=== PATIENT | female | born 1950 | race Caucasian/White ===

== ENCOUNTER 2023-12-17 02:00 | Emergency (ER) | payer MEDICARE, BC, SELFPAY ==
--- OUTSIDE RECORDS SUMMARY | 2023-12-17 02:04 | XMS_ITS | Clinical Summary ---
Author Organization [place] Address [address] [facility] [place] [address] Care Team Providers Care Boot And Saddle Repair Person Name Role Phone Josie Lainez Primary Care Provider Melissa Romero PA-C Unavailable [phone] John Doshi DPM Unavailable Allergies Active Allergy Reactions Criticality Noted Date Comments Dust Mites 06/24/2022 Medications buPROPion (WELLBUTRIN XL) 300 MG 24 hr tablet Take 1 tablet by mouth daily 2 Active clopidogrel (PLAVIX) 75 MG tablet Take 1 tablet by mouth daily 2 Active hydroxyurea (HYDREA) 500 MG capsule Take 500 mg by mouth four times a week Tuesday, , Tuesday and Tuesday 3 Active sertraline (ZOLOFT) 100 MG tablet Take 2 tablets by mouth daily 2 Active simvastatin (ZOCOR) 20 MG tablet Take 20 mg by mouth At Bedtime 2 Active zolpidem (AMBIEN) 5 MG tablet Take 5 mg by mouth nightly as needed for sleep 2 Active fexofenadine (SAMANTHA) 180 MG tablet Take 180 mg by mouth daily Active acetaminophen (TYLENOL) 500 MG tablet Take 500-1,000 mg by mouth every 6 hours as needed for mild pain Active hydroxyurea (HYDREA) 500 MG capsule Take 1,000 mg by mouth three times a week Tuesday, Tuesday and Tuesday Active gabapentin (NEURONTIN) 300 MG capsule Take by mouth 3 times daily Take 2 capsules (600mg) in the morning, 2 capsules (600mg) in the afternoon, and take 3 capsules (900mg) at night. Active lisinopril-hydr ochlorothiazide (ZESTORETIC) 10-12.5 MG tablet Take 1 tablet by mouth daily Active Active Problems Problem Noted Date Diagnosed Date AV heart block 07/31/2022 Lumbar radiculopathy 07/30/2022 Fusion of spine, site unspecified 07/22/2022 Encounters Date Type Department Care Team Description 11/11/2023 MyC Medical Advice [facility] [address] [place] [address] May from Last 3 Months Social History Tobacco Use Types Packs/Day Years Used Date Smoking Tobacco: Never Smokeless Tobacco: Never Tobacco Cessation:Counseling Given: Not Answered Alcohol Use Standard Drinks/Week Comments Yes 0 (1 standard drink = 0.6 oz pur e alcohol) rarely PHQ-2 Answer Date Recorded PHQ-2 Score 0 11/09/2022 Adolescent Education Answer Date Record ed Getting School Help Needed Not on file 11/09 Comments No Sex and Gender Information Value Date Recorded Sex Assigned at Not on file Legal Sex Female 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 Gender Identity Not on file Sexual Orientation Not on file Last Filed Vital Signs Vital Sign Reading Time Taken Comments Blood Pressure 132/70 08/04/2023 10:38 AM CDT Pulse 67 11/09/2022 9:55 AM CDT Temperature 36.8 ??C (98.3 ??F) 08/03/2022 4:00 AM CD T Respiratory Rate 18 08/03/2022 4:00 AM CDT Oxygen Saturation 97% 11/09/2022 9:55 AM CDT Inhaled Oxygen Concentration - - Weight 80.7 kg (178 lb) 08/04/2023 10:38 AM CDT Height 175.3 cm (5' 9) 08/04/2023 10:38 AM CDT Body Mass Index 26.29 08/04/2023 10:38 AM CDT Plan of Treatment Upcoming Encounters Date Type Department Care Team (Late st Contact Info) Description 02/14/2024 1:00 PM TOOL AND MACHINE MAINTAINER Ancillary Procedure M [facility] [address] [place] [phone] Zak Samson MD [address] [place] [place] [id number] 02/14/2024 2:00 PM TOOL AND MACHINE MAINTAINER Office Visit M [facility] [place] [address] [place] [phone] Melissa Romero PA-C [address] [place] [address] Health Maintenance Due Date Last Done Comments ADVANCE CARE PLANNING 1950 ANNUAL REVIEW OF HM ORDERS [address] CT COLONOGRAPHY 1950 FLEX SIG 1950 sDNA (Cologuard) 1950 COLONOSCOPY 1960 HEPATITIS C SCREENING 1968 RSV VACCINE (1 - Risk 60-74 years 1-dose series) 2010 FALL RISK ASSESSMENT 05/08/2015 LIPID 11/08/2015 11/07/2010 COVID-19 Vaccine (3 - Pfizer risk series) 06/16/2020 05/19/2020, 04/28/2020 MEDICARE ANNUAL WELLNESS VISIT 11/10/2022 11/10/2021, 10/07/2020, 09/05/2019, Additional history exists PHQ-2 (once per calendar year) 2023 11/09/2022 BMP 08/04/2023 08/03/2022, 07/15, 08/01/2022, Additional history exists COLORECTAL CANCER SCREENING 09/21/2023 FIT 09/21/2023 09/20/2022 INFLUENZA VACCINE (#1) 2023 , 11/17/2022, 11/16/2021, Additional history exists MAMMO SCREENING 11/30/2024 11/30/2022, 11/14, 11/25/2021, Additional history exists GLUCOSE 08/03/2025 08/03/2022, 07/15, 08/02/2022, Additional history exists DTAP/TDAP/TD IMMUNIZATION (3 - Td or Tdap) 11/11/2031 11/10/2021, 10/12/2011, 11/26/2003, Additional history exists DEXA 09/11/2034 09/12/2019 Pneumococcal Vaccine: 65+ Years Completed 01/26/2017, 01/20/2016 ZOSTER IMMUNIZATION Completed 09/18/2021, 05/02/2021, 04/25/2014 HPV IMMUNIZATION Aged Out No longer e ligible based on patient's age to complete this topic MENINGITIS IMMUNIZATION Aged Out No l onger eligible based on patient's age to complete this topic RSV MONOCLONAL ANTIBODY Aged Out No l onger eligible based on patient's age to complete this topic Medical Devices Implanted Type Area Cable Testers Helper Device Identifier Shelf Expiration Date Model / Serial / Lot Imp Lead Pacing Bipolar Capsurefix Novus 52cm 5076-52 - [id number] Implanted:Qt y: 1 on 08/02/2022 at [facility] [employer]s [employer] 05/12/2024 5076-52 / [id number] / [id number] Imp Lead Pacing Bipolar Capsurefix Novus 45cm 5076-45 - [id number] Implanted:Qt y: 1 on 08/02/2022 at [facility] [employer] 05/17/2024 5076-45 / [id number] / [id number] Medtronic I* 5076 Capsurefix Novus Mri Surescan [id number] Implanted: (Quantity not on file) Leads [employer] 5076 CAPSUREFIX NOVUS MRI SURESCAN / [id number] / Kane Spinal Pathloc-L Curve [id number] 0181-06287 - [id number] Implanted:Qt y: 1 on 07/22/2022 by Yudelka Girard MD at [facility] Metallic Hardware/An chor Spine Lumbar [employer] SP[employer] 01/05/2027 [id number] / / [id number] Screw Bone Pathloc-L Closed 2 Thrd 038c80n4.5mm 4939-7748 - [id number] Implanted:Qt y: 1 on 07/22/2022 by Yudelka Girard MD at [facility] Metallic Hardware/An chor Spine Lumbar [employer]GIS SPINE 01/29/20252-6550S / / [id number] Screw Bone Pathloc-L Closed 2 Thrd 408h20h0.5mm 1322-1342 - [id number] Implanted:Qt y: 3 on 07/22/2022 by Yudelka Girard MD at [facility] Metallic Hardware/An chor Spine Lumbar [employer] SPINE 09/26/2023 2712-6550S / / [id number] Screw Bn 50mm 7.5mm St Cls 2 Thrd 127mm Ns Pathloc-L Spne Lf - [id number] Implanted:Qt y: 2 on 07/22/2022 by Yudelka Girard MD at [facility] Metallic Hardware/An chor Spine Lumbar AEGIS SPINE 10/01/2026 2712-7550S / / [id number] Screw Set Spne Star Opn Lnk Pathloc-L Strl Lf - [id number] Implanted:Qt y: 8 on 07/22/2022 by Yudelka Girard MD at [facility] Metallic Hardware/An chor Spine Lumbar AEGIS SPINE [id number] 12/03/2026 1308-0000S / / [id number] Kane Spinal Pathloc-L Curve [id number] 2526-90262 - [id number] Implanted:Qt y: 1 on 07/22/2022 by Yudelka Girard MD at [facility] Metallic Hardware/An chor Spine Lumbar [employer]GIS SPINE 01/05/2027 2526-49760V / / [id number] Pacemaker Point Clear Mri Xt Dr - [id number] Implanted:Qt y: 1 on 08/02/2022 at [facility] Pacemaker [employer] 12/29/2023 W1DR01 / [id number] / [id number] Medtronic I* W1dr01 Smita Xt Dr Mri [id number] Implanted: (Quantity not on file) Pacemaker [employer] W1DR01 [place] URE XT DR MRI / [id number] / 10cc Mcmillan-Tcp Sponge 25 Mm X 100 Mm Implanted:Qt y: 1 on 07/22/2022 by Yudelka Girard MD at [facility] Spine Lumbar 02/13/2027 AMWS-TCP-10 / [id number] / [id number] 10 Cc Mcmillan-Tcp Sponge 25 Mm X 100 Mm Implanted:Qt y: 1 on 07/22/2022 by Yudelka Girard MD at [facility] Spine Lumbar 02/13/2027 AMWS-TCP-10 / [id number] / [id number] 10cc Mcmillan-Tcp Sponge 25 Mm X 100 Mm Implanted:Qt y: 1 on 07/22/2022 by Yudelka Girard MD at [facility] Spine Lumbar 02/13/2027 AMWS-TCP-10 / [id number] / [id number] Mis Screw 127 Mm 7.5 Implanted:Qt y: 2 on 07/22/2022 by Yudelka Girard MD at [facility] Spine Lumbar [id number] 06/09/2025 2712-7545S / / [id number] Ollif Cage 30 X 9.5 X 10 Implanted:Qt y: 1 on 07/22/2022 by Yudelka Girard MD at [facility] Spine Lumbar AMENDIA 99650 / / [id number] Ollif Cage 33 X 9.5 X 11 Implanted:Qt y: 1 on 07/22/2022 by Yudelka Girard MD at [facility] Spine Lumbar AMENDIA 74121 / / [id number] Ollif Cage 30 X 9.5 X 14 Implanted:Qt y: 1 on 07/22/2022 by Yudelka Girard MD at [facility] Spine Lumbar AMENDIA 07091 / / [id number] Procedures Procedure Name Priority Date/Time Associated Diagnosis Comments BASIC METABOLIC PANEL Routine 08/03/2022 5:47 AM CDT LIPID PROFILE Routine 11/07/2010 7:35 AM CDT from Last 3 Months or Most Recently Relevant to Health Maintenance Results * (ABNORMAL) Basic metabolic panel (08/03/2022 5:47 AM CDT) Sodium 133(L) 136 - 145 mmol/L 08/03/2022 6:38 AM CDT LABORATORY Potassium 4.3 3.4 - 5.3 mmol/L 08/03/2022 6:38 AM CDT LABORATORY Chloride 98 98 - 107 mmol/L 08/03/2022 6:38 AM CDT LABORATORY Carbon Dioxide (CO2) 24 22 - 29 mmol/L 08/03/2022 6:38 AM CDT LABORATORY Anion Gap 11 7 - 15 mmol/L 08/03/2022 6:38 AM CDT LABORATORY Urea Nitrogen 15.8 8.0 - 23.0 mg/dL 08/03/2022 6:38 AM CDT LABORATORY Creatinine 0.75 0.51 - 0.95 mg/dL 08/03/2022 6:38 AM CDT LABORATORY Calcium 9.2 8.8 - 10.2 mg/dL 08/03/2022 6:38 AM CDT LABORATORY Glucose 114(H) 70 - 99 mg/dL 08/03/2022 6:38 AM CDT LABORATORY GFR Estimate 84 >60 mL/min/1.7 3m2 08/03/2022 6:38 AM CDT LABORATORY Comment:eGFR calculated us2020 CKD-EPI equation. Blood STRUCTURE OF RIGHT HAND / Unknown Venipuncture / Unknown 08/03/2022 5:47 AM CDT 08/03/2022 6:10 AM CDT us Andrade Silveira MD LAB - BLOOD ORDERABLES Fi nal Result LABORATORY [facility] [address] floor, [address] [place] [address], [place] [phone] * Lipid Profile (11/07/2010 7:35 AM CDT) Cholesterol 168 0 - 200 mg/dL [facility] Comment: LDL Cholesterol is the primary guide to therapy. The NCEP recommends further evaluation of: patients with cholesterol greater than 200 mg/dL if additional risk factors are present, cholesterol greater than 240 mg/dL, triglycerides greater than 150 mg/dL, or HDL less than 40 mg/dL. Triglycerides 76 0 - 150 mg/dL [facility] HDL Cholesterol 54 50 - 110 mg/dL [facility] LDL Cholesterol Calculated 99 0 - 129 mg/dL [facility] Comment: LDL Cholesterol is the primary guide to therapy: LDL-cholesterol goal in high risk patients is <100 mg/dL and in very high risk patients is <70 mg/dL. VLDL-Cholesterol 15 0 - 30 mg/dL [facility] Cholesterol/HDL Ratio 3.1 0.0 - 5.0 [facility] 11/07/2010 7:35 AM CDT 11/07/2010 7:43 AM CDT Danya Orellana MD LAB - BLOOD ORDERABLES Final R esult [facility] [address] [place], [place] [address] [phone] from Last 3 Months or Most Recently Relevant to Health Maintenance Insurance [facility] [employer] BLUE MEDICARE MEDICARE BS [employer] MEDICARE Advance Directives For more information, please contact: [phone] * Full Code (Latest Code Status on File) Date Activated Date Inactivated Comments 07/31/2022 3:57 PM 08/03/2022 6:06 PM All basic an d advanced life-sustaining interventions are performed as appropriate Question Answer Comments Code status determined by: Discussion with patie nt/ legal decision maker * Full Code Date Activated Date Inactivated Comments 07/30/2022 5:13 AM 07/31/2022 2:29 PM All basic an d advanced life-sustaining interventions are performed as appropriate Question Answer Comments Code status determined by: Discussion with patie nt/ legal decision maker * Full Code Date Activated Date Inactivated Comments 07/22/2022 10:53 AM 07/23/2022 5:39 PM All basic and advanced life-sustaining interventions are performed as appropriate Question Answer Comments Code status determined by: Discussion with patie nt/ legal decision maker Care Teams Boot And Saddle Repair Person Relationship Specialty Start Date End Date Josie Lainez [address] [facility] [place] [address] PCP - General Internal Medicine 06/30/22 Melissa Romero PA-C [address] [place] [address] Assigned Heart and Vascular Provider 11/20/22 John Doshi DPM [address] [facility] [address] [place] [address] Assigned Surgical Provider 08/07/23
--- OUTSIDE RECORDS SUMMARY | 2023-12-17 02:04 | XMS_ITS | Encounter Summary ---
Author Organization [employer] Address [address] [place] [address] Care Team Providers Care Documentation Spec Name Role Phone Josie Lainez MD Primary Care Provider [phone] Encounter Details Date Type Department Care Team (Latest Contact Info) Description 12/05/2023 Orders Only [facility] DEPARTMENT Provider, [place] [address] Social History Tobacco Use Types Packs/Day Years Used Date Smoking Tobacco: Never Smokeless Tobacco: Never Comments:None Alcohol Use Standard Drinks/Week Comments Not Currently 0 (1 standard drink = 0.6 oz pur e alcohol) Occasional [facility] Utilities Answer Date Recorded In the past 12 months has e [employer] mobile, gas, oil, or water [employer] threatened to shut off services in your home? No 12/05/2023 Humiliation, Afraid, Rape, and Kick questionnair e Answer Date Recorded Within the last year, have y ou been afraid of your partner or ex-partner? No 12/05/2023 Within the last year, have y ou been humiliated or emotionally abused in other ways by your partner or ex-partner? No Within the last year, have y ou been kicked, hit, slapped, or otherwise physically hurt by your partner or ex-partner? No 12/05/2023 Within the last year, have y ou been raped or forced to have any kind of sexual activity by your partner or ex-partner? No 12/05/2023 AUDIT-C Answer Date Recorded Q1: How often do you have a drink containing alc ohol? Monthly or less 12/12/2019 Q2: How many drinks containi ng alcohol do you have on a typical day when you are drinking? 1 or 2 12/12/2019 Frequency of Binge Drinking Not on file 11/15 PHQ-2 Answer Date Recorded PHQ-2 Score 0 11/16/2023 Hunger Vital Sign Answer Date Recorded Within the past 12 months, y ou worried that your food would run out before you got the money to buy more. Never true 12/05/19 24 Within the past 12 months, t he food you bought just didn't last and you didn't have money to get more. Never true 12/05/2023 PRAPARE - Transportation Answer Date Re corded In the past 12 months, has l ack of transportation kept you from medical appointments or from getting medications? No 11/15 In the past 12 months, has l ack of transportation kept you from meetings, work, or from getting things needed for daily living? No 12/05/2023 Housing Stability Vital Sign Answer Marcin e Recorded In the last 12 months, was t here a time when you were not able to pay the mortgage or rent on time? No 12/05/2023 In the past 12 months, how m any times have you moved where you were living? 0 12/05/2023 At any time in the past 12 m [facility], were you homeless or living in a senior care (including now)? No 12/05/2023 Sex and Gender Information Value Date Recorded Sex Assigned at Not on file Gender Identity Not on file Sexual Orientation Not on file documented as of this encounter Plan of Treatment Upcoming Encounters Date Type Department Care Team (Late st Contact Info) Description 12/21/2023 12:45 PM TISSUE REWINDER Appointment [facility] [address] [place] [address] Lena Puente 12/28/2023 10:00 AM TISSUE REWINDER Appointment [facility] [address] [place] [address] 01/19/2024 11:30 AM TISSUE REWINDER Appointment [facility] [address] [place] [address] Yanelis Welch MD [address] [facility] [address] [place] [address] documented as of this encounter Goals Goal Patient Goal Type Associated Problems Recent Progress Patient-Stated? Author Right Knee Replacement Care Plan ET PROE RIGHT KNEE No John Escalante GENERAL OUTCOMES KNEE REPLACEMENT - RIGHT Care Plan ET PROE GENERAL OUTCOMES KNEE REPLACEMENT - RIGHT No John Escalante documented as of this encounter Procedures Procedure Name Priority Date/Time Associated Diagnosis Comments EKG 12/05/2023 documented in this encounter Results * EKG (12/05/2023) Interface Provider MD SAMUEL documented in this encounter Visit Diagnoses Not on filedocumented in this encounter Additional Health Concerns Active Problems Noted Date Diagnosed Date ET PROE SHELL PROBLEM TEMPLATE 08/05/2023 ET PROE RIGHT KNEE 08/05/2023 ET PROE GENERAL OUTCOMES KNEE REPLACEMENT - RIGH T 08/05/2023 documented as of this encounter Care Teams Documentation Spec Relationship Specialty [place] [address] [facility] [place] [address] PCP - General 05/16/10 documented as of this encounter
--- OUTSIDE RECORDS SUMMARY | 2023-12-17 02:04 | XMS_ITS | Encounter Summary ---
Author Organization [employer] Address [address], [place] [address] Care Team Providers Care Balance Engineer Name Role Phone Josie Lainez MD Primary Care Provider [phone] Reason for Visit * Reason Comments Post-Op Follow Up Call Encounter Details Date Type Department Care Team (Late st Contact Info) Description 12/12/2023 Telephone Orthopedics at [facility] Orthopedics at [place] [address] [place] [id number] Yanelis Welch MD [address] [place] [address] [address] [place], [place] [address] Post-Op Follow Up Call Social History Tobacco Use Types Packs/Day Years Used Date Smoking Tobacco: Never Smokeless Tobacco: Never Comments:None Alcohol Use Standard Drinks/Week Comments Not Currently 0 (1 standard drink = 0.6 oz pur e alcohol) Occasional C Utilities Answer Date Recorded In the past 12 months has [employer] electric, gas, oil, or water company threatened to shut off services in your [...] any time in the past 12 m [facility], were you homeless or living in a halfway (including now)? No 12/05/2023 Sex and Gender Information Value Date Recorded Sex Assigned at Not on file Gender Identity Not on file Sexual Orientation Not on file documented as of this encounter Nursing Notes * Taryn Winter RN - 12/12/2023 9:00 AM CDT Post-operative follow up call placed to patient at home. Date of surgery: 12/05/2023 R TKA Date of discharge: 12/08/2023 -Pain: Pt states she is doing well. She has had family stay the last couple nights but last night stayed alone but did very well. Taking her pain medication as needed. -Bowels: She states she has not had a BM since before surgery. She states she is taking the Senna and Glycolax as directed. Encouraged her to increase fluids and fiber (fruits, vegetables, prune juice, etc). If no results, she could try a glycerin suppository and/or Fleets Enema, which are both over the counter. She verbalized understanding. -Incision: Mepilex intact. No new drainage, no redness. Encouraged to call with any questions or concerns before or after next appointment. Post hospitalization discharge follow up call completed. See doc flowsheet: SURGDC for details documented in this encounter Plan of Treatment Upcoming Encounters Date Type Department Care Team (Late st Contact Info) Description 12/21/2023 12:45 PM CAGE FIGHTER Appointment [facility] [place] [address] [place] [address] Lena Puente 12/28/2023 10:00 AM CAGE FIGHTER Appoint[address] [facility] [address] [place] [address] 01/19/2024 11:30 AM CAGE FIGHTER Appointment [facility] [address] [place] [address] Yanelis Welch MD [address] [facility] [address] [place] [address] documented as of this encounter Goals Goal Patient Goal Type Associated Problems Recent Progress Patient-Stated? Author Right Knee Replacement Care Plan ET PROE RIGHT KNEE No John Escalante GENERAL OUTCOMES KNEE REPLACEMENT - RIGHT Care Plan ET PROE GENERAL OUTCOMES KNEE REPLACEMENT - RIGHT No John Escalante documented as of this encounter Visit Diagnoses Not on filedocumented in this encounter Additional Health Concerns Active Problems Noted Date Diagnosed Date ET PROE SHELL PROBLEM TEMPLATE 08/05/2023 ET PROE RIGHT KNEE 08/05/2023 ET PROE GENERAL OUTCOMES KNEE REPLACEMENT - RIGH T 08/05/2023 documented as of this encounter Care Teams Balance Engineer Relationship Specialty [place] [address] [facility] [place] [address] PCP - General 05/16/10 documented as of this encounter
--- OUTSIDE RECORDS SUMMARY | 2023-12-17 02:04 | XMS_ITS | Encounter Summary ---
Author Organization [employer] Address [address] [address] Care Team Providers Care Coconut Candy Maker Name Role Phone Josie Lainez MD Primary Care Provider [phone] Reason for Visit * Reason Comments Refill dilaudid Encounter Details Date Type Department Care Team (Late st Contact Info) Description 12/16/2023 Refill [facility] [address] [place] [address] Yanelis Welch MD [address] [facility] [address] [place], [place] [address] Refill (dilaudid) Social History Tobacco Use Types Packs/Day Years Used Date Smoking Tobacco: Never Smokeless Tobacco: Never Comments:None Alcohol Use Standard Drinks/Week Comments Not Currently 0 (1 standard drink = 0.6 oz pur e alcohol) Occasional [facility] Utilities Answer Date Recorded In the past 12 months has [employer], gas, oil, or water [employer] threatened to shut off services in your [...] any time in the past 12 [facility], were you homeless or living in a retirement (including now)? No 12/05/2023 Sex and Gender Information Value Date Recorded Sex Assigned at Not on file Gender Identity Not on file Sexual Orientation Not on file documented as of this encounter Nursing Notes * Sol Appiah RN - 12/16/2023 1:55 PM CDT Patient notified that the patient medication was sent to the pharmacy. * Shannan Bryant RN - 12/16/2023 11:49 AM CDT Action: Refill Request for Dilaudid. Please review/sign if appropriate. Pt states that she thinks everything is going well. PT is going well. Doesn't sleep well, but that isn't new. Incision looks good. Denies constipation. Pt has no questions at this time. Triage to call back if there is an update before 1700. DOS: 12/05/23 Rt TKA Last filled: 12/08/23 #30 tabs Pharmacy preference verified, medication pended. Requested Prescriptions Pending Prescriptions Disp Refills HYDROmorphone (DILAUDID) 2 MG tablet 30 Tablet 0 Sig: Take 0.5-1 Tablets (1-2 mg) by mouth every 4 hours as needed for Pain. Take half tablet for pain rated at 4-7. Take 1 tablet for pain rated 8-10. Indications: Moderate to Moderately Severe pain Future Appointments Date Time Provider Department Center 12/21/2023 12:45 PM Lena Puente PN [facility] 12/28/2023 10:00 AM LAB, [facility] 01/19/2024 11:30 AM Yanelis Welch MD [facility] * Erna Aguiar - 12/16/2023 11:05 AM CDT Pt. called back to speak with care team. Please call to advise. * Alison Ying RN - 12/16/2023 10:03 AM CDT 12/05/23 Rt TKA Pui LVM for patient to CB to discuss refill. Main [facility] line provided. * Alejandro Rolon - 12/16/2023 9:53 AM CDT MEDICATION QUESTIONS / REFILL REQUESTS Are you calling about medication questions or a refill request? Refill Request REFILL REQUEST What medication are you asking to refill (name or type -- ask patient to provide proper spelling from prescription container): HYDROmorphone (DILAUDID) Dose: 2 MG tablet Date last filled: 12/08/2023 Patient states currently takin tabs Twice a day (BID) Pharmacy (if applicable): [facility] [id number] [place] [address] [address] How many doses do you have left: 5 tabs left Comments: N/A Is another medication refill needed: No If we are unable to reach you can we leave a detailed message on your voicemail? Yes If we are unable to reach you can we send you a message in Are You a Human? Yes [Dial Polisher/Firm Administrator: Relay to patient; We make every effort to get to you same day,however it may take 1-2 business days depending on the nature of the communication] GENERAL QUESTIONS How may we help you today? Pt would like a callback. Describe your symptoms/concerns: Pt would like to discuss getting an injection in her non surgical knee. When did the issue start: N/A Have you been seen for this recently?: No If we are unable to reach you can we leave a detailed message on your voicemail? Yes If we are unable to reach you can we send you a message in Are You a Human? Yes [Dial Polisher/Firm Administrator: Relay to patient; We make every effort to get back to you sameday, however it may take 1-2 business days depending on the nature of the communication.] documented in this encounter Plan of Treatment Upcoming Encounters Date Type Department Care Team (Late st Contact Info) Description 12/21/2023 12:45 PM HOT HEADER OPERATOR Appointment [facility] [address] [place] [address] Lena Puente 12/28/2023 10:00 AM HOT HEADER OPERATOR Appointment [facility] [address] [place] [address] 01/19/2024 11:30 AM HOT HEADER OPERATOR Appointment [facility] [address] [place] [address] Yanelis Welch MD [address] [facility] [address] [place] [address] documented as of this encounter Goals Goal Patient Goal Type Associated Problems Recent Progress Patient-Stated? Author Right Knee Replacement Care Plan ET PROE RIGHT KNEE No John Escalante GENERAL OUTCOMES KNEE REPLACEMENT - RIGHT Care Plan ET PROE GENERAL OUTCOMES KNEE REPLACEMENT - RIGHT No John Escalante documented as of this encounter Visit Diagnoses Diagnosis Status post total right knee replacement- Primary documented in this encounter Additional Health Concerns Active Problems Noted Date Diagnosed Date ET PROE SHELL PROBLEM TEMPLATE 08/05/2023 ET PROE RIGHT KNEE 08/05/2023 ET PROE GENERAL OUTCOMES KNEE REPLACEMENT - RIGH T 08/05/2023 documented as of this encounter Care Teams Coconut Candy Maker Relationship Specialty [place] [address] [facility] [place] [address] PCP - General 05/16/10 documented as of this encounter
--- OUTSIDE RECORDS SUMMARY | 2023-12-17 02:04 | XMS_ITS | Encounter Summary ---
Author Organization [employer] Address [address] [facility] [place] [address] Care Team Providers Care Quality Assurance Associate Name Role Phone Josie Lainez Primary Care Provider [phone] Melissa Romero PA-C Unavailable [phone] John Doshi DPM Unavailable [phone] Encounter Details Date Type Department Care Team (Late st Contact Info) Description 11/11/2023 MyC Medical Advice [facility] Outing [address] [facility] [address] [place] [address] May Social History Tobacco Use Types Packs/Day Years Used Date Smoking Tobacco: Never Smokeless Tobacco: Never Alcohol Use Standard Drinks/Week Comments Yes 0 (1 standard drink = 0.6 oz pur e alcohol) rarely PHQ-2 Answer Date Recorded PHQ-2 Score 0 11/09/2022 Adolescent Education Answer Date Record ed Getting School Help Needed Not on file 11/09 Comments No Sex and Gender Information Value Date Recorded Sex Assigned at Not on file Legal Sex Female 3:21 AM CINDER WORKER Gender Identity Not on file Sexual Orientation Not on file documented as of this encounter Plan of Treatment Upcoming Encounters Date Type Department Care Team (Late st Contact Info) Description 02/14/2024 1:00 PM CINDER WORKER Ancillary Procedure [facility] [address] [facility] [address] [place] [phone] Zak Samson MD [address] [facility] [place] [address] 02/14/2024 2:00 PM CINDER WORKER Office Visit [facility] Delmy [address] [facility] [address] [place] [phone] Melissa Romero PA-C [address] [facility] [address] [place] [address] documented as of this encounter Visit Diagnoses Not on filedocumented in this encounter Care Teams Quality Assurance Associate Relationship Specialty Start Date End Date Migel Mariella [address] [facility] [place] [address] PCP - General Internal Medicine 06/30/22 Melissa Romero PA-C [address], [facility] [address] [place] [address] Assigned Heart and Vascular Provider 11/20/22 John Doshi DPM [address] [facility] [address] [place] [address] Assigned Surgical Provider 08/07/23 documented as of this encounter
--- OUTSIDE RECORDS SUMMARY | 2023-12-17 02:04 | XMS_ITS | Referral Summary ---
Author Organization [employer] Address [address] [facility] [place] [address] Care Team Providers Care Linux Architect Name Role Phone Josie Lainez Primary Care Provider Melissa Romero PA-C Unavailable [phone] John Doshi DPM Unavailable Encounters Date Type Department Care Team Description 11/11/2023 [facility] Medical Advice [facility] [address] [place] [address] May from Last 3 Months Allergies Active Allergy Reactions Criticality Noted Date [...] 07/30/2022 Fusion of spine, site unspecified 07/22/2022 Social History Tobacco Use Types Packs/Day Years [...] on file Legal Sex Female 3:21 AM SUPERVISOR JOINERS Gender Identity Not on file Sexual Orientation [...] st Contact Info) Description 02/14/2024 1:00 PM SUPERVISOR JOINERS Ancillary Procedure [facility] [address] [facility] [address] [place] [phone] Zak Samson MD [address] [place] [place] [address] 02/14/2024 2:00 PM SUPERVISOR JOINERS Office Visit [facility] [place] [address] [facility] [address] [place] [phone] Melissa Romero PA-C [address] [place] [address] Medical Devices Implanted Type Area Learning And Development Director Device Identifier Shelf Expiration Date Model / Serial / Lot Imp Lead Pacing Bipolar Capsurefix Novus 52cm 5076-52 - [id number] Implanted:Qt y: 1 on 08/02/[address] [facility] [employer]s [employer] 05/12/2024 5076-52 / [id number] / [id number] Imp Lead Pacing Bipolar Capsurefix Novus 45cm 5076-45 - [id number] Implanted:Qt y: 1 on 08/02/[address] [facility] [employer] 05/17/2024 5076-45 / [id number] / [id number] Medtronic I* 5076 Capsurefix Novus Mri Surescan [id number] Implanted: (Quantity not on file) Leads [employer] 5076 CAPSUREFIX NOVUS MRI SURESCAN / [id number] / Kane Spinal Pathloc-L Curve 607e7sl [id number] - [id number] Implanted:Qt y: 1 on 07/22/2022 by Yudelka Girard MD at [facility] Metallic Hardware/An chor Spine Lumbar [employer] 01/05/2027 [id number] / / [id number] Screw Bone Pathloc-L Closed 2 Thrd 045k59c3.5mm 8132-4047 - [id number] Implanted:Qt y: 1 on 07/22/2022 by Yudelka Girard MD at [facility] Metallic Hardware/An chor Spine Lumbar [employer] SP[employer] 01/29/20252-6550S / / [id number] Screw Bone Pathloc-L Closed 2 Thrd 942s98x1.5mm 5403-4739 - [id number] Implanted:Qt y: 3 on 07/22/2022 by Yudelka Girard MD at [facility] Metallic Hardware/An chor Spine Lumbar [employer] SP[employer] 09/26/20232-6550S / / [id number] Screw Bn 50mm 7.5mm St Cls 2 Thrd 127mm Ns Pathloc-L Spne Lf - [id number] Implanted:Qt y: 2 on 07/22/2022 by Yudelka Girard MD at [facility] Metallic Hardware/An chor Spine Lumbar [employer] SP[employer] 10/01/2026 [id number] / / [id number] Screw Set Spne Star Opn Lnk Pathloc-L Strl Lf - [id number] Implanted:Qt y: 8 on 07/22/2022 by Yudelka Girard MD at [facility] Metallic Hardware/An chor Spine Lumbar [employer] SPINE [id number] 12/03/2026 1308-0000S / / [id number] Kane Spinal Pathloc-L Curve 471u6vg 2526-54436 - [id number] Implanted:Qt y: 1 on 07/22/2022 by Yudelka Girard MD at [facility] Metallic Hardware/An chor Spine Lumbar [employer] SPINE 01/05/2027 [id number] / / [id number] Pacemaker Smita Mri Xt - [id number] Implanted:Qt y: 1 on 08/02/[address] [facility] Pacemaker [employer] 12/29/2023 W1DR01 / [id number] / [id number] Medtronic I* [id number] Smita Xt Dr Mri [id number] Implanted: (Quantity not on file) Pacemaker [employer] W1DR01 [place] URE XT DR MRI / [id number] / 10cc Mcmillan-Tcp Sponge 25 Mm X 100 Mm Implanted:Qt y: 1 on 07/22/2022 by Yudelka Girard MD at [facility] Spine Lumbar 02/13/2027 AMWS-TCP-10 / [id number] / [id number] 10 Cc Mcmillan-Tcp Sponge 25 Mm X 100 Mm Implanted:Qt y: 1 on 07/22/2022 by Yudelka Girard MD at [facility] Spine Lumbar 02/13/2027 AMWS-TCP-10 / [id number] / [id number] 10cc Mcmillan-Tcp Sponge 25 Mm X 100 Mm Implanted:Qt y: 1 on 07/22/2022 by Yudelka Girard MD at [facility] Spine Lumbar 02/13/2027 AMWS-TCP-10 / [id number] / [id number] Mis Screw 127 Mm 7.5 Implanted:Qt y: 2 on 07/22/2022 by Yudelka Girard MD at [facility] Spine Lumbar [id number] 06/09/2025 2712-7545S / / [id number] Ollif Cage 30 X 9.5 X 10 Implanted:Qt y: 1 on 07/22/2022 by Yudelka Girard MD at [facility] Spine Lumbar AMENDIA [id number] / / [id number] Ollif Cage 33 X 9.5 X 11 Implanted:Qt y: 1 on 07/22/2022 by Yudelka Girard MD at [facility] Spine Lumbar AMENDIA [id number] / / [id number] Ollif Cage 30 X 9.5 X 14 Implanted:Qt y: 1 on 07/22/2022 by Yudelka Girard MD at [facility] Spine Lumbar AMENDIA [id number] / / [id number] Procedures Procedure Name Priority Date/Time Associated Diagnosis [...] 5:47 AM CDT 08/03/2022 6:10 AM CDT Andrade Silveira MD LAB - BLOOD ORDERABLES Fi nal Result LABORATORY [facility] [address] floor, [address] [place] [address], [place] [phone] * Lipid Profile (11/07/2010 7:35 AM CDT) Cholesterol 168 0 - 200 mg/dL [facility] Comment: LDL Cholesterol is the primary guide to therapy. The NCEP recommends further evaluation of: patients with cholesterol greater than 200 mg/dL if additional risk factors are present, cholesterol greater than 240 mg/dL, triglycerides greater than 150 mg/dL, or HDL less than 40 mg/dL. Triglycerides 76 0 - 150 mg/dL [facility] HDL Cholesterol 54 50 - 110 mg/dL [facility] LDL Cholesterol Calculated 99 0 - 129 mg/dL [facility] Comment: LDL Cholesterol is the primary guide to therapy: LDL-cholesterol goal in high risk patients is <100 mg/dL and in very high risk patients is <70 mg/dL. VLDL-Cholesterol 15 0 - 30 mg/dL [facility] Cholesterol/HDL Ratio 3.1 0.0 - 5.0 [facility] 11/07/2010 7:35 AM CDT 11/07/2010 7:43 AM CDT Danya Orellana MD LAB - BLOOD ORDERABLES Final R esult [facility] [address] [facility] [place], [place] [address] [phone] from Last 3 Months or Most Recently Relevant to Health Maintenance Insurance [facility] MEDICARE [facility] [place] MEDIC[place] Advance Directives For more information, please contact: [phone] * Full Code (Latest Code Status on [...] patie nt/ legal decision maker Care Teams Linux Architect Relationship Specialty Start Date End Date Josie Lainez [address] [facility] [place] [address] PCP - General Internal Medicine 06/30/22 Melissa Romero PA-C [address] [place] [address] Assigned Heart and Vascular Provider 11/20/22 John Doshi DPM [address] [facility] [address] [place] [address] Assigned Surgical Provider 08/07/23
--- OUTSIDE RECORDS SUMMARY | 2023-12-17 02:04 | XMS_ITS | Encounter Summary ---
Author Organization [employer] Address [address] [address] Care Team Providers Care Grade And Center Marker Name Role Phone Josie Lainez MD Primary Care Provider [phone] Reason for Visit * Auth/Cert (Routine) Specialty Diagnoses / Procedures Referred By Contac t Referred To Contact Diagnoses Primary osteoarthritis of right knee Procedures TOTAL KNEE JOINT REPLACEMENT Referral ID Status Reason Start Date Expiration Date Visits Re quested Visits Authorized [id number] 1 1 Encounter Details Date Type Department Care Team (Late st Contact Info) Description 12/05/2023 7:27 AM CDT Anesthesia Event [facility] [address] [facility]. [place], [place] [address] Haris Fonseca MD [address] [place], [place] [address] Anesthesia Record Procedure Summary Procedure Name Responsible Anesthesiologist Anesthesia Start Time Anesthesia Stop Time TOTAL KNEE JOINT REPLACEMENT (Right: Knee) Haris Fonseca MD 12/05/23 0727 12/05/23 0917 Events Date Time Event Comment 12/05/2023 0702 0727 An Start 0731 An Start Data 0745 Face Tent 0745 MD/DO Present 0746 Quick Note Disregard value s for all non-general cases; ETCO2 may be used for respiratory wave form monitoring 0833 MD/DO Present 0837 Quick Note cementing 0911 an stop data 0917 Care Handoff Note I discusse d with the receiving nurse and we: 1) Identified the patient, mondragon family member(s) or patient surrogate 2) Identified the responsible practitioner 3) Reviewed the pertinent medical history 4) Discussed the surgical/procedure course 5) Reviewed intra-op anesthesia management and issues during anesthesia 6) Set expectations for the post-procedure period 7) Allowed opportunity for questions and acknowledgement of understanding of report Electronically signed by Suzette Finney APRN, [facility] CENTRE MANAGER 0917 An [facility] transferre d. Meds Name Total midazolam injection 2 mg/2 mL (VERSED) 1 .5 mg fentaNYL injection (SUBLIMAZE) 50 mcg propofol 10 mg/mL for procedural sedatio n (aka diPRIvan) 266.91 mg ceFAZolin (ANCEF) 2 g in dextrose 100 mL premade IVPB 2 g dexAMETHasone (DECADRON) injection 8 mg 8 mg tranexamic acid (CYKLOKAPRON ) 1000 mg in sodium chloride 0.7% (10 mg/mL) 100 mL IVPB premix 2,000 mg BUPivacaine-dextrose 0.75-8.25% intrathe nicole injection 1.4 mL lidocaine PF 1 % injection 1 mL lactated ringers infusion 800 mL * Agents Name 02 Delivery Device O2 N2O Air Nitrous Oxide () * Blood No blood administrations on file. Lines, Drains, and Airways Type Details Placement Removal Incision/Surgical Site 12/05/23; 08; # 1; No; Knee; Anterior, Right 12/05/23800 by Leyda Lombardo, RN Peripheral IV Placement Date: 12/05/23; Placement Time: 629; Size (Gauge): 20 G; Orientation: Left; Removal Date: 12/07/23; Removal Time: 1750; Removal Reason: Drainage; Catheter Tip: Intact 12/05/23 06 by Keturah Grace RN 12/07/231750 by Cynthia Thompson, ALEISHA documented in this encounter Social History Tobacco Use Types Packs/Day Years Used Date Smoking Tobacco: Never Smokeless Tobacco: Never Comments:None Alcohol Use Standard Drinks/Week Comments Not Currently 0 (1 standard drink = 0.6 oz pur e alcohol) Occasional [facility] Utilities Answer Date Recorded In the past 12 months has [employer], gas, oil, or water [employer] threatened to shut off services in your [...] any time in the past 12 m [facility], were you homeless or living in a long term (including now)? No 12/05/2023 Sex and Gender Information Value Date Recorded Sex Assigned at Not on file Gender Identity Not on file Sexual Orientation Not on file documented as of this encounter Miscellaneous Notes * Anesthesia Postprocedure Evaluation - Haris Fonseca MD - 12/05/2023 11:22 AM CDT [facility] Anesthesia Post-op Note Patient: Isamar Rich Post-Op Diagnosis: Pre-Op Diagnosis Codes: * Primary osteoarthritis of right knee [M17.11] Procedures performed: TOTAL KNEE JOINT REPLACEMENT (Right: Knee) Anesthesia Type: Spinal Post-op vital signs: Vitals Value Taken Time BP 118/62 12/05/23 1115 Temp 36.1 ??C (97 ??F) 12/05/23 0915 Pulse 60 12/05/23 1121 Resp 18 12/05/23 1121 SpO2 91 % 12/05/23 1121 Vitals shown include unfiled device data. Pain Assessment Preferred Pain Scale: number (Numeric Rating Pain Scale) Last recorded pain score: 0 Post-op assessment: Patient location: PACU Airway Status: Patent Cardiovascular function: Satisfactory Hydration status: Satisfactory PONV: None Level of Consciousness: Awake Fully Participates Postop Assessment: Patient tolerated procedure well. Electronically signed by: Haris Fonseca MD 12/05/2023 11:22 AM * Anesthesia Procedure Notes - Haris Fonseca MD - 12/05/2023 7:45 AM CDT Associated Order(s): Spinal Block Spinal Anesthetic Performed by: Haris Fonseca MD Authorizing/Supervising provider: Haris Fonseca MD Block end: 12/05/2023 7:45 AM Performed by: Anesthesiologist Patient Location OR Checklist: risks and benefits discussed, IV checked, anesthesia consent, monitors and equipment checked, patient identified and pre-op evaluation Correct patient: yes Correct procedure: yes Correct position: yes Correct site: yes Patient Position: sitting Sterile prep: Betadine, Patient draped, Hat, Mask and Sterile gloves Insertion site: L3-4 Approach: right paramedian Needle type: Maikol Needle gauge: 25 G Needle length: 3.5 in Introducer needle used Attempts: 1 Redirects: 3 (touched to bone and redirected) Monitoring: continuous pulse ox and resistance welder CSF: adequate CSF flow from spinal needle and CSF clear Paresthesias: No and resolved (not true paresthesia, but more localized to right) Events: None Complications: none Pt tolerated procedure well Notes: 1 mL 1% Lidocaine used for skin local prior to SAB Performed and signed by Haris Fonseca MD Medications from procedure kit: lidocaine PF 1 % injection - Subcutaneous 1 mL - 12/05/2023 7:46:00 AM BUPivacaine-dextrose 0.75-8.25% intrathecal injection - Intrathecal 1.4 mL - 12/05/2023 7:46:00 AM Medications used that are not from kit? No * Anesthesia Preprocedure Evaluation - Haris Fonseca MD - 12/05/2023 6:54 AM CDT [facility] Anesthesia Pre-op Evaluation Procedure: TOTAL KNEE JOINT REPLACEMENT, Right HPI: 73 y.o. old female. Pre-Op Diagnosis Codes: * Primary osteoarthritis of right knee [M17.11] Last Fluid Intake Time: 2300 Last Fluid Intake Date: 12/04/23 Last Food Intake Date: 12/04/23 Last Food Intake Time: 1800 No Known Allergies Past Medical History: Diagnosis Date Acute deep vein thrombosis (DVT) of lower extremity (HRC) 11/17/2023 Small clot in her leg after surgery Coagulation defect (HRC) 1982 Primary thrombocytosis Floaters 2010 Hyperlipidemia 07/21/2002 Hypertension 11/26/2003 Major depressive disorder, recurrent episode, in full remission (HRC) 10/13/2010 Migraine Common 06/26/2008 Pulmonary Nodule 06/26/2008 Rhinitis Allergic NOS 07/21/2002 Right arm numbness 09/01/2020 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 Thrombocythemia 11/13/2010 TIA (transient ischemic attack), dysarthria, ataxia, hosp [facility], 10/2511/06/2010 Patient Active Problem List Diagnosis Hyperlipidemia (HRC) Allergic rhinitis Essential hypertension (HRC) Psoriasis Migraine without aura Disease of lung Major depressive disorder, recurrent episode, in full remission (HRC) Thrombocythemia TIA (transient ischemic attack) Small bowel obstruction (HRC) Insomnia High frequency hearing loss LBBB (left bundle branch block) Status cardiac pacemaker Lumbar radiculopathy Sciatic leg pain (HRC) Primary osteoarthritis of right knee Acute deep vein thrombosis (DVT) of lower extremity (HRC) Past Surgical History: Procedure Laterality Date CORNEAL SURGERY Bilateral late 90's Lasik/ABW HX APPENDECTOMY LW Problem: Appendectomy S/p LASIK 02/15/1996 ABW LUMBAR FUSION 07/2022 L3-S1 SPINE SURGERY 07/22/22 L3 or L4 to S1 fusion TONSILLECTOMY LW Problem: Tonsillectomy S/p Outpatient Medications as of 12/05/2023 Medication Sig acetaminophen (TYLENOL) 500 MG tablet Take by mouth every 6 hours as needed. fexofenadine (SAMANTHA) 180 MG tablet Take 1 tablet by mouth daily (every 24 hours). LW Addl Instr:Indicated for: Allergies hydroxyurea (HYDREA) 500 MG capsule Take 10 tablets a week MAGNESIUM-ZINC OR Take 1 Tablet by mouth daily. Facility-Administered Medications as of 12/05/2023 Medication Dose Route Frequency [COMPLETED] acetaminophen (TYLENOL) tablet 1,000 mg 1,000 mg Oral Once ceFAZolin (ANCEF) 2 g in dextrose 100 mL premade IVPB 2 g Intravenous Once [COMPLETED] celecoxib (CeleBREX) capsule 200 mg 200 mg Oral Once dexAMETHasone (DECADRON) injection 8 mg 8 mg Intravenous Once fentaNYL (SUBLIMAZE) injection 25 mcg 25 mcg Intravenous Q5MIN PRN HYDROmorphone (DILAUDID) injection 0.2 mg 0.2 mg Intravenous Q10MIN PRN lactated ringers infusion 25 mL/hr Intravenous Continuous lidocaine PF (XYLOCAINE) 1 % injection 0.1-0.3 mL 0.1-0.3 mL Intradermal Once And lidocaine PF (XYLOCAINE) 1 % injection 0.1-0.3 mL 0.1-0.3 mL Intradermal PRN meperidine (DEMEROL) injection 12.5 mg 12.5 mg Intravenous Q5MIN PRN naloxone (NARCAN) injection 0.4 mg 0.4 mg Intravenous Q2MIN PRN Or naloxone (NARCAN) injection 0.04 mg 0.04 mg Intravenous Q2MIN PRN [COMPLETED] ondansetron (ZOFRAN) injection 4 mg 4 mg Intravenous Once ondansetron (ZOFRAN) injection 4 mg 4 mg Intravenous Q4H PRN sodium chloride 0.9% 0.9 % injection - ADS Override Pull tranexamic acid (CYKLOKAPRON) 1000 mg in sodium chloride 0.7% (10 mg/mL) 100 mL IVPB premix 1,000 mg Intravenous Once Labs: Lab Results Component Value Date/Time SODIUM 139 09/06/2023 01:56 PM K 4.0 09/06/2023 01:56 PM CHLORIDE 103 09/06/2023 01:56 PM BUN 15 09/06/2023 01:56 PM CREATININE 0.86 09/06/2023 01:56 PM GLUCOSE 108 (H) 09/06/2023 01:56 PM Lab Results Component Value Date/Time WBC 6.6 11/16/2023 01:50 PM HGB 11.3 (L) 12/05/2023 06:38 AM HCT 35.7 11/16/2023 01:50 PM PLTS 272 11/16/2023 01:50 PM INR (no units) Date Value 09/23/2022 1.0 06/16/2012 0.9 Blood Bank: No results found for: ABO, ABSCR EKG: No results found for this or any previous visit. Physical Exam: BP 134/68 Pulse 60 Temp 36.6 ??C (97.9 ??F) (Temporal Artery) Resp 15 Wt 83 kg (183 lb) SpO2 96% BMI 27.42 kg/m?? Assessment/Plan: Review of Systems Patient does not have GERD. Patient is not a current smoker. The patient denies alcohol use. Patient denies any recent URI. History of PONV: No. History of motion sickness: No. Patient denies any personal or family history of anesthesia complications. NPO Status: Acceptable. Exam Mental Status: Alert and oriented. Mallampati score: II (Two). Mouth opening: Normal Thyromental Distance: > 3 finger breadths and Normal Neck Extension: Full Neck Circumference > 40 cm?: No Current airway assessment:Normal Cardiac Exam: Regular rate and rhythm. Respiratory Exam: Breath sounds clear to auscultation Assessment ASA Status: 2 . Plan Anesthesia type: Spinal Induction: Maintenance: PONV Risk Score Adult: 2 PONV Prophylaxis (planned): Ondansetron and Decadron Anesthetic plan, risks, benefits and alternatives discussed with the patient who agrees to the anesthesia treatment plan. Foot drop on right since lumbar surgery H&P Reviewed and Patient examined, no change observed IV access Antibiotics per surgery Electronically signed by: Haris Fonseca MD 12/05/2023 6:54 AM documented in this encounter Plan of Treatment Upcoming Encounters Date Type Department Care Team (Late st Contact Info) Description 12/21/2023 12:45 PM [facility] Appointment [facility] [address] [place] [address] Lena Puente 12/28/2023 10:00 AM [facility] Appointment [facility] [address] [place] [address] 01/19/2024 11:30 AM [facility] Appointment [facility] [address] [place] [address] Yanelis Welch MD [address] [place] [place] [address] [place] [address] documented as of this encounter Goals Goal Patient Goal Type Associated Problems Recent Progress Patient-Stated? Author Right Knee Replacement Care Plan ET PROE RIGHT KNEE No John Escalante GENERAL OUTCOMES KNEE REPLACEMENT - RIGHT Care Plan ET PROE GENERAL OUTCOMES KNEE REPLACEMENT - RIGHT No John Escalante documented as of this encounter Procedures Procedure Name Priority Date/Time Associated Diagnosis Comments SPINAL BLOCK Routine 12/05/2023 7:45 AM CDT documented in this encounter Results * SPINAL BLOCK (12/05/2023 7:45 AM CDT) Narrative EXTERNAL RESULTS - 12/05/2023 7:45 AM CDT Haris Fonseca MD ? 12/05/2023 ??9:03 AM Spinal Anesthetic Performed by: Haris Fonseca MD Authorizing/Supervising provider: ??Haris Fonseca MD Block end: 12/05/2023 7:45 AM Performed by: Anesthesiologist Patient Location OR Checklist: risks and benefits discussed, IV checked, anesthesia consent, monitors and equipment checked, patient identified and pre-op evaluation Correct patient: yes Correct procedure: yes Correct position: yes Correct site: yes Patient Position: sitting Sterile prep: Betadine, Patient draped, Hat, Mask and Sterile gloves Insertion site: L3-4 Approach: right paramedian Needle type: Maikol Needle gauge: 25 G Needle length: 3.5 in Introducer needle used Attempts: 1 Redirects: 3 (touched to bone and redirected) Monitoring: continuous pulse ox and resistance welder CSF: ??adequate CSF flow from spinal needle and CSF clear Paresthesias: ??No and resolved (not true paresthesia, but more localized to right) Events: None Complications: none Pt tolerated procedure well Notes: 1 mL 1% Lidocaine used for skin local prior to SAB Performed and signed by Haris Fonseca MD Medications from procedure kit: lidocaine PF 1 % injection - Subcutaneous 1 mL - 12/05/2023 7:46:00 AM BUPivacaine-dextrose 0.75-8.25% intrathecal injection - Intrathecal 1.4 mL - 12/05/2023 7:46:00 AM Medications used that are not from kit? ??No Haris Fonseca MD ANESTHESIA/AR EXTERNAL RESULTS documented in this encounter Visit Diagnoses Not on filedocumented in this encounter Administered Medications Inactive Administered Medications - up to 3 most recent administrations Medication Order MAR Action Action Date Dose Rate Site BUPivacaine in dextrose 0.75-8.25 % injection Intrathecal, Starting on Tue12/05/23 at 0746 Given 12/05/2023 7:46 AM CDT 1.4 mL ceFAZolin (ANCEF) 2 g in dextrose 100 mL premade IVPB 2 g, Intravenous, Administer over 30 Minutes, ONCE, On Tue12/05/23 at 0645, For 1 dose, Infuse within 60 minutes prior to incision; Re-dose 1 gram IV every 4 hours after initial dose until incision closed., Pre-op Given 12/05/2023 7:35 AM CDT 2 g dexAMETHasone (DECADRON) injection 8 mg 8 mg, Intravenous, ONCE, On Tue12/05/23 at 0645, For 1 dose, To be given by AQUATIC CENTRE MANAGER in OR prior to induction. DO NOT give if patient is diabetic., Pre-op Given 12/05/2023 7:46 AM CDT 8 mg fentaNYL (SUBLIMAZE) injection Intravenous, Starting on Tue12/05/23 at 0733, Until Tue12/05/23 at 0917 Given 12/05/2023 7:38 AM CDT 25 mcg Given 12/05/2023 7:33 AM CDT 25 mcg lactated ringers infusion 25 mL/hr, Intravenous, CONTINUOUS, Starting on Tue12/05/23 at 0600, Administer on all preop surgery patients, ages 12 and older, unless specified differently in the Protocol for Preop Initiation of IV fluids Order Set., Pre-op Started 12/05/2023 7:25 AM CDT lactated ringers infusion Starting on Tue12/05/23 at 0719, For 1 dose, Keturah Grace: cabinet override Override pull for Anesthesia 12/05/2023 7:35 AM CDT lidocaine PF (XYLOCAINE) 1 % injection Subcutaneous, Starting on Tue12/05/23 at 0746 Given 12/05/2023 7:46 AM CDT 1 mL midazolam (VERSED) injection Intravenous, Starting on Tue12/05/23 at 0731, Until Tue12/05/23 at 0917 Given 12/05/2023 7:38 AM CDT 0.5 mg Given 12/05/2023 7:31 AM CDT 1 mg propofol (DIPRIVAN) 10 mg/mL injection Intravenous, Starting on Tue12/05/23 at 0746, Until Tue12/05/23 at 0917 Started 12/05/2023 7:46 AM CDT 50 mcg/kg/min 19.53 mL/hr tranexamic acid (CYKLOKAPRON) 1000 mg in sodium chloride 0.7% (10 mg/mL) 100 mL IVPB premix 1,000 mg, Intravenous, ONCE, On Tue12/05/23 at 0645, For 1 dose, Maximum administration rate is 100 mg/minute. To be given in OR by AQUATIC CENTRE MANAGER prior to incision. Re-dose 1000 mg IV during wound closure., Pre-op Given 12/05/2023 8:53 AM CDT 1,000 mg Given 12/05/2023 7:46 AM CDT 1,000 mg documented in this encounter Additional Health Concerns Active Problems Noted Date Diagnosed Date ET PROE SHELL PROBLEM TEMPLATE 08/05/2023 ET PROE RIGHT KNEE 08/05/2023 ET PROE GENERAL OUTCOMES KNEE REPLACEMENT - RIGH T 08/05/2023 documented as of this encounter Care Teams Grade And Center Marker Relationship Specialty [place] [address] [place] [address] PCP - General 05/16/10 documented as of this encounter
--- OUTSIDE RECORDS SUMMARY | 2023-12-17 02:04 | XMS_ITS | Clinical Summary ---
Author Organization [facility] Address [address], [place] [address] Care Team Providers Care Chief Transfer And Pumphouse Operator Name Role Phone Josie Lainez MD Primary Care Provider [phone] Source Comments You are receiving this document as you are listed as the primary care provider,follow-up provider, or the patient has been referred to you for consultation.This is in compliance with the Medicare and[facility] EHR Incentive Program,which states Providers who transition their patient to another setting of careor provider of care or refers their patient to another provider of care shouldprovide summary care record for each transition of care or referral. [employer] Allergies No known active allergies Medications Medication Sig Dispensed Refills Start Date End Date Status fexofenadine (SAMANTHA) 180 MG tablet Take 1 tablet by mouth daily (every 24 hours). LW Addl Instr:Indicated for: Allergies 90 3 07/26/19 10 Active MAGNESIUM-ZINC OR Take 1 Tablet by mouth daily. Active hydroxyurea (HYDREA) 500 MG capsule Take 10 tablets a week 120 Capsule 3 04/14/19 24 Active buPROPion (WELLBUTRIN XL) 300 MG 24 hour release tabletIndications: Major depressive disorder, recurrent episode, in full remission (HRC) Take 1 Tablet (300 mg) by mouth daily. 90 Tablet 3 09/07/19 24 Active lisinopril-hydroch lorothiazide (PRINZIDE) 10-12.5 MG tabletIndications: Essential hypertension (HRC) Take 1 Tablet by mouth daily. 90 Tablet 3 09/07/19 24 Active sertraline (ZOLOFT) 100 MG tabletIndications: Major depressive disorder, recurrent episode, in full remission (HRC) Take 2 Tablets (200 mg) by mouth daily. 180 Tablet 3 09/07/19 Active traZODone (DESYREL) 50 MG tabletIndications: Insomnia, unspecified type Take 1 Tablet (50 mg) by mouth at bedtime as needed for Sleep. 90 Tablet 3 09/07/19 24 Active Additional Information Patient taking differently: 25 mgOralHS, Reported on 12/05/2023 rosuvastatin (CRESTOR) 10 MG tabletIndications: Hyperlipidemia, unspecified hyperlipidemia type (HRC) Take 1 Tablet (10 mg) by mouth daily. 90 Tablet 3 09/07/19 24 Active gabapentin (NEURONTIN) 600 MG tabletIndications: Lumbar radiculopathy Take 1 Tablet (600 mg) by mouth two times a day. 60 Tablet 11/16/19 24 Active acetaminophen (TYLENOL) 500 MG tablet Take 2 Tablets (1,000 mg) by mouth three times a day. 12/05/19 Active senna (SENOKOT) 8.6 MG tabletIndications: Constipation Take 2 Tablets by mouth daily at bedtime. Take while on narcotics. Hold for loose stools. Indications: Constipation 60 Tablet 12/05/19 Active polyethylene glycol 3350 (GLYCOLAX) 17 GM/SCOOP powderIndications: Constipation Take 17 g by mouth daily as needed (constipation). Fill to indicated line in cap (17 g). Mix in 4-8 ounces of a beverage and drink once daily as needed for constipation. Indications: Constipation 238 g 12/05/19 Active ondansetron (ZOFRAN-ODT) 4 MG disintegrating tablet Take 1 Tablet (4 mg) by mouth every 6 hours as needed for Nausea. 15 Tablet 12/06/19 Active clopidogrel (PLAVIX) 75 MG tabletIndications: Hx of transient ischemic attack (TIA) Do not take while on 42 days of Enoxaparin. Resume Plavix 12 hours after last dose of Enoxaparin. Do not start before January 19, 2024. 01/19/20 Active enoxaparin (LOVENOX) 40 MG/0.4ML prefilled syringe Inject 0.4 mL (40 mg) subcutaneously every 24 hours for 42 doses. Do not take Plavix while on Enoxaparin. Resume Plavix 12 hours after last dose of Enoxaparin. 42 Each 12/06/19 24 Active HYDROmorphone (DILAUDID) 2 MG tabletIndications: Moderate to Moderately Severe pain Take 0.5-1 Tablets (1-2 mg) by mouth every 4 hours as needed for Pain. Take half tablet for pain rated at 4-7. Take 1 tablet for pain rated 8-10. Indications: Moderate to Moderately Severe pain 30 Tablet 12/16/19 Active acetaminophen (TYLENOL) 500 MG tablet Take by mouth every 6 hours as needed. Discontinued clopidogrel (PLAVIX) 75 MG tabletIndications: Hx of transient ischemic attack (TIA) Take 1 Tablet (75 mg) by mouth daily. 90 Tablet 3 11/16/19 Discontinued HYDROmorphone (DILAUDID) 2 MG tabletIndications: Moderate to Moderately Severe pain Take 1-2 Tablets (2-4 mg) by mouth every 4 hours as needed for Pain. Take 1 tablet for pain rated at 4-7. Take 2 tablet for pain rated 8-10. Indications: Moderate to Moderately Severe pain 30 Tablet 12/05/19 24 Discontinued HYDROmorphone (DILAUDID) 2 MG tabletIndications: Moderate to Moderately Severe pain Take 0.5-1 Tablets (1-2 mg) by mouth every 4 hours as needed for Pain. Take half tablet for pain rated at 4-7. Take 1 tablet for pain rated 8-10. Indications: Moderate to Moderately Severe pain 30 Tablet 12/08/19 Discontinued(*M ed change OR same med OR reorder, new dose/directions ) Active Problems Problem Noted Date Diagnosed Date Postoperative anemia due to acute blood loss Status post total right knee replacement Overview (12/05/2023): By Dr. Welch at [facility]. S/P total knee arthroplasty, right 12/05/2023 Overview (12/05/2023): Dr. Welch 12/05/23 Acute deep vein thrombosis (DVT) of lower extrem ity 11/17/2023 Overview (11/17/2023): Small clot in her leg after surgery Status cardiac pacemaker 08/06/2022 Overview (08/06/2022): AV block, 08/02/22, [facility] Lumbar radiculopathy 07/30/2022 LBBB (left bundle branch block) 11/24/2020 Sciatic leg pain 11/15/2019 High frequency hearing loss 07/14/2016 Insomnia 10/03/2013 Overview (10/06/2016): Insomnia, unspecified Small bowel obstruction 03/10/2012 Thrombocythemia 11/13/2010 TIA (transient ischemic attack) 11/06/2010 Overview (10/06/2016): work up negative, switched from aspirin to plavix. ; TIA (transient ischemic attack), dysarthria, ataxia, hosp at [place], 10/25 Major depressive disorder, r ecurrent episode, in full remission 10/13/2010 Overview (09/17/2015): Psychiatry to Primary Care Hand-off Psychiatrist: Stephanie Bazan MD PCP: Josie Lainez MD Last Visit with Psychiatry: 07/15/2015 Current Medication/s and dose/s: Zoloft 200 mg daily, Wellbutrin XL 300 mg every AM, Ambien 2.5-5 mg at bedtime prn Medications tried and failed/Reason(s) for discontinuation: The patient started on an antidepressant probably in the . Initially she was on Paxil, which was over sedating.?? She then was on Prozac, which made her feel somewhat jittery and she has been on Zoloft since 1996. Recommendations/Plan of care: Patient doing very well on current combination of antidepressants at current doses. Recommend continuing Zoloft and Wellbutrin XL at current doses to prevent recurrence of depression. Patient takes Ambien prn for management of insomnia. She uses lowest effective dose of the medications and at times has been able to get by without using it at all. Insomnia symptoms have been recurrent at times so she finds it helpful to have the Ambien available. Migraine without aura 06/26/2008 Overview (10/06/2016): no current sx ; Migraine Common Disease of lung 06/26/2008 Overview (10/06/2016): followed x 2 years, benign ; Pulmonary Nodule Psoriasis 03/06/2004 Overview (09/17/2015): LW Modifier: scalp Essential hypertension 11/26/2003 Overview (10/06/2016): Hypertension Hyperlipidemia 07/21/2002 Allergic rhinitis 07/21/2002 Overview (10/06/2016): dust mites ; Rhinitis Allergic NOS Resolved Problems Problem Noted Date Diagnosed Date Resolved Date Right arm numbness 09/01/2020 Abdominal pain 03/10/2012 12/31/2014 Pulmonary nodule 04/07/2011 04/13/2011 Disease of blood and blood forming organ 03/06/2004 06/26/2008 Overview (10/06/2016): LW Modifier: dx 1982 ; Thrombocytosis Depressive disorder 03/06/2004 07/21/19 06 Overview (10/06/2016): Depression NOS Encounters Date Type Department Care Team Description 12/16/2023 Refill [facility] [address] [place] [address] Yanelis Welch MD Refill (dilaudid) 12/12/2023 Telephone Orthopedics at [facility] Orthopedics at [place] [address] [place] [address] [place] [address] Yanelis Welch MD Post-Op Follow Up Call 12/05/2023 7:27 AM CDT Anesthesia Event [facility] [address] [facility] [address] Haris Fonseca MD 12/05/2023 7:00 AM CDT - 12/05/2023 9:25 AM CDT Surgery [facility] [address] [place] [address] Yanelis Welch MD TOTAL KNEE JOINT REPLACEMENT 12/05/2023 5:08 AM CDT - 12/09/2023 2:08 PM CDT Hospital Encounter [facility] [address] [place] [address] Yanelis Welch MD Status post total right knee replacement (Primary Dx); Hx of transient ischemic attack (TIA) Discharge Disposition: Home 12/05/2023 Orders Only [facility] DEPARTMENT Provider, MD Gisell 11/24/2023 4:40 PM CDT Lab Visit [facility] [address] [place] [id number] Screen for colon cancer 11/18/2023 [facility] [address] [place] [address] Mychart, Generic Provider 11/17/2023 2:45 PM CDT Therapy [facility], Physical Therapy [address] [place] [address] Shannan Locke PT Right knee pain, unspecified chronicity (Primary Dx) 11/17/2023 10:00 AM CDT Phone Visit Orthopedics at [facility] Orth[facility] at [place] [address] [place] [id number] Nurse, [id number] Ortho Encounter for education (Primary Dx) 11/16/2023 1:50 PM CDT Lab Visit [facility] [address] [place] [address] Hyperlipidemia, unspecified hyperlipidemia type (HRC); Essential hypertension (HRC) 11/16/2023 1:00 PM CDT Pre-Op Visit [facility] [address] [place] [address] Josie Lainez MD Preop examination (Primary Dx); Chronic low back pain with left-sided sciatica, unspecified back pain laterality (HRC); Essential hypertension (HRC); LBBB (left bundle branch block); Thrombocythemia; Major depressive disorder, recurrent episode, in full remission (HRC); Screening examination for infectious disease; Hx of transient ischemic attack (TIA); Lumbar radiculopathy 10/26/2023 Telephone [facility] [address] [place] [address] Lucia Casey MD Appt. Needed 09/17/2023 Telephone [facility] [address] [place] [address] Josie Lainez MD Medication Questions 09/16/2023 Telephone [facility] [address] [place] [address] Josie Lainez MD COVID from Last 3 Months Immunizations Name Administration Dates Next Due Flu Vac Preserv Free (3+yrs) 11/19/2011, 11/27/2009,01/03/2006,2004 H1n1 Miv Sanofi 3+ Yr (Injected) 01/22/2009 Influenza IIV3 (Trivalent) F luzone Highdose, 65+ Yrs (89347) 01/01/2020,12/11/2017,01/26/2017 Influenza IIV4 (Quadrivalent ) 0.5mL (57754) 12/31/2014,12/18/2013 Influenza IIV4 (Quadrivalent ) Fluad, 65+ Yrs 11/22/2022,11/24/2020 Influenza IIV4 (Quadrivalent ) Fluzone, 65+ Yrs 11/16/2021 Influenza aIIV3 65+ Years (Fluad) 11/16/2023 Influenza, Unspecified Formulation 12/13,11/21/2015,12/05/2012,2002 PCV13 (Prevnar) 01/20/2016 PPSV23 (Pneumovax) 01/26/2017 Pfizer Monovalent 12+ Purple Top 05/19/2020,04/14 TDAP (BOOSTRIX) 10/12/2011 Td 11/26/2003,06/22/1993 Tdap 11/10/2021 Zoster (Zostavax) 04/25/2014 Zoster RZV (Shingrix) 09/18/2021,05/02/2021 Family History Medical History Relation Name Comments Ataxia Father Viktor Cataract Father Viktor High Cholesterol Father Viktor None Hypertension Father Viktor Psoriasis Father Viktor Thyroid Disorder Father Viktor Cataract Mother High Blood Pressure Mother Hyperlipidemia Mother Macular Degeneration Mother wet, dr zoe and a macular hole Hyperlipidemia Brother melisa Hypertension Brother melisa Stroke Maternal Grandfather Emmanuel Heart Disease Maternal Grandmother Maya Vyas N one Myocardial Infarction Maternal Grandmother Maya An dersen Cancer, Breast Paternal Aunt Stroke Paternal Grandfather Sudeep Heart Disease Paternal Grandmother Naina Shin None Psoriasis Sister maya Thyroid Disorder Sister maya Amblyopia/Strabismus Negative Family History Cancer Negative Family History Cancer, Colon Negative Family History Cancer, Endometrial Negative Family History Glaucoma Negative Family History Retinal Detachment Negative Family History Relation Name Status Comments Father Viktor Alive Mother Alive Brother melisa Alive Maternal Grandfather Emmanuel Maternal Grandmother Maya Vyas Paternal Aunt Paternal Grandfather Sudeep Paternal Grandmother Naina Shin Sister maya Alive Social History Tobacco Use Types Packs/Day Years Used Date Smoking Tobacco: Never Smokeless Tobacco: Never Tobacco Cessation:Counseling Given: Not Answered Comments:None Alcohol Use Standard Drinks/Week Comments Not Currently 0 (1 standard drink = 0.6 oz pur e alcohol) Occasional [employer] Answer Date Recorded In the past 12 months has e [employer], gas, oil, or water [employer] threatened to shut off services in your [...] any time in the past 12 m [facility], were you homeless or living in a usp (including now)? No 12/05/2023 Sex and Gender Information Value Date Recorded Sex Assigned at Not on file Gender Identity Not on file Sexual Orientation Not on file Last Filed Vital Signs Vital Sign Reading Time Taken Comments Blood Pressure 147/65 12/09/2023 5:47 AM CDT Pulse 87 12/09/2023 5:47 AM CDT Temperature 37.4 ??C (99.3 ??F) 12/09/2023 5:47 AM CD T Respiratory Rate 16 12/09/2023 5:47 AM CDT Oxygen Saturation 93% 12/09/2023 5:47 AM CDT Inhaled Oxygen Concentration - - Weight 83 kg (183 lb) 12/05/2023 6:12 AM CDT Height 174 cm (5' 8.5) 11/16/2023 12:56 PM CDT Body Mass Index 27.42 11/16/2023 12:56 PM CDT Plan of Treatment Upcoming Encounters Date Type Department Care Team (Late st Contact Info) Description 12/21/2023 12:45 PM TWISTING PRESS OPERATOR Appointment [facility] [address] [place] [address] Lena Puente 12/28/2023 10:00 AM TWISTING PRESS OPERATOR Appointment [facility] [address] [place] [address] 01/19/2024 11:30 AM TWISTING PRESS OPERATOR Appointment [facility] [address] [place], [place] [address] Yanelis Welch MD [address] [facility] [address] [place] [address] Health Maintenance Due Date Last Done Comments RSV (1 - Risk 60-74 years 1-dose series) 2010 COVID-19 Vaccine ( season) 2023 05/19/2020, 04/28/2020 Mammogram 12/01/2023 11/30/2022, 11/14, 09/04/2020, Additional history exists Prediabetes: HGBA1C 09/05/2024 09/06/2023, 07/13/2022, 08/23/2019, Additional history exists Medicare Annual Wellness Visit 09/06/2024 09/07/2023, 11/10/2021, 10/07/2020, Additional history exists Dexa 09/11/2024 09/12/2019, 09/12/2019 FIT Colon Cancer Screening 11/23/202411/23, 09/20/2022, 09/06/2021, Additional history exists Cholesterol 09/05/2028 09/06/2023, 10/16, 10/07/2020, Additional history exists DTaP/Tdap/Td (3 - Tdap) 11/11/2031 11/11/19 22, 10/12/2011, 11/26/2003, Additional history exists Hep C Screening (Preventive Services) Completed 11/18/2000 Pneumococcal 65+ Yrs Completed 01/26/2017, 01/20/20 16 Zoster/Shingles Completed 09/18/2021, 04/14, 04/25/2014 Influenza Completed 11/16/2023, 10/2022, 11/16/2021, Additional history exists HepA Aged Out No longer eligi ble based on patient's age to complete this topic HepB Aged Out No longer eligi ble based on patient's age to complete this topic Hib Aged Out No longer eligi ble based on patient's age to complete this topic IPV (Polio) Aged Out No longer eligi ble based on patient's age to complete this topic Infant RSV Aged Out No longer eligi ble based on patient's age to complete this topic MCV4 Aged Out No longer eligi ble based on patient's age to complete this topic Goals Goal Patient Goal Type Associated Problems Recent Progress Patient-Stated? Author Right Knee Replacement Care Plan ET PROE RIGHT KNEE No [employer] KNEE REPLACEMENT - RIGHT Care Plan ET [employer] GENERAL [employer] KNEE REPLACEMENT - RIGHT No [employer] Implanted Type Area Front Desk Monitor Device Identifier Shelf Expiration Date Model / Serial / Lot Perry Bone Biomet R 1x40 - [id number] Implanted:Qty: 2 on 12/05/2023 by Yanelis Welch MD at [facility] DEVICE Right: KNEE [employer] 01/13/2026 [id number] / / [id number] Comp Fem Ps Ccr Ps Allan Sz10 Rt - [id number] Implanted:Qty: 1 on 12/05/2023 by Yanelis Welch MD at [facility] DEVICE Right: KNEE [employer] 06/26/2033 [id number] / / [id number] Patella All Poly Ply 32mm - [id number] Implanted:Qty: 1 on 12/05/2023 by Yanelis Welch MD at [facility] DEVICE Right: KNEE [employer] 08/09/2028 [id number] / / [id number] Asf Ps Poly 10mm Rt 10 - [id number] Implanted:Qty: 1 on 12/05/2023 by Yanelis Welch MD at [facility] DEVICE Right: KNEE [employer] 12/24/2027 [id number] / / [id number] Stem Tib 5deg Tamia Rt - [id number] Implanted:Qty: 1 on 12/05/2023 by Yanelis Welch MD at [facility] DEVICE Right: KNEE [employer] 10/03/2033 [id number] / / [id number] Procedures Procedure Name Priority Date/Time Associated Diagnosis Comments HEMOGLOBIN, BLOOD Routine 12/08/2023 10: 05 AM CDT XR KNEE RT 2 VIEWS STAT 12/07/2023 3: 41 AM CDT COMPLETE BLOOD COUNT-W/DIFF Routine 12/06/2023 5:43 AM CDT CBC AND DIFFERENTIAL PANEL Add-On 12/06/2023 5:43 AM CDT HEMOGLOBIN, BLOOD Routine 12/06/2023 5:4 3 AM CDT XR KNEE RT 2 VIEWS Routine 12/05/2023 1: 55 PM CDT AST Routine 12/05/2023 12:38 PM CDT ALBUMIN Routine 12/05/2023 12:38 PM CDT INR/PROTIME Routine 12/05/2023 12:38 PM CDT SPINAL BLOCK Routine 12/05/2023 7:45 AM CDT TOTAL KNEE JOINT REPLACEMENT 12/05/2023 7:00 AM CDT Primary osteoarthritis of right knee BASIC METABOLIC PANEL STAT 12/05/2023 6:38 AM CDT HEMOGLOBIN, BLOOD STAT 12/05/2023 6:3 8 AM CDT EKG 12/05/2023 FIT,OCCULT BLOOD, STOOL Routine 11/24/2023 8:00 AM CDT Screen for colon cancer COMPLETE BLOOD COUNT-NO DIFF Routine 11/16/2023 1:50 PM CDT Essential hypertension (HRC) ALT (SGPT) Routine 11/16/2023 1:50 PM CDT Hyperlipidemia, unspecified hyperlipidemia type (HRC) ECG 12 LEAD OUTPATIENT Routine 11/16/2023 1:46 PM CDT Essential hypertension (HRC) MRSA/MSSA PRE-OP CULTURE Routine 11/16/2023 1:05 PM CDT Screening examination for infectious disease HGB A1C Routine 09/06/2023 1:56 PM CDT Encounter for screening for diabetes mellitus LIPID PANEL & DIRECT LDL (IF NEEDED) Routine 09/06/2023 1:56 PM CDT Mixed hyperlipidemia (HRC) MM MAMMOGRAM SCREENING BILAT W CAD Routine 11/30/2022 9:29 AM CDT DXA BONE DENSITY SPINE/HIP INC VERT FX ASSESS Routine 09/12/2019 8:15 AM CDT Postmenopausal HEPATITIS C ANTIBODY, WITH REFLEX Routine 11/18/2000 8:48 AM CDT from Last 3 Months or Most Recently Relevant to Health Maintenance Results * (ABNORMAL) Hemoglobin (12/08/2023 10:05 AM CDT) Only the most recent of3 resultswithin the time period is included. Hemoglobin 9.1(L) 12.0 - 15.5 g/dL 12/08/2023 10:44 AM CDT [facility] Blood Venipuncture / Unknown 12/08/2023 10:05 AM CDT 12/08/2023 10:35 AM CDT Sonny Mckinley PA-C LAB_1 [facility] [address] [place] [address], [facility] * XR Knee Rt 2 Views (12/07/2023 3:41 AM CDT) Only the most recent of2 resultswithin the time period is included. Anatomical Region Laterality Modality Lower Extremity, Knee Digital Ra diography 12/07/2023 3:41 AM CDT Narrative 12/07/2023 3:52 AM CDT EXAM: XR KNEE RT 2 VIEWS LOCATION: [facility] DATE: 12/07/2023 INDICATION: Fall, pain increased COMPARISON: 12/05/2023 IMPRESSION: Right total knee arthroplasty. No evidence for acute periprosthetic fracture. Patellar resurfacing. Large right knee effusion, markedly increased since prior. Soft tissue swelling anterior aspect right knee with locules of air in the soft tissues likely relating to recent surgery. Procedure Note Rafat Gray MD - 12/07/2023 EXAM: XR KNEE RT 2 VIEWS LOCATION: [facility] DATE: 12/07/2023 INDICATION: Fall, pain increased COMPARISON: 12/05/2023 IMPRESSION: Right total knee arthroplasty. No evidence for acuteperiprosthetic fracture. Patellar resurfacing. Large right knee effusion,markedly increased since prior. Soft tissue swelling anterior aspect rightknee with locules of air in the soft tissues likely relating to recentsurgery. Yanelis Welch MD RAD GD * (ABNORMAL) Complete Blood Count-W/Diff (12/06/2023 5:43 AM CDT) WBC 7.9 3.5 - 10.5 x10(9)/L 12/06/2023 11:05 AM CDT [facility] RBC 2.90(L) 3.90 - 5.03 x10(12)/L 12/06/2023 11:05 AM CDT [facility] Hemoglobin 10.3(L) 12.0 - 15.5 g/dL 12/06/2023 11:05 AM CDT [facility] HCT 30.1(L) 34.9 - 44.5 % 12/06/2023 11:05 AM CDT [facility] MCV 103.8(H) 80.0 - 100.0 fL 12/06/2023 11:05 AM CDT [facility] MCH 35.5(H) 27.6 - 33.3 pg 12/06/2023 11:05 AM CDT [facility] MCHC 34.2 31.5 - 35.2 g/dL 12/06/2023 11:05 AM CDT [facility] RDW 12.9 11.9 - 15.5 % 12/06/2023 11:05 AM CDT [facility] Platelets 273 150 - 450 x10(9)/L 12/06/2023 11:05 AM CDT [facility] Automated NRBC 0 <=0 /100 WBC 12/06/2023 11:05 AM CDT [facility] Neutrophil Absolute 5.8 1.7 - 7.0 10(9)/L 12/06/2023 11:05 AM CDT [facility] Lymphocyte Absolute 1.2 1.0 - 4.8 10(9)/L 12/06/2023 11:05 AM CDT [facility] Monocyte Absolute 0.8 0.2 - 0.9 10(9)/L 12/06/2023 11:05 AM CDT [facility] Eosinophil Absolute 0.1 0.0 - 0.5 10(9)/L 12/06/2023 11:05 AM CDT [facility] Basophil Absolute 0.0 0.0 - 0.3 10(9)/L 12/06/2023 11:05 AM CDT [facility] Immature Granulocyte % 0.3 0.0 - 0.5 % 12/06/2023 11:05 AM CDT [facility] Blood Venipuncture / Unknown 12/06/2023 5:43 AM CDT 12/06/2023 8:55 AM CDT Brody Maki MD LAB_1 [facility] [address] [place], [place] [address] * AST (12/05/2023 12:38 PM CDT) AST (SGOT) 20 10 - 40 U/L 12/05/2023 1:14 PM CDT [facility] Blood Venipuncture / Unknown 12/05/2023 12:38 PM CDT 12/05/2023 12:41 PM CDT Austin Arizmendi PA-C LAB_1 Performing Organization Address [facility] de Phone Number [facility] [address] * Albumin (12/05/2023 12:38 PM CDT) Albumin 3.8 3.5 - 5.0 g/dL 12/05/2023 1:14 PM CDT [facility] Blood Venipuncture / Unknown 12/05/2023 12:38 PM CDT 12/05/2023 12:41 PM CDT Austin Arizmendi PA-C LAB_1 Performing Organization Address [facility] Phone Number [facility] [address] * INR/Protime (12/05/2023 12:38 PM CDT) Protime 14.1 11.8 - 14.6 Seconds 12/05/2023 12:57 PM CDT [facility] INR 1.1 0.9 - 1.1 12/05/2023 12:57 PM CDT [facility] Blood Venipuncture / Unknown 12/05/2023 12:38 PM CDT 12/05/2023 12:41 PM CDT Narrative [facility] - 12/05/2023 12:57 PM CDT If you take an anticoagulant medicine called warfarin, your doctor or clinician may establish a normal range for you that is different from the baseline range shown. Austin Arizmendi PA-C LAB_1 Performing Organization Address [facility] Phone Number [facility] [address] * SPINAL BLOCK (12/05/2023 7:45 AM CDT) [...] and redirected) Monitoring: continuous pulse ox and front desk monitor CSF: ??adequate CSF flow from spinal needle [...] ??No Haris Fonseca MD ANESTHESIA/AR EXTERNAL RESULTS * (ABNORMAL) Basic Metabolic Panel (12/05/2023 6:38 AM CDT) Sodium 135(L) 136 - 145 mmol/L 12/05/2023 7:13 AM CDT [facility] Potassium 3.4(L) 3.5 - 5.1 mmol/L 12/05/2023 7:13 AM CDT [facility] Chloride 104 98 - 109 mmol/L 12/05/2023 7:13 AM CDT [facility] CO2 22 20 - 29 mmol/L 12/05/2023 7:13 AM CDT [facility] Anion Gap 9 6 - 16 mmol/L 12/05/2023 7:13 AM CDT [facility] Calcium 9.4 8.4 - 10.4 mg/dL 12/05/2023 7:13 AM CDT [facility] BUN 18 7 - 26 mg/dL 12/05/2023 7:13 AM CDT [facility] Creatinine 0.82 0.55 - 1.02 mg/dL 12/05/2023 7:13 AM CDT [facility] Glucose 99 70 - 100 mg/dL 12/05/2023 7:13 AM CDT [facility] Comment:The given reference range is for the fasting state. Non-fasting reference range for glucose is 70 - 180 mg/dL. GFR, Estimated >60 >60 mL/min/1.7 3m2 12/05/2023 7:13 AM CDT [facility] Blood Venipuncture / Unknown 12/05/2023 6:38 AM CDT 12/05/2023 6:41 AM CDT Yanelis Welch MD LAB_1 Performing Organization Address City/[facility]/ZIP Co de Phone Number [facility] [address] * EKG (12/05/2023) Interface Provider EKG * FIT Colon Rectal Cancer Screening (11/24/2023 8:00 AM CDT) FIT Specimen 1 Negative Negative 11/25/2023 2:16 [address] [facility] Stool Non-blood Collection / Unknown 11/24/2023 8:00 AM CDT 11/24/2023 3:46 PM CDT Jsoie Lainez MD LAB_1 [facility] [address] * (ABNORMAL) Complete Blood Count-No Diff (11/16/2023 1:50 PM CDT) WBC 6.6 3.5 - 10.5 x10(9)/L 11/16/2023 1:53 PM CDT [facility] RBC 3.44(L) 3.90 - 5.03 x10(12)/L 11/16/2023 1:53 PM CDT [facility] Hemoglobin 11.8(L) 12.0 - 15.5 g/dL 11/16/2023 1:53 PM CDT [facility] HCT 35.7 34.9 - 44.5 % 11/16/2023 1:53 PM CDT [facility] MCV 103.8(H) 80.0 - 100.0 fL 11/16/2023 1:53 PM CDT [facility] MCH 34.3(H) 27.6 - 33.3 pg 11/16/2023 1:53 PM CDT [facility] MCHC 33.1 31.5 - 35.2 g/dL 11/16/2023 1:53 PM CDT [facility] RDW 13.2 11.9 - 15.5 % 11/16/2023 1:53 PM CDT [facility] Platelets 272 150 - 450 x10(9)/L 11/16/2023 1:53 PM CDT [facility] Automated NRBC 0 <=0 /100 WBC 11/16/2023 1:53 PM CDT [facility] Blood Venipuncture / Unknown 11/16/2023 1:50 PM CDT 11/16/2023 1:50 PM CDT Josie Lainez MD LAB_1 [facility] [address] [place] [address] * ALT (SGPT) (11/16/2023 1:50 PM CDT) ALT (SGPT) 12 <=55 U/L 11/16/2023 8:00 PM CDT [facility] Blood Venipuncture / Unknown 11/16/2023 1:50 PM CDT 11/16/2023 1:50 PM CDT Josie Lainez MD LAB_1 Performing Organization Address [facility] Co de Phone Number [facility] [address] [place] [address], [facility] * ECG 12 Lead Outpatient (11/16/2023 1:46 PM CDT) Ventricular Rate 66 BPM [facility] Atrial Rate 66 BPM [facility] P-R Interval 184 ms [facility] QRS Duration 204 ms [facility] QT 518 ms [facility] QTc 543 ms [facility] P Emmett -4 degrees [facility] R Emmett -78 degrees [facility] T Emmett 79 degrees [facility] 11/16/2023 1:46 PM CDT Narrative [facility] - 11/16/2023 2:06 PM CDT Atrial-sensed ventricular-paced rhythm Abnormal ECG When compared with ECG of 11-AUG-2022 13:09, Vent. rate has increased BY ?? 3 BPM Confirmed by Nilay Eng ([id number]) on 11/16/2023 2:06:09 PM Procedure Note Nilay Eng MD - 11/16/2023 Atrial-sensed ventricular-paced rhythm Abnormal ECG When compared with ECG of 11-AUG-2022 13:09, Vent. rate has increased BY 3 BPM Confirmed by Nilay Eng ([id number]) on 11/16/2023 2:06:09 PM Josie Lainez MD PN ECG ORDERABLES Performing Organization Address City/[facility]/ZIP Co de Phone Number [facility] [address] [place] [address] * MRSA/MSSA Pre-Op Culture (11/16/2023 1:05 PM CDT) Staph aureus Culture (SACUL) No Staphylococcus aureus Isolated 11/18/2023 11:48 AM CDT [facility] Swab (Source Required) ENTIRE [employer]TER[employer] [facility]ARIS / Unknown Non-blood Collection / Unknown 11/16/2023 1:05 PM CDT 11/16/2023 1:06 PM CDT Yanelis Welch MD LAB_[address] [address], [facility] * (ABNORMAL) Lipid Panel and Direct LDL(If Needed) (09/06/2023 1:56 PM CDT) Cholesterol 215(H) 0 - 199 mg/dL 09/06/2023 3:23 PM CDT [facility] Triglyceride 67 <=149 mg/dL 09/06/2023 3:23 PM [facility] HDL Cholesterol 57 >=40 mg/dL 3:23 PM [facility] LDL, Calculated 145(H) <130 mg/dL 3:23 PM [facility] Non HDL Chol, Calculated 158 <=159 mg/dL 09/06/2023 3:23 PM [facility] Cholesterol/HDL Ratio 3.8 <=5.0 09/06/2023 3:23 PM [facility] Hours Fasting 12.0 8 - 12 Hours 09/06/2023 3:23 PM [facility] Blood Venipuncture / Unknown 09/06/2023 1:56 PM CDT 09/06/2023 1:56 PM CDT Josie Lainez MD LAB_1 Performing Organization Address City/[facility]/ZIP Co de Phone Number [facility] [address] [place] [address] * Hgb A1C (09/06/2023 1:56 PM CDT) Hemoglobin A1C (Rapid) 5.2 <=5.6 % 09/06/2023 3:23 PM T [facility] Estimated Average Glucose (Calc) 103 < 117 mg/dL 09/06/2023 3:23 PM [facility] Comment:Estimated average gl ucose (eAG) converts A1c into glucose units (mg/dL) and estimates average glucose over the past approximately 3 months. The eAG reference interval (<117 mg/dL) corresponds to an A1c of <5.7%. Blood Venipuncture / Unknown 09/06/2023 1:56 PM CDT 09/06/2023 1:56 PM CDT Narrative [facility] - 09/06/2023 3:23 PM CDT The test method used for this Hemoglobin A1c result can experience interference from elevated hemoglobin and other hemoglobin variants. In patients with results that do not correlate clinically, contact the lab for further direction. Josie Lainez MD LAB_1 [facility] [address] [place] [address] * MM Mammogram Screening Bilat W CAD (11/30/2022 9:29 AM CDT) Anatomical Region Laterality Modality Breast Bilateral Mammography Impressions 11/30/2022 10:29 AM CDT : ACR BI-RADS Category 1: Negative RECOMMENDATION: Follow Up Imaging in 12 months - Bilateral The results and recommendations of this examination will be communicated to the patient. Narrative 11/30/2022 10:29 AM CDT MM MAMMOGRAM SCREENING BILAT W CAD performed on 11/30/22 Compared to: 11/25/2021 MM Mammogram Screening Bilat W CAD, 09/04/2020 MM Mammogram Screening Bilat W CAD, and 03/29/2019 MM Mammogram Screening Bilat W CAD ?? FINDINGS: Bilateral screening mammogram was performed with the assistance of Computer-Aided Detection . The breasts have scattered areas of fibroglandular density. There is no radiographic evidence of malignancy. ?? Josie Lainez MD [facility] * DEXA Bone Density Spine/Hip Including Vertebral Fracture Assessment (09/12/2019 8:15 AM CDT) Anatomical Region Laterality Modality Spine, Hip Radiographic Luly ging Narrative 09/16/2019 6:29 PM CDT CLINIC DXA REPORT Patient Name: ??Isamar Britt Rich Lyerly: ??James Perez MD Densitometer: ??Hologic Netccm W (S/N [id number]) SOMMER BONE OSTEOPOROSIS RISK FACTORS FROM PATIENT QUESTIONNAIRE: ?? The patient is a 69 y.o.female: Calcium intake is probably adequate. There is no self-reported personal history of osteoporotic fracture. There is a family history in a first degree relative of spine fracture. Zero or one self-reported falls over the past 12 months. BONE MINERAL DENSITY: Lumbar Spine Vertebrae Included: L1;L3;L2;L4 Bone Mineral Density (gm/cm2): 0.888 T-Score: -1.4 Z-Score: 0.6 Total Hip Bone Mineral Density (gm/cm2): 0.777 T-Score: -1.4 Z-Score: 0.1 Femoral Neck Bone Mineral Density (gm/cm2): 0.641 T-Score: -1.9 Z-Score: -0.1 FRAX 10 year probability major osteoporotic fracture: 11.5% 10 year probability hip fracture: 2% COMPARISON TO PRIOR STUDY: Date of prior study: 02/11/2014 Lumbar spine change: no significant change outside of densitometer precision error Total hip change: -5.9% VERTEBRAL FRACTURE ASSESSMENT: No vertebral fractures from T5 through L4 ASSESSMENT: 1. Mild low bone mass, based on T-score(s) at all axial skeletal sites 2. Patient is at mildly increased risk of fracture, based on age, fracture history, bone mineral density at all skeletal sites, and presence or absence of other risk factors. RECOMMENDATIONS: ?? 1. Maintain appropriate calcium and vitamin D intake 2. Repeat DXA in 5 years FRAX Explanation: The 10 year risks of hip and major osteoporotic fractures (clinical spine, forearm, hip or shoulder fracture) are calculated by the FRAX algorithm based on femoral neck bone density, age, gender, race/ethnicity, weight, height, previous fracture, parental hip fracture, smoking status, glucocorticoid intake, history of RA, secondary osteoporosis, and high alcohol consumption. FRAX Fracture Risk Categories in terms of major osteoporotic fractures: < 10% = low fracture risk ? 10% and <15% = mildly increased fracture risk ? 15% and <20% = moderately increased fracture risk ? 20% and <30% = high fracture risk ? 30% = very high fracture risk FRAX fracture risk estimates are adjusted for Trabecular Bone Score (TBS) Trabecular Bone Score (TBS) is a measure of the microarchitectural integrity of trabecular bone, and is derived from the [id number] changes of bone density embedded in the AP spine BMD image. TBS is only modestly correlated with BMD, and is modestly associated with incident major osteoporotic and hip fractures independent of BMD and other risk factors. TBS values of >1.350 indicate intact trabecular microarchitecture TBS values of 1.200 to 1.350 indicate partially degraded trabecular microarchitecture TBS values of <1.200 indicate degraded trabecular microarchitecture TBS for this patient is 1.259 (TBS Z-score -0.3). National Osteoporosis Foundation Treatment Guideline A clinician may consider FDA-approved medical therapies in postmenopausal women and men aged 50 years and older, if one or more of the following is present (clinical correlation required and therapy may not always be indicated): 1. The patient has a hip or vertebral fracture. 2. T-score ? -2.5 at the femoral neck, hip, or spine after appropriate evaluation to exclude secondary causes. 3. Low bone mass (T-score between -1.0 and -2.5 at the femoral neck, hip or spine) and a 10-year probability of a hip fracture ? 3% or a 10-year probability of a major osteoporosis-related fracture ? 20% based on the FRAX scores. Josie Lainez MD RAD DEXA * Hepatitis C Antibody, with Reflex (11/18/2000 8:48 AM CDT) Hepatitis C Antibody Non Reac Non Reac HP CONVERSION 11/18/2000 8:48 AM CDT Kavita Hinojosa MD LAB_1 HP CONVERSION from Last 3 Months or Most Recently Relevant to Health Maintenance Additional Health Concerns Active Problems Noted Date Diagnosed Date ET PROE SHELL PROBLEM TEMPLATE 08/05/2023 ET PROE RIGHT KNEE 08/05/2023 ET PROE GENERAL OUTCOMES KNEE REPLACEMENT - RIGH T 08/05/2023 Advance Directives * Full Code (Latest Code Status on File) Date Activated Date Inactivated Comments 12/05/2023 11:52 AM 12/09/2023 4:14 PM * Full Code Date Activated Date Inactivated Comments 03/10/2012 3:50 PM 03/13/2012 8:48 PM Care Teams 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
--- OUTSIDE RECORDS SUMMARY | 2023-12-17 02:04 | XMS_ITS | Encounter Summary ---
Author Organization [employer] Address [address], [place] [address] Care Team Providers Care Evening Anchor Name Role Phone Josie Lainez MD Primary Care Provider Reason for Referral * Procedure/Equipment (Routine) - Incomplete Specialty Diagnoses / Procedures Referred By Contac t Referred To Contact Procedures XR Knee Rt 2 Views Yanelis Welch MD [address] [facility] [address] [place] [address] Referral ID Status Reason Start Date Expiration Date V isits Requested Visits Authorized [id number] Incomplete 12/07/2023 03/07/2025 1 1 * Therapies (Routine) - New Request Specialty Diagnoses / Procedures Referred By Contac t Referred To Contact Diagnoses Status post total right knee replacement Sonny Mckinley, PAWandaC [address] [place] [address] Referral ID Status Reason Start Date Expiration Date V isits Requested Visits Authorized [id number] New Request 12/05/2023 12/04/2024 1 1 Scheduling Instructions Your clinician has recommended an appointment with Physical Therapy and Rehabilitation Services. You can quickly schedule your appointment by signing in to your online account at [email or web address] or through the text message you may have received. You can also make an appointment by calling [phone]. We suggest you call your health insurance company about your coverage and benefits for this appointment. Question Answer Appointment Urgency? Non-Urgent Requested Services Evaluate and treat May use saline for irrigation or cleansing No Reason for Visit Post Op dexamethasone use Yes May check glucose per protocol (see policy link below) or if patient has symptoms? Yes * Procedure/Equipment (Routine) - Incomplete Specialty Diagnoses / Procedures Referred By Contac t Referred To Contact Procedures XR Knee Rt 2 Views Austin Arizmendi PA-C [address] [facility] [address] [place] [id number] Referral ID Status Reason Start Date Expiration Date V isits Requested Visits Authorized [id number] Incomplete 12/05/2023 03/05/2025 1 1 * (Routine) - New Request Specialty Diagnoses / Procedures Referred By Contac t Referred To Contact Procedures Issue Appropriate Assistive Device as Needed on Discharge Austin Arizmendi PA-C [address] [address] Referral ID Status Reason Start Date Expiration Date V isits Requested Visits Authorized [id number] New Request 12/05/2023 03/05/2025 1 1 * (Routine) - New Request Specialty Diagnoses / Procedures Referred By Contac t Referred To Contact Procedures Physical Therapy Eval and Treat twice a day beginning Today Austin Arizmendi PA-C [address] [address] Referral ID Status Reason Start Date Expiration Date V isits Requested Visits Authorized [id number] New Request 12/05/2023 03/05/2025 1 1 Reason for Visit * Auth/Cert (Routine) Specialty Diagnoses / Procedures Referred By Dominique t Referred To Contact Diagnoses Primary osteoarthritis of right knee Procedures TOTAL KNEE JOINT REPLACEMENT Referral ID Status Reason Start Date Expiration Date Visits Re quested Visits Authorized [id number] 1 1 Encounter Details Date Type Department Care Team (Late st Contact Info) Description 12/05/2023 5:08 AM CDT - 12/09/2023 2:08 PM CDT Hospital Encounter [facility] [address] [place] [address] [place], [place] [address] Yanelis Welch MD [address] [facility] [address] [place], [place] [id number] Status post total right knee replacement (Primary Dx); Hx of transient ischemic attack (TIA) Discharge Disposition: Home Social History Tobacco Use Types Packs/Day Years Used Date Smoking Tobacco: Never Smokeless Tobacco: Never Comments:None Alcohol Use Standard Drinks/Week Comments Not Currently 0 (1 standard drink = 0.6 oz pur e alcohol) Occasional [facility] Utilities Answer Date Recorded In the past 12 months has e [employer], gas, oil, or water [employer] threatened to shut off services in your [...] any time in the past 12 m [facility], were you homeless or living in a chcf (including now)? No 12/05/2023 Sex and Gender Information Value Date Recorded Sex Assigned at Not on file Gender Identity Not on file Sexual Orientation Not on file documented as of this encounter Last Filed Vital Signs Vital Sign Reading Time Taken Comments Blood Pressure 147/65 12/09/2023 5:47 AM CDT Pulse 87 12/09/2023 5:47 AM CDT Temperature 37.4 ??C (99.3 ??F) 12/09/2023 5:47 AM CD T Respiratory Rate 16 12/09/2023 5:47 AM CDT Oxygen Saturation 93% 12/09/2023 5:47 AM CDT Inhaled Oxygen Concentration - - Weight 83 kg (183 lb) 12/05/2023 6:12 AM CDT Height - - Body Mass Index 27.42 11/16/2023 12:56 PM CDT documented in this encounter Discharge Summaries * Sonny Mckinley PA-C - 12/09/2023 11:33 AM CDT Ortho Discharge Summary Admission Date: 12/05/2023 Discharge Date: 12/08 Admitting Diagnosis: Primary osteoarthritis of right knee [M17.11] Discharge diagnosis: Same now s/p R TKA Procedure: Procedure(s) (LRB): TOTAL KNEE JOINT REPLACEMENT (Right) Date of Procedure: 12/05/2023 Surgeon: Dr. Welch Disposition: home Code Status: Full Discharge condition: stable HPI: Patient is a 73 y.o., she who presents with right knee pain secondary to osteoarthritis for scheduled total knee arthroplasty. For full details please refer to Dr. Welch's notes. Surgical management was recommended and patient underwent Procedure(s) (LRB): TOTAL KNEE JOINT REPLACEMENT (Right). Patient today doing well. Pain is mild and controlled. Patient denies abdominal pain, issues voiding, calf pain or numbness/tingling. Improved nausea and dizziness at dc. Hospital Course: Patient was admitted following the above noted procedure. Procedure was without complication. For full details please refer to operative note. Patient received routine jadyn-operative antibiotic and DVT prophylaxis. she was evaluated by physical therapy and will discharge to home in stable condition. Consults: Patient was followed as an inpatient by a medical consultation. Significant Studies: Lab Results Component Value Date Hemoglobin 9.1 (L) 12/08/2023 Hemoglobin 9.6 (L) 12/06/2023 Hemoglobin 10.3 (L) 12/06/2023 Lab Results Component Value Date Creatinine 0.82 12/05/2023 BUN 18 12/05/2023 Sodium 135 (L) 12/05/2023 Potassium 3.4 (L) 12/05/2023 Chloride 104 12/05/2023 CO2 22 12/05/2023 No results for input(s): WBC, RBC, HCT, PLTS, HGB in the last 24 hours. No results for input(s): INR, PTT in the last 24 hours. Invalid input(s): PT I/O last 3 completed shifts: In: 630 [Oral:630] Out: - Active Problems: Principal Problem: Status post total right knee replacement Active Problems: Hyperlipidemia (HRC) Essential hypertension (HRC) Major depressive disorder, recurrent episode, in full remission (HRC) Thrombocythemia TIA (transient ischemic attack) Acute deep vein thrombosis (DVT) of lower extremity (HRC) S/P total knee arthroplasty, right Postoperative anemia due to acute blood loss Past Medical Diagnoses: Patient Active Problem List Diagnosis Hyperlipidemia (HRC) Allergic rhinitis Essential hypertension (HRC) Psoriasis Migraine without aura Disease of lung Major depressive disorder, recurrent episode, in full remission (HRC) Thrombocythemia TIA (transient ischemic attack) Small bowel obstruction (HRC) Insomnia High frequency hearing loss LBBB (left bundle branch block) Status cardiac pacemaker Lumbar radiculopathy Sciatic leg pain (HRC) Acute deep vein thrombosis (DVT) of lower extremity (HRC) Status post total right knee replacement S/P total knee arthroplasty, right Postoperative anemia due to acute blood loss Medications: Medication List START taking these medications enoxaparin 40 MG/0.4ML prefilled syringe Commonly known as: LOVENOX Inject 0.4 mL (40 mg) subcutaneously every 24 hours for 42 doses. Do not take Plavix while on Enoxaparin. Resume Plavix 12 hours after last dose of Enoxaparin. HYDROmorphone 2 MG tablet Commonly known as: DILAUDID Take 0.5-1 Tablets (1-2 mg) by mouth every 4 hours as needed for Pain. Take half tablet for pain rated at 4-7. Take 1 tablet for pain rated 8-10. Indications: Moderate to Moderately Severe pain ondansetron 4 MG disintegrating tablet Commonly known as: ZOFRAN-ODT Take 1 Tablet (4 mg) by mouth every 6 hours as needed for Nausea. polyethylene glycol 3350 17 GM/SCOOP powder Commonly known as: GLYCOLAX Take 17 g by mouth daily as needed (constipation). Fill to indicated line in cap (17 g). Mix in 4-8ounces of a beverage and drink once daily as needed for constipation. Indications: Constipation senna 8.6 MG tablet Commonly known as: SENOKOT Take 2 Tablets by mouth daily at bedtime. Take while on narcotics. Hold for loose stools. Indications: Constipation CHANGE how you take these medications acetaminophen 500 MG tablet Commonly known as: TYLENOL Take 2 Tablets (1,000 mg) by mouth three times a day. What changed: how much to take when to take this reasons to take this clopidogrel 75 MG tablet Commonly known as: PLAVIX Do not take while on 42 days of Enoxaparin. Resume Plavix 12 hours after last dose of Enoxaparin. Do not start before January 19, 2024. Start taking on: January 19, 2024 What changed: how much to take how to take this when to take this additional instructions These instructions start on January 19, 2024. If you are unsure what to do until then, ask your doctor or other care provider. traZODone 50 MG tablet Commonly known as: DESYREL Take 1 Tablet (50 mg) by mouth at bedtime as needed for Sleep. What changed: how much to take when to take this CONTINUE taking these medications buPROPion 300 MG 24 hour release tablet Commonly known as: WELLBUTRIN XL Take 1 Tablet (300 mg) by mouth daily. fexofenadine 180 MG tablet Commonly known as: SAMANTHA Take 1 tablet by mouth daily (every 24 hours). LW Addl Instr:Indicated for: Allergies gabapentin 600 MG tablet Commonly known as: NEURONTIN Take 1 Tablet (600 mg) by mouth two times a day. hydroxyurea 500 MG capsule Commonly known as: HYDREA Take 10 tablets a week lisinopril-hydrochlorothiazide 10-12.5 MG tablet Commonly known as: PRINZIDE Take 1 Tablet by mouth daily. MAGNESIUM-ZINC OR rosuvastatin 10 MG tablet Commonly known as: CRESTOR Take 1 Tablet (10 mg) by mouth daily. sertraline 100 MG tablet Commonly known as: ZOLOFT Take 2 Tablets (200 mg) by mouth daily. Where to Get Your Medications These medications were sent to [facility] [address] [place], [place] [id number] Hours: Open 24x7 enoxaparin 40 MG/0.4ML prefilled syringe HYDROmorphone 2 MG tablet ondansetron 4 MG disintegrating tablet polyethylene glycol 3350 17 GM/SCOOP powder senna 8.6 MG tablet Discharge Exam: BP (!) 147/65 (BP Cuff Size: Regular) Pulse 87 Temp 37.4 ??C (99.3 ??F) (Oral) Resp 16 Wt 83 kg (183 lb) SpO2 93% BMI 27.42 kg/m?? Normal exam - Patient is in no acute distress. Patient alert and oriented x 3, has normal respiratory effort, Distal CMS is intact. Calf is soft and non- tender. 2+ DP pulses. Abnormal exam - Dressing is c/d/I mepilex with BENJI. Assessment and Plan: Status post Procedure(s) (LRB): TOTAL KNEE JOINT REPLACEMENT (Right) PLEASE REFER TO HOSPITALIST NOTES FOR DIAGNOSIS SPECIFICS Osteoarthritis/DJD, right knee - sp Procedure(s) (LRB): TOTAL KNEE JOINT REPLACEMENT (Right) . Discussed normal recovery expectations the first 48 hours after surgery. Pain controlled. Wound care - mepilex. ICS discussed and reinforced. Calf discomfort - no further discomfort since POD # 1. Ortho static Hypotension - resolved today. Did well with therapies. Resume BP meds at home pending no further dizziness or hypotension w/ home BP monitoring. Nausea - controlled prior to dc. Ondansetron. Acute blood loss anemia- 11.3 to 9.1 with 100 EBL,as expected, improvement at dc, no acute s/s of bleeding. Bowel Management - narcotic induced, senna and MOM. Physical deconditioning - PT/OT while inpatient, continue WBAT to Right lower extremity. VTE prophylaxis/Anticoagulation - Hx TIA on chronic Plavix. Also hx post op DVT after recent spine surgery. Reviewed those notes and at the time team did monitoring and no anticoagulation. Discussed w/ Dr. Welch, hospitalist, and pharmacy. See note by Dr. Maki. He spoke with neurology & heme/onc. [place] to be safe holding Plavix whileon ortho DVT/PE prophylaxis. Enoxaparin 40 mg subq q24h x 42 days. Resume Plavix 12 hours after last dose of Enoxaparin. Code Status - Full Medicine to complete med rec prior to discharge Follow up: Discharge Procedure Orders Physical Therapy Referral Priority: Routine Referral Type: Therapies Number of Visits Requested: 1 Expiration Date: 12/04/24 Activity as Tolerated Order Comments: Getting your knee STRAIGHT the first 4 weeks after surgery is very important. Work on extension exercises several times per day. The goal of your knee bending is 90 degrees by 2 weeks and 120 degrees by 6 weeks after surgery. You may want to consider taking pain medications 30-45 minutes prior to going to therapies. Weight bearing as tolerated Do the exercises instructed by your Physical Therapist Order Comments: at least twice daily Elevate leg Order Comments: Elevate your surgical leg above the level of your heart as much as possible to decrease swelling. No pillows under your operative knee Apply Ice Order Comments: Apply ice (but not directly to your skin) as needed to ease discomfort and reduce swelling No soaking to surgical site Order Comments: Do not soak in bathtub, hot tub or pool until your incision is completely healed May shower Incision care Order Comments: Do NOT apply creams, lotions, powder or hydrogen peroxide to the incision Dressing care Order Comments: Let the water run over your dressing. Leave the dressing on until your first orthopedic follow up appointment. If you have trouble with your dressings, please call your surgeon Edema Control Garment Order Comments: Wear the edema control garment (i.e. Tubigrip, GALLITO stocking or BENJI wrap) only on the surgical leg during the day, may take off at night and to shower. Remove the cast padding material under your edema control garment the day after surgery (if it was not done at the hospital) and reapply the edema control garment. NOTE: If you have any of the following symptoms, remove and notify your surgeon immediately: *Pain when applying or wearing Tubigrip *Numbness or tingling of toes or foot *Increased swelling of toes, foot or leg *Injury to foot or toes *Noticeable change in temperature of toes or foot *Change in color of toes *Change in wound drainage or appearance *Inability to ambulate or stand within a 24-hour period Cold Compression Device - Game Ready Order Comments: Continue using cold compression device (Game Ready) after discharge with the setting of program 2 (on 30 minutes, off 30 minutes). You are responsible for returning the device, including the case, instruction book, hoses with plug, and inner wrap, to [facility] according to the rental agreement. Eat fiber and drink fluids Order Comments: Eat fiber (whole grains, fruits and vegetables) and drink plenty of fluids to prevent constipation. Pain medication can cause constipation. Call if you experience any of the following Order Comments: [1] Fever of 101 degrees Fahrenheit or 38 degrees Celsius or higher and /or chills. [2] Severe pain not relieved with pain medication. [3] Bleeding from the incision that does not stop. [4] Signs of a surgical infection: increased or foul-smelling drainage and/or extreme redness, warmth, tenderness or swelling around the incision and/ or separation of the skin closures. Call for any surgical and wound concerns Order Comments: Call [phone] (orthopedic triage nurse line) 8:00 AM to 5:00 PM Tuesday-Tuesday. Call [phone] (Orthopedic office) evening hours, weekend and holidays. Not all post-operative infections can be prevented, but early detection and proper treatment can prevent major catastrophes. Do not start antibiotics for incision infections without contacting the orthopedic surgeon first. IF in doubt, call the orthopedic surgeon. For non-urgent orthopedic questions Order Comments: Call [facility] Orthopedic Nurse Triage at [phone] Tuesday-Tuesday 8:00 AM to 5:00 PM. Pain Medication Refills Order Comments: Contact your pharmacy or surgeon's office. Please allow at least 2 business days for these requests to be addressed. Pain medications will NOT be refilled on weekends, holidays, or after 4:30 PM on . Please be aware that some insurance companies have specific regulations on coverage of pain medication; please ensure you are familiar with your insurance prescription coverage. Contact your Primary Care Provider for medical issues Do not drive Order Comments: Until you have been seen for your follow-up appointment and are OK'd for driving. Do not drink alcohol or make any major decisions, such as signing important papers or managing legal issues, while taking prescription pain medication. Prevent pneumonia after surgery Order Comments: *Use your incentive spirometer 10 times an hour while you are awake and continue this for 2 weeks after your surgery. *Practice coughing after each set of incentive spirometer use *Practice good oral care. [place] your teeth and use mouthwash twice daily. Dental appointments after surgery Order Comments: Please wait until you are 6 months out from surgery before any routine, non-urgent,dental appointments. If you have an emergent dental need prior to 6 months please call your orthopedic surgeon's office to discuss taking antibiotics prior to this emergent dental appointment. After 6 months you may need to take antibiotics prior to dental appointments. If you are unsure andthis has not been discussed at one of your post-op appointments please contact your surgeon's office to discuss further. Regular Diet Order Comments: Anticoagulation ordered elsewhere Order Comments: . No follow-up provider specified. Total time spent on discharge on day of discharge 30 minutes. For full discharge orders and instructions, please see the after visit summary for this hospitalization. Sonny Mckinley PA-C 11:33 AM 12/09/2023 documented in this encounter Discharge Instructions * Discharge Instr - Anticoagulation* Chasity Monge PharmD - 12/05/2023 2:33 PM CDT ANTICOAGULATION DISCHARGE SUMMARY NOTE AND TRANSFER ORDERS Anticoagulation indication: deep vein thrombosis prophylaxis Length of Therapy: 42 days Stop taking clopidogrel (Plavix) . Clopidogrel (Plavix) is ON HOLD. It is important that you do not take any clopidogrel (Plavix) whenyou get home. Ensure your pills are put away. Your medical team will tell you if and when it will be safe to resume taking clopidogrel (Plavix) In the meantime: You are prescribed enoxaparin (LOVENOX) injection 40 mg subcutaneously every 24 hours. Your prescription is written for prefilled syringes containing 40 mg. There is no measuring necessary. Inject the full contents of the syringe. Your next dose is due to be injected at 8 PM. Then inject at 8 pm daily. You may adjust the time of your injection by up to 2 hours before or 2 hours after the time your next dose is due to make your administration schedule more convenient for you. For example: If your next scheduled injection is due at 8 pm, you can inject the medicine as early as 6 pm or as late as 10pm. You are recovering from surgery. Watch your surgical incision for signs and symptoms of bleeding. If you have bleeding at your surgical site, go to the emergency department right away. Avoid taking non-steroidal anti-inflammatory drugs, such as aspirin, ibuprofen (Advil; Motrin), or naproxen (Naprosyn; Aleve) while taking these injections as this may increase your risk of bleeding.Acetaminophen (Tylenol) may be used as an alternative if needed. Monitor yourself for any signs or symptoms of bleeding. If you are bleeding go to the emergency department right away. Refer to the Injectable Anticoagulants guide to learn when you should seek immediate medical attention in the emergency department. Chasity Monge PharmD, BCPS 12/09/2023 1:03 PM documented in this encounter Medications at Time of Discharge Medication Sig Dispensed Refills Start Date End Date acetaminophen (TYLENOL) 500 MG tablet Take 2 Tablets (1,000 mg) by mouth three times a day. 12/05/2023 buPROPion (WELLBUTRIN XL) 300 MG 24 hour release tabletIndications:Sigifredo or depressive disorder, recurrent episode, in full remission (HRC) Take 1 Tablet (300 mg) by mouth daily. 90 Tablet 3 09/07/2023 clopidogrel (PLAVIX) 75 MG tabletIndications:Hx of transient ischemic attack (TIA) Do not take while on 42 days of Enoxaparin. Resume Plavix 12 hours after last dose of Enoxaparin. Do not start before January 19, 2024. 01/19/2024 enoxaparin (LOVENOX) 40 MG/0.4ML prefilled syringe Inject 0.4 mL (40 mg) subcutaneously every 24 hours for 42 doses. Do not take Plavix while on Enoxaparin. Resume Plavix 12 hours after last dose of Enoxaparin. 42 Each 12/06/2023 01/20/2024 fexofenadine (SAMANTHA) 180 MG tablet Take 1 tablet by mouth daily (every 24 hours). LW Addl Instr:Indicated for: Allergies 90 3 07/25/2009 gabapentin (NEURONTIN) 600 MG tabletIndications:Lum bar radiculopathy Take 1 Tablet (600 mg) by mouth two times a day. 60 Tablet 11/16/2023 11/15/2024 hydroxyurea (HYDREA) 500 MG capsule Take 10 tablets a week 120 Capsule 3 04/14/2023 lisinopril-hydrochlor othiazide (PRINZIDE) 10-12.5 MG tabletIndications:Ess ential hypertension (HRC) Take 1 Tablet by mouth daily. 90 Tablet 3 09/07/2023 MAGNESIUM-ZINC OR Take 1 Tablet by mouth daily. ondansetron (ZOFRAN-ODT) 4 MG disintegrating tablet Take 1 Tablet (4 mg) by mouth every 6 hours as needed for Nausea. 15 Tablet 12/06/2023 polyethylene glycol 3350 (GLYCOLAX) 17 GM/SCOOP powderIndications:Con stipation Take 17 g by mouth daily as needed (constipation). Fill to indicated line in cap (17 g). Mix in 4-8 ounces of a beverage and drink once daily as needed for constipation. Indications: Constipation 238 g 12/05/2023 rosuvastatin (CRESTOR) 10 MG tabletIndications:Hyp erlipidemia, unspecified hyperlipidemia type (HRC) Take 1 Tablet (10 mg) by mouth daily. 90 Tablet 3 09/07/2023 09/06/2024 senna (SENOKOT) 8.6 MG tabletIndications:Con stipation Take 2 Tablets by mouth daily at bedtime. Take while on narcotics. Hold for loose stools. Indications: Constipation 60 Tablet 12/05/2023 sertraline (ZOLOFT) 100 MG tabletIndications:Sigifredo or depressive disorder, recurrent episode, in full remission (HRC) Take 2 Tablets (200 mg) by mouth daily. 180 Tablet 3 09/07/2023 traZODone (DESYREL) 50 MG tabletIndications:Ins omnia, unspecified type Take 1 Tablet (50 mg) by mouth at bedtime as needed for Sleep. 90 Tablet 3 09/07/2023 09/06/2024 HYDROmorphone (DILAUDID) 2 MG tabletIndications:Mod erate to Moderately Severe pain Take 0.5-1 Tablets (1-2 mg) by mouth every 4 hours as needed for Pain. Take half tablet for pain rated at 4-7. Take 1 tablet for pain rated 8-10. Indications: Moderate to Moderately Severe pain 30 Tablet 12/08/2023 12/16/2023 documented as of this encounter Progress Notes * Phoebe Hart RN - 12/09/2023 2:08 PM CDT DISCHARGE O: Patient safely discharged to home. D: Patient is alert and oriented x 4. Pt up independently with assistive device . Discharge criteria met. Vaccines addressed prior to discharge. A: Discharge instructions and medications reviewed and given to patient. Written medication education material provided on enoxaparin, HYDROmorphone, ondansetron, polyethylene glycol 3350, sennaincluding possible side effects. Prescriptions filled by [facility] pharmacy. Belongings checklist reviewed with patient and belongings sent. Equipment sent: none . Supplies sent none. Care plan issues addressedand education record updated. R: Patient verbalizes understanding and teaches back discharge instructions. Patient discharged by:wheelchair with volunteer. * Brody Maki MD - 12/09/2023 1:19 PM CDT DAILY PROGRESS NOTE Subjective: Feeling much better this morning. Much better after fluids yesterday, no longer light-headed. Objective: Vitals: BP (!) 147/65 (BP Cuff Size: Regular) Pulse 87 Temp 37.4 ??C (99.3 ??F) (Oral) Resp 16 Wt 83 kg (183 lb) SpO2 93% BMI 27.42 kg/m?? I/O last 3 completed shifts: In: 630 [Oral:630] Out: - General: patient is alert and in no acute distress HEENT: conjunctiva clear, MMM Lungs: clear to auscultation bilaterally, no wheezes or crackles Heart: RRR Abdomen: soft, non-tender, bowel sounds present Extremities: no edema, leg wrapped Skin: no gross lesions or rashes Neuro: grossly intact Meds: reviewed in chart LABS: reviewed, see Epic Assessment/Plan Isamar Rich is a 73 y.o. female with Essential Thrombocythemia, provoked DVT after surgery last year no longer on anticoagulation, TIA, HTN, HLD and MDD who presented for elective knee replacement.I am following for medical co-management. S/p right TKA Post op cares per orthopedic team Essential Thrombocythemia H/o TIA H/o provoked DVT The patient is at a high risk of recurrent DVT following yesterday's surgery and needs anticoagulation. On plavix for stroke prevention with prior TIA and ET however combination of anticoagulation and plavix is higher risk of bleeding. I have been in communication with ortho, hematology and neurology today and consensus recommendation is to treat for DVT prophylaxis per routine and hold plavix during this period, resume when anticoagulation is stopped. - lovenox per ortho routine, no preference between lovenox and DOACs from medical perspective so iflovenox is cheaper for patient this is fine - hold plavix, resume day after stopping anticoagulation Orthostasis Acute blood loss anemia Due to fluid shifts from surgery, pain meds, and may clear anesthesia meds slowly. Much improved with fluids yesterday. - resume BP meds 1-2 days - ok to dc from medicine perspective. HTN/HLD/MDD - continue NOC ENGINEER meds unchanged Social Determinants of Health adding to complexity of care: None Consults/Care Discussions: Clinicians: orthopedic surgery Notes Reviewed: 7 Labs and tests reviewed: 0 Drug therapy requiring intensive monitoring for toxicity: none Brody Maki MD [phone] Billing based on: Complexity Complexity: MDM Level: Moderate * Vonda Vasquez, PT - 12/09/2023 10:43 AM CDT Physical Therapy Daily Progress Note Reason for Admit/Therapy Consult: s/p TOTAL KNEE JOINT REPLACEMENT (Right: Knee) on 12/05/23 SUBJECTIVE Mood: pleasant and alert Patient Report: Agreeable to PT. Has a walker for home. Son will be with her at home and her cousin Pain: R knee OBJECTIVE Treatment Location: PT Department Special Equipment: None Precautions: Falls risk and weight bearing as tolerated right lower extremity Orientation: Not formally assessed, no apparent cognitive deficits noted Cooperation: Full -- Range of Motion: - Right knee ROM limited by pain/stiffness. R knee flexion 60 degrees and lacking 3 degrees of extension -- Strength: Uninvolved lower extremities within normal limits -- Endurance: adequate for household mobility and inadequate for community mobility -- Balance: -- good with bilateral UE support on walker -- no LOB noted during session -- Vitals after activity: 135/55 Treatment: Gait: Equipment: front wheeled walker Assistance: SBA Distance: 125 ft , 25 ft Gait Pattern: step through to start then reciprocal with cues, slow speed, and antalgic right lowerextremity Transfers: Sit to Supine: independent Supine to sit: independent Sit to/from Stand: close SBA, cues for technique TKA exercises: Supine quad sets, hamstring sets, heel slides, straight leg raise, short arc quad, ankle pumps, seated knee flexion x 10 each Supine knee ext stretch x 1 minute Education/Handouts: PT POC Use of ice Handout for HEP and total joint info OP PT Shared vitals Multidisciplinary Communication: occupational therapist Timed codes: Therapeutic exercise x 27 minutes Total timed minutes: 27 minutes Total treatment time: 27 minutes See below for patient's current functional ability compared to reported ability prior to admission. Prior Level of Function Details: Enjoys walking and swimming for exercise. AM-PAC Mobility AM-PAC Functional Task Assist Needed Prior to Admission Assist Needed Current Turning in bed 4-->None (independent) 4-->None (independent) Lying to Sitting at edge of bed 4-->None (independent) 4-->None (independent) Bed to chair transfer 4-->None (independent) 3-->A little (sup/min A) Standing up from chair 4-->None (independent) 3-->A little (sup/min A) Walk in hospital room 4-->None (independent) 3-->A little (sup/min A) Distance walked (ft) Community ambulator (>1200 ft) 5 feet Climbing 3-5 stair with railing 1-->Total (total or can't do) (None at home) 1-->Total (totalor can't do) Assistive Device used Walker, 2 wheeled gait belt, walker, 2 wheeled Raw Score (6-24, higher is more independent) 21 18 Percent Impaired 29.52% impaired 40.47% impaired ASSESSMENT Patient with improved gait tolerance- increased gait distance. Sit to stand remains a bit difficult. Will have assist at home. Barriers to Learning and Goal Achievement: None apparent Discharge Recommendations: (PT) Discharge Recommendations: Anticipate patient will be safe to return to their prior living situation within the anticipated length of stay (however not currently appropriate for DC due to limited mobility because of soft BPs) (PT) Discharge Readiness: (ready for home with assist from family and OP PT) (PT) Rehab Potential: Good potential, to return to prior level of function with mobility (PT) Post-Acute Care Therapy Recommendations: Recommend outpatient therapy (PT) Anticipated Equipment Needs at Discharge: Has own equipment (PT) Discharge Recommendations Discussion: Discussed with, patient, patient agrees with recommendations Updated progress toward goals set on 12/05/23: Patient will perform supine to/from sit transfer with independent in 3 days. -- GOAL MET Patient will perform sit to/from stand transfer with modified independent in 3 days. -- in progress Patient will ambulate 200 feet with modified independent using front wheeled walker in 3 days. -- in progress Patient will be independent with HEP in 3 days. -- MET PLAN - DC PT * Vonda Reid, OTR/L - 12/09/2023 8:23 AM CDT Occupational Therapy ADL Progress Note Age: 73 y.o. 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 Welch at [facility]. 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 Education Level: Patient Self Report: Pt reporting wanting to get up and moving Pain: With activity 05/24 Tolerance/Cooperation: good Objective Location of treatment: OT department Right Lower Extremity (Weight-bearing Status): weight-bearing as tolerated (WBAT) Special Equipment: None Communication: verbal Orientation: Oriented x 3 AM-PAC Activities of Daily Living (ADLs) AM-PAC Functional Task Assist Needed Prior to Admission Assist Needed Current Putting on and taking off regular lower body clothing 4-->None (independent) 4-->None (independent) Bathing (including washing, rinsing, drying) 4-->None (independent) 4-->None (independent) Toileting, which includes using toilet, bedpan or urinal 4-->None (independent) 4-->None (independent) Putting on and taking off regular upper body clothing 4-->None (independent) 4-->None (independent) Taking care of personal grooming such as brushing teeth 4-->None (independent) 4-->None (independent) Eating meals 4-->None (independent) 4-->None (independent) Raw Score (6-24, higher is more independent) 24 24 Percent Impaired 0.00% impaired 0.00% impaired Instrumental Activities of Daily Living (IADLs) Functional Task Assist Needed Prior to Admission Assist Needed Current Meal Preparation None (independent) A little (sup/min A) Household Management/Laundry None (independent) A little (sup/min A) Medication Management None (independent) None (independent) Money Management None (independent) None (independent) Driving Drives Independently No concerns noted, defer to practitioner for approval Working Retired Treatment Today/Patient Education Gait/Mobility/AE: SBA with FWW ADL's/IADL's: Recliner transfer: independently Bed mobility: independently Toileting/Toilet transfers: independently Homemaking/Home Management: with standby assistance/supervision BP reading 121/55 UE Function: not addressed this session Cognition: Pt able to comprehend and follow directions/education independent. Vision: not addressed this session Timed Code Treatment Minutes: 20 Total Treatment Minutes: 20 Interdisciplinary Communication: PT Status of functional goals: Patient will demonstrate toileting/toilet transfer (with adaptive equipment as needed) with standbyassist in 3 days. GOAL MET Patient will demonstrate walk-in/tub shower transfers (with adaptive equipment as needed) with standby assist in 3 days. GOAL MET Patient will demonstrate kitchen mobility/household mobility with standby assist in 3 days. GOAL MET nursing home goal: Patient will maximize independence and safety with ADL/IADLs Assessment and Plan Assessment: Pt progressing with ADLS and functional mobility for safe DC home Discharge Recommendations: (OT) Discharge Recommendations: Anticipate patient will be safe to return to their prior living situation within the anticipated length of stay (OT) Discharge Readiness: No need to wait for therapy if medically ready for discharge (OT) Rehab Potential: Good potential, to return to independence with self cares (OT) Post-Acute Care Therapy Recommendations: No anticipated therapy needed after discharge (OT) Anticipated Equipment Needs at Discharge: Sock aide (OT) Discharge Recommendations Discussion: patient agrees with recommendations IP Frequency: DC OT Therapist signature: MIRTA Perry/Namrata 11:06 AM 12/09/2023 * Bessie Zaragoza, RN - 12/08/2023 10:29 PM CDT Patient A&O,VSS. BP improved. Pain mini and tolerable. Denies acute distress. CMS intact, SBA to toilet, voiding. * Shyann Gillette PT - 12/08/2023 4:26 PM CDT PM Physical Therapy Treatment session: Subjective: Agreeable to PT. Sat in chair for lunch. Thinks she will be ready to go home tomorrow. Pain: tolerable amounts in R knee -- ROM: R active knee extension: lacking 4 degrees from normal, R active knee flexion: 65 degrees without overpressure -- Vitals: BP at rest: 118/56 Treatment: Transfers: Supine to Sit: supervision Sit to Supine: contact guard assist Sit to/from Stand: standby assist Gait: Equipment: front wheeled walker Assistance: contact guard assist Distance: 45 feet x 2 Gait Pattern: step-to right lower extremity, antalgic right lower extremity, decreased heel strike on right lower extremity, and decreased weight shift onto right lower extremity Instruction provided: weight bearing as tolerated, offload surgical lower extremity with upper extremities on assistive device as needed, and pacing to increase ambulation distance Stairs: Not tested - pt has none to climb Exercises: Performed the following exercises x 10 reps to right lower extremity in supine: - heel slides - SAQ - quad sets - hamstring sets - ankle pumps - SLR - Performed seated knee flexion to tolerance - Supine knee extension stretch on bolster x 2 minutes Assessment: No lightheadedness throughout session. Able to ambulate 45 feet but antalgic pattern. Rknee flexion is limited and impairs ability to efficiently perform sit to/from stand transfers. Will need assist of 1 at DC. Timed codes: Therapeutic exercise x 23 minutes Total timed minutes: 23 minutes Total treatment time: 20 (AM) + 23 (PM) = 43 minutes Therapist: Shyann Gillette, PT 4:30 PM 12/08/2023 * Herminia Chow RN - 12/08/2023 12:36 PM CDT [facility] Care Management Inpatient Note Plan: Expected Discharge Date: 12/08/2023 Anticipated Discharge Plan: home with out patient therapy Transportation: Confirmed pt will arrange Barriers to Discharge: medical stability Prior Living Situation: Alone, Condo (Patient states her son can help her at home.) Advanced Directive on File: No Additional Comments: chart reviewed. Received notification from [facility] that pt is open to the idea ofTCU or home care. Met with pt at bedside; introduced self and explained role. Pt is alert and conversant. Pt lives alone in a condo with elevators. We discussed TCU; provider reports pt is stable jensen/c today vs tomorrow. Pt was changed from extended recovery to in patient yesterday; provider doesnot anticipate pt would stay long enough to have a 3 night qualifying in patient hospitalization. Pt would not wish to privately pay for TCU. Discussed home care, including Medicare coverage, homebound requirement, estimated frequency of visits, etc. Pt is familiar with skilled home care as she had it in the past following a back surgery. Pt has out patient therapy scheduled near her home in [place], and she prefers to keep this plan. Discussed that some people initially do home care and then transition to out patient therapy; pt continues to politely decline home care. Since it is really only intermittent brief visits for therapyshe prefers to keep her original plan for out patient therapy. Pt confirms she will have transportation to appointments. Pt will plan to return home at d/c; plans to have her son stay for a night and then she can receivesome help from friends, but she does not anticipate having them stay over night. Pt will update terri; this com writer obtained permission from pt to speak to him if he has additional questions/concerns. Patient/Spokesperson Updated: Yes; Who? patient Herminia Pradip Leslie Kramer RN 12:37 PM 12/08/2023 ADDENDUM: Stopped back into pt's room to inquire if she spoke with her son and/or if there any additional questions or concerns. Pt's sister is now present. Pt has not yet called her son, but with her sister'sencouragement, she will do so now. Pt and/or sister will notify this com writer if there are any concerns and/or a change in the d/c plan. Sounds like they will try to figure out a plan for family to provide more supervision/assistance at home. Herminia Kramer RN 12/08/2023, 1:13 PM * Sonny Mckinley PA-C - 12/08/2023 11:41 AM CDT ORTHO PROGRESS NOTE 12/08/2023 Admission Date: 12/05/2023 Procedure: Procedure(s) (LRB): TOTAL KNEE JOINT REPLACEMENT (Right) Date of Procedure: 12/04 Surgeon: Dr. Welch POD#: 3 Assessment and Plan: Status post Procedure(s) (LRB): TOTAL KNEE JOINT REPLACEMENT (Right). PLEASE REFER TO HOSPITALIST NOTES FOR DIAGNOSIS SPECIFICS Osteoarthritis/DJD, right knee - sp Procedure(s) (LRB): TOTAL KNEE JOINT REPLACEMENT (Right) . Re discussed normal recovery expectations after surgery. Pain controlled. Wound care - mepilex. ICS discussed and reinforced. Orthostasis - noted. Discussed w/ Dr. Maki. Appreciate co-management. Holding BP meds. Had 250 NS bolus yesterday but ongoing orthostatic hypotension today w/ therapies. Support 1L bolus today. Patient taking moderate oral liquids too. Will lower opioid dosage as well. Nausea - controlled. Zofran. Calf discomfort - none noted today. Monitoring. Acute blood loss anemia- 11.3 to 9.1 with 100 EBL,as expected, symptomatic w/ ongoing orthostatic hypotension, no acute s/s of bleeding. Bowel Management - narcotic induced, senna and MOM. Physical deconditioning - PT/OT while inpatient, continue WBAT to Right lower extremity. VTE prophylaxis/Anticoagulation - Hx TIA on chronic Plavix. Also hx post op DVT after recent spine surgery. Reviewed those notes and at the time team did monitoring and no anticoagulation. Discussed w/ Dr. Welch and pharmacy. Discussed with Dr. Maki. See note by Dr. Maki. He spoke with neurology & heme/onc. [place] to be safe holding Plavix whileon ortho DVT/PE prophylaxis. Enoxaparin 40 mg subq q24h x 42 days. Resume Plavix 12 hours after last dose of Enoxaparin. Code Status - Full Disposition Plan: Cleared per ortho today vs tomorrow pending improvement in orthostatic hypotension, clearing therapies and medically cleared. Home anticipated. Subjective: Isamar Rich is a 73 y.o. female status post Procedure(s) (LRB): TOTAL KNEE JOINT REPLACEMENT (Right). Chart reviewed. Discussed w/ nursing and Dr. Maki. Ongoing orthostatic hypotension. Nausea controlled. Patient denies abdominal pain, issues voiding, calf pain or numbness/tingling. Lives alone. Unsure how much help her son could provide upon dc. Open to TCU if needed. Discharge Preference: TBD pending progress with therapies. The following were reviewed in EPIC - active problem list, medication list, allergies, family history, social history, medical and surgical history. The preop note from Dr. Lainez was also reviewed. Objective: BP 131/59 (BP Cuff Size: Regular) Pulse 89 Temp 37 ??C (98.6 ??F) (Oral) Resp 16 Wt 83 kg (183 lb) SpO2 95% BMI 27.42 kg/m?? Normal exam - Patient is in no acute distress. Patient alert and oriented x 3, has normal respiratory effort, Distal CMS is intact. Calf is soft. 2+ DP pulses. Abnormal exam - Dressing not visualized today. PT/OT - following, not cleared yet. Labs/Significant Studies- Lab Results Component Value Date Hemoglobin 9.1 (L) 12/08/2023 Hemoglobin 9.6 (L) 12/06/2023 Hemoglobin 10.3 (L) 12/06/2023 BUN Date Value Ref Range Status 12/05/2023 18 7 - 26 mg/dL Final Sodium Date Value Ref Range Status 12/05/2023 135 (L) 136 - 145 mmol/L Final Potassium Date Value Ref Range Status 12/05/2023 3.4 (L) 3.5 - 5.1 mmol/L Final Chloride Date Value Ref Range Status 12/05/2023 104 98 - 109 mmol/L Final Glucose Date Value Ref Range Status 12/05/2023 99 70 - 100 mg/dL Final Comment: The given reference range is for the fasting state. Non-fasting reference range for glucose is 70 -180 mg/dL. Creatinine Date Value Ref Range Status 12/05/2023 0.82 0.55 - 1.02 mg/dL Final GFR, Estimated Date Value Ref Range Status 12/05/2023 >60 >60 mL/min/1.73m2 Final Calcium Date Value Ref Range Status 12/05/2023 9.4 8.4 - 10.4 mg/dL Final Anion Gap Date Value Ref Range Status 12/05/2023 9 6 - 16 mmol/L Final Hemoglobin Date Value Ref Range Status 12/08/2023 9.1 (L) 12.0 - 15.5 g/dL Final 12/06/2023 9.6 (L) 12.0 - 15.5 g/dL Final 12/06/2023 10.3 (L) 12.0 - 15.5 g/dL Final WBC Date Value Ref Range Status 12/06/2023 7.9 3.5 - 10.5 x10(9)/L Final 11/16/2023 6.6 3.5 - 10.5 x10(9)/L Final 06/16/2023 4.8 3.5 - 10.5 x10(9)/L Final INR Date Value Ref Range Status 12/05/2023 1.1 0.9 - 1.1 Final I/O last 3 completed shifts: In: 420 [Oral:420] Out: - Sonny Mckinley PA-C 11:42 AM 12/08/2023 * Brody Maki MD - 12/08/2023 11:04 AM CDT DAILY PROGRESS NOTE Subjective: Isamar continues to have issues with orthostasis. BP dropped in PT from 97/52 to 84/46 and she was feeling light-headed. BP meds have been held since Tuesday. SBP usually 120s in clinic. Objective: Vitals: BP 131/59 (BP Cuff Size: Regular) Pulse 89 Temp 37 ??C (98.6 ??F) (Oral) Resp 16 Wt 83 kg (183 lb) SpO2 95% BMI 27.42 kg/m?? I/O last 3 completed shifts: In: 420 [Oral:420] Out: - General: patient is alert and in no acute distress HEENT: conjunctiva clear, MMM Lungs: clear to auscultation bilaterally, no wheezes or crackles Heart: RRR Abdomen: soft, non-tender, bowel sounds present Extremities: no edema, leg wrapped Skin: no gross lesions or rashes Neuro: grossly intact Meds: reviewed in chart LABS: reviewed, see Epic Assessment/Plan Isamar Rich is a 73 y.o. female with Essential Thrombocythemia, provoked DVT after surgery last year no longer on anticoagulation, TIA, HTN, HLD and MDD who presented for elective knee replacement.I am following for medical co-management. S/p right TKA Post op cares per orthopedic team Essential Thrombocythemia H/o TIA H/o provoked DVT The patient is at a high risk of recurrent DVT following yesterday's surgery and needs anticoagulation. On plavix for stroke prevention with prior TIA and ET however combination of anticoagulation and plavix is higher risk of bleeding. I have been in communication with ortho, hematology and neurology today and consensus recommendation is to treat for DVT prophylaxis per routine and hold plavix during this period, resume when anticoagulation is stopped. - lovenox per ortho routine, no preference between lovenox and DOACs from medical perspective so iflovenox is cheaper for patient this is fine - hold plavix, resume day after stopping anticoagulation Orthostasis Acute blood loss anemia Due to fluid shifts from surgery, pain meds, and may clear anesthesia meds slowly. Working on pushing fluids but not making progress. Got a 250 cc bolus yesterday with minimal success. Hgb falling only to extent expected from surgery and bolus yesterday and knee looks good without sign of bleeding,don't think she's bleeding anymore. - continue to hold lisinopril, hctz - continue to push fluids - 1 L bolus (we are preserving IV fluids so the people that need it can get it - she needs it) - decrease dilaudid to 1 mg prn HTN/HLD/MDD - continue NOC ENGINEER meds unchanged Social Determinants of Health adding to complexity of care: None Consults/Care Discussions: Clinicians: orthopedic surgery Notes Reviewed: 7 Labs and tests reviewed: 1 Drug therapy requiring intensive monitoring for toxicity: none Brody Maki MD [phone] Billing based on: Complexity Complexity: MDM Level: High * Shyann Gillette, PT - 12/08/2023 10:34 AM CDT Physical Therapy Daily Progress Note Reason for Admit/Therapy Consult: s/p TOTAL KNEE JOINT REPLACEMENT (Right: Knee) on 12/05/23 SUBJECTIVE Mood: pleasant and alert Patient Report: Agreeable to PT. Feeling better and initially declines lightheadedness. Reports lightheadedness in standing. Pain: 6/10 in R knee OBJECTIVE Treatment Location: PT Department Special Equipment: None Precautions: Falls risk and weight bearing as tolerated right lower extremity Orientation: Not formally assessed, no apparent cognitive deficits noted Cooperation: Full -- Range of Motion: - Right knee ROM limited by pain/stiffness. Not formally measured -- Strength: Uninvolved lower extremities within normal limits -- Endurance: inadequate for household mobility and inadequate for community mobility -- Balance: -- good with bilateral UE support on walker -- no LOB noted during session -- Vitals at rest in sitting: BP 97/52 -- Vitals in sitting after exercises: BP 92/47 -- Vitals after standing: BP 84/46 -- Vitals in supine at end of session: BP 121/57 Treatment: Gait: Equipment: front wheeled walker Assistance: contact guard assist Distance: 5 feet (distance limited due to lightheadedness and soft BP) Gait Pattern: reciprocal, slow speed, and antalgic right lower extremity Transfers: Sit to Supine: independent Sit to/from Stand: contact guard assist considering soft BPs Seated exercises performed x 10 reps with each lower extremity: - Marching - LAQ - Heel/toe raises Education/Handouts: PT POC Call for assistance to prevent falls in the hospital - do not get up and ambulate without assistance due to medical status and lines/drains Shared vitals Sit up in recliner for at least 1+ hour during lunch for positional adjustment Multidisciplinary Communication: occupational therapist and nurse Timed codes: Therapeutic exercise x 5 minutes and Therapeutic activities x 15 minutes Total timed minutes: 20 minutes Total treatment time: 28 minutes See below for patient's current functional ability compared to reported ability prior to admission. Prior Level of Function Details: Enjoys walking and swimming for exercise. AM-PAC Mobility AM-PAC Functional Task Assist Needed Prior to Admission Assist Needed Current Turning in bed 4-->None (independent) 4-->None (independent) Lying to Sitting at edge of bed 4-->None (independent) 4-->None (independent) Bed to chair transfer 4-->None (independent) 3-->A little (sup/min A) Standing up from chair 4-->None (independent) 3-->A little (sup/min A) Walk in hospital room 4-->None (independent) 3-->A little (sup/min A) Distance walked (ft) Community ambulator (>1200 ft) 5 feet Climbing 3-5 stair with railing 1-->Total (total or can't do) (None at home) 1-->Total (totalor can't do) Assistive Device used Walker, 2 wheeled gait belt, walker, 2 wheeled Raw Score (6-24, higher is more independent) 21 18 Percent Impaired 29.52% impaired 40.47% impaired ASSESSMENT Activity tolerance continues to be limited by lightheadedness and soft BPs. Patient diaphoretic andpallor in standing therefore terminated remainder of session. Not at a safe household mobility level due to medical complications. Barriers to Learning and Goal Achievement: None apparent Discharge Recommendations: (PT) Discharge Recommendations: Anticipate patient will be safe to return to their prior living situation within the anticipated length of stay (however not currently appropriate for DC due to limited mobility because of soft BPs) (PT) Discharge Readiness: Patient needs to remain hospitalized for therapy follow-up (PT) Rehab Potential: Good potential, to return to prior level of function with mobility (PT) Post-Acute Care Therapy Recommendations: Recommend outpatient therapy (PT) Anticipated Equipment Needs at Discharge: Has own equipment (PT) Discharge Recommendations Discussion: Discussed with, patient, patient agrees with recommendations Updated progress toward goals set on 12/05/23: Patient will perform supine to/from sit transfer with independent in 3 days. -- GOAL MET Patient will perform sit to/from stand transfer with modified independent in 3 days. -- in progress Patient will ambulate 200 feet with modified independent using front wheeled walker in 3 days. -- in progress Patient will be independent with HEP in 3 days. -- NT PLAN - PT Gym: see again this PM monitor vitals (BP), sit to/from stand, and ambulate with front wheeled walker, TKA HEP, knee ROM measurements Shyann Gillette, PT 10:39 AM 12/08/2023 * Matheus Cardenas, OTR/L - 12/08/2023 8:08 AM CDT Occupational Therapy ADL Progress Note Age: 73 y.o. 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 Welch at [facility]. 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 Education Level: Patient Self Report: Agreeable to OT Pain: At rest 07/24 Location: R knee Tolerance/Cooperation: good Objective Location of treatment: bedside, room 2W34 Right Lower Extremity (Weight-bearing Status): weight-bearing as tolerated (WBAT) Special Equipment: None Communication: verbal, appropriate Orientation: Oriented x 3 AM-PAC Activities of Daily Living (ADLs) AM-PAC Functional Task Assist Needed Prior to Admission Assist Needed Current Putting on and taking off regular lower body clothing 4-->None (independent) 3-->A little (sup/min A) Bathing (including washing, rinsing, drying) 4-->None (independent) 3-->A little (sup/min A) Toileting, which includes using toilet, bedpan or urinal 4-->None (independent) 3-->A little (sup/min A) Putting on and taking off regular upper body clothing 4-->None (independent) 4-->None (independent) Taking care of personal grooming such as brushing teeth 4-->None (independent) 4-->None (independent) Eating meals 4-->None (independent) 4-->None (independent) Raw Score (6-24, higher is more independent) 24 21 Percent Impaired 0.00% impaired 32.79% impaired Instrumental Activities of Daily Living (IADLs) Functional Task Assist Needed Prior to Admission Assist Needed Current Meal Preparation None (independent) A little (sup/min A) Household Management/Laundry None (independent) A little (sup/min A) Medication Management None (independent) None (independent) Money Management None (independent) None (independent) Driving Drives Independently No concerns noted, defer to practitioner for approval Working Retired Treatment Today/Patient Education Gait/Mobility/AE: SBA for sit <> stand using FWW and cues for hand placement ADL's/IADL's: To further assess pt's safety and independence with all ADLs/IADLs for a safe return home pt participated in the following: BP: 121/57 taken in supine (by PT in the previous session) BP: 109/56 taken while seated on the LUE BP: 94/65 while standing taken on the LUE Bed mobility: with standby assistance/supervision UE Function: Patient participated in therapeutic exercise during session. Patient completed 7 theraband exercises x 10 reps each using BUE while seated. Patient completed the following motions: Chestpulls, shoulder flexion, shoulder extension, elbow flexion, elbow extension, external rotation, andpunch forward with good form. Issued HEP for UE and theraband Cognition: Oriented as above, follows commands appropriately. Vision: WFL Timed Code Treatment Minutes: 25 Total Treatment Minutes: 25 Interdisciplinary Communication: PT Status of functional goals: Patient will demonstrate toileting/toilet transfer (with adaptive equipment as needed) with standbyassist in 3 days. Patient will demonstrate walk-in/tub shower transfers (with adaptive equipment as needed) with standby assist in 3 days. Patient will demonstrate kitchen mobility/household mobility with standby assist in 3 days. 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 Continue with plan of care Discharge Recommendations: (OT) Discharge Recommendations: Anticipate patient will be safe to return to their prior living situation within the anticipated length of stay (OT) Discharge Readiness: Patient needs to remain hospitalized for therapy follow-up (Limited mobility in this session due to low BP and lightheadedness) (OT) Rehab Potential: Good potential, to return to independence with self cares (OT) Post-Acute Care Therapy Recommendations: No anticipated therapy needed after discharge (OT) Anticipated Equipment Needs at Discharge: Sock aide (OT) Discharge Recommendations Discussion: Discussed with, patient IP Frequency: daily Plan for next session: OT department. See next 12/08 shower, toilet, kitchen mobility, AE needs, monitor BP Therapist signature: MIRTA Royal/L 2:44 PM 12/08/2023 * Bessie Zaragoza RN - 12/08/2023 3:06 AM CDT Patient finished IVF bolus. Vitals improved. BP 127/ 57, 133/52, HR 80, R 16, 02 > 95% on RA. Patient A&O, SBA of 1, Waked halls few times. Denies dizziness or lightheadedness. 2 mg Dilaudid x1 for pain. Pt voiding. Sleeping well this night. Will cont to monitor. * Cecy Martinez RN - 12/07/2023 5:20 PM CDT Pt has complained of dizziness and headaches on/off throughout the shift. She appeared lethargic/drowsy this morning. Her bp is soft during the shift, and the BP medication was held this morning. Shewas unable to participate in therapy this morning due to a feeling of dizziness and a headache, SBP<80. Orthostatic BP didn't changed significantly. Paged NORI who gave a bolus. Pain is well controlled with the current regimen. The surgical incision is intact. Pt feels a little better this afternoon. Pt's son called and states that pt lives alone, he doesn't feel comfortable discharging pt today. He was afraid that she would fall again in the middle of the night as she woke up to use the bathroom due to dizziness. He would like the doctor to address dizziness and low blood pressure before discharging home. Pt also required the MD to explain the Xray's result after the fall. We will continue to monitor for any changes. Vitals: 12/07/230 BP: 119/56 Pulse: 76 Resp: 15 Temp: 36.6 ??C (97.8 ??F) * Princess Márquez, PT - 12/07/2023 2:49 PM CDT Physical Therapy Daily Progress Note Reason for Admit/Therapy Consult: s/p TOTAL KNEE JOINT REPLACEMENT (Right: Knee) on 12/05/23 SUBJECTIVE Mood: alert Patient Report: Agreeable to PT, denies lightheadedness. She states she has not been out of bed since AM PT session Pain: R knee 5/10 with activity OBJECTIVE Treatment Location: Bedside, / Special Equipment: None Precautions: Falls risk and weight bearing as tolerated right lower extremity Orientation: Not formally assessed, no apparent cognitive deficits noted Cooperation: Full -- Range of Motion: - Right knee ROM limited by pain/stiffness. Not formally measured -- Strength: Uninvolved lower extremities within normal limits -- Endurance: inadequate for household mobility and inadequate for community mobility -- Balance: -- good with bilateral UE support on walker -- no LOB noted during session -- Vitals at rest: SpO2 93% and BP 95/40 -- Vitals with activity: SpO2 96% and BP 97/57 Treatment: Gait: Equipment: front wheeled walker Assistance: contact guard assist Distance: ~30 feet x 3 Gait Pattern: reciprocal, slow speed, and antalgic right lower extremity Transfers: Supine to Sit: modified independent Sit to Supine: modified independent Sit to/from Stand: supervision Performed the following exercises x 10 reps to right lower extremity in supine: - quad sets - hamstring sets - ankle pumps - SLR Education/Handouts: PT POC Call for assistance to prevent falls in the hospital - do not get up and ambulate without assistance due to medical status and lines/drains Shared vitals Ambulate with ALEISHA esposito Multidisciplinary Communication: nurse Timed codes: Therapeutic exercise x 24 minutes Total timed minutes: 24 Total treatment time: 24 See below for patient's current functional ability compared to reported ability prior to admission. Prior Level of Function Details: Enjoys walking and swimming for exercise. AM-PAC Mobility AM-PAC Functional Task Assist Needed Prior to Admission Assist Needed Current Turning in bed 4-->None (independent) 4-->None (independent) Lying to Sitting at edge of bed 4-->None (independent) 4-->None (independent) Bed to chair transfer 4-->None (independent) 3-->A little (sup/min A) Standing up from chair 4-->None (independent) 3-->A little (sup/min A) Walk in hospital room 4-->None (independent) 3-->A little (sup/min A) Distance walked (ft) Community ambulator (>1200 ft) WC to bed Climbing 3-5 stair with railing 1-->Total (total or can't do) (None at home) 1-->Total (totalor can't do) Assistive Device used Walker, 2 wheeled gait belt, walker, 2 wheeled Raw Score (6-24, higher is more independent) 21 18 Percent Impaired 29.52% impaired 40.47% impaired ASSESSMENT Patient seen bedside due to lightheadedness during AM session. BP soft (SBP is < 100) but denieslightheadedness this afternoon. Moves well but limitation is her recent lightheadedness and event last night that required her to lower herself to the floor. Barriers to Learning and Goal Achievement: None apparent Discharge Recommendations: (PT) Discharge Recommendations: (anticipate she will be able to DC home once lightheadedness resolves) (PT) Discharge Readiness: Patient needs to remain hospitalized for therapy follow-up (PT) Rehab Potential: Good potential, to return to prior level of function with mobility (PT) Post-Acute Care Therapy Recommendations: Recommend outpatient therapy (PT) Anticipated Equipment Needs at Discharge: Has own equipment (PT) Discharge Recommendations Discussion: Discussed with, patient Updated progress toward goals set on 12/05/23: Patient will perform supine to/from sit transfer with independent in 3 days.goal met Patient will perform sit to/from stand transfer with modified independent in 3 days. Gaol not met Patient will ambulate 200 feet with modified independent using front wheeled walker in 3 days. Goalnot met Patient will be independent with HEP in 3 days. PLAN - PT Gym: 12/08/23 monitor vitals (BP), supine to/from sit, sit to/from stand, and ambulate with front wheeled walker Princess Márquez, PT 2:59 PM 12/07/2023 * Sonny Mckinley, PAGrace - 12/07/2023 9:37 AM CDT ORTHO PROGRESS NOTE 12/07/2023 Admission Date: 12/05/2023 Procedure: Procedure(s) (LRB): TOTAL KNEE JOINT REPLACEMENT (Right) Date of Procedure: 12/04 Surgeon: Dr. Welch POD#: 2 Assessment and Plan: Status post Procedure(s) (LRB): TOTAL KNEE JOINT REPLACEMENT (Right). PLEASE REFER TO HOSPITALIST NOTES FOR DIAGNOSIS SPECIFICS Osteoarthritis/DJD, right knee - sp Procedure(s) (LRB): TOTAL KNEE JOINT REPLACEMENT (Right) . Discussed normal recovery expectations the first 48 hours after surgery. Pain controlled. Wound care - mepilex. ICS discussed and reinforced. Nausea - controlled. Zofran. Calf discomfort - mild calf discomfort periodically. Does not persist constantly. Monitor. No significant swelling. Could consider US if pain persisting. Anemia/Hgb Monitoring - 11.3 to 9.6 with 100 EBL,as expected, asymptomatic, no acute s/s of bleeding. No further monitoring indicated unless symptomatic. Bowel Management - narcotic induced, senna and MOM. Physical deconditioning - PT/OT while inpatient, continue WBAT to Right lower extremity. VTE prophylaxis/Anticoagulation - Hx TIA on chronic Plavix. Also hx post op DVT after recent spine surgery. Reviewed those notes and at the time team did monitoring and no anticoagulation. Discussed w/ Dr. Welch and pharmacy. Discussed with Dr. Maki. See note by Dr. Maki. He spoke with neurology & heme/onc. Conway to be safe holding Plavix whileon ortho DVT/PE prophylaxis. Enoxaparin 40 mg subq q24h x 42 days. Resume Plavix 12 hours after last dose of Enoxaparin. Code Status - Full Disposition Plan: Cleared per ortho today pending clearing therapies and medically cleared. Home anticipated today. Subjective: Isamar Rich is a 73 y.o. female status post Procedure(s) (LRB): TOTAL KNEE JOINT REPLACEMENT (Right). Chart reviewed. Noted she slid off toilet seat overnight. Pain to knee is stable and denies other sites of pain. Patient denies abdominal pain, issues voiding, calf pain or numbness/tingling. Plan is home with son and friends to support her. Son can stay at her house upon dc. Discharge Preference: home The following were reviewed in EPIC - active problem list, medication list, allergies, family history, social history, medical and surgical history. The preop note from Dr. Lainez was also reviewed. Objective: BP 102/40 Pulse 76 Temp 36.7 ??C (98.1 ??F) (Oral) Resp 17 Wt 83 kg (183 lb) SpO2 93% BMI 27.42 kg/m?? Normal exam - Patient is in no acute distress. Patient alert and oriented x 3, has normal respiratory effort, Distal CMS is intact. Calf is soft. 2+ DP pulses. Abnormal exam - Dressing is c/d/I mepilex and BENJI wrap. Mild calf discomfort witl palpation but no significant swelling. PT/OT - following, not cleared yet. Labs/Significant Studies- Lab Results Component Value Date Hemoglobin 9.6 (L) 12/06/2023 Hemoglobin 10.3 (L) 12/06/2023 Hemoglobin 11.3 (L) 12/05/2023 BUN Date Value Ref Range Status 12/05/2023 18 7 - 26 mg/dL Final Sodium Date Value Ref Range Status 12/05/2023 135 (L) 136 - 145 mmol/L Final Potassium Date Value Ref Range Status 12/05/2023 3.4 (L) 3.5 - 5.1 mmol/L Final Chloride Date Value Ref Range Status 12/05/2023 104 98 - 109 mmol/L Final Glucose Date Value Ref Range Status 12/05/2023 99 70 - 100 mg/dL Final Comment: The given reference range is for the fasting state. Non-fasting reference range for glucose is 70 -180 mg/dL. Creatinine Date Value Ref Range Status 12/05/2023 0.82 0.55 - 1.02 mg/dL Final GFR, Estimated Date Value Ref Range Status 12/05/2023 >60 >60 mL/min/1.73m2 Final Calcium Date Value Ref Range Status 12/05/2023 9.4 8.4 - 10.4 mg/dL Final Anion Gap Date Value Ref Range Status 12/05/2023 9 6 - 16 mmol/L Final Hemoglobin Date Value Ref Range Status 12/06/2023 9.6 (L) 12.0 - 15.5 g/dL Final 12/06/2023 10.3 (L) 12.0 - 15.5 g/dL Final 12/05/2023 11.3 (L) 12.0 - 15.5 g/dL Final WBC Date Value Ref Range Status 12/06/2023 7.9 3.5 - 10.5 x10(9)/L Final 11/16/2023 6.6 3.5 - 10.5 x10(9)/L Final 06/16/2023 4.8 3.5 - 10.5 x10(9)/L Final INR Date Value Ref Range Status 12/05/2023 1.1 0.9 - 1.1 Final I/O last 3 completed shifts: In: 260 [Oral:260] Out: - Sonny Mckinley PA-C 9:37 AM 12/07/2023 * Princess Márquez, PT - 12/07/2023 7:49 AM CDT Physical Therapy Daily Progress Note Patient arrived in PT with complaints of headache but she was not sure if she felt lightheaded. BP taken L UE: 72/46. Patient wheeled back to room reclined/legs elevated in wheelchair. As PT was wheeling patient back to room, she reports that maybe is feeling dizzy. BP taken by RN in room while sitting in WC: 86/46. RN and PT assist patient back to bed with a pivot transfer. RN present in room with patient when PT left. Princess Márquez, PT 9:57 AM 12/07/2023 * Rachel Servin OTR/L - 12/07/2023 7:33 AM CDT Occupational Therapy Attempted to see patient bedside this AM for OT session. Patient supine in bed upon entry, advises she continues to be a slightly lightheaded at rest. BP taken while supine on RUE 108/53. Will hold OT session and check back with patient for occupational therapy as schedule allows and as appropriate. Rachel Servin, OTR/L 10:15 AM 12/07/2023 * Donna Grijalva, RN - 12/06/2023 10:34 PM CDT 12/05 0600- 2330 Clinical Goals and Progression: Pt's pain/nausea will be managed effectively. Pt will increase mobility. Drinking electrolytes will be encouraged. Summary of Events: A&Ox4. VSS. SBA w/ walker. Pain controlled w/ socorro meds & PRN PO dilaudidx2. Nausea intermittent throughout day, PRN zofran x1 & PRN compazine given x1. Unable to complete PT d/t nausea. Neuros intact. Dressing CDI. Neuropathy baseline. Tolerating diet. Electrolytes encouraged. Hgb 10.3. Tubigrips applied. Pt reported feeling like she's about to have diarrhea; had 1 loose BM, reports feeling better afterwards. Son called, updates given. Response: Resting in bed. Call light within reach. * Brody Maki MD - 12/06/2023 1:43 PM CDT DAILY PROGRESS NOTE Subjective: Patient admitted yesterday for elective knee replacement. I have been asked by Dr Welch to assist in medical co-management. Surgery went well without complications. She was light-headed, dizzy and nauseous this morning at therapy so session was cut short. She is feeling better but still cold, all wrapped up in blankets when I see her. Pain well controlled. Objective: Vitals: BP 136/77 (BP Cuff Size: Regular) Pulse 62 Temp 36.5 ??C (97.7 ??F) (Oral) Resp 16 Wt 83 kg(183 lb) SpO2 96% BMI 27.42 kg/m?? I/O last 3 completed shifts: In: 800 [IV:800] Out: 500 [Urine:400] General: patient is alert and in no acute distress HEENT: conjunctiva clear, MMM Lungs: clear to auscultation bilaterally, no wheezes or crackles Heart: RRR Abdomen: soft, non-tender, bowel sounds present Extremities: no edema, leg wrapped Skin: no gross lesions or rashes Neuro: grossly intact Meds: reviewed in chart LABS: reviewed, see Epic Assessment/Plan Isamar Rich is a 73 y.o. female with Essential Thrombocythemia, provoked DVT after surgery last year no longer on anticoagulation, TIA, HTN, HLD and MDD who presented for elective knee replacement.I am following for medical co-management. S/p right TKA Post op cares per orthopedic team Essential Thrombocytopenia H/o TIA H/o provoked DVT The patient is at a high risk of recurrent DVT following yesterday's surgery and needs anticoagulation. On plavix for stroke prevention with prior TIA and ET however combination of anticoagulation and plavix is higher risk of bleeding. I have been in communication with ortho, hematology and neurology today and consensus recommendation is to treat for DVT prophylaxis per routine and hold plavix during this period, resume when anticoagulation is stopped. - lovenox per ortho routine, no preference between lovenox and DOACs from medical perspective so iflovenox is cheaper for patient this is fine - hold plavix, resume day after stopping anticoagulation Orthostasis Due to fluid shifts from surgery. IV fluids are in severe nationwide shortage. Encouraged patient to drink electrolyte containing fluids. HTN/HLD/MDD - continue NOC ENGINEER meds unchanged Social Determinants of Health adding to complexity of care: None Consults/Care Discussions: Clinicians: hematology/oncology, neurology, and orthopedic surgery Notes Reviewed: 5 Labs and tests reviewed: 2 Drug therapy requiring intensive monitoring for toxicity: none Patient is medically cleared from my perspective to discharge whenever pain is controlled and tolerating therapy. I won't plan on seeing her if still here tomorrow unless paged. Brody Maki MD [phone] Billing based on: Complexity Complexity: MDM Level: High * Shyann Gillette, PT - 12/06/2023 1:32 PM CDT Physical Therapy - PM Session Received notice from RN that patient is still not feeling well but okay to try bedside PT. Attempted BS PT, but patient states she would prefer to hold therapy for the remainder of the day. Does not feel up to even doing bed exercises. She is feeling nauseous, very tired and like she might have diarrhea. Encouraged patient to get up to ambulate to the bathroom when necessary. Will attempt therapies in the dept tomorrow. Will continue plan of care as previously established on next date as available and appropriate. Shyann Gillette, PT 1:33 PM 12/06/2023 * Sonny Mckinley PA-C - 12/06/2023 9:42 AM CDT ORTHO PROGRESS NOTE 12/06/2023 Admission Date: 12/05/2023 Procedure: Procedure(s) (LRB): TOTAL KNEE JOINT REPLACEMENT (Right) Date of Procedure: 12/04 Surgeon: Dr. Welch POD#: 1 Assessment and Plan: Status post Procedure(s) (LRB): TOTAL KNEE JOINT REPLACEMENT (Right). PLEASE REFER TO HOSPITALIST NOTES FOR DIAGNOSIS SPECIFICS Osteoarthritis/DJD, right knee - sp Procedure(s) (LRB): TOTAL KNEE JOINT REPLACEMENT (Right) . Discussed normal recovery expectations the first 48 hours after surgery. Pain controlled. Wound care - mepilex. ICS discussed and reinforced. Nausea - noted this morning at end of therapies. No emesis. No ongoing nausea, just this episode. Ondansetron. Will consider scopolamine patch if not controlled. Does not feel it's from the opioids so will continue dilaudid for moderate/severe pain for now. Anemia/Hgb Monitoring - 11.3 to 9.6 with 100 EBL,as expected, asymptomatic, no acute s/s of bleeding. No further monitoring indicated unless symptomatic. Bowel Management - narcotic induced, senna and MOM. Physical deconditioning - PT/OT while inpatient, continue WBAT to Right lower extremity. VTE prophylaxis/Anticoagulation - Hx TIA on chronic Plavix. Also hx post op DVT after recent spine surgery. Reviewed those notes and at the time team did monitoring and no anticoagulation. Discussed w/ Dr. Welch and pharmacy. Discussing with Dr. Maki. Surgeon would prefer to hold Plavix, if safe, while on DVT/PE prohylaxis. Tentative plan would be for enoxaparin with plavix, unless able to safely hold plavix. Code Status - Full Disposition Plan: Cleared per ortho today vs tomorrow pending pain controlled, improvement in nausea, clearing therapies and medically cleared. Home anticipated today vs tomorrow. Subjective: Isamar Rich is a 73 y.o. female status post Procedure(s) (LRB): TOTAL KNEE JOINT REPLACEMENT (Right). Chart reviewed. Discussed w/ nursing. Unfortunately had nausea and dizziness at end of therapies and was unable to clear her morning therapies. No emesis. Patient denies abdominal pain, issues voiding, calf pain or numbness/tingling. Plan is home with son and friends to support her. Son can stay at her house upon dc. Discharge Preference: home The following were reviewed in EPIC - active problem list, medication list, allergies, family history, social history, medical and surgical history. The preop note from Dr. Lainez was also reviewed. Objective: BP 136/77 (BP Cuff Size: Regular) Pulse 62 Temp 36.5 ??C (97.7 ??F) (Oral) Resp 16 Wt 83 kg(183 lb) SpO2 96% BMI 27.42 kg/m?? Normal exam - Patient is in no acute distress. Patient alert and oriented x 3, has normal respiratory effort, Distal CMS is intact. Calf is soft and nontender 2+ DP pulses. Abnormal exam - Dressing is c/d/I mepilex and BENJI wrap PT/OT - following, not cleared yet. Needs pm session. Labs/Significant Studies- Lab Results Component Value Date Hemoglobin 9.6 (L) 12/06/2023 Hemoglobin 11.3 (L) 12/05/2023 Hemoglobin 11.8 (L) 11/16/2023 BUN Date Value Ref Range Status 12/05/2023 18 7 - 26 mg/dL Final Sodium Date Value Ref Range Status 12/05/2023 135 (L) 136 - 145 mmol/L Final Potassium Date Value Ref Range Status 12/05/2023 3.4 (L) 3.5 - 5.1 mmol/L Final Chloride Date Value Ref Range Status 12/05/2023 104 98 - 109 mmol/L Final Glucose Date Value Ref Range Status 12/05/2023 99 70 - 100 mg/dL Final Comment: The given reference range is for the fasting state. Non-fasting reference range for glucose is 70 -180 mg/dL. Creatinine Date Value Ref Range Status 12/05/2023 0.82 0.55 - 1.02 mg/dL Final GFR, Estimated Date Value Ref Range Status 12/05/2023 >60 >60 mL/min/1.73m2 Final Calcium Date Value Ref Range Status 12/05/2023 9.4 8.4 - 10.4 mg/dL Final Anion Gap Date Value Ref Range Status 12/05/2023 9 6 - 16 mmol/L Final Hemoglobin Date Value Ref Range Status 12/06/2023 9.6 (L) 12.0 - 15.5 g/dL Final 12/05/2023 11.3 (L) 12.0 - 15.5 g/dL Final 11/16/2023 11.8 (L) 12.0 - 15.5 g/dL Final WBC Date Value Ref Range Status 11/16/2023 6.6 3.5 - 10.5 x10(9)/L Final 06/16/2023 4.8 3.5 - 10.5 x10(9)/L Final 11/22/2022 6.4 3.5 - 10.5 x10(9)/L Final INR Date Value Ref Range Status 12/05/2023 1.1 0.9 - 1.1 Final I/O last 3 completed shifts: In: 800 [IV:800] Out: 500 [Urine:400] Sonny Mckinley PA-C 10:12 AM 12/06/2023 * DelmeretRachel Y, OTR/L - 12/06/2023 7:59 AM CDT Occupational Therapy Evaluation Date of admit: 12/05/2023 Reason for admit/therapy consult: s/p TOTAL KNEE JOINT REPLACEMENT (Right: Knee) on 12/05/23 Past medical history: Past Medical History: Diagnosis Date Acute deep vein thrombosis (DVT) of lower extremity ([facility]) 11/17/2023 Small clot in her leg after surgery Coagulation defect ([facility]) 1982 Primary thrombocytosis Floaters 2010 Hyperlipidemia 07/21/2002 Hypertension 11/26/2003 Major depressive disorder, recurrent episode, in full remission ([facility]) 10/13/2010 Migraine Common 06/26/2008 Pulmonary Nodule 06/26/2008 Rhinitis Allergic NOS 07/21/2002 Right arm numbness 09/01/2020 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 Welch at [facility]. 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 Right Lower Extremity (Weight-bearing Status): weight-bearing as tolerated (WBAT) Special Equipment: None Communication: Verbal/appropriate Location of treatment: OT department: Other services: Physical Therapy Objective information: Previous UE limitations: None Hand dominance: Right Current UE function: current ROM: WFL Prior Visual Functioning: Patient wears corrective lenses for: distance and reading. Current Visual Functioning: GLASSES: Yes: progressive lenses Prior Cognitive Functioning: Patient reports no deficits Current Cognitive Functioning: Orientation self, place, date, day AM-PAC Activities of Daily Living (ADLs) AM-PAC Functional Task Assist Needed Prior to Admission Assist Needed Current Putting on and taking off regular lower body clothing 4-->None (independent) 3-->A little (sup/min A) Bathing (including washing, rinsing, drying) 4-->None (independent) 3-->A little (sup/min A) Toileting, which includes using toilet, bedpan or urinal 4-->None (independent) 3-->A little (sup/min A) Putting on and taking off regular upper body clothing 4-->None (independent) 4-->None (independent) Taking care of personal grooming such as brushing teeth 4-->None (independent) 4-->None (independent) Eating meals 4-->None (independent) 4-->None (independent) Raw Score (6-24, higher is more independent) 24 21 Percent Impaired 0.00% impaired 32.79% impaired Instrumental Activities of Daily Living (IADLs) Functional Task Assist Needed Prior to Admission Assist Needed Current Meal Preparation None (independent) A little (sup/min A) Household Management/Laundry None (independent) A little (sup/min A) Medication Management None (independent) None (independent) Money Management None (independent) None (independent) Driving Drives Independently No concerns noted, defer to practitioner for approval Working Retired Current ADL performance/additional information: Lower Body Dressing: with standby assistance/supervision to doff sock on operated LE, with SBA to don using sock aide after instruction. With SBA to don shorts with instruction to insert operated LE first Recliner transfer: with standby assistance/supervision Bed mobility: with standby assistance/supervision Shower: Patient c/o feeling nauseous and lightheaded while in shower space in OT department. Patient transferred to wheelchair from shower chair with assist of PT and reclined. BP taken when reclinedin wheelchair 86/54 initially, then 90/57 and 95/55. Handoff to PT to transport patient back up to room Treatment/Education provided today: Instructed in role of OT and progression of care. Subjective: Endurance/activity tolerance: Patient lightheaded/dizzy near end of session. See vitals above Cooperation: good Pain scale 0 to 10 (low to high): With activity 6/10 Location: right knee Impairments: Patient's impairments are: Decreased endurance/activity tolerance Functional Limitations/Rehab Diagnosis: Above listed impairments limit patient's performance completing ADLs/IADLs safely and independently. Occupational Therapy Interventions: Patient's Occupational Therapy interventions are: Functional mobility AE recommendations Strengthening Transfers Endurance Plan/ Outcomes: The following goals have been established: Patient and family goals: Return home with support from son Functional outcome goals: Patient will demonstrate toileting/toilet transfer (with adaptive equipment as needed) with standbyassist in 3 days. Patient will demonstrate walk-in/tub shower transfers (with adaptive equipment as needed) with standby assist in 3 days. Patient will demonstrate kitchen mobility/household mobility with standby assist in 3 days. nursing home goal: Patient will maximize independence and safety with ADL/IADLs Treatment Frequency/Duration: daily 1-3 day(s) Treatment plan/goals reviewed with patient/family. Patient consents to treatment: Yes Potential Barriers to Goal Achievement/Learning: None apparent Evaluation Complexity Rating: Occupational profile and history: low complexity (brief review of medical and or therapy records related to presenting problem) Examination/Assessment: low: 1-3 performance deficits Please see function and assessment sections. Clinical decision making: low: limited treatment options, no co-morbidities, no modifications Overall complexity: low Timed Code Treatment Minutes: 21 Total Treatment Minutes: 21 - pt tolerance Plan for next session: OT department. See next 12/07/23 shower, toilet, kitchen mobility, provide resource hand out for sock aide and additional AE prn, monitor BP Assessment: Patient limited by low BP and dizziness near end of session, was SBA for LB dressing tasks with AE, for bed mobility and sit <> stands. Anticipate home with support from son when medically stable pending progress and tolerance for ADLs. Discharge Recommendations: (OT) Discharge Recommendations: Anticipate patient will be safe to return to their prior living situation within the anticipated length of stay (OT) Discharge Readiness: Patient needs to remain hospitalized for therapy follow-up (OT) Rehab Potential: Good potential, to return to independence with self cares (OT) Post-Acute Care Therapy Recommendations: No anticipated therapy needed after discharge (OT) Anticipated Equipment Needs at Discharge: Sock aide (OT) Discharge Recommendations Discussion: Discussed with, patient Signature: Rachel Servin OTR/[place] 11:00 AM 12/06/2023 NOTE: The clinician's signature certifies medical necessity for the treatment plan above. * Shyann Gillette, PT - 12/06/2023 7:57 AM CDT Physical Therapy Daily Progress Note Reason for Admit/Therapy Consult: s/p TOTAL KNEE JOINT REPLACEMENT (Right: Knee) on 12/05/23 SUBJECTIVE Mood: pleasant and alert Patient Report: Agreeable to PT, reports she feels lightheaded but better at end of session once back in bed. Pain: R knee pain not specifically rated OBJECTIVE Treatment Location: OT Department --> bought patient back to Room 2W-34 Special Equipment: none Precautions: Falls risk and weight bearing as tolerated right lower extremity Orientation: Oriented to person, others not formally assessed but no concerns Cooperation: Full patient felt lightheaded in OT session after practicing tub/shower transfer. PT assisted with transferring patient back to (did not bill for this). Vitals monitored as below: -- Vitals reclined in : BP 86/54, SpO2 94%, HR 60 -- Vitals taken again after 2 minutes recliner in WC: BP 90/57 -- BP supine in bed: 105/55 Treatment: Transfers: Sit to/from Stand: contact guard assist Stand/pivot: contact guard assist from WC to bed Sit to Supine: standby assist Education/Handouts: PT POC DC recommendations Call for assistance to prevent falls in the hospital - do not get up and ambulate without assistance due to medical status and lines/drains Shared vitals Multidisciplinary Communication: occupational therapist and nurse Timed codes: Therapeutic activities x 10 minutes Total timed minutes: 10 minutes Total treatment time: 10 minutes See below for patient's current functional ability compared to reported ability prior to admission. Prior Level of Function Details: Enjoys walking and swimming for exercise. AM-PAC Mobility AM-PAC Functional Task Assist Needed Prior to Admission Assist Needed Current Turning in bed 4-->None (independent) 4-->None (independent) Lying to Sitting at edge of bed 4-->None (independent) 4-->None (independent) Bed to chair transfer 4-->None (independent) 3-->A little (sup/min A) Standing up from chair 4-->None (independent) 3-->A little (sup/min A) Walk in hospital room 4-->None (independent) 3-->A little (sup/min A) Distance walked (ft) Community ambulator (>1200 ft) WC to bed Climbing 3-5 stair with railing 1-->Total (total or can't do) (None at home) 1-->Total (totalor can't do) Assistive Device used Walker, 2 wheeled gait belt, walker, 2 wheeled Raw Score (6-24, higher is more independent) 21 18 Percent Impaired 29.52% impaired 40.47% impaired ASSESSMENT Isamar is lightheaded after tub/shower transfer with OT. Assisted with monitoring vitals and bringingpatient safely back to bed. Symptoms decreased once in supine but BP is soft. Limited session and patient not at a safe independent level to DC home at this time. Barriers to Learning and Goal Achievement: None apparent Discharge Recommendations: (PT) Discharge Recommendations: Unable to make recommendations, recommendations to follow further assessment (session limited by lightheadedness and soft BP) (PT) Discharge Readiness: Patient needs to remain hospitalized for therapy follow-up (PT) Rehab Potential: Good potential, to return to prior level of function with mobility (PT) Post-Acute Care Therapy Recommendations: Recommend outpatient therapy (PT) Anticipated Equipment Needs at Discharge: Has own equipment, Walker, 2 wheeled, Cane, standard (PT) Discharge Recommendations Discussion: Discussed with, patient, patient agrees with recommendations Updated progress toward goals set on 12/05/23: Patient will perform supine to/from sit transfer with independent in 3 days. -- in progress Patient will perform sit to/from stand transfer with modified independent in 3 days. -- in progress Patient will ambulate 200 feet with modified independent using front wheeled walker in 3 days. -- in progress Patient will be independent with HEP in 3 days. -- NT PLAN - PT Gym: see this PM monitor vitals (BP), supine to/from sit, sit to/from stand, and ambulate with front wheeled walker,TKA HEP, knee ROM measurements * Melissa Blackwood, PT - 12/05/2023 12:27 PM CDT Physical Therapy Inpatient Initial Evaluation Date of Admit: 12/05/2023 Reason for Admit/Therapy Consult: s/p TOTAL KNEE JOINT REPLACEMENT (Right: Knee) on 12/05/23 Rehab Diagnosis: Pain, Decreased range of motion, Weakness, Deconditioning, Impaired mobility, Decreased balance, and Risk of falls Past Medical History: Past Medical History: Diagnosis Date Acute deep vein thrombosis (DVT) of lower extremity ([facility]) 11/17/2023 Small clot in her leg after surgery Coagulation defect ([facility]) 1982 Primary thrombocytosis Floaters 2010 Hyperlipidemia 07/21/2002 Hypertension 11/26/2003 Major depressive disorder, recurrent episode, in full remission ([facility]) 10/13/2010 Migraine Common 06/26/2008 Pulmonary Nodule 06/26/2008 Rhinitis Allergic NOS 07/21/2002 Right arm numbness 09/01/2020 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 Welch at [facility]. Thrombocythemia 11/13/2010 TIA (transient ischemic attack), dysarthria, ataxia, hosp at [place], 10/2511/06/2010 Order: Eval and Treat: Issue appropriate assistive device and Total joint protocol (Total Knee).Comments: Twice daily For Gait training: Straight Leg Raises, active abduction to operative leg. Isometric, AAROM, AROM to operative leg. Strengthening exercises to other extremities as needed. SUBJECTIVE Mood: pleasant and alert Patient reports: Agreeable to PT, reports feeling okay after surgery but does endorse increased pain in her R knee. Would like to get up and move. Patient's son at bedside throughout session. Pain: 8/10 in R knee at rest Patient PT Goals: to get back to normal mobility and be active Living Arrangements (select all that apply): Alone, Condo (Patient states her son can help her at home.) Prior Equipment (Mobility): None Home Accessibility: wheelchair accessible (Can use elevator.) History of Falls: None. Equipment patient owns: wheeled walker, SEC - Single End Cane, and hurrycane OBJECTIVE Treatment Location: Bedside, / Special Equipment: Continuous pulse oximetry, Continuous BP monitoring, GameReady on R LE (removed for mobility), SCDs on b/l feet (removed for mobility) Precautions: Falls risk and weight bearing as tolerated right lower extremity Orientation: Oriented to person, place, time, and situation Cooperation: Full -- Range of Motion: R knee/LE limited by post-operative pain and stiffness. L LE appears WNLs. -- Strength: Not formally tested but adequate functional strength and can perform SLR independently -- Sensation: intact to light touch bilateral lower extremities and patient denies numbness and tingling -- Endurance: inadequate for household mobility and inadequate for community mobility -- Balance: -- sitting balance: fair (+) at edge of bed with b/l UE support -- standing balance: Fair (-) upon initial stand. Lateral LOB to the R when transferring upper extremities to FWW, requires Min A from PT to correct. Progresses to fair dynamic balance with UE support on FWW. -- Vitals at rest: HR 62, SpO2 96% on room air, and BP 1477/0 Gait: Equipment: front wheeled walker Assistance: contact guard assist Distance: 45 feet x 2 (bed <> restroom) Gait Pattern: Step-to right lower extremity, progressing to reciprocal with further ambulation. Slow speed, antalgic right lower extremity, decreased step length with bilateral lower extremities, decreased knee flexion with right lower extremity, excessive use of assistive device, and increased trunk flexion. Instruction provided: stand taller, progress to step-through pattern, weight bearing as tolerated, offload surgical lower extremity with upper extremities on assistive device as needed, and pacing toincrease ambulation distance Transfers: Supine to Sit: standby assist with HOB slightly elevated Sit to Supine: supervision with HOB slightly elevated Sit to/from Stand: minimal assist Toilet transfer: minimal assist with UE support on grab bar Instruction provided: safe hand placement, turning all the way around with their back to the chair prior to initiating sitting, scooting to edge of the chair prior to standing up, and kicking R LE out when going to sit Treatment: Performed the following exercises x 5 reps to right lower extremity in supine: - heel slides - SAQ - quad sets - hamstring sets - ankle pumps - SLR - supine knee extension stretch Patient left in bed, call light, phone, and tray table within reach, advised to call RN to receive assistance with mobility or using the restroom, radiology in the room with patient upon PT exit, andwith bed alarm on. GameReady donned on R LE, SCDs donned on b/l feet. Education/Handouts: PT POC DC recommendations Call for assistance to prevent falls in the hospital - do not get up and ambulate without assistance due to medical status and lines/drains Shared vitals Ambulate 3-4 times per day with staff readiness officer Perform home exercise program 2 times per day Issued HEP handout Pain science education - pain does not mean something is wrong with your surgery, it is just yournerves signaling to your brain that something is different than before Ice frequently throughout the day for pain/swelling management Agreed to attempt therapy in the department tomorrow Educated on positioning for R knee/LE at rest, avoiding knee flexion for long periods of time. Multidisciplinary Communication: nurse and radiology Patient History: High Complexity: 3 or more personal factors and/or comorbidities that impact plan of care: HTN, hx of TIA, lives alone, pain Clinical Examination: Moderate Complexity: Addressed 3 elements from body structures and functions (see above), and/or functional limitations as noted below. PT Clinical Presentation: Low Complexity: Stable and Uncomplicated Clinical Decision Making: Low Complexity Eval Timed codes: Therapeutic exercise x 8 minutes Total timed minutes: 8 Total treatment time: 28 minutes (including time for patient using restroom) Prior Level of Function Details: Enjoys walking and swimming for exercise. AM-PAC Mobility AM-PAC Functional Task Assist Needed Prior to Admission Assist Needed Current Turning in bed 4-->None (independent) 4-->None (independent) Lying to Sitting at edge of bed 4-->None (independent) 3-->A little (sup/min A) Bed to chair transfer 4-->None (independent) 3-->A little (sup/min A) Standing up from chair 4-->None (independent) 3-->A little (sup/min A) Walk in hospital room 4-->None (independent) 3-->A little (sup/min A) Distance walked (ft) Community ambulator (>1200 ft) 45 x 2 Climbing 3-5 stair with railing 1-->Total (total or can't do) (None at home) 1-->Total (totalor can't do) (None at home) Assistive Device used None gait belt, walker, 2 wheeled Raw Score (6-24, higher is more independent) 21 17 Percent Impaired 29.52% impaired 43.83% impaired ASSESSMENT Patient with fair tolerance for functional mobility on POD #0. Ambulates short household distances with CGA and FWW, limited by pain when attempting longer distances. Patient with LOB when first standing and transferring upper extremities to FWW, requires Min A from PT to correct. Patient would continue to benefit from skilled PT services during her hospital stay to progress balance, strength, and activity tolerance post-operatively. Anticipate patient will progress towards safe discharge home,pending available assistance and improved tolerance for activity. PT will continue to update discharge recommendations as appropriate. Discharge Recommendations: (PT) Discharge Recommendations: Anticipate patient will be safe to return to their prior living situation within the anticipated length of stay (PT) Discharge Readiness: Patient needs to remain hospitalized for therapy follow-up (PT) Rehab Potential: Good potential, to return to prior level of function with mobility (PT) Post-Acute Care Therapy Recommendations: Recommend outpatient therapy (PT) Anticipated Equipment Needs at Discharge: Has own equipment, Walker, 2 wheeled, Cane, standard(Hurrycane) (PT) Discharge Recommendations Discussion: Discussed with, patient, family/ocular care technician, patient agrees with recommendations, family/ocular care technician agrees with recommendations Patient's impairments: Decreased balance Decreased strength in bilateral lower extremities Decreased ROM in right lower extremity Decreased activity tolerance Pain Functional limitations: Patient unable to perform bed mobility independently Patient unable to transfer independently Patient unable to ambulate independently Increased risk of falls Barriers to Learning and Goal Achievement: None apparent Goals/Functional Outcomes: Patient will perform supine to/from sit transfer with independent in 3 days. Patient will perform sit to/from stand transfer with modified independent in 3 days. Patient will ambulate 200 feet with modified independent using front wheeled walker in 3 days. Patient will be independent with HEP in 3 days. Rehab Potential: Good PLAN Planned intervention/education: Evaluation, Therapeutic Exercise, Therapeutic Activity, Gait Training, Neuromuscular re-education, Patient/family education, Self care/Home management training, Home exercise program instruction, and Monitored progressive exercise/timed ambulation Frequency: 1-2 times/day Duration: 3 days Goals and Plan of Care discussed with patient/family; patient consents to treatment: Yes Plan for Next Treatment: PT Gym: 12/06/23 BID supine to/from sit, sit to/from stand, ambulate with front wheeled walker, TKA HEP, and balance challenges NOTE: The clinician's signature certifies medical necessity for the treatment plan above. * Loc Cast RN - 12/05/2023 12:00 PM CDT POST-OP O: Patient will have a stable post-op period. D: Pt arrived to room 2W34/3R51-48, at 1200 Patient is alert and oriented x 4. Initial Vital Signs: Temp: 36.2 ??C (97.1 ??F) (12/05/23 1145) Pulse: 60 (12/05/23 1145) Resp: 20 (12/05/23 1145) BP: 118/62 (12/05/23 1115) SpO2: 94 % (12/05/23 1145) Pain rated at: 0. See Assessment and Doc Flowsheets for equipment and lines/drains. Dressing is clean, dry, intact. A: Monitor vital signs and assess patient per protocol. Patient oriented to bed controls and call lights. Discussed plan of care with patient and family. See Education Record. R: Patient settled to room. Will continue to monitor. documented in this encounter H&P Notes * Yanelis Welch MD - 12/05/2023 6:51 AM CDT Surgery Update for Preop History and Physical For 12/05/2023 scheduled procedure Update to H&P includes: Patient and/or family denies any health changes since the H&P This patient has been evaluated by me today and has been found to be a suitable candidate for surgery. 12/05/2023 Source Note - Josie Lainez MD - 11/16/2023 1:00 PM CDT Pre-Operative Assessment 11/16/2023 ET Amb PreOp Assessment Details Procedure right TKA Surgeon [facility] Procedure Date 12/05/2023 Marilee Penn is a 73 y.o. old female here for pre-operative evaluation for procedure noted above. Planning right total knee arthroplasty for osteoarthritis and knee pain. This limits her activity significantly. She can walk a mile on flat ground but has a lot of trouble with stairs. She has a history of chronic back pain status post back surgery and is on gabapentin currently taking 600 mg b.i.d.. History of thrombocythemia status post TIA on hydroxyurea and Plavix and has done well. For depression she is on Wellbutrin and sertraline. Recently started on rosuvastatin and is tolerating that due for follow-up lipids. On trazodone for insomnia. Recently saw the sleep psychologist and is planning a home sleep study. Patient Active Problem List Diagnosis Date Noted Primary osteoarthritis of right knee 08/04/2023 Status cardiac pacemaker 08/06/2022 Overview Note: AV block, 08/02/22, F[facility]SD Lumbar radiculopathy 07/30/2022 LBBB (left bundle branch block) 11/24/2020 Right arm numbness 09/01/2020 Sciatic leg pain (HRC) 11/15/2019 High frequency hearing loss 07/14/2016 Insomnia 10/03/2013 Overview Note: Insomnia, unspecified Small bowel obstruction (HRC) 03/10/2012 Thrombocythemia 11/13/2010 TIA (transient ischemic attack) 11/06/2010 Overview Note: work up negative, switched from aspirin to plavix. ; TIA (transient ischemic attack), dysarthria, ataxia, hosp at [place], 10/25 Major depressive disorder, recurrent episode, in full remission ([facility]) 10/13/2010 Overview Note: Psychiatry to Primary Care Hand-off Psychiatrist: Stephanie Bazan MD PCP: Josie Lainez MD Last Visit with Psychiatry: 07/15/2015 Current Medication/s and dose/s: Zoloft 200 mg daily, Wellbutrin XL 300 mg every AM, Ambien 2.5-5 mg at bedtime prn Medications tried and failed/Reason(s) for discontinuation: The patient started on an antidepressant probably in the . Initially she was on Paxil, which was over sedating. She then was on Prozac, which made [...] Ambien available. Migraine without aura 06/26/2008 Overview Note: no current sx ; Migraine Common Disease of lung 06/26/2008 Overview Note: followed x 2 years, benign ; Pulmonary Nodule Psoriasis 03/06/2004 Overview Note: LW Modifier: scalp Essential hypertension ([facility]) 11/26/2003 Overview Note: Hypertension Hyperlipidemia ([facility]) 07/21/2002 Allergic rhinitis 07/21/2002 Overview Note: dust mites ; Rhinitis Allergic NOS Past Medical History: Diagnosis Date Coagulation defect ([facility]) 1981 Primary thrombocytosis Floaters 2010 Hyperlipidemia 07/21/2002 Hypertension 11/26/2003 Major depressive disorder, recurrent episode, in full remission ([facility]) 10/13/2010 Migraine Common 06/26/2008 Pulmonary Nodule 06/26/2008 Rhinitis Allergic NOS 07/21/2002 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 Thrombocythemia 11/13/2010 TIA (transient ischemic attack), dysarthria, ataxia, hosp at [place], 10/2511/06/2010 Past Surgical History: Procedure Laterality Date CORNEAL SURGERY Bilateral late Lasik/ABW HX APPENDECTOMY LW Problem: Appendectomy S/p LASIK 02/15/1996 ABW LUMBAR FUSION 07/2022 L3-S1 SPINE SURGERY 07/22/22 L3 or L4 to S1 fusion TONSILLECTOMY LW Problem: Tonsillectomy S/p Current Outpatient Medications Medication Instructions acetaminophen (TYLENOL) 500 MG tablet Oral, Q6H PRN buPROPion (WELLBUTRIN XL) 300 mg, Oral, DAILY clopidogrel (PLAVIX) 75 mg, Oral, DAILY fexofenadine (SAMANTHA) 180 MG tablet 1 Tablet, Oral, DAILY (NS) gabapentin (NEURONTIN) 600 mg, Oral, BID hydroxyurea (HYDREA) 500 MG capsule Take 10 tablets a week lisinopril-hydrochlorothiazide (PRINZIDE) 10-12.5 MG tablet 1 Tablet, Oral, DAILY MAGNESIUM-ZINC OR 1 Tablet, Oral, DAILY rosuvastatin (CRESTOR) 10 mg, Oral, DAILY sertraline (ZOLOFT) 200 mg, Oral, DAILY traZODone (DESYREL) 50 mg, Oral, HS PRN No Known Allergies Social History Occupational History Occupation: retired Employer: [employer] 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 Patient is postmenopausal. Family History Problem Relation Name Age of Onset Cataract Mother Hyperlipidemia Mother Macular Degeneration Mother wet, dry and a macular hole High Blood Pressure Mother Psoriasis Father Viktor Hypertension Father Viktor Ataxia Father Viktor Thyroid Disorder Father Viktor Cataract Father Viktor High Cholesterol Father Viktor None Psoriasis Sister maya Thyroid Disorder Sister maya Hypertension Brother melisa Hyperlipidemia Brother melisa Cancer, Breast Paternal Aunt 80 Myocardial Infarction Maternal Grandmother Maya Vyas 50 Heart Disease Maternal Grandmother Maya Vyas None Stroke Maternal Grandfather Emmanuel Heart Disease Paternal Grandmother Naina Shin None Stroke Paternal Grandfather Sudeep Cancer Negative Family History Cancer, Colon Negative Family History Cancer, Endometrial Negative Family History Glaucoma Negative Family History Retinal Detachment Negative Family History Amblyopia/Strabismus Negative Family History Review of Systems: 11/16/2023 ET Amb PreOp Assessment Sx Have you had a heart attack in the last 30 days? No Have you experienced chest tightening or chest pressure with activity? No Do you wake at night with difficulty breathing? No Do you have swelling in your feet or ankles? Yes Do you get short of breath if lying flat at night? No Do you hear wheezing or whistling when you breathe? No Have you had a cough, runny nose, or cold symptoms in the last 2 weeks? No Have you tested positive for Covid in the last 6 months? Yes Do you have a long-standing cough? No Do you snore or are you sleepy during the day? Yes Do you have any symptoms due to a recent concussion? No Do you or close relatives have bleeding or clotting problems? Yes Have you taken Aspirin, Ibuprofen (Advil) or Naproxen (Aleve) in the last 7 days? No Do you or close relatives have a history of a severe or life-threatening reaction to anesthesia? No Explanation of positive responses: occasionally in feet and ankles/ Covid 09/2023/ sleepy and apnea/self- thrombocytosis Estimated Functional Capacity: Can you climb one flight of stairs, or walk up a gradual uphill without stopping? no, functional capacity is less than 4 METS Objective BP 138/71 (BP Location: Right Arm, BP Cuff Size: Large) Pulse 65 Ht 1.74 m (5' 8.5) Wt 83 kg(183 lb) BMI 27.42 kg/m?? Physical Exam: General Appearance: alert, well appearing, and in no apparent distress Eyes: lids normal, sclera clear, and conjunctiva normal Neck: no lymphadenopathy and no thyromegaly or nodules Heart: regular rate and rhythm and no murmurs, gallops or rubs Lungs: clear to auscultation and no wheezes, rales or rhonchi Abdomen: soft, nondistended, nontender, no palpable masses, and no organomegaly Extremities: no edema Skin: no rashes or worrisome lesions Neurologic: normal speech and no facial droop Data: Lab Results Component Value Date WBC 6.6 11/16/2023 RBC 3.44 (L) 11/16/2023 Hemoglobin 11.8 (L) 11/16/2023 HCT 35.7 11/16/2023 MCV 103.8 (H) 11/16/2023 RDW 13.2 11/16/2023 Platelets 272 11/16/2023 EKG Atrial-sensed ventricular-paced rhythm Abnormal ECG When compared with ECG of 11-AUG-2022 13:09, Vent. rate has increased BY 3 BPM Confirmed by Nilay Eng ([id number]) on 11/16/2023 2:06:09 PM Assessment/Plan Patient is medically optimized for planned procedure(s). ICD-10-CM 1. Preop examination Z01.818 2. Chronic low back pain with left-sided sciatica, unspecified back pain laterality (HRC) M54.42 G89.29 3. Essential hypertension (HRC) I10 Basic Metabolic Panel Complete Blood Count-No Diff ECG 12 Lead Outpatient 4. LBBB (left bundle branch block) I44.7 5. Thrombocythemia D75.839 6. Major depressive disorder, recurrent episode, in full remission (HRC) F33.42 7. Screening examination for infectious disease Z11.9 MRSA/MSSA Pre-Op Culture 8. Hx of transient ischemic attack (TIA) Z86.73 clopidogrel (PLAVIX) 75 MG tablet DISCONTINUED: clopidogrel (PLAVIX) 75 MG tablet 9. Lumbar radiculopathy M54.16 gabapentin (NEURONTIN) 600 MG tablet DISCONTINUED: gabapentin (NEURONTIN) 600 MG tablet DISCONTINUED: gabapentin (NEURONTIN) 600 MG tablet -I changed her gabapentin dose to 600 mg tablet for ease of convenience and will continue at b.i.d.dosing as she is doing. -refilled Plavix. -flu shot given Special risks: At risk for or history of sleep apnea. Recommend RT assessment. Medication recommendations: Patient Instructions Recommendations: Hold Plavix 7 days prior to procedure Hold aspirin and any medication containing ibuprofen, advil, aleve, or naprosyn, one week prior to surgery. Hold vitamins and supplements 1 week prior to surgery. Take your other medications as usual Electronically signed by: Ruddy Lainez MD 11/16/2023, 1:26 PM documented in this encounter Procedure Notes * Yanelis Welch MD - 12/05/2023 8:55 AM CDT OPERATIVE REPORT NAME: Isamar Rich : 1950 DATE OF OPERATION: 12/05/2023 SURGEON: Yanelis Welch MD PREOPERATIVE DIAGNOSIS: Right knee primary osteoarthritis POSTOPERATIVE DIAGNOSIS: Same PROCEDURE: Right total knee arthroplasty. ANESTHESIA: Spinal with local. METER TESTER: TERENCE Meyers. FINDINGS: Severe medial, lateral and patellofemoral compartment arthritis. IMPLANTS: Tomasa Persona femoral 10 PS component narrow, Persona tibial component E, Persona posterior stabilized articular insert 10 mm, Persona resurfacing patella 32 mm. SPECIMENS: None. TOURNIQUET TIME: NA CLINICAL INDICATIONS: This is a 73 y.o. femalewith a long history of right knee pain. Please see my clinic note for further details. she has had progressively severe knee pain. The pain is significantly affecting her ability to perform activities of daily living. she has treated this with ice, rest, anti-inflammatory medication, activity modification, heat, as well as prior injection therapy. Radiographs demonstrated severe degenerative arthritis. Based on these findings and her symptoms, surgery was recommended. The risks, benefits, and alternatives were discussed with the patient at length, including but not exclusive of: component malpositioning, component wear or loosening, need for revision, deep infection r equiring implant removal, antibiotic cement spacer, long-term IV antibiotics, staged revision surgery, incomplete resolution of pain, medical anesthetic complications, and DVT. she elected to proceedwith a total knee arthroplasty. A signed and witnessed consent was placed in the chart. PROCEDURE IN DETAIL: The patient was identified in the preop holding area. The operative extremity was clearly marked bythe attending surgeon. The patient was transferred to the operating room where spinal anesthesia was induced by the anesthesiologist. Intravenous antibiotics were administered 30 minutes prior to procedure start. Transexamic acid was also administered by anesthesia prior to procedure start. A nonsterile tourniquet was placed high on the thigh over padding. The leg was prepped and draped in the usual sterile fashion with Hibiclens, alcohol and DuraPrep. After the leg was prepped, a surgical pause was performed per institutional standards, confirming the patient, the side and the procedure. All were in agreement. An approximately 12 cm incision was made midline over the patella. This was taken down sharply to the level of the retinaculum and full-thickness medial and lateral flaps were raised. A new blade wasused to make a medial parapatellar incision. The knee was then extended and a medial release was performed with Bovie cautery. The fat pad was hypertrophic and removed using Bovie cautery. Care was taken to protect the patellar tendon. The synovium over the anterior femur was also removed using Bovie cautery. The femur was prepared first. A drill was used to find the femoral canal just anterior to the insertion of the PCL. A 5 degree valgus distal femoral cutting guide was placed over the intramedullary guide, this was pinned into place. An oscillating saw was used to cut the distal femur. The cutting guide was removed. The tibia was prepared next. The tibia was subluxed forward, removing the medial meniscus, lateral meniscus and the ACL and PCL. Once the tibia was properly exposed, an extramedullary tibial cutting guide was placed onto the tibia. The guide was pinned at 90 degrees to the tibial axis and appropriate posterior slope. The alignment was verified with an alignment martín. The oscillating saw was used to cut the proximal tibia and this was removed once the cut was made. A spacer block was used to check the extension gap. The medial and lateral sides were well balanced. We sized the femur. An appropriately sized cutting block was pinned in 3 degrees of external rotation to the posterior condylar axis. The rotation was checked with both Whitesides line, as well as epicondylar axis. This block was pinned into place and the oscillating saw was used to make the anterior, posterior and chamfer cuts. The block was then removed. An osteotome was used to remove all the bony pieces. The medial and lateral menisci were removed with Bovie cautery. The posterior osteophytes were removed with a curved osteotome. The posterior capsule was injected with local anesthetic solution. The anterior soft tissues were also infiltrated. A trial femur was placed onto the femur in proper medial lateral orientation. The box cut was made using a reciprocating saw. The cam trial was inserted after the bone was removed. A 9mm insert with a tibial trial was inserted and found the knee to come to full extension and 120 degrees of flexion without liftoff of the tibial tray. The knee was balanced to valgus and varus stress at 0, 30 and 90 degrees. The patella was everted and osteophytes were removed from the patella. The patella was measured using a caliper and 9mm were removed using an oscillating blade. The fixation holes were drilled. We placed a trial patellar onto the patella and ranged the knee and the patella was found to track midline with no lift off. All components were then removed. The tibia was exposed and pinned in proper external rotation. Thekeel was drilled and punched and then the trial was removed. The knee was irrigated the knee with a copious amount of sterile saline using pulsatile lavage. The tibia was exposed, all surfaces were dried, the implants were opened on the back table. Cement was mixed. Cementing commenced starting with tibia followed by the femur.The insert was then inserted, the knee was extended and compressed. The patella was then cemented and compressed. The cement was cured. All excess cement was removed. A dilute iodine wash was used to irrigate the wound and left to soak for 3 minutes. We then irrigated with 1 liter of normal saline using pulse lavage. All bleeders were cauterized. The knee was irrigated with pulsatile lavage. The arthrotomy was closed with #1 Vicryl sutures, the deep layers were closed with 0 Vicryl, the subcutaneous layers were closed with 2-0 Vicryl, and the skin was closed with 3-0 monocryl. The leg was dressed with sterile dressings per protocol. The patient was transferred to the postop holding area in stable condition. ESTIMATED BLOOD LOSS: 100 cc. COMPLICATIONS: No immediate. PLAN: The patient will be weightbearing as tolerated. For DVT prophylaxis, the patient will be placed on lovenox transitioned to Xarelto with sequential compression devices on the lower extremities. Yanelis Welch MD 8:55 AM 12/05/2023 documented in this encounter Consult Notes * Herminia Chow RN - 12/06/2023 11:08 AM CDTAssociated Order(s): CARE MANAGEMENT CONSULT - HOSPITAL [facility] Care Management Inpatient Note Plan: Expected Discharge Date: 12/07/2023 Anticipated Discharge Plan: home Transportation: Anticipate Patient will arrange Barriers to Discharge: medical stability Prior Living Situation: Alone, Condo (Patient states her son can help her at home.) Advanced Directive on File: No Additional Comments: Received Hospital Care Management consult for discharge planning. Reviewed chart including pre op phone visit note, therapy recommendations and attending provider???s progress note. Patient???s goal is to discharge home with assistance from son/friends and out patient therapy. H ospital Care Management will not assess/meet patient face to face because no discharge transition needs are required at this time. If further discharge needs arise, please place another Hospital CareManagement consult or reach out to the assigned Hospital Care Management treatment steam tunnel feeder to assess. Patient/Spokesperson Updated: No Herminia Kramer RN 11:08 AM 12/06/2023 documented in this encounter Plan of Treatment Upcoming Encounters Date Type Department Care Team (Late st Contact Info) Description 12/21/2023 12:45 PM CLINICAL DOCUMENTATION CONSULTANT Appointment [facility] [address] [place] [address] Lena Puente 12/28/2023 10:00 AM CLINICAL DOCUMENTATION CONSULTANT Appointment [facility] [address] [place] [address] 01/19/2024 11:30 AM CLINICAL DOCUMENTATION CONSULTANT Appointment [facility] [address] [place] [address] Yanelis Welch MD [address] [facility] [address] [place] [address] Scheduled Referrals Name Type Priority Associated Diagnoses Orde r Schedule Physical Therapy Referral Routine Status post total right knee replacement Ordered: 12/05/2023 documented as of this encounter Procedures Procedure Name Priority Date/Time Associated Diagnosis Comments HEMOGLOBIN, BLOOD Routine 12/08/2023 10: 05 AM CDT XR KNEE RT 2 VIEWS STAT 12/07/2023 3: 41 AM CDT CBC AND DIFFERENTIAL PANEL Add-On 12/06/2023 5:43 AM CDT COMPLETE BLOOD COUNT-W/DIFF Routine 12/06/2023 5:43 AM CDT HEMOGLOBIN, BLOOD Routine 12/06/2023 5:4 3 AM CDT XR KNEE RT 2 VIEWS Routine 12/05/2023 1: 55 PM CDT AST Routine 12/05/2023 12:38 PM CDT ALBUMIN Routine 12/05/2023 12:38 PM CDT INR/PROTIME Routine 12/05/2023 12:38 PM CDT TOTAL KNEE JOINT REPLACEMENT 12/05/2023 7:00 AM CDT Primary osteoarthritis of right knee BASIC METABOLIC PANEL STAT 12/05/2023 6:38 AM CDT HEMOGLOBIN, BLOOD STAT 12/05/2023 6:3 8 AM CDT documented in this encounter Results * (ABNORMAL) Hemoglobin (12/08/2023 10:05 AM CDT) [facility] Hemoglobin 9.1(L) 12.0 - 15.5 g/dL 12/08/2023 10:44 AM CDT [facility] Blood Venipuncture / Unknown 12/08/2023 10:05 AM CDT 12/08/2023 10:35 AM CDT Sonny Mckinley PA-C LAB_1 [facility] [address] [place], [place] [id number] [place] [address] * XR Knee Rt 2 Views (12/07/2023 3:41 AM CDT) Anatomical Region Laterality Modality Lower Extremity, Knee Digital Ra diography 12/07/2023 3:41 AM CDT Narrative 12/07/2023 3:52 AM CDT EXAM: XR KNEE RT 2 VIEWS LOCATION: [facility] DATE: 12/07/2023 INDICATION: Fall, pain [...] EXAM: XR KNEE RT 2 VIEWS LOCATION: [facility] DATE: 12/07/2023 INDICATION: Fall, pain [...] - 10.5 x10(9)/L 12/06/2023 11:05 AM CDT [facility] RBC 2.90(L) 3.90 - 5.03 x10(12)/L 12/06/2023 11:05 AM CDT [facility] Hemoglobin 10.3(L) 12.0 - 15.5 g/dL 12/06/2023 11:05 AM CDT [facility] HCT 30.1(L) 34.9 - 44.5 % 12/06/2023 11:05 AM CDT [facility] MCV 103.8(H) 80.0 - 100.0 fL 12/06/2023 11:05 AM CDT [facility] MCH 35.5(H) 27.6 - 33.3 pg 12/06/2023 11:05 AM CDT [facility] MCHC 34.2 31.5 - 35.2 g/dL 12/06/2023 11:05 AM CDT [facility] RDW 12.9 11.9 - 15.5 % 12/06/2023 11:05 AM CDT [facility] Platelets 273 150 - 450 x10(9)/L 12/06/2023 11:05 AM CDT [facility] Automated NRBC 0 <=0 /100 WBC 12/06/2023 11:05 AM CDT [facility] Neutrophil Absolute 5.8 1.7 - 7.0 10(9)/L 12/06/2023 11:05 AM CDT [facility] Lymphocyte Absolute 1.2 1.0 - 4.8 10(9)/L 12/06/2023 11:05 AM CDT [facility] Monocyte Absolute 0.8 0.2 - 0.9 10(9)/L 12/06/2023 11:05 AM CDT [facility] Eosinophil Absolute 0.1 0.0 - 0.5 10(9)/L 12/06/2023 11:05 AM CDT [facility] Basophil Absolute 0.0 0.0 - 0.3 10(9)/L 12/06/2023 11:05 AM CDT [facility] Immature Granulocyte % 0.3 0.0 - 0.5 % 12/06/2023 11:05 AM CDT [facility] Blood Venipuncture / Unknown 12/06/2023 5:43 AM CDT 12/06/2023 8:55 AM CDT Brody Maki MD LAB_1 Performing Organization Address City/State/[facility] Co de Phone Number [facility] [address] * (ABNORMAL) Hemoglobin in AM POD #1 (12/06/2023 5:43 AM CDT) Hemoglobin 9.6(L) 12.0 - 15.5 g/dL 12/06/2023 6:23 AM CDT [facility] Blood Venipuncture / Unknown 12/06/2023 5:43 AM CDT 12/06/2023 6:06 AM CDT Austin Arizmendi PA-C LAB_1 Performing Organization Address City/[facility] Co de Phone Number [facility] [address] * XR Knee Rt 2 Views (12/05/2023 1:55 PM CDT) Anatomical Region Laterality Modality Lower Extremity, Knee Radiograph ic Imaging 12/05/2023 1:31 PM CDT Narrative 12/05/2023 1:57 PM CDT COMPARISON: ??09/30/2022 FINDINGS: ??3 views obtained. Postsurgical changes of total knee arthroplasty; no evidence of immediate hardware complication. Procedure Note John Kaur MD - 12/05/2023 COMPARISON: 09/30/2022 FINDINGS: 3 views obtained. Postsurgical changes of total kneearthroplasty; no evidence of immediate hardware complication. Austin Arizmendi PA-C RAD GD * AST (12/05/2023 12:38 PM CDT) AST (SGOT) 20 10 - 40 U/L 12/05/2023 1:14 PM CDT [facility] Blood Venipuncture / Unknown 12/05/2023 12:38 PM CDT 12/05/2023 12:41 PM CDT Austin Arizmendi PA-C LAB_1 Performing Organization Address [facility] de Phone Number [facility] [address] * Albumin (12/05/2023 12:38 PM CDT) Albumin 3.8 3.5 - 5.0 g/dL 12/05/2023 1:14 PM CDT [facility] Blood Venipuncture / Unknown 12/05/2023 12:38 PM CDT 12/05/2023 12:41 PM CDT Austin Arizmendi PA-C LAB_1 Performing Organization Address [facility]/ZIP Co de Phone Number [facility] [address] * INR/Protime (12/05/2023 12:38 PM CDT) Protime 14.1 11.8 - 14.6 Seconds 12/05/2023 12:57 PM CDT [facility] INR 1.1 0.9 - 1.1 12/05/2023 12:57 PM CDT [facility] Blood Venipuncture / Unknown 12/05/2023 12:38 PM CDT 12/05/2023 12:41 PM CDT Narrative [facility] - 12/05/2023 12:57 PM CDT If you take an anticoagulant medicine called warfarin, your doctor or clinician may establish a normal range for you that is different from the baseline range shown. Austin Arizmendi PA-C LAB_1 Performing Organization Address City/State/[facility] Co de Phone Number [facility] [address] * (ABNORMAL) Basic Metabolic Panel (12/05/2023 6:38 AM CDT) Sodium 135(L) 136 - 145 mmol/L 12/05/2023 7:13 AM CDT [facility] Potassium 3.4(L) 3.5 - 5.1 mmol/L 12/05/2023 7:13 AM CDT [facility] Chloride 104 98 - 109 mmol/L 12/05/2023 7:13 AM CDT [facility] CO2 22 20 - 29 mmol/L 12/05/2023 7:13 AM CDT [facility] Anion Gap 9 6 - 16 mmol/L 12/05/2023 7:13 AM CDT [facility] Calcium 9.4 8.4 - 10.4 mg/dL 12/05/2023 7:13 AM CDT [facility] BUN 18 7 - 26 mg/dL 12/05/2023 7:13 AM CDT [facility] Creatinine 0.82 0.55 - 1.02 mg/dL 12/05/2023 7:13 AM CDT [facility] Glucose 99 70 - 100 mg/dL 12/05/2023 7:13 AM CDT [facility] Comment:The given reference range is for the fasting state. Non-fasting reference range for glucose is 70 - 180 mg/dL. GFR, Estimated >60 >60 mL/min/1.7 3m2 12/05/2023 7:13 AM CDT [facility] Blood Venipuncture / Unknown 12/05/2023 6:38 AM CDT 12/05/2023 6:41 AM CDT Yanelis Welch MD LAB_[email or web address] Performing Organization Address [facility] de Phone Number [facility] [address] * (ABNORMAL) Hemoglobin for all patients that have a Draw and Hold, Type and Screen, or Type and Cross ordered (12/05/2023 6:38 AM CDT) [facility] Hemoglobin 11.3(L) 12.0 - 15.5 g/dL 12/05/2023 6:45 AM CDT [facility] Blood Venipuncture / Unknown 12/05/2023 6:38 AM CDT 12/05/2023 6:41 AM CDT Yanelis Welch MD LAB_[email or web address] Performing Organization Address [facility] Co de Phone Number [facility] [address] documented in this encounter Visit Diagnoses Diagnosis Status post total right knee replacement- Primary Status post total right knee replacement Hx of transient ischemic attack (TIA) Transient ischemic attack (TIA), and cerebral infarction without residual deficits S/P total knee arthroplasty, right Hyperlipidemia (HRC) Other and unspecified hyperlipidemia Essential hypertension (HRC) Unspecified essential hypertension Major depressive disorder, recurrent episode, in full remission (HRC) Major depressive disorder, recurrent episode, in full remission Thrombocythemia Essential thrombocythemia TIA (transient ischemic attack) Unspecified transient cerebral ischemia Acute deep vein thrombosis (DVT) of lower extremity (HRC) Postoperative anemia due to acute blood loss Acute posthemorrhagic anemia * Plan of Care - Shannan Dudley RN - 12/07/2023 5:58 AM CDT Shift update: Patient continues to feel dizzy while resting in bed. Pain improved in surgical leg. Game ready on.Inquiring about x-ray results, informed patient they will be read this morning per on-call ortho instruction. Denies nausea. Vitals: 12/07/23 0534 BP: 115/46 Pulse: 76 Resp: 17 Temp: 36.7 ??C (98.1 ??F) Patient will continue to progress towards resolution of dizziness and improvement in pain. Questions encouraged and answered. Call light within reach. Will report off to oncoming RN and continue to monitor in the meantime. * Plan of Care - Shannan Dudley RN - 12/07/2023 2:32 AM CDT POST FALL O: Patient will remain safe after fall. D: NA comes to com writer, states patient is sitting on floor in bathroom. Group Home Manager to bathroom immediately. NA's already have patient standing in bathroom when com writer arrives. Patient states she got up from toilet by herself, was washing hands and felt dizzy so she lowered herself to the floor (unwitnessed), denies hitting head or falling stating she lowered herself. Patient unsure of how she bent herknee, however states bent in an angry way. Denies hitting head. Patient has increased pain in surgical knee at this time. A: Notified: practitioner via pager. RET required: no. Post fall interventions initiated: Educationprovided, Vitals stable, Falls wrist band placed, Bed alarm on, paged hospitalist/ortho team. R: Patient verbalized understanding of post fall interventions and falls prevention education. Willcontinue to monitor and await MD orders. Vitals: 12/07/23 0231 BP: 103/45 Pulse: 100 Resp: 19 Temp: 36.6 ??C (97.9 ??F) * Plan of Care - Cristian Heller RN - 12/06/2023 6:06 AM CDT D: Patient sleeping a few hours overnight. Up to BR with SBA/walker to urinate. Walked 400 feet in ku x1. Reports pain in R knee and requests medication. No nausea. Drinking water without difficulty. A: Monitored VS. Medicated with Dilaudid 2mg po and scheduled Toradol. Game Ready on when pt in bed. R: Patient had a stable night. N: Cristian Heller RN 6:08 AM 12/06/2023 * Plan of Care - Jayme Alatorre, [facility] - 12/05/2023 12:49 PM CDT [facility] Medication History Note 1. Source(s) of Medication Information: Patient, Eric/Dr. Steele 2. Pertinent Information: Recent prior to admission medication changes: Medications added: none Medications deleted: none Medications changed: updated directions on hydroxyurea and trazodone 3. Outpatient Medications Marked as Taking: Outpatient Medications Marked as Taking for the 12/05/23 encounter (Hospital Encounter) Medication Sig Note Last Dose acetaminophen (TYLENOL) 500 MG tablet Take 2 Tablets (1,000 mg) by mouth three times a day. buPROPion (WELLBUTRIN XL) 300 MG 24 hour release tablet Take 1 Tablet (300 mg) by mouth daily. 12/04/2023 at evening clopidogrel (PLAVIX) 75 MG tablet Take 1 Tablet (75 mg) by mouth daily. 11/26/2023 at evening fexofenadine (SAMANTHA) 180 MG tablet Take 1 tablet by mouth daily (every 24 hours). LW Addl Instr:Indicated for: Allergies 12/04/2023 at AM gabapentin (NEURONTIN) 600 MG tablet Take 1 Tablet (600 mg) by mouth two times a day. 12/04/2023 at7 PM HYDROmorphone (DILAUDID) 2 MG tablet Take 1-2 Tablets (2-4 mg) by mouth every 4 hours as needed forPain. Take 1 tablet for pain rated at 4-7. Take 2 tablet for pain rated 8-10. Indications: Moderateto Moderately Severe pain hydroxyurea (HYDREA) 500 MG capsule Take 10 tablets a week 12/05/2023: Tuesday, Tuesday, Tuesday takes 2 capsules, and Tuesday, Tuesday, , Tuesday takes 1 capsule. 12/04/2023 at evening lisinopril-hydrochlorothiazide (PRINZIDE) 10-12.5 MG tablet Take 1 Tablet by mouth daily. 12/04/2023 at AM MAGNESIUM-ZINC OR Take 1 Tablet by mouth daily. Past Month polyethylene glycol 3350 (GLYCOLAX) 17 GM/SCOOP powder Take 17 g by mouth daily as needed (constipation). Fill to indicated line in cap (17 g). Mix in 4-8 ounces of a beverage and drink once daily asneeded for constipation. Indications: Constipation rosuvastatin (CRESTOR) 10 MG tablet Take 1 Tablet (10 mg) by mouth daily. 12/04/2023 at evening senna (SENOKOT) 8.6 MG tablet Take 2 Tablets by mouth daily at bedtime. Take while on narcotics. Hold for loose stools. Indications: Constipation sertraline (ZOLOFT) 100 MG tablet Take 2 Tablets (200 mg) by mouth daily. 12/04/2023 traZODone (DESYREL) 50 MG tablet Take 1 Tablet (50 mg) by mouth at bedtime as needed for Sleep. (Patient taking differently: Take 0.5 Tablets (25 mg) by mouth daily at bedtime.) 12/03/2023 at Thank you. Jayme Alatorre, [facility] 12/05/2023 12:51 PM This list represents the best possible medication history available at the time of note completion and should be used as a guide in reconciling home medications for hospital use. ? documented in this encounter Admitting Diagnoses Diagnosis Primary osteoarthritis of right knee Primary localized osteoarthrosis, lower leg documented in this encounter Administered Medications Inactive Administered Medications - up to 3 most recent administrations Medication Order MAR Action Action Date Dose Rate Site acetaminophen (TYLENOL) tablet 1,000 mg 1,000 mg, Oral, ONCE, On 12/05/23 at 0645, For 1 dose, Give in Preop., Pre-op Given 12/05/2023 6:46 AM CDT 1,000 mg acetaminophen (TYLENOL) tablet 650 mg 650 mg, Oral, QID, First dose on Tue12/05/23 at 1200, Until Discontinued, Post-op Given 12/09/2023 9:04 AM CDT 650 mg Given 12/08/2023 8:31 PM CDT 650 mg Given 12/08/2023 3:24 PM CDT 650 mg buPROPion (WELLBUTRIN XL) XL 24 hour release tablet 300 mg 300 mg, Oral, DAILY, First dose on Tue12/05/23 at 1900, Until Discontinued, Tablet/Capsule should be swallowed whole., Post-op Given 12/08/2023 8:32 PM CDT 300 mg Given 12/07/2023 7:52 PM CDT 300 mg Given 12/06/2023 7:36 PM CDT 300 mg celecoxib (CeleBREX) capsule 200 mg 200 mg, Oral, ONCE, On Tue12/05/23 at 0645, For 1 dose, Give in Preop. DO NOT give if history of GI bleed; [place] or sulfa allergy., Pre-op Given 12/05/2023 6:47 AM CDT 200 mg cephalexin (KEFLEX) capsule 500 mg 500 mg, Oral, Q6H (NON-STND), First dose on Tue12/05/23 at 1530, For 24 hours, Indications: Surgical Prophylaxis, Post-op Given 12/06/2023 10:12 AM C DT 500 mg Given 12/06/2023 3:39 AM CDT 500 mg Given 12/05/2023 10:13 PM CDT 500 mg enoxaparin (LOVENOX) prefilled syringe 30 mg 30 mg, Subcutaneous, BID, First dose on Tue12/05/23 at 2000, Until Discontinued, For first dose: If patient is back from surgery before 1400, give first dose in the evening day of surgery. If patient is back from surgery after 1400 start first dose in the morning POD #1. Inject subcutaneously into abdominal tissue only. HIGH ALERT medication, Post-op Given 12/09/2023 9:05 AM CDT 30 mg Abdominal Tissue Given 12/08/2023 8:31 PM CDT 30 mg Ab dominal Tissue Given 12/08/2023 7:55 AM CDT 30 mg Ab dominal Tissue hydroCHLOROthiazide (ORETIC) tablet 12.5 mg 12.5 mg, Oral, DAILY, First dose on Tue12/06/23 at 0800, Until Discontinued, Hold if SBP <130, On hold since Tue12/08/2023 at 1055 until manually unheld Given 12/06/2023 7:39 AM CDT 12.5 mg HYDROmorphone (DILAUDID) injection 0.2 mg 0.2 mg, Intravenous, Q10MIN PRN, Pain, The immediate postop period when longer acting agent is desired., Starting on Tue12/05/23 at 0629, Until Tue12/05/23 at 1152, Maximum cumulative dose is 2 mg in PACU, call Anesthesiologist if additional or greater dosing is needed. For patients with a regional, spinal, or local anesthetic, may give for anticipated pain as the anesthetic wears off. , PACU/Recovery Given 12/05/2023 11:37 AM CDT 0.2 m g HYDROmorphone (DILAUDID) tablet 1 mg 1 mg, Oral, Q2H PRN, Other, Moderate Pain (pain score 5-7), Severe Pain (pain score 8-10), Starting on Tue12/08/23 at 1055, Until Tue12/09/23 at 1609, Do NOT administer at the same time as IV opioids. May administer 1 hour after IV opioid administration. HOLD if on CANNED FOOD RECONDITIONING INSPECTOR. Use of ORAL opioids is encouraged as patients anticipate discharge. (IV medications will be discontinued 48 hours post-op.) May give for anticipatory pain (ie prior to therapies, procedures) regardless of current pain score, Post-op Given 12/09/2023 9:22 AM CDT 1 mg Given 12/08/2023 11:59 PM CDT 1 mg HYDROmorphone (DILAUDID) tablet 2-4 mg 2-4 mg, Oral, Q2H PRN, Other, Moderate Pain (pain score 5-7), Severe Pain (pain score 8-10), Starting on Tue12/05/23 at 1152, Until Joy 12/08/23 at 1055, Do NOT administer at the same time as IV opioids. May administer 1 hour after IV opioid administration. HOLD if on CANNED FOOD RECONDITIONING INSPECTOR. Use of ORAL opioids is encouraged as patients anticipate discharge. (IV medications will be discontinued 48 hours post-op.) May give for anticipatory pain (ie prior to therapies, procedures) regardless of current pain score, Post-op Given 12/08/2023 7:55 AM CDT 2 mg Given 12/07/2023 7:57 PM CDT 2 mg Given 12/07/2023 4:56 PM CDT 2 mg ketorolac (TORADOL) injection 15 mg 15 mg, Intravenous, Q6H (NON-STND), First dose on Tue12/05/23 at 1400, Last dose on Tue12/07/23 at 0800, For 48 hours, Do not give if CrCl <60 or history of GI bleed. Start at least 6 hours after celecoxib (CELEBREX) if given., Post-op Given 12/07/2023 8:39 AM CDT 15 mg Given 12/07/2023 2:00 AM CDT 15 mg Given 12/06/2023 7:37 PM CDT 15 mg lisinopril (ZESTRIL) tablet 10 mg 10 mg, Oral, DAILY, First dose on Tue12/06/23 at 0800, Until Discontinued, Hold if SBP <130, On hold since Tue12/08/2023 at 1055 until manually unheld Given 12/06/2023 7:39 AM CDT 10 mg loperamide (IMODIUM) capsule 2 mg 2 mg, Oral, Q3H PRN, Diarrhea, Starting on Tue12/06/23 at 1312, Until Tue12/09/23 at 1609, Adult patient maximum daily dose: 16mg/day magnesium hydroxide (MILK OF MAGNESIA) suspension 30 mL 30 mL, Oral, DAILY, First dose on Tue12/06/23 at 0800, Until Discontinued, Hold for loose stools., Post-op Given 12/08/2023 11:59 AM CDT 30 mL Given 12/06/2023 7:38 AM CDT 30 mL naloxone (NARCAN) injection 0.04 mg 0.04 mg, Intravenous, Q2MIN PRN, Opioid Reversal, Non-Emergent Opioid Reversal (Respiratory Rate less than 8 breaths per minute or difficult to arouse), Starting on Tue12/05/23 at 1152, Until Tue12/09/23 at 1609, Dilution Instructions: Dilute 1 mL of 0.4 mg/mL naloxone vial into 9 mL of normal saline to make a final concentration of 0.04 mg/mL. Discard dose if not used within 1 hour. Use 1 mL of diluted 0.04 mg/mL strength slow IV push over 1 minute. Give first dose, notify practitioner, and continue to observe. Repeat for up to 5 doses per episode until patient is arousable and can take deep breaths. If no improvement in respiratory rate or remains difficult to arouse notify practitioner for additional orders. , Post-op naloxone (NARCAN) injection 0.4 mg 0.4 mg, Intravenous, Q2MIN PRN, Opioid Reversal, Emergent Opioid Reversal (Respiratory Rate less than 6 breaths per minute or unresponsive to physical stimulation), Starting on Tue12/05/23 at 1152, Until Tue12/09/23 at 1609, Give first dose, notify practitioner, and continue to observe. Repeat for up to 5 doses per episode until patient is responsive to physical stimulation and can take deep breaths. , Post-op ondansetron (ZOFRAN) injection 4 mg 4 mg, Intravenous, ONCE, On Tue12/05/23 at 0645, For 1 dose, Give in Preop., Pre-op Given 12/05/2023 6:47 AM CDT 4 mg ondansetron (ZOFRAN) injection 4 mg 4 mg, Intravenous, Q6H PRN, Nausea, Vomiting, Starting on Tue12/05/23 at 1152, Until Tue12/09/23 at 1609, Give IV if unable to take oral., Post-op ondansetron (ZOFRAN-ODT) disintegrating tablet 4 mg 4 mg, Oral, Q6H PRN, Nausea, Vomiting, Starting on Tue12/05/23 at 1152, Until Tue12/09/23 at 1609, Do not swallow tablet whole. Allow to dissolve on the tongue without chewing., Post-op Given 12/06/2023 9:08 AM CDT [address] (PROTONIX) tablet 40 mg 40 mg, Oral, DAILY AT 0600, First dose on Tue12/06/23 at 0600, Last dose on Tue12/07/23 at 0600, For 48 hours, Tablet should be swallowed whole. Best when taken before a meal, but may be taken with food., Post-op Given 12/07/2023 6:02 AM CDT 4 0 mg Given 12/06/2023 5:48 AM CDT 40 mg prochlorperazine (COMPAZINE) injection 10 mg 10 mg, Intravenous, Q6H PRN, Nausea, Vomiting, Starting on Tue12/06/23 at 1312, Until Tue12/09/23 at 1609, Oral preferred; may use IV if oral not tolerated. Administer antiemetics (when multiples are ordered) in this order: 1 - ondansetron/granisetron (ZOFRAN/KYTRIL) 2 - olanzapine (ZYPREXA) 3 - LORazepam (ATIVAN) 4 - prochlorperazine (COMPAZINE) 5 - promethazine (PHENERGAN) 6 - metoclopramide (REGLAN) 7- haloperidol (HALDOL) Given 12/06/2023 1:25 PM CDT 10 mg rosuvastatin (CRESTOR) tablet 10 mg 10 mg, Oral, DAILY, First dose on Tue12/05/23 at 1900, Until Discontinued, Post-op Given 12/08/2023 8:32 PM CDT 10 mg Given 12/07/2023 7:52 PM CDT 10 mg Given 12/06/2023 7:36 PM CDT 10 mg senna (SENOKOT) tablet 1 Tablet 1 Tablet, Oral, DAILY - 1999, First dose on Tue12/05/23 at 2000, Until Discontinued, Give every day while on opioids (stimulant) starting day of surgery. Hold for loose stools., Post-op Given 12/08/2023 8:32 PM CDT 1 Tablet Given 12/07/2023 7:49 PM CDT 1 Tablet Given 12/05/2023 7:02 PM CDT 1 Tablet sertraline (ZOLOFT) tablet 200 mg 200 mg, Oral, DAILY, First dose on Tue12/05/23 at 1900, Until Discontinued, Post-op Given 12/08/2023 8:3 1 PM CDT 200 mg Given 12/07/2023 7:49 PM CDT 200 mg Given 12/06/2023 7:34 PM CDT 200 mg sodium chloride 0.9% 0.9 % injection - ADS Override Pull Starting on Tue12/06/23 at 0212, Until Tue12/06/23 at 0216, For 1 dose, Heller, Christe: cabinet override Given 12/06/2023 2:16 AM CDT sodium chloride 0.9% bolus 1,000 mL 1,000 mL, Intravenous, Administer over 1 Hours, ONCE, On Tue12/08/23 at 1115, For 1 dose Started 12/08/2023 12:50 PM CDT 1,000 mL sodium chloride 0.9% bolus 250 mL 250 mL, Intravenous, Administer over 1 Hours, ONCE, On Tue12/07/23 at 1500, For 1 dose Started 12/07/2023 4:56 PM CDT 250 mL sodium chloride 0.9% injection 10-60 mL 10-60 mL, Intravenous, BID, First dose on Tue12/06/23 at 0800, Until Discontinued, For an INT flush, flush with at least 10 mL. For PICC (including Power Injectable PICC), flush with 10 mL. For Port-a-Cath, flush with a minimum of 10mL. For Duong, flush with a minimum of 10 mL. For jugular, subclavian, femoral central lines, flush with a minimum 10 mL. For additional information about flushing processes, reference the Vascular Access Device Users Guide. Given 12/09/2023 9:05 AM CDT 10 mL Given 12/08/2023 8:33 PM CDT 10 mL Given 12/08/2023 7:55 AM CDT 10 mL sodium chloride 0.9% injection 10-60 mL 10-60 mL, Intravenous, PRN, Line Patency, Line Care, Starting on Tue12/06/23 at 0712, Until Tue12/09/23 at 1609, For an INT flush, flush with at least 10 mL. For PICC (including Power Injectable PICC), flush with 10 mL. For Port-a-Cath, flush with a minimum of 10mL. For Duong, flush with a minimum of 10 mL. For jugular, subclavian, femoral central lines, flush with a minimum 10 mL. For additional information about flushing processes, reference the Vascular Access Device Users Guide. Given 12/06/2023 1:26 PM CDT 10 mL Given 12/06/2023 1:25 PM CDT 10 mL traZODone (DESYREL) tablet 25 mg 25 mg, Oral, HS, First dose on Tue12/05/23 at 2200, Until Discontinued Given 12/09/2023 12:01 AM CDT 25 mg Given 12/07/2023 10:14 PM CDT 25 mg Given 12/06/2023 10:43 PM CDT 25 mg documented in this encounter Active and Recently Administered Medications Times are shown in CDT. Scheduled Medication Order 12/07/2023 12/08/2023 12/09/2023 acetaminophen (TYLENOL) tablet 650 mg 650 mg, Oral, QID, First dose on Tue12/05/23 at 1200, Until Discontinued, Post-op 0839 (Given - Provider: Cecy Martinez RN)1222 (Given - Provider: Cecy Martinez RN)170 (Given - Provider: Cecy Martinez RN)1950 (Not Given - Provider: Bessie Zaragoza RN - Reason: Order parameters not met - Comment: given already) 0755 (Given - Provider: Dona Frisa RN)1158 (Given - Provider: Dona Frias RN)1524 (Given - Provider: Dona Frias RN)2030 (Given - Provider: Bessie Zaragoza RN) 0904 (Given - Provider: Phoebe Hart RN - Comment: pt in the bathroom)1256 (Not Given - Provider: Phoebe Hart RN - Reason: Patient/family refused) buPROPion (WELLBUTRIN XL) XL 24 hour release tablet 300 mg 300 mg, Oral, DAILY, First dose on Tue12/05/23 at 1900, Until Discontinued, Tablet/Capsule should be swallowed whole., Post-op 1951 (Given - Provider: Bessie Zaragoza RN) 2031 (Given - Provider: Bessie Zaragoza RN) enoxaparin (LOVENOX) prefilled syringe 30 mg 30 mg, Subcutaneous, BID, First dose on Tue12/05/23 at 2000, Until Discontinued, For first dose: If patient is back from surgery before 1400, give first dose in the evening day of surgery. If patient is back from surgery after 1400 start first dose in the morning POD #1. Inject subcutaneously into abdominal tissue only. HIGH ALERT medication, Post-op 0839 (Given - Provider: Cecy Martinez RN)1950 (Given - Provider: Bessie Zaragoza RN) 0755 (Given - Provider: Dona Frias, ALEISHA)203 (Given - Provider: Bessie Zaragoza RN) 0905 (Given - Provider: Phoebe Hart RN - Comment: pt in the bathroom) hydroCHLOROthiazide (ORETIC) tablet 12.5 mg(Linked Group 1) 12.5 mg, Oral, DAILY, First dose on Tue12/06/23 at 0800, Until Discontinued, Hold if SBP <130, On hold since Tue12/08/2023 at 1055 until manually unheld 0833 (Not Given - Provider: Cecy Martinez RN - Reason: Order parameters not met - Comment: BP: 102/40) 0717 (Not Given - Provider: Dona Frias RN - Reason: Other (Enter Reason in Comment Area) - Comment: low BP)1055 (Held by provider in Manage Orders - Provider: Brody Maki MD - Reason: Per Practitioner: Hypotension or Allow permissive hypertension in acute stroke ) 0800 (Automatically Held - Provider: Brody Maki MD)1609 (Unheld by provider in Manage Orders - Provider: Inpatient Template [facility]) ketorolac (TORADOL) injection 15 mg (COMPLETED) 15 mg, Intravenous, Q6H (NON-STND), First dose on Tue12/05/23 at 1400, Last dose on Tue12/07/23 at 0800, For 48 hours, Do not give if CrCl <60 or history of GI bleed. Start at least 6 hours after celecoxib (CELEBREX) if given., Post-op 0200 (Given - Provider: Shannan Dudley RN)0839 (Given - Provider: Cecy Martinez RN) lisinopril (ZESTRIL) tablet 10 mg(Linked Group 1) 10 mg, Oral, DAILY, First dose on Tue12/06/23 at 0800, Until Discontinued, Hold if SBP <130, On hold since Tue12/08/2023 at 1055 until manually unheld 0833 (Not Given - Provider: Cecy Martinez RN - Reason: Order parameters not met - Comment: BP: 102/40) 0716 (Not Given - Provider: Dona Frias RN - Reason: Other (Enter Reason in Comment Area) - Comment: low BP)1055 (Held by provider in Manage Orders - Provider: Brody Maki MD - Reason: Per Practitioner: Hypotension or Allow permissive hypertension in acute stroke ) 0800 (Automatically Held - Provider: Brody Maki MD)1609 (Unheld by provider in Manage Orders - Provider: Inpatient Template [facility]) magnesium hydroxide (MILK OF MAGNESIA) suspension 30 mL 30 mL, Oral, DAILY, First dose on Tue12/06/23 at 0800, Until Discontinued, Hold for loose stools., Post-op 0839 (Not Given - Provider: Cecy Martinez RN - Reason: Patient/family refused - Comment: Pt states she has been having loose stools.) 0755 (Not Given - Provider: Dona Frias RN - Reason: Patient/family refused)1159 (Given - Provider: Dona Frias, ALEISHA) 0905 (Not Given - Provider: Phoebe Hart RN - Reason: Patient/family refused) pantoprazole DR (PROTONIX) tablet 40 mg (COMPLETED) 40 mg, Oral, DAILY AT 0600, First dose on Tue12/06/23 at 0600, Last dose on Tue12/07/23 at 0600, For 48 hours, Tablet should be swallowed whole. Best when taken before a meal, but may be taken with food., Post-op 601 (Given - Provider: Shannan Dudley, ALEISHA) rosuvastatin (CRESTOR) tablet 10 mg 10 mg, Oral, DAILY, First dose on Tue12/05/23 at 1900, Until Discontinued, Post-op 1951 (Given - Provider: Bessie Zaragoza RN) 2031 (Given - Provider: Bessie Zaragoza, RN) senna (SENOKOT) tablet 1 Tablet 1 Tablet, Oral, DAILY - 1999, First dose on Tue12/05/23 at 2000, Until Discontinued, Give every day while on opioids (stimulant) starting day of surgery. Hold for loose stools., Post-op 1948 (Given - Provider: Bessie Zaragoza RN) 2031 (Given - Provider: Bessie Zaragoza, ALEISHA) sertraline (ZOLOFT) tablet 200 mg 200 mg, Oral, DAILY, First dose on Tue12/05/23 at 1900, Until Discontinued, Post-op 194 (Given - Provider: Bessie Zaragoza RN) 2030 (Given - Provider: Bessie Zaragoza RN) sodium chloride 0.9% bolus 1,000 mL (COMPLETED) 1,000 mL, Intravenous, Administer over 1 Hours, ONCE, On Joy 12/08/23 at 1115, For 1 dose 1250 (Started - Provider: Dona Frias RN)1416 (Infused - Provider: Dona Frias RN) sodium chloride 0.9% bolus 250 mL (COMPLETED) 250 mL, Intravenous, Administer over 1 Hours, ONCE, On 12/07/23 at 1500, For 1 dose 1656 (Started - Provider: Cecy Martinez RN)1758 (Infused - Provider: Cecy Martinez RN) sodium chloride 0.9% injection 10-60 mL 10-60 mL, Intravenous, BID, First dose on Tu12/06/23 at 0800, Until Discontinued, For an INT flush, flush with at least 10 mL. For PICC (including Power Injectable PICC), flush with 10 mL. For Port-a-Cath, flush with a minimum of 10mL. For Duong, flush with a minimum of 10 mL. For jugular, subclavian, femoral central lines, flush with a minimum 10 mL. For additional information about flushing processes, reference the Vascular Access Device Users Guide. 0840 (Given - Provider: Cecy Martinez RN)1950 (Given - Provider: Bessie Zaragoza RN) 0755 (Given - Provider: Dona Frias RN)2032 (Given - Provider: Bessie Zaragoza RN) 0905 (Given - Provider: Phoebe Hart RN) traZODone (DESYREL) tablet 25 mg 25 mg, Oral, HS, First dose on 12/05/23 at 2200, Until Discontinued 2213 (Given - Provider: Bessie Zaragoza RN) 0001 (Given - Provider: Sohan Morataya RN) PRN Medication Order 12/07/2023 12/08/2023 12/09/2023 bisacodyl (DULCOLAX) rectal suppository 10 mg 10 mg, Rectal, DAILY PRN, Other, Moderate Constipation, Starting on Tue12/05/23 at 1152, Until Tue12/09/23 at 1609, Post-op HYDROmorphone (DILAUDID) tablet 1 mg 1 mg, Oral, Q2H PRN, Other, Moderate Pain (pain score 5-7), Severe Pain (pain score 8-10), Starting on Joy 12/08/23 at 1055, Until Tue12/09/23 at 1609, Do NOT administer at the same time as IV opioids. May administer 1 hour after IV opioid administration. HOLD if on CANNED FOOD RECONDITIONING INSPECTOR. Use of ORAL opioids is encouraged as patients anticipate discharge. (IV medications will be discontinued 48 hours post-op.) May give for anticipatory pain (ie prior to therapies, procedures) regardless of current pain score, Post-op 2359 (Given - Provider: Sohan Morataya RN) 0922 (Given - Provider: Phoebe Hart RN) HYDROmorphone (DILAUDID) tablet 2-4 mg (CANCELED) 2-4 mg, Oral, Q2H PRN, Other, Moderate Pain (pain score 5-7), Severe Pain (pain score 8-10), Starting on Tue12/05/23 at 1152, Until Joy 12/08/23 at 1055, Do NOT administer at the same time as IV opioids. May administer 1 hour after IV opioid administration. HOLD if on CANNED FOOD RECONDITIONING INSPECTOR. Use of ORAL opioids is encouraged as patients anticipate discharge. (IV medications will be discontinued 48 hours post-op.) May give for anticipatory pain (ie prior to therapies, procedures) regardless of current pain score, Post-op 0256 (Given - Provider: Shannan Dudley RN)1656 (Given - Provider: Cecy Martinez RN)1957 (Given - Provider: Bessie Zaragoza RN) 0755 (Given - Provider: Dona Frias RN) loperamide (IMODIUM) capsule 2 mg 2 mg, Oral, Q3H PRN, Diarrhea, Starting on Tue12/06/23 at 1312, Until Tue12/09/23 at 1609, Adult patient maximum daily dose: 16mg/day melatonin tablet 3 mg 3 mg, Oral, HS PRN, Other, Mild insomnia, Starting on Tue12/05/23 at 1152, Until Tue12/09/23 at 1609, Post-op naloxone (NARCAN) injection 0.04 mg(Linked Group 2) 0.04 mg, Intravenous, Q2MIN PRN, Opioid Reversal, Non-Emergent Opioid Reversal (Respiratory Rate less than 8 breaths per minute or difficult to arouse), Starting on Tue12/05/23 at 1152, Until Tue12/09/23 at 1609, Dilution Instructions: Dilute 1 mL of 0.4 mg/mL naloxone vial into 9 mL of normal saline to make a final concentration of 0.04 mg/mL. Discard dose if not used within 1 hour. Use 1 mL of diluted 0.04 mg/mL strength slow IV push over 1 minute. Give first dose, notify practitioner, and continue to observe. Repeat for up to 5 doses per episode until patient is arousable and can take deep breaths. If no improvement in respiratory rate or remains difficult to arouse notify practitioner for additional orders. , Post-op naloxone (NARCAN) injection 0.4 mg(Linked Group 2) 0.4 mg, Intravenous, Q2MIN PRN, Opioid Reversal, Emergent Opioid Reversal (Respiratory Rate less than 6 breaths per minute or unresponsive to physical stimulation), Starting on Tue12/05/23 at 1152, Until Tue12/09/23 at 1609, Give first dose, notify practitioner, and continue to observe. Repeat for up to 5 doses per episode until patient is responsive to physical stimulation and can take deep breaths. , Post-op ondansetron (ZOFRAN) injection 4 mg(Linked Group 3) 4 mg, Intravenous, Q6H PRN, Nausea, Vomiting, Starting on Tue12/05/23 at 1152, Until Tue12/09/23 at 1609, Give IV if unable to take oral., Post-op ondansetron (ZOFRAN-ODT) disintegrating tablet 4 mg(Linked Group 3) 4 mg, Oral, Q6H PRN, Nausea, Vomiting, Starting on Tue12/05/23 at 1152, Until Tue12/09/23 at 1609, Do not swallow tablet whole. Allow to dissolve on the tongue without chewing., Post-op prochlorperazine (COMPAZINE) injection 10 mg 10 mg, Intravenous, Q6H PRN, Nausea, Vomiting, Starting on Tue12/06/23 at 1312, Until Tue12/09/23 at 1609, Oral preferred; may use IV if oral not tolerated. Administer antiemetics (when multiples are ordered) in this order: 1 - ondansetron/granisetron (ZOFRAN/KYTRIL) 2 - olanzapine (ZYPREXA) 3 - LORazepam (ATIVAN) 4 - prochlorperazine (COMPAZINE) 5 - promethazine (PHENERGAN) 6 - metoclopramide (REGLAN) 7- haloperidol (HALDOL) sodium chloride 0.9% injection 10-60 mL 10-60 mL, Intravenous, PRN, Line Patency, Line Care, Starting on Tue12/06/23 at 0712, Until Tue12/09/23 at 1609, For an INT flush, flush with at least 10 mL. For PICC (including Power Injectable PICC), flush with 10 mL. For Port-a-Cath, flush with a minimum of 10mL. For Duong, flush with a minimum of 10 mL. For jugular, subclavian, femoral central lines, flush with a minimum 10 mL. For additional information about flushing processes, reference the Vascular Access Device Users Guide. sodium phosphate (FLEET) enema 1 Enema 1 Enema, Rectal, PRN, Other, Severe Constipation, Starting on Tue12/05/23 at 1152, Until Tue12/09/23 at 1609, Post-op Linked Groups Order Group 1: lisinopril (ZESTRIL) tablet 10 mgJump to med 10 mg, Oral, DAILY, First dose on Tue12/06/23 at 0800, Until Discontinued, Hold if SBP <130, On hold since Tue12/08/2023 at 1055 until manually unheld And hydroCHLOROthiazide (ORETIC) tablet 12.5 mgJump to med 12.5 mg, Oral, DAILY, First dose on Tue12/06/23 at 0800, Until Discontinued, Hold if SBP <130, On hold since Tue12/08/2023 at 1055 until manually unheld Group 2: naloxone (NARCAN) injection 0.4 mgJump to med 0.4 mg, Intravenous, Q2MIN PRN, Opioid Reversal, Emergent Opioid Reversal (Respiratory Rate less than 6 breaths per minute or unresponsive to physical stimulation), Starting on Tue12/05/23 at 1152, Until Tue12/09/23 at 1609, Give first dose, notify practitioner, and continue to observe. Repeat for up to 5 doses per episode until patient is responsive to physical stimulation and can take deep breaths. , Post-op Or naloxone (NARCAN) injection 0.04 mgJump to med 0.04 mg, Intravenous, Q2MIN PRN, Opioid Reversal, Non-Emergent Opioid Reversal (Respiratory Rate less than 8 breaths per minute or difficult to arouse), Starting on Tue12/05/23 at 1152, Until Tue12/09/23 at 1609, Dilution Instructions: Dilute 1 mL of 0.4 mg/mL naloxone vial into 9 mL of normal saline to make a final concentration of 0.04 mg/mL. Discard dose if not used within 1 hour. Use 1 mL of diluted 0.04 mg/mL strength slow IV push over 1 minute. Give first dose, notify practitioner, and continue to observe. Repeat for up to 5 doses per episode until patient is arousable and can take deep breaths. If no improvement in respiratory rate or remains difficult to arouse notify practitioner for additional orders. , Post-op Group 3: ondansetron (ZOFRAN) injection 4 mgJump to med 4 mg, Intravenous, Q6H PRN, Nausea, Vomiting, Starting on Tue12/05/23 at 1152, Until Tue12/09/23 at 1609, Give IV if unable to take oral., Post-op Or ondansetron (ZOFRAN-ODT) disintegrating tablet 4 mgJump to med 4 mg, Oral, Q6H PRN, Nausea, Vomiting, Starting on Tue12/05/23 at 1152, Until Tue12/09/23 at 1609, Do not swallow tablet whole. Allow to dissolve on the tongue without chewing., Post-op documented in this encounter Care Teams Evening Anchor Relationship Specialty [place] [address] [facility] [place] [address] PCP - General 05/16/10 documented as of this encounter
--- OUTSIDE RECORDS SUMMARY | 2023-12-17 02:05 | XMS_ITS | Encounter Summary ---
Author Organization [facility] Address [address], [place] [address] Care Team Providers Care Mud Tank Operator Name Role Phone Josie Lainez MD Primary Care Provider [phone] Reason for Visit * Reason Comments COVID Encounter Details Date Type Department Care Team (Late st Contact Info) Description 09/16/2023 Telephone [facility] [address] [place], [place] [id number] [place] [address] [place] [address] COVID Social History Tobacco Use Types Packs/Day Years Used Date Smoking Tobacco: Never Smokeless Tobacco: Never Comments:None Alcohol Use Standard Drinks/Week Comments Yes 0 (1 standard drink = 0.6 oz pur e alcohol) Occasional AUDIT-C Answer Date Recorded Q1: How often do you have a drink containing alc ohol? Monthly or less 12/12/2019 Q2: How many drinks containi ng alcohol do you have on a typical day when you are drinking? 1 or 2 12/12/2019 Frequency of Binge Drinking Not on file 11/15 PHQ-2 Answer Date Recorded PHQ-2 Score 0 09/07/2023 Sex and Gender Information Value Date Recorded Sex Assigned at Not on file Gender Identity Not on file Sexual Orientation Not on file documented as of this encounter Nursing Notes * Melissa Hamilton - 09/16/2023 9:27 PM CDT Images from the original note were not included. Home/Clinic Test: Home: Patient called to report positive home COVID-19 test 09/16/23. Patient has symptoms. Date of onset of symptoms: 09/15/2023 Current symptoms consist of: Cough, Sore Throat, Chills, Muscle aches, Headache, Fatigue, congestion, and runny nose Progression of symptoms: worsened If patient has previously tested positive within the last 90 days and is experiencing new symptoms,clinical evaluation is recommended to determine reinfection. Patient was given and able to verbalize home isolation instructions for patients that have tested positive for COVID. Isolation Information: Remain home until you've not had a fever for 24 hours without fever reducing medicine AND all your symptoms have improved. Stay connected with your doctor via video visit or reschedule your in-person visit to a video visit(if applicable). You may return to clinic or outpatient procedure areas for routine care once 10 days have passed since symptom onset. Visit [facility] for our latest on masking. While ill, isolate yourself from others as much as possible by staying in a specific room away from people and pets in your home, use a separate bathroom if available, wear a mask if you need to be around others in your home. COVID-19 Tests can remain positive for several weeks after your initial test. If you develop new symptoms, please contact us to speak to a nurse or your clinician. Evaluation of Reinfection: N/A How to protect yourself and others: Wash your hands often, and frequently clean and disinfect surfaces. Cover all coughs and sneezes. Try to avoid touching your face. For the next 5 days,wear a mask any time you are around others, including in your home. Separate yourself from others in your home as much as possible by staying in a specific room or rooms, away from people and pets. You should not share dishes, drinking glasses, cups, eating utensils, towels, or bedding with otherpeople in your home. Clean all high touch surfaces in your home daily. It's important for you to watch for any worsening symptoms, especially if you are at a higher risk for getting very sick from COVID-19. Higher risk groups include people older than age 60 and people who have serious chronic medical conditions like heart disease, diabetes or lung disease. Pay attention to the speed of worsening symptoms. If your symptoms are gradually worsening and you're concerned, try a video visit or call your clinic. Normally symptoms worsen a bit before getting better. Seek care at an emergency room if these symptom suddenly or quickly worsen: Sudden worsening shortness of breath, sudden worsening wheezing, difficulty swallowing, slurred speech, facial numbness, new confusion or inability to arouse, persistent pain or pressure in the chest, leg swelling. Guidance for return to work: Before returning to work, you must contact your employer for return to work instructions. Guidance for return to sports for children: If your child had any of the following: a fever >4 days, was lethargic >7 days, had chills ormuscle aches/pains >7 days, OR hospitalized with COVID-19, an in- person visit is required. All other patients may be seen in person or via telemedicine. Patient Resources: Recommended Centers of Disease Control (CDC), [facility] ([facility]), and [facility] websites for further information on Coronavirus. Advised patient to review COVID-19 handout given to them at time of testing. COVID-19 Therapeutics: Risk Scores Covid Risk Score (Compiled) 6 Patient Age 4 BMI 0 Hypertension 1 0 Mood 1 Empty Metrics: Diabetes, CKD, Vascular, Asthma, Immune Comp, CLD, Disabilities, HIV, Immune Def, Wellness, Cancer, Blood Dis Current as of: 09/16/2023 9:42 AM 5 days from symptom onset = 09/19/2023 Is the patient established?Yes Is patient within 5 days of symptom onset? Yes: Has patient received any antivirals to treat COVID-19 within the past 90 days? No: Does patient have a CRS > 4? (Confirm eligibility requirements within standing order) Yes Is patient over the age of 12 years, > 40kg/88lb? Yes: GFR, Estimated (mL/min/1.73m2) Date Value 09/06/2023 >60 11/10/2021 >60 Est GFR Am (mL/min/1.73m2) Date Value 04/21/2018 >60 Est GFR Non-Afr Am (mL/min/1.73m2) Date Value 04/21/2018 >60 Is Paxlovid contraindicated? (Refer to Standing Order) No: Was pharmacy consulted about a precaution? No Was patient counseled of any medication adjustments per the standing order? Yes (Document clinical management instructions) Stop trazodone during treatment and resume 3 days after treatment ends. Stop atorvastatin and rosuvastatin during treatment. Restart rosuvastatin or atorvastatin 3 days after the last dose of Paxlovid. Proceed to prescribe. Inform patient they may have less effect from the bupropion while on PAXLOVIDtreatment. Verify whether patient has had stent placed in past. If patient has had a stent placed in the previous 6 months, DO NOT PRESCRIBE PAXLOVID. If no stent in the previous 6 months, ok to prescribe. Patient is eligible and agrees to treatment: Paxlovid prescribed per standing order, send to pharmacy and provide Paxlovid Patient Education: Coverage for Paxlovid prescriptions has changed for patients. The government no longer covers the cost and patients are charged for Paxlovid according to their pharmacy benefits. As Paxlovid is estimated to be nearly $1,400 for the five-day treatment course, please consider out of pocket cost for patients when prescribing Where/How to milk pickup driver medication prescription/Medication delivery How to take medication, importance of taking as prescribed and continue until finished If patient needs to begin taking any new prescribed or [id number] medications or herbal supplements while completing Paxlovid treatment, patient needs to consult with their clinician as Paxlovid has many drug interactions Rarely, symptoms can return within 2 weeks after Paxlovid treatment, and this phenomenon is described as COVID-19 rebound. If your symptoms resolve and quickly return, please call your clinic to discuss probable isolation instructions. If patient is using a combined hormonal contraceptive, advise patient to use an additional barrier method of contraception as Paxlovid may reduce the effectiveness of hormonal contraceptive Side effects may include loss in taste and/or smell, diarrhea, and muscle aches and pains When to contact your healthcare provider: If you have worsening symptoms of COVID-19, new symptoms such as increased blood pressure and/or difficulty completing treatment as prescribed Does patient have any questions? No Does patient need documentation as verification of their results? No The following advice may help if you have a fever, sore throat, cough, or sinus infection/pain. Please note that because COVID-19 is a viral infection, an antibiotic won???t soothe or treat the virus. Getting plenty of rest and drinking water to stay hydrated is mondragon to feeling better. 09/16/2023, 9:28 PM documented in this encounter Plan of Treatment Upcoming Encounters Date Type Department Care Team (Late st Contact Info) Description 12/21/2023 12:45 PM DENTAL ASSISTANT TEACHER Appointment [facility] [address] [place] [address] Lena Puente 12/28/2023 10:00 AM DENTAL ASSISTANT TEACHER Appointment [facility] [address] [place] [address] 01/19/2024 11:30 AM DENTAL ASSISTANT TEACHER Appointment [facility] [address] [place] [address] Yanelis Welch MD [address] [facility] [address] [place] [address] documented as of this encounter Goals Goal Patient Goal Type Associated Problems Recent Progress Patient-Stated? Author Right Knee Replacement Care Plan ET PROE RIGHT KNEE No John Escalante GENERAL OUTCOMES KNEE REPLACEMENT - RIGHT Care Plan ET PROE GENERAL OUTCOMES KNEE REPLACEMENT - RIGHT No John Escalante documented as of this encounter Visit Diagnoses Diagnosis COVID- Primary documented in this encounter Additional Health Concerns Active Problems Noted Date Diagnosed Date ET PROE SHELL PROBLEM TEMPLATE 08/05/2023 ET PROE RIGHT KNEE 08/05/2023 ET PROE GENERAL OUTCOMES KNEE REPLACEMENT - RIGH T 08/05/2023 documented as of this encounter Care Teams Mud Tank Operator Relationship Specialty [place] [address] [facility] [place] [address] PCP - General 05/16/10 documented as of this encounter
--- OUTSIDE RECORDS SUMMARY | 2023-12-17 02:05 | XMS_ITS | Encounter Summary ---
Author Organization [employer] Address [address], [place] [address] Care Team Providers Care Vehicle Operator Technician Name Role Phone Josie Lainez MD Primary Care Provider [phone] Reason for Visit * Auth/Cert (Routine) Specialty Diagnoses / Procedures Referred By Contac t Referred To Contact Diagnoses Primary osteoarthritis of right knee Procedures TOTAL KNEE JOINT REPLACEMENT Referral ID Status Reason Start Date Expiration Date Visits Re quested Visits Authorized [id number] 1 1 Encounter Details Date Type Department Care Team (Late st Contact Info) Description 12/05/2023 7:00 AM CDT - 12/05/2023 9:25 AM CDT Surgery Restoration Operating Room [address] [facility]. [place], [place] [id number] Yanelis Welch MD [address] [facility] [address] [place], [place] [address] TOTAL KNEE JOINT REPLACEMENT Social History Tobacco Use Types Packs/Day Years Used Date Smoking Tobacco: Never Smokeless Tobacco: Never Comments:None Alcohol Use Standard Drinks/Week Comments Not Currently 0 (1 standard drink = 0.6 oz pur e alcohol) Occasional C Utilities Answer Date Recorded In the past 12 months has th e electric, gas, oil, or water company threatened [...] any time in the past 12 m [facility], were you homeless or living in a senior care (including now)? No 12/05/2023 Sex and Gender Information Value Date Recorded Sex Assigned at Not on file Gender Identity Not on file Sexual Orientation Not on file documented as of this encounter Last Filed Vital Signs Vital Sign Reading Time Taken Comments Blood Pressure 98/62 12/05/2023 9:15 AM CDT Pulse 60 12/05/2023 9:15 AM CDT Temperature 36.1 ??C (97 ??F) 12/05/2023 9:15 AM CDT Respiratory Rate 12 12/05/2023 9:15 AM CDT Oxygen Saturation 97% 12/05/2023 9:15 AM CDT Inhaled Oxygen Concentration - - [...] or numbness/tingling. Improved nausea and dizziness at nm. Hospital Course: Patient was admitted following the [...] Your Medications These medications were sent to [facility] [address] [place] [id number] Hours: Open 24x7 enoxaparin 40 MG/0.4ML prefilled [...] Maki. He spoke with neurology & heme/onc. Proctor to be safe holding Plavix whileon ortho [...] hoses with plug, and inner wrap, to [facility] according to the rental agreement. Eat fiber [...] surgical and wound concerns Order Comments: Call [phone] (orthopedic triage nurse line) 8:00 AM to 5:00 PM Tuesday-Tuesday. Call [phone] (Orthopedic office) evening hours, weekend and holidays. Not all post-operative infections can be prevented, but early detection and proper treatment can prevent major catastrophes. Do not start antibiotics for incision infections without contacting the orthopedic surgeon first. IF in doubt, call the orthopedic surgeon. For non-urgent orthopedic questions Order Comments: Call [facility] Orthopedic Nurse Triage at [phone] Tuesday-Tuesday 8:00 AM to 5:00 PM. Pain [...] incentive spirometer use *Practice good oral care. [place] your teeth and use mouthwash twice daily. [...] Instructions * Discharge Instr - Anticoagulation* Chasity Monge, PharmD - 12/05/2023 2:33 PM CDT ANTICOAGULATION [...] sennaincluding possible side effects. Prescriptions filled by [facility] pharmacy. Belongings checklist reviewed with patient and [...] dc from medicine perspective. HTN/HLD/MDD - continue PATIENT OBSERVATION ASSISTANT meds unchanged Social Determinants of Health adding to complexity of care: None Consults/Care Discussions: Clinicians: orthopedic surgery Notes Reviewed: 7 Labs and tests reviewed: 0 Drug therapy requiring intensive monitoring for toxicity: none Brody Maki MD [phone] Billing based on: Complexity Complexity: MDM Level: [...] deep vein thrombosis (DVT) of lower extremity ([facility]) 11/17/2023 Small clot in her leg after surgery Coagulation defect ([facility]) 1982 Primary thrombocytosis Floaters 2010 Hyperlipidemia 07/21/2002 Hypertension 11/26/2003 Major depressive disorder, recurrent episode, in full remission ([facility]) 10/13/2010 Migraine Common 06/26/2008 Pulmonary Nodule 06/26/2008 Rhinitis Allergic NOS 07/21/2002 Right arm numbness 09/01/2020 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 Welch at [facility]. Thrombocythemia 11/13/2010 TIA (transient ischemic attack), dysarthria, ataxia, hosp at [place], 10/2511/06/2010 Subjective/General Information Reason for admit/therapy consult: s/p TOTAL KNEE JOINT REPLACEMENT (Right: Knee) on 12/05/23 Living Arrangements: Alone, Condo (Patient states her son can help her at home.) Home Accessibility: wheelchair accessible (Can use elevator.) Prior equipment mobility: Walker, 2 wheeled Prior equipment ADL: Shower chair, Tie Carrier Prior level of function details: Enjoys walking and swimming for exercise. Education Level: Patient Self Report: Pt reporting wanting to get up and moving Pain: With activity 10 Tolerance/Cooperation: good Objective Location of treatment: OT [...] standby assist in 3 days. GOAL MET compliance project manager goal: Patient will maximize independence and safety [...] MIRTA Perry/Namrata 11:06 AM 12/09/2023 * Bessie Zaragoza RN - 12/08/2023 10:29 PM CDT Patient [...] 23 (PM) = 43 minutes Therapist: Shyann Gillette PT 4:30 PM 12/08/2023 * Herminia Chow RN - 12/08/2023 12:36 PM CDT [facility] Care Management Inpatient Note Plan: [...] patient therapy scheduled near her home in [place], and she prefers to keep this plan. [...] over night. Pt will update terri; this web content writer obtained permission from pt to speak to him if he has additional questions/concerns. Patient/Spokesperson Updated: Yes; Who? patient Herminia Kramer RN 12:37 PM 12/08/2023 ADDENDUM: Stopped back into pt's room to inquire if she spoke with her son and/or if there any additional questions or concerns. Pt's sister is now present. Pt has not yet called her son, but with her sister'sencouragement, she will do so now. Pt and/or sister will notify this web content writer if there are any concerns and/or [...] Maki. He spoke with neurology & heme/onc. Proctor to be safe holding Plavix whileon ortho [...] to 1 mg prn HTN/HLD/MDD - continue PATIENT OBSERVATION ASSISTANT meds unchanged Social Determinants of Health adding to complexity of care: None Consults/Care Discussions: Clinicians: orthopedic surgery Notes Reviewed: 7 Labs and tests reviewed: 1 Drug therapy requiring intensive monitoring for toxicity: none Brody Maki MD [phone] Billing based on: Complexity Complexity: MDM Level: [...] Gillette, PT 10:39 AM 12/08/2023 * Matheus Cardenas Y, OTR/L - 12/08/2023 8:08 AM CDT Occupational Therapy ADL Progress Note Age: 73 y.o. 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 Welch at [facility]. Thrombocythemia 11/13/2010 TIA (transient ischemic attack), dysarthria, ataxia, hosp at [place], 10/2511/06/2010 Subjective/General Information Reason for admit/therapy consult: s/p TOTAL KNEE JOINT REPLACEMENT (Right: Knee) on 12/05/23 Living Arrangements: Alone, Condo (Patient states her son can help her at home.) Home Accessibility: wheelchair accessible (Can use elevator.) Prior equipment mobility: Walker, 2 wheeled Prior equipment ADL: Shower chair, Tie Carrier Prior level of function details: Enjoys walking [...] mobility with standby assist in 3 days. compliance project manager goal: Patient will maximize independence and safety [...] mobility, AE needs, monitor BP Therapist signature: Matheus Cardenas OTR/L 2:44 PM 12/08/2023 * Bessie Zaragoza RN [...] SBP<80. Orthostatic BP didn't changed significantly. Paged PA who gave a bolus. Pain is well [...] since AM PT session Pain: R knee 06/23 with activity OBJECTIVE Treatment Location: Bedside, / [...] PT 2:59 PM 12/07/2023 * Sonny Mckinley, PA-C - 12/07/2023 9:37 AM CDT ORTHO PROGRESS [...] Maki. He spoke with neurology & heme/onc. Proctor to be safe holding Plavix whileon ortho [...] Mckinley PA-C 9:37 AM 12/07/2023 * Princess Márquez PT - 12/07/2023 7:49 AM CDT Physical [...] room with patient when PT left. Princess Márquez PT 9:57 AM 12/07/2023 * Rachel Servin OTR/Namrata - 12/07/2023 7:33 AM CDT Occupational Therapy [...] Servin, OTR/L 10:15 AM 12/07/2023 * Donna Grijalva RN - 12/06/2023 10:34 PM CDT 12/05 07- 0 Clinical Goals and Progression: Pt's pain/nausea will [...] drink electrolyte containing fluids. HTN/HLD/MDD - continue PATIENT OBSERVATION ASSISTANT meds unchanged Social Determinants of Health adding [...] here tomorrow unless paged. Brody Maki MD [phone] Billing based on: Complexity Complexity: MDM Level: High * Shyann Gillette PT - 12/06/2023 1:32 PM CDT Physical [...] (97.7 ??F) (Oral) Resp 16 Wt 83 kg (183 lb) SpO2 96% BMI 27.42 kg/m?? Normal [...] Sonny Mckinley PA-C 10:12 AM 12/06/2023 * Delmeret, Rachel Y, OTR/L - 12/06/2023 7:59 AM CDT Occupational Therapy Evaluation Date of admit: 12/05/2023 Reason for admit/therapy consult: s/p TOTAL KNEE JOINT REPLACEMENT (Right: Knee) on 12/05/23 Past medical history: Past Medical History: Diagnosis Date Acute deep vein thrombosis (DVT) of lower extremity ([facility]) 11/17/2023 Small clot in her leg after surgery Coagulation defect ([facility]) 1982 Primary thrombocytosis Floaters 2010 Hyperlipidemia 07/21/2002 Hypertension 11/26/2003 Major depressive disorder, recurrent episode, in full remission ([facility]) 10/13/2010 Migraine Common 06/26/2008 Pulmonary Nodule 06/26/2008 Rhinitis Allergic NOS 07/21/2002 Right arm numbness 09/01/2020 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 Welch at [facility]. Thrombocythemia 11/13/2010 TIA (transient ischemic attack), dysarthria, ataxia, hosp at [place], 10/2511/06/2010 MD order: Eval and Treat: Total joint protocol General Information: Living Arrangements: Alone, Condo (Patient states her son can help her at home.) Home Accessibility: wheelchair accessible (Can use elevator.) Prior equipment mobility: Walker, 2 wheeled Prior equipment ADL: Shower chair, Tie Carrier Education Level: Prior level of function details: [...] mobility with standby assist in 3 days. long-term goal: Patient will maximize independence and safety [...] Distance walked (ft) Community ambulator (>1200 ft) to bed Climbing 3-5 stair with railing [...] deep vein thrombosis (DVT) of lower extremity ([facility]) 11/17/2023 Small clot in her leg after surgery Coagulation defect ([facility]) 1981 Primary thrombocytosis Floaters 2010 Hyperlipidemia 07/21/2002 Hypertension 11/26/2003 Major depressive disorder, recurrent episode, in full remission ([facility]) 10/13/2010 Migraine Common 06/26/2008 Pulmonary Nodule 06/26/2008 Rhinitis Allergic NOS 07/21/2002 Right arm numbness 09/01/2020 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 Welch at [facility]. Thrombocythemia 11/13/2010 TIA (transient ischemic attack), dysarthria, ataxia, hosp at [place], 10/2511/06/2010 MD Order: Eval and Treat: Issue appropriate assistive [...] Cane, and hurrycane OBJECTIVE Treatment Location: Bedside, 2W34/4F88-04 Special Equipment: Continuous pulse oximetry, Continuous BP [...] vitals Ambulate 3-4 times per day with aadc plans staff officer Perform home exercise program 2 times [...] (PT) Discharge Recommendations Discussion: Discussed with, patient, family/critical care specialist, patient agrees with recommendations, family/critical care specialist agrees with recommendations Patient's impairments: Decreased balance [...] post-op period. D: Pt arrived to room 2W34/8E06-72, at 1200 Patient is alert and oriented [...] PreOp Assessment Details Procedure right TKA Surgeon Location [facility] Procedure Date 12/05/2023 Marilee Penn is a [...] (transient ischemic attack), dysarthria, ataxia, hosp at [place], 10/25 Major depressive disorder, recurrent episode, in full remission ([facility]) 10/13/2010 Overview Note: Psychiatry to Primary Care [...] Overview Note: LW Modifier: scalp Essential hypertension ([facility]) 11/26/2003 Overview Note: Hypertension Hyperlipidemia ([facility]) 07/21/2002 Allergic rhinitis 07/21/2002 Overview Note: dust mites ; Rhinitis Allergic NOS Past Medical History: Diagnosis Date Coagulation defect ([facility]) 1982 Primary thrombocytosis Floaters 2010 Hyperlipidemia 07/21/2002 Hypertension 11/26/2003 Major depressive disorder, recurrent episode, in full remission ([facility]) 10/13/2010 Migraine Common 06/26/2008 Pulmonary Nodule 06/26/2008 Rhinitis Allergic NOS 07/21/2002 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 ANESTHESIA: Spinal with local. WAX BALL KNOCK OUT WORKER: TERENCE Meyers. FINDINGS: Severe medial, lateral and [...] CDTAssociated Order(s): CARE MANAGEMENT CONSULT - HOSPITAL [facility] Care Management Inpatient Note Plan: [...] to the assigned Hospital Care Management treatment production team manager to assess. Patient/Spokesperson Updated: Milady Kramer RN 11:08 AM 12/06/2023 documented in this encounter Plan of Treatment Upcoming Encounters Date Type Department Care Team (Late st Contact Info) Description 12/21/2023 12:45 PM INSPECTOR SOLDERING Appointment [facility] [address] [place] [address] Lena Puente 12/28/2023 10:00 AM INSPECTOR SOLDERING Appointment [facility] [address] [place] [address] 01/19/2024 11:30 AM INSPECTOR SOLDERING Appointment [facility] [address] [place] [address] Yanelis Welch MD [address] [facility] [address] [place] [address] Scheduled Referrals Name Type Priority Associated Diagnoses [...] * (ABNORMAL) Hemoglobin (12/08/2023 10:05 AM CDT) Hemoglobin 9.1(L) 12.0 - 15.5 g/dL 12/08/2023 10:44 AM CDT [facility] Blood Venipuncture / Unknown 12/08/2023 10:05 AM CDT 12/08/2023 10:35 AM CDT Sonny Mckinley PA-C LAB_1 [facility] [address] [place] [address], [facility] * XR Knee Rt 2 Views (12/07/2023 3:41 AM CDT) Anatomical Region Laterality Modality Lower Extremity, Knee Digital Ra diography 12/07/2023 3:41 AM CDT Narrative 12/07/2023 3:52 AM CDT EXAM: XR KNEE RT 2 VIEWS LOCATION: [facility] DATE: 12/07/2023 INDICATION: Fall, pain [...] EXAM: XR KNEE RT 2 VIEWS LOCATION: [facility] DATE: 12/07/2023 INDICATION: Fall, pain [...] - 10.5 x10(9)/L 12/06/2023 11:05 AM CDT [facility] RBC 2.90(L) 3.90 - 5.03 x10(12)/L 12/06/2023 11:05 AM CDT [facility] Hemoglobin 10.3(L) 12.0 - 15.5 g/dL 12/06/2023 11:05 AM CDT [facility] HCT 30.1(L) 34.9 - 44.5 % 12/06/2023 11:05 AM CDT [facility] MCV 103.8(H) 80.0 - 100.0 fL 12/06/2023 11:05 AM CDT [facility] MCH 35.5(H) 27.6 - 33.3 pg 12/06/2023 11:05 AM CDT [facility] MCHC 34.2 31.5 - 35.2 g/dL 12/06/2023 11:05 AM CDT [facility] RDW 12.9 11.9 - 15.5 % 12/06/2023 11:05 AM CDT [facility] Platelets 273 150 - 450 x10(9)/L 12/06/2023 11:05 AM T [facility] Automated NRBC 0 <=0 /100 WBC 12/06/2023 11:05 AM CDT [facility] Neutrophil Absolute 5.8 1.7 - 7.0 10(9)/L 12/06/2023 11:05 AM CDT [facility] Lymphocyte Absolute 1.2 1.0 - 4.8 10(9)/L 12/06/2023 11:05 AM CDT [facility] Monocyte Absolute 0.8 0.2 - 0.9 10(9)/L 12/06/2023 11:05 AM CDT [facility] Eosinophil Absolute 0.1 0.0 - 0.5 10(9)/L 12/06/2023 11:05 AM CDT [facility] Basophil Absolute 0.0 0.0 - 0.3 10(9)/L 12/06/2023 11:05 AM CDT [facility] Immature Granulocyte % 0.3 0.0 - 0.5 % 12/06/2023 11:05 AM CDT [facility] Blood Venipuncture / Unknown 12/06/2023 5:43 AM CDT 12/06/2023 8:55 AM CDT Brody Maki MD LAB_1 [facility] [address] * (ABNORMAL) Hemoglobin in AM POD #1 (12/06/2023 5:43 AM CDT) Hemoglobin 9.6(L) 12.0 - 15.5 g/dL 12/06/2023 6:23 AM CDT [facility] Blood Venipuncture / Unknown 12/06/2023 5:43 AM CDT 12/06/2023 6:06 AM CDT Austin Arizmendi PA-C LAB_1 Performing Organization Address [facility] Phone Number [facility] [address] * XR Knee Rt 2 Views [...] - 40 U/L 12/05/2023 1:14 PM CDT [facility] Blood Venipuncture / Unknown 12/05/2023 12:38 PM CDT 12/05/2023 12:41 PM CDT Austin Arizmendi PA-C LAB_1 Performing Organization Address [facility] Co de Phone Number [facility] [address] * Albumin (12/05/2023 12:38 PM CDT) [facility] Albumin 3.8 3.5 - 5.0 g/dL 12/05/2023 1:14 PM CDT [facility] Blood Venipuncture / Unknown 12/05/2023 12:38 PM CDT 12/05/2023 12:41 PM CDT Austin Arizmendi PA-C LAB_1 Performing Organization Address City/[facility] Co de Phone Number [facility] [address] * INR/Protime (12/05/2023 12:38 PM CDT) [facility] Protime 14.1 11.8 - 14.6 Seconds 12/05/2023 12:57 PM CDT [facility] INR 1.1 0.9 - 1.1 12/05/2023 12:57 PM CDT [facility] Blood Venipuncture / Unknown 12/05/2023 12:38 PM CDT 12/05/2023 12:41 PM CDT Narrative [facility] - 12/05/2023 12:57 PM CDT If you take an anticoagulant medicine called warfarin, your doctor or clinician may establish a normal range for you that is different from the baseline range shown. Austin Arizmendi PA-C LAB_1 Performing Organization Address City/[facility]/ZIP Co de Phone Number [facility] [address] [place] [address] * (ABNORMAL) Basic Metabolic Panel (12/05/2023 6:38 AM CDT) [facility] Sodium 135(L) 136 - 145 mmol/L 12/05/2023 7:13 AM CDT [facility] Potassium 3.4(L) 3.5 - 5.1 mmol/L 12/05/2023 7:13 AM CDT [facility] Chloride 104 98 - 109 mmol/L 12/05/2023 7:13 AM CDT [facility] CO2 22 20 - 29 mmol/L 12/05/2023 7:13 AM CDT [facility] Anion Gap 9 6 - 16 mmol/L 12/05/2023 7:13 AM CDT [facility] Calcium 9.4 8.4 - 10.4 mg/dL 12/05/2023 7:13 AM CDT [facility] BUN 18 7 - 26 mg/dL 12/05/2023 7:13 AM CDT [facility] Creatinine 0.82 0.55 - 1.02 mg/dL 12/05/2023 7:13 AM CDT [facility] Glucose 99 70 - 100 mg/dL 12/05/2023 7:13 AM CDT [facility] Comment:The given reference range is for the fasting state. Non-fasting reference range for glucose is 70 - 180 mg/dL. GFR, Estimated >60 >60 mL/min/1.7 3m2 12/05/2023 7:13 AM CDT [facility] Blood Venipuncture / Unknown 12/05/2023 6:38 AM CDT 12/05/2023 6:41 AM CDT Yanelis Welch MD LAB_1 Performing Organization Address City/[facility] Co de Phone Number [facility] [address] * (ABNORMAL) Hemoglobin for all patients that have a Draw and Hold, Type and Screen, or Type and Cross ordered (12/05/2023 6:38 AM CDT) Hemoglobin 11.3(L) 12.0 - 15.5 g/dL 12/05/2023 6:45 AM CDT [facility] Blood Venipuncture / Unknown 12/05/2023 6:38 AM CDT 12/05/2023 6:41 AM CDT Yanelis Welch MD LAB_1 Performing Organization Address City/[facility] Co de Phone Number [facility] [address] documented in this encounter Visit Diagnoses Diagnosis Status post total right knee replacement- Primary Hx of transient ischemic attack (TIA) Transient ischemic attack (TIA), and cerebral infarction without residual deficits Primary osteoarthritis of right knee Primary localized osteoarthrosis, lower leg Primary osteoarthritis of right knee Primary localized osteoarthrosis, lower leg * Plan of Care - Shannan Dudley [...] safe after fall. D: NA comes to web content writer, states patient is sitting on floor in bathroom. Operator And Truck Driver to bathroom immediately. NA's already have patient standing in bathroom when web content writer arrives. Patient states she got up [...] 12/06/2023 * Plan of Care - Jayme Alatorre [facility] - 12/05/2023 12:49 PM CDT [facility] Medication History Note 1. Source(s) of [...] bedtime.) 12/03/2023 at Thank you. Jayme Alatorre, PharmD 12/05/2023 12:51 PM This list represents the [...] Date Dose Rate Site acetaminophen (TYLENOL) tablet 650 mg 650 mg, Oral, QID, First dose on Tue12/05/23 at 1200, Until Discontinued, Post-op Given 12/09/2023 9:04 AM CDT 650 mg Given 12/08/2023 8:31 PM CDT 650 mg Given 12/08/2023 3:24 PM CDT 650 mg BUPivacaine-EPINEPHrine PF (SENSORCAINE) 0.25% -[id number] 39 mL, ketorolac (TORADOL) 15 mg 40 mL injection ONCE PRN, Starting on Tue12/05/23 at 0846, Intra-op Given 12/05/2023 8:46 AM CDT 40 mL Right Knee buPROPion (WELLBUTRIN XL) XL 24 hour release tablet 300 mg 300 mg, Oral, DAILY, First dose on Tue12/05/23 at 1900, Until Discontinued, Tablet/Capsule should be swallowed whole., Post-op Given 12/08/2023 8:32 PM CDT 300 mg Given 12/07/2023 7:52 PM CDT 300 mg Given 12/06/2023 7:36 PM CDT 300 mg enoxaparin (LOVENOX) prefilled syringe 30 mg [...] Hold if SBP <130, On hold since Joy 12/08/2023 at 1055 until manually unheld Given 12/06/2023 7:39 AM CDT 12.5 mg HYDROmorphone (DILAUDID) tablet 1 mg 1 mg, Oral, Q2H PRN, Other, Moderate Pain (pain score 5-7), Severe Pain (pain score 8-10), Starting on Joy 12/08/23 at 1055, Until Tue12/09/23 at 1609, Do NOT administer at the same time as IV opioids. May administer 1 hour after IV opioid administration. HOLD if on SALESPERSON PETS AND PET SUPPLIES. Use of ORAL opioids is encouraged as patients anticipate discharge. (IV medications will be discontinued 48 hours post-op.) May give for anticipatory pain (ie prior to therapies, procedures) regardless of current pain score, Post-op Given 12/09/2023 9:22 AM CDT 1 mg Given 12/08/2023 11:59 PM CDT 1 mg lisinopril (ZESTRIL) tablet 10 mg 10 mg, Oral, DAILY, First dose on Tue12/06/23 at 0800, Until Discontinued, Hold if SBP <130, On hold since Joy 12/08/2023 at 1055 until manually unheld Given 12/06/2023 [...] Given 12/06/2023 9:08 AM CDT 4 mg povidone-iodine 10% in sodium chloride 500 mL sterile irrigation (surgery only) ONCE PRN, Starting on Tue12/05/23 at 0842, Intra-op Given 12/05/2023 8:42 AM CDT 517 mL Right Knee prochlorperazine (COMPAZINE) injection 10 mg 10 mg, [...] PM CDT 200 mg sodium chloride 0.9% injection 10-60 mL 10-60 [...] Given 12/06/2023 1:25 PM CDT 10 mL sodium chloride for irrigation 0.9 % ONCE PRN, Starting on Tue12/05/23 at 0842, Intra-op Given 12/05/2023 8:42 AM CDT 2,000 mL Right Knee traZODone (DESYREL) tablet 25 mg 25 mg, Oral, HS, First dose on Tue12/05/23 at 2200, Until Discontinued Given 12/09/2023 12:01 AM CDT 25 mg Given 12/07/2023 10:14 PM CDT 25 mg Given 12/06/2023 10:43 PM CDT 25 mg vancomycin (VANCOCIN) powder for intra-op use ONCE PRN, Starting on Tue12/05/23 at 0842, Intra-op Given 12/05/2023 8:42 AM CDT 1,000 mg Right Knee documented in this encounter Active and Recently Administered Medications Times are shown in CDT. Scheduled Medication Order 12/07/2023 12/08/2023 12/09/2023 acetaminophen (TYLENOL) tablet 650 mg 650 mg, Oral, QID, First dose on Tue12/05/23 at 1200, Until Discontinued, Post-op 0839 (Given - Provider: Cecy Martinez RN)1222 (Given - Provider: Cecy Martinez RN)1702 (Given - Provider: Cecy Martinez RN)1951 (Not Given - Provider: Bessie Zaragoza RN - Reason: Order parameters not met - Comment: given already) 0755 (Given - Provider: Dona Frias RN)1158 (Given - Provider: Dona Frias RN)1524 [...] RN) 0755 (Given - Provider: Dona Frias RN)2030 (Given - Provider: Bessie Zaragoza RN) 0905 [...] in Manage Orders - Provider: Inpatient Template [facility]) ketorolac (TORADOL) injection 15 mg (COMPLETED) [...] in Manage Orders - Provider: Inpatient Template [facility]) magnesium hydroxide (MILK OF MAGNESIA) suspension [...] food., Post-op 601 (Given - Provider: Shannan Dudley RN) rosuvastatin (CRESTOR) tablet 10 mg 10 mg, Oral, DAILY, First dose on Tue12/05/23 at 1900, Until Discontinued, Post-op 1951 (Given - Provider: Bessie Zaragoza RN) 2031 (Given - Provider: Bessie Zaragoza RN) senna (SENOKOT) tablet 1 Tablet 1 Tablet, Oral, DAILY - 1999, First dose on Tue12/05/23 at 2000, Until Discontinued, Give every day while on opioids (stimulant) starting day of surgery. Hold for loose stools., Post-op 1948 (Given - Provider: Bessie Zaragoza RN) 2031 (Given - Provider: Bessie Zaragoza RN) sertraline (ZOLOFT) tablet 200 mg 200 mg, Oral, DAILY, First dose on Tue12/05/23 at 1900, Until Discontinued, Post-op 1948 (Given - Provider: Bessie Zaragoza RN) 2030 (Given - Provider: Bessie Zaragoza RN) sodium chloride 0.9% bolus 1,000 mL (COMPLETED) 1,000 mL, Intravenous, Administer over 1 Hours, ONCE, On Tue12/08/23 at 1115, For 1 dose 1250 (Started - Provider: Dona Frias RN)1416 (Infused - Provider: Dona Frias RN) sodium chloride 0.9% bolus 250 mL (COMPLETED) 250 mL, Intravenous, Administer over 1 Hours, ONCE, On Tue12/07/23 at 1500, For 1 dose 1656 (Started [...] dose on 12/05/23 at 2200, Until Discontinued 2214 (Given - Provider: Bessie Zaragoza RN) 0001 (Given - Provider: Sohan Morataya RN) PRN Medication Order 12/07/2023 12/08/2023 12/09/2023 bisacodyl (DULCOLAX) rectal suppository 10 mg 10 mg, Rectal, DAILY PRN, Other, Moderate Constipation, Starting on 12/05/23 at 1152, Until Tue12/09/23 at 1609, Post-op HYDROmorphone (DILAUDID) tablet 1 mg 1 mg, Oral, Q2H PRN, Other, Moderate Pain (pain score 5-7), Severe Pain (pain score 8-10), Starting on Joy 12/08/23 at 1055, Until Tue12/09/23 at 1609, Do NOT administer at the same time as IV opioids. May administer 1 hour after IV opioid administration. HOLD if on SALESPERSON PETS AND PET SUPPLIES. Use of ORAL opioids is encouraged as patients anticipate discharge. (IV medications will be discontinued 48 hours post-op.) May give for anticipatory pain (ie prior to therapies, procedures) regardless of current pain score, Post-op 0789 (Given - Provider: Sohan Morataya RN) 0922 [...] after IV opioid administration. HOLD if on SALESPERSON PETS AND PET SUPPLIES. Use of ORAL opioids is encouraged as patients anticipate discharge. (IV medications will be discontinued 48 hours post-op.) May give for anticipatory pain (ie prior to therapies, procedures) regardless of current pain score, Post-op 0256 (Given - Provider: Shannan Dudley, RN)1656 (Given - Provider: Cecy Martinez RN)195 (Given - Provider: Bessie Zaragoza RN) 0755 [...] Intravenous, Q6H PRN, Nausea, Vomiting, Starting on 12/05/23 at 1152, Until Tue12/09/23 at 1609, Give IV if unable to take oral., Post-op Or ondansetron (ZOFRAN-ODT) disintegrating tablet 4 mgJump to med 4 mg, Oral, Q6H PRN, Nausea, Vomiting, Starting on 12/05/23 at 1152, Until Tue12/09/23 at 1609, Do not swallow tablet whole. Allow to dissolve on the tongue without chewing., Post-op documented in this encounter Care Teams Vehicle Operator Technician Relationship Specialty [place] [address] [facility] [place] [address] PCP - General 05/16/10 documented as of this encounter
--- OUTSIDE RECORDS SUMMARY | 2023-12-17 02:05 | XMS_ITS | Encounter Summary ---
Author Organization [employer] Address [address], [place] [address] Care Team Providers Care Documentation Analyst Name Role Phone Josie Lainez MD Primary Care Provider Reason for Visit * Reason Comments EDUCATION, PATIENT, NOS Preoperative Tot al Knee Replacement Encounter Details Date Type Department Care Team (Late st Contact Info) Description 11/17/2023 10:00 AM CDT Phone Visit Orthopedics at [facility] Orthopedics at [address] [address] Nurse, [id number] Ortho Encounter for education (Primary Dx) Social History Tobacco Use Types Packs/Day Years [...] Answer Date Recorded PHQ-2 Score 0 11/16/2023 Sex and Gender Information Value Date Recorded Sex Assigned at Not on file Gender Identity Not on file Sexual Orientation Not on file documented as of this encounter Progress Notes * Denise Mclean RN - 11/17/2023 10:00 AM CDT Isamar Rich a 73 y.o. female was CALLED on 11/17/2023 for a nurse pre-surgery planning and joint replacement educational visit. The patient is scheduled for a right knee replacement with Dr. Welch on 12/05/2023. The patient was educated for an OVERNIGHT STAY SHE IS CURRENTLY SCHEDULED OUTPATIENT WITH EXTENDED OBSERVATION.. Specific Concerns: - It is documented that the patient has a left foot drop at baseline. She states that the foot dropis much better but she still have numbness in her LLE - The patients last A1C was 5.2 on 09/06/2023 - We discussed the use of the [employer] Icing System after surgery. The patient will use it duringhis hospital stay. They will be seen by the Dianna Randhawa, while in the hospital to discuss the option to rent it at discharge. The unit rental cost is $75/week which is an OOP expense. Patients typically use it for 2-3 weeks after surgery. The patient is responsible for returning it to [facility] when they are done using it. If the patient opts out of rental they are responsible for providing an icing system after discharge they need to provide their own ice. There is the Active Ice System available at the [facility]. The cost is $45. 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 She states that the [facility] is managing that. She willcall them to alert them that she is having surgery. Reassured her that there are quite a few patients that do have TKA that have pace makers and do fine post op. Preoperative History and Physical: Preoperative physical is completed 11/16/2023. Preoperative Physical Therapy Evaluation: Preoperative PT consultation is scheduled 11/17/2023. CPAP: Does patient have a diagnosis of JESSIE? No- sheis being tested for it Do they have CPAP? No Falls Risk? Yes- she has numbness in her LLE since back surgery 08/07/2023. She walks with walking sticks History of known antibodies in the blood? Yes/No: No If yes, encounter to be routed to surgeon. Venous Thromboembolism Risk Assessment Prior to Total Joint Answers below based on completion of venous thromboembolism prophylaxis risk assessment checklist completed by the patient. Date Completed: 11/17/2023 1. Current long-term anticoagulation other than Aspirin: Yes Medication: Plavix- The recommendation per her preop done 11/16/2023 is to stop Plavix 7 days preop.We did review this. 2. Hx of DVT or PE: Yes Location: Leg- below the knee, very small, after surgery 3. Family hx of DVT or PE: No Whom: Location: 4. Positive for any of the following -- Lupus Anticoagulant, Factor VII Excess, Anti-Cardiolipin Antibodies, Anti-Phospholipid Antibodies, Anti-Thrombin III Deficiency, Protein C Deficiency, Factor VLeiden, Prothrombin (Factor II) Mutation, Protein S Deficiency : No 5. Hemophilia: No 6. Treatment for cancer or myeloproliferative disorder within the last year: No MRSA MSSA Screening: Education was provided today regarding screening for MRSA and MSSA prior to surgery. If screening complete: Date Completed- 11/16/2023 Results- In process Dental Procedures: Recommended to complete any necessary dental care prior to surgery and to wait 6 months after jointreplacement surgery for any routine care. Also discussed if surgeon recommends, then patient may need to take antibiotics prior to dental appointments after total joint surgery. Latex, Anesthesia, Metals Allergies or Intolerances: The patient does not report an allergy to latex. The patient does not report an allergy to history of adverse reaction to anesthesia. The patient does not report an allergy to or history of adverse reaction to metals or jewelry. Insurance Sales Executive: Insurance Sales Executive Name: Vielka Briggs and 3 very good friends from [place] Relationship to the patient: Son and daughter in law The patient is aware that choosing a varsity baseball coach is very important. The varsity baseball coach needs to be available for pre and post op support/education, transportation, assisting the patient at home and being available to stay with the patient for the first few days after discharge, as needed. Hospital Discharge Planning: The patient was provided with discharge tools to assist in planning recovery following a 1 night hospital stay. Preferred location of discharge would be to Home with OP PT closer to home. She lives in a condo with no steps and an elevator She will have her son or her friends that will be able to stay with her for the first few days The patient understands that the insurance company should be contacted to verify coverage for any possible scenario that may occur upon discharge. Equipment the patient owns or has available to them after discharge- Walker (standard), Cane, Trekking poles, Stand up walker Social Screening Patient was instructed to reduce intake of tobacco, caffeine, and alcohol products prior to surgery. Orthodox or cultural practices hospital staff to be aware of: yes, I am a Rastafari. I am a believer. I will leave it at that [employer] Cloths and Skin Conditions: Instructions for use of [employer] Cloths reviewed with the patient. Also reviewed with the patient that the skin should remain free of any sores or rashes prior to surgery. Instructed to call if any changes in skin integrity prior to surgery. Pain Medication Review: What medication(s) is the patient currently taking for pain? Gabapentin, Tylenol (she is trying to stay away from it) What is the condition(s) that the medication is being taken for? Right knee pain The patient states that after her back surgery last year she developed extreme pain after she was discharged. She needed to be readmitted for pain control. She states she thinks that Dilaudid made her a bit more sleepy but she felt it worked better than Oxycodone Has the patient been seen at a pain clinic. No Should a Palliative Care Consult be considered upon admission: No Allergies or intolerances to specific pain medications: no Post-op Pain Medication Refills Reviewed with the patient to contact surgeon's office for medication refill requests and to plan ahead for weekends. Discussed discontinuing all supplements and fish oil at this time as well as discontinuing use of all NSAIDS seven days prior to surgery. Has the patient been diagnosed with an anxiety disorder? Yes If yes, triggers: She is on medication and feels it is well controlled Hospital Stay The patient was reminded that while in the hospital there will be several nurses in monitoring vital signs as they recover the first day. The patient was instructed to always use the call light when needing to get out of bed while in the hospital. Reasoning for these actions were provided and the patient verbalized understanding. Workability and Handicapped Parking: Patient instructed to send work or disability forms to surgeons at least 3-4 weeks prior to surgery. Disability parking permit form given to the patient: No- she already has an application. She will be taking the application to the DMV or AAA today If no patient has already received this form prior to appointment. All questions were answered today and the patient verbalized understanding. Instructed patient to review Hip and Knee Replacement Care Guide that was talked about today and materials given at the time of scheduling surgery. The patient was provided with the phone number to call back with any additional questions or concerns. Nurse visit completed by Denise Mclean RN documented in this encounter Plan of Treatment Upcoming Encounters Date Type Department Care Team (Late st Contact Info) Description 12/21/2023 12:45 PM MANIPULATIVE THERAPY SPECIALIST Appointment [facility] [address] [place] [address] Lena Puente 12/28/2023 10:00 AM MANIPULATIVE THERAPY SPECIALIST Appointment [facility] [address] [place] [address] 01/19/2024 11:30 AM MANIPULATIVE THERAPY SPECIALIST Appointment [facility] [address] [place] [address] Yanelis Welch MD [address] [facility] [address] [place] [address] documented as of this encounter Goals Goal Patient Goal Type Associated Problems Recent Progress Patient-Stated? Author Right Knee Replacement Care Plan ET PROE RIGHT KNEE No John Escalante GENERAL OUTCOMES KNEE REPLACEMENT - RIGHT Care Plan ET PROE GENERAL OUTCOMES KNEE REPLACEMENT - RIGHT No John Escalante documented as of this encounter Visit Diagnoses Diagnosis Encounter for education- Primary documented in this encounter Additional Health Concerns Active Problems Noted Date Diagnosed Date ET PROE SHELL PROBLEM TEMPLATE 08/05/2023 ET PROE RIGHT KNEE 08/05/2023 ET PROE GENERAL OUTCOMES KNEE REPLACEMENT - RIGH T 08/05/2023 documented as of this encounter Care Teams Documentation Analyst Relationship Specialty [place] [address] [facility] [place] [address] PCP - General 05/16/10 documented as of this encounter
--- OUTSIDE RECORDS SUMMARY | 2023-12-17 02:05 | XMS_ITS | Encounter Summary ---
Author Organization [employer] Address [address] [address] Care Team Providers Care Board Catcher Name Role Phone Matilda Zimmerman MD Primary Care Provider [phone] Reason for Visit * Reason Comments Medication Questions Encounter Details Date Type Department Care Team (Late st Contact Info) Description 09/17/2023 Telephone [facility] Internal Medicine [address] [place] [address] [place] [address] [place], [place] [id number] Medication Questions Social History Tobacco Use Types Packs/Day Years [...] as of this encounter Nursing Notes * Annabelle Sheikh RN - 09/17/2023 12:24 PM CDT Called pt, pt states [facility] in closed today and is unable to get rx from [facility]. Rx resent [facility]. Requested Prescriptions Signed Prescriptions Disp Refills nirmatrelvir & ritonavir 300/100 (PAXLOVID) 300 mg & 100 mg tablet combo pack 30 Each 0 Sig: Take 2 nirmatrelvir tablets (300mg) and 1 ritonavir tablet (100mg) by mouth twice daily for 5 days Authorizing Provider: MATILDA ZIMMERMAN Ordering User: ANNABELLE SHEIKH * Ernie Haynes - 09/17/2023 11:09 AM CDT Medications - Med Change / Question Is this a medication change or a general question? Med Question What is your question or concern? All the [facility] pharmacies are close in area so wanting to get moved to [facility] in [facility] What is the name and dose of the medication? nirmatrelvir & ritonavir 300/100 (PAXLOVID) 300 mg & 100 mg tablet combo pack How often do you take it? na Who prescribed it? Matilda Zimmerman MD If a prescription is needed, patient would like it filled at the pharmacy listed in Medication Management. Preferred communication method: Phone Call. Is it okay to leave a detailed message on your voicemail? Yes Is there anything else I can help you with today? documented in this encounter Plan of Treatment Upcoming Encounters Date Type Department Care Team (Late st Contact Info) Description 12/21/2023 12:45 PM INTERNET MARKETING MANAGER Appointment [facility] [address] [place] [address] Lena Puente 12/28/2023 10:00 AM INTERNET MARKETING MANAGER Appointment [facility] [address] [place] [address] 01/19/2024 11:30 AM INTERNET MARKETING MANAGER Appointment [facility] [address] [place] [address] Yanelis Welch MD [address] [facility] [address] [place] [address] documented as of this encounter Goals Goal Patient Goal Type Associated Problems Recent Progress Patient-Stated? Author Right Knee Replacement Care Plan ET PROE RIGHT KNEE No John Escalante GENERAL OUTCOMES KNEE REPLACEMENT - RIGHT Care Plan ET PROE GENERAL OUTCOMES KNEE REPLACEMENT - RIGHT No oJhn Escalante documented as of this encounter Visit Diagnoses Diagnosis COVID documented in this encounter Additional Health Concerns Active Problems Noted Date Diagnosed Date ET PROE SHELL PROBLEM TEMPLATE 08/05/2023 ET PROE RIGHT KNEE 08/05/2023 ET PROE GENERAL OUTCOMES KNEE REPLACEMENT - RIGH T 08/05/2023 documented as of this encounter Care Teams Board Catcher Relationship Specialty [place] [address] [facility] [place] [address] PCP - General 05/16/10 documented as of this encounter
--- OUTSIDE RECORDS SUMMARY | 2023-12-17 02:05 | XMS_ITS | Encounter Summary ---
Author Organization [facility] Address [address], [place] [address] Care Team Providers Care Seaport Planning Manager Name Role Phone Josie Lainez MD Primary Care Provider [phone] Encounter Details Date Type Department Care Team (Late Contact Info) Description 11/24/2023 4:40 PM CDT Lab Visit [facility] [address] [place] [address] Screen for colon cancer Social History Tobacco Use Types Packs/Day Years [...] Encounters Date Type Department Care Team (Late Contact Info) Description 12/21/2023 12:45 PM SOCIAL SERVICES DESIGNEE Appointment [facility] [address] [place] [address] Lena Puente 12/28/2023 10:00 AM SOCIAL SERVICES DESIGNEE Appointment [facility] [address] [place] [address] 01/19/2024 11:30 AM SOCIAL SERVICES DESIGNEE Appointment [facility] [address] [place] [address] Yanelis Welch MD [address] [facility] [address] [place] [address] documented as of this encounter Goals Goal Patient Goal Type Associated Problems Recent Progress Patient-Stated? Author Right Knee Replacement Care Plan ET PROE RIGHT KNEE No John Escalante GENERAL OUTCOMES KNEE REPLACEMENT - RIGHT Care Plan ET PROE GENERAL OUTCOMES KNEE REPLACEMENT - RIGHT No John Escalante documented as of this encounter Procedures Procedure Name Priority Date/Time Associated Diagnosis Comments FIT,OCCULT BLOOD, STOOL Routine 11/24/2023 8:00 AM CDT Screen for colon cancer documented in this encounter Results * FIT Colon Rectal Cancer Screening (11/24/2023 8:00 AM CDT) FIT Specimen 1 Negative Negative 11/25/2023 2:16 AM CDT [facility] Stool Non-blood Collection / Unknown 11/24/2023 8:00 AM CDT 11/24/2023 3:46 PM CDT Josie Lainez MD LAB_1 Performing Organization Address City/State/[facility] Co de Phone Number [facility] [address] documented in this encounter Visit Diagnoses Diagnosis Screen for colon cancer Special screening for malignant neoplasms, colon documented in this encounter Additional Health Concerns Active Problems Noted Date Diagnosed Date ET PROE SHELL PROBLEM TEMPLATE 08/05/2023 ET PROE RIGHT KNEE 08/05/2023 ET PROE GENERAL OUTCOMES KNEE REPLACEMENT - RIGH T 08/05/2023 documented as of this encounter Care Teams Seaport Planning Manager Relationship Specialty [place] [address] [facility] [place] [address] PCP - General 05/16/10 documented as of this encounter
--- OUTSIDE RECORDS SUMMARY | 2023-12-17 02:05 | XMS_ITS | Encounter Summary ---
Author Organization [employer] Address [address], [place] [address] Care Team Providers Care Investigator Operator Name Role Phone Josie Lainez MD Primary Care Provider Encounter Details Date Type Department Care Team (Late st Contact Info) Description 11/16/2023 1:50 PM CDT Lab Visit [facility] [address] [place] [address] Hyperlipidemia, unspecified hyperlipidemia type (HRC); Essential hypertension (HRC) Social History Tobacco Use Types Packs/Day Years [...] st Contact Info) Description 12/21/2023 12:45 PM DIRECTOR OF SALES Appointment [facility] [address] [place] [address] Lena Puente 12/28/2023 10:00 AM DIRECTOR OF SALES Appointment [facility] [address] [place] [address] 01/19/2024 11:30 AM DIRECTOR OF SALES Appointment [facility] [address] [place] [address] Yanelis Welch MD [address] [facility] [address] [place], [place] [address] documented as of this encounter Goals Goal Patient Goal Type Associated Problems Recent Progress Patient-Stated? Author Right Knee Replacement Care Plan ET PROE RIGHT KNEE No John Escalante GENERAL OUTCOMES KNEE REPLACEMENT - RIGHT Care Plan ET PROE GENERAL OUTCOMES KNEE REPLACEMENT - RIGHT No John Escalante documented as of this encounter Procedures Procedure Name Priority Date/Time Associated Diagnosis Comments COMPLETE BLOOD COUNT-NO DIFF Routine 11/16/2023 1:50 PM CDT Essential hypertension (HRC) ALT (SGPT) Routine 11/16/2023 1:50 PM CDT Hyperlipidemia, unspecified hyperlipidemia type (HRC) documented in this encounter Results * (ABNORMAL) Complete Blood Count-No Diff (11/16/2023 [...] CDT Josie Lainez MD LAB_1 [facility] [address] [place] [address] * ALT (SGPT) (11/16/2023 1:50 PM CDT) ALT (SGPT) 12 <=55 U/L 11/16/2023 8:00 PM CDT [facility] Blood Venipuncture / Unknown 11/16/2023 1:50 PM CDT 11/16/2023 1:50 PM CDT Josie Lainez MD LAB_1 [facility] [address] documented in this encounter Visit Diagnoses Diagnosis Hyperlipidemia, unspecified hyperlipidemia type (HRC) Essential hypertension (HRC) Unspecified essential hypertension documented in this encounter Additional Health Concerns Active Problems Noted Date Diagnosed Date ET PROE SHELL PROBLEM TEMPLATE 08/05/2023 ET PROE RIGHT KNEE 08/05/2023 ET PROE GENERAL OUTCOMES KNEE REPLACEMENT - RIGH T 08/05/2023 documented as of this encounter Care Teams Investigator Operator Relationship Specialty [place] [address] [facility] [place] [address] PCP - General 4/2/11 documented as of this encounter
--- OUTSIDE RECORDS SUMMARY | 2023-12-17 02:05 | XMS_ITS | Encounter Summary ---
Author Organization Counts include 234 beds at the [facility] Address [address] [address] Care Team Providers Care Mathematician Research Name Role Phone Josie Lainez MD Primary Care Provider [phone] Encounter Details Date Type Department Care Team (Late Contact Info) Description 11/18/2023 [facility] [address] [facility] [address] [address] [place] [address] Mychart, [place] [address] Social History Tobacco Use Types Packs/Day Years [...] (Late Contact Info) Description 12/21/2023 12:45 PM FINE WIRE DRAWER Appointment [facility] [place] [address] [place] [address] Lena Puente 12/28/2023 10:00 AM FINE WIRE DRAWER Appointment [facility] [address] [place] [address] 01/19/2024 11:30 AM FINE WIRE DRAWER Appointment [facility] [address] [place] [address] Yanelis Welch MD [address] [facility] [address] [place] [address] documented as of this encounter Goals Goal [...] documented as of this encounter Care Teams Mathematician Research Relationship Specialty [place] [address] [facility] [place] [address] PCP - General 05/16/10 documented as of this encounter
--- OUTSIDE RECORDS SUMMARY | 2023-12-17 02:05 | XMS_ITS | Encounter Summary ---
Author Organization [facility] Address [address], [place] [address] Care Team Providers Care Epic Willow Analyst Name Role Phone Josie Lainez MD Primary Care Provider [phone] Reason for Visit * Reason Comments Appt. Needed Encounter Details Date Type Department Care Team (Late st Contact Info) Description 10/26/2023 Telephone [facility] LAB [address] [place] [address] [id number] Lucia Casey MD [address] [place], [place] [phone] Appt. Needed Social History Tobacco Use Types Packs/Day Years [...] as of this encounter Nursing Notes * Jaimie Dodson - 10/26/2023 1:23 PM CDT 10-26-23 LVM Labs in 6 months - cbc Due in December Return to the clinic in [address] Lucia Casey with labs prior (cbc, op, ldh). 06-16-23 AVS documented in this encounter Plan of Treatment Upcoming Encounters Date Type Department Care Team (Late st Contact Info) Description 12/21/2023 12:45 PM JELLY FILTER TENDER Appointment [facility] [place] [address] [place] [address] Lena Puente 12/28/2023 10:00 AM JELLY FILTER TENDER Appointment [facility] [address] [place] [address] 01/19/2024 11:30 AM JELLY FILTER TENDER Appointment [facility] [address] [place] [address] Yanelis Welch MD [address] [place] [address] documented as of this encounter Goals Goal [...] documented as of this encounter Care Teams Epic Willow Analyst Relationship Specialty [place] [address] [facility] [place] [address] PCP - General 05/16/10 documented as of this encounter
--- OUTSIDE RECORDS SUMMARY | 2023-12-17 02:05 | XMS_ITS | Encounter Summary ---
Author Organization [facility] Address [address] [place] [address] Care Team Providers Care Java Security Engineer Name Role Phone Josie Lainez MD Primary Care Provider [phone] Reason for Visit * Reason Comments Knee Problem Encounter Details Date Type Department Care Team (Late st Contact Info) Description 11/17/2023 2:45 PM CDT Therapy [facility], Physical Therapy [address] [place] [address] Shannan Preston, PT [address] [facility] [address] [place] [phone] Right knee pain, unspecified chronicity (Primary Dx) Social History Tobacco Use Types [...] as of this encounter Progress Notes * MohanShannan, PT - 11/17/2023 2:45 PM CDT Physical Therapy Inpatient Knee Pain- Future Right Total Knee Arthroplasty Evaluation/Plan of Care Visit Number: 1 [employer]BS [place] Initial Certification Period: 11/17/2023 to 02/15/24 Referring Provider: Yanelis Welch Referring Diagnosis: Osteoarthritis, R knee Scheduled Day of Surgery: 12/05/23 Orders: Evaluate and Treat, Total/Alireza Knee Arthroplasty Pre-operative Gait Training and Exercise Instruction, Pre and Post-Op Education Precautions/Contraindications: None Weight-bearing Status: weightbearing as tolerated Date of Onset: 4 years prior History: Isamar Rich presents with gradually increasing right knee pain since 4 years. Aggravating factors include walking and stairs, relieving factors include resting/sitting, elevating, icing, .Currently, Isamar Rich's current functional limitations include: plof without pain, playing with [employer]. At this point, Isamar Rich is looking for more definitive treatment and is scheduled for a joint replacement surgery. 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 [employer] Patient's onsite health coach was physically present during pre-op session: No College Advisor: Sister and son Lives alone in an apartment Stairs INTO house: elevator Stairs WITHIN house: One level apartment Pets: - Shower: Walk-in Toilet Height: comfort Assistive Devices: FWW, cane Vehicle: [email or web address] mid-size SUV Outpatient PT plan: PT scheduled in [place], with Awais Floyd Method of Injury: insidious Functional Limitations: see above Patient's Therapy Goals: PLOF without pain Post-operative Discharge Plan: DC to home with son and sister, is open to a TCU as an option SUBJECTIVE: Pain Rating: moderate/10 Falls in the Past Year: No. Past Medical History: See EMR for details regarding past medical history, medications and drug allergies. History pertinent to therapy includes spine surgery 07/2022 with residual deficits including L footdrop, has a pacemaker. Review of Systems: Denies fever, chills, night sweats, unrelenting night pain, unexplained weight loss, bowel/bladder changes, saddle sensation changes Past Medical History: Diagnosis Date Coagulation defect (HRC) 1981 Primary thrombocytosis Floaters 2010 Hyperlipidemia 07/21/2002 Hypertension 11/26/2003 Major depressive disorder, recurrent episode, in full remission ([facility]) 10/13/2010 Migraine Common 06/26/2008 Pulmonary Nodule 06/26/2008 Rhinitis Allergic NOS 07/21/2002 Right arm numbness 09/01/2020 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 Thrombocythemia 11/13/2010 TIA (transient ischemic attack), dysarthria, ataxia, hosp at [place], 10/2511/06/2010 Past Surgical History: Procedure Laterality Date CORNEAL SURGERY Bilateral late Lasik/ABW HX APPENDECTOMY LW Problem: Appendectomy S/p LASIK 02/15/1996 ABW LUMBAR FUSION 07/2022 L3-S1 SPINE SURGERY 07/22/22 L3 or L4 to S1 fusion TONSILLECTOMY LW Problem: Tonsillectomy S/p OBJECTIVE: General: Mood, orientation, behavior were appropriate. Patient was alert and oriented. Observation/Gait: Ambulates with antalgic gait with respect to Right lower extremity ROM ([id number]): Right Knee: 0-5-100 Left Knee: 0-120 Strength: Upper Extremities Screen: Within functional limits Lower Extremities: Right: Quad set: WNL Supine SLR: no lag TREATMENT TODAY: Physical Therapy Evaluation (CPT 71327): An evaluation was performed. The patient was determined tohave low complexity based on history, examination, clinical presentation of the patient and the PT's clinical decision making. The patient was educated on the condition, planned therapy intervention and expectations from treatment. Goals were a collaborative effort of the therapist and patient. Therapeutic Exercise (CPT 24681) x 5 minutes: verbal reivew only Education: Strengthening and stretching up to 3-weeks pre-operatively may improve your strength, pain level and function based on current research Instructed/pt demonstrated the following exercises to be performed pre- operatively for strength andROM, and post-operatively: - Ankle pumps with leg elevated - Active heel slides in supine position - Active heel slides in sitting position - Quad Set - Hamstring Set - Short arc quad - Straight leg raise - Heel prop on towel for prolonged extension Tactile and verbal cuing was utilized to reduce pain and improve performance during exercises, and formal HEP handout was provided. Therapeutic Activity (CPT 92137) x 25 minutes: - Patient was instructed on and demonstrated transfer training, including simulated car transfers, toilet and shower transfers, as well as considerations for possible adaptive equipment. - Educated on safety considerations at home and practicing at home. Discussed and demonstrated sit-to/from-stand transfers with use of FWW for support and unloading painful limb (push up and lower down on stable surface, don't put weight/support through assistive device for transitions due to instability) - Education for sleep/rest modifications: Pillow(s) under distal LE's in supine, NOT just under knee; knee is still straight Pillow between legs in sidelying Recliner with pillow under distal LE to keep knee straight and supported - Elevating legs above heart for swelling management, 2-3x daily for 20 minutes, with concurrent icing for swelling and pain management - Education: Pain neuroscience: your nerves can be in ???alarm mode?? from being in pain for yearsor following a surgery. First, just identifying that they are in ???alarm mode?? can help with pain. Secondly, getting moving to the best of your ability and doing some simple exercises can help with pain. Finally, realizing you have some control over it, by lowering your stress levels, can help with pain too. - Provided ???Your Nerves Are Having a Knee Replacement?? booklet and discussed pain management and self-care tips. Gait Training (CPT 90839) x 10 minutes: - Education for fitting of current FWW assistive device for proper fitting and use for best reduction of pain and promotion of mobility pre-operatively - Discussed proper FWW fitting and fit patient with FWW. Showed patient how to adjust FWW and patient demonstrated proper performance of FWW fitting and adjusting. - Discussed and demonstrated step-through pattern with WBAT on R lower extremity with use of FWW instraight planes and during turns. Specific cues were used for: Sequencing for proper Heel to toe pattern Quad set/knee extension with heel strike UE unloading with WB on painful limb to reduce current pain Step-to pattern if in significant pain - Discussed and demonstrated step-to gait pattern on stairs with WBAT gait pattern using 1 rail. Ascending using 1 rail(s) and leading up with uninvolved LE to reduce current pain Descending using 1 rail(s) and leading down with involved LE to reduce current pain - Pt demonstrated good understanding of gait training prior to leaving session today. All questionswere answered. Timed Code Treatment Minutes: 40 Total Treatment Minutes: 50 Medicare Unit Tracking: Response to treatment: Independent, safe use of assistive device, including stairs, independent with HEP of exercises. Education/Handouts: Diagnosis education and gait training with use of assistive device, handout/diagram of HEP was provided, ???Your Nerves Are Having a Knee Replacement?? booklet ASSESSMENT: Therapist Impression: Patient presents to PT with knee pain- future TKA Right Total Knee Arthroplasty, date of surgery 12/05/23. Patient was independent with gait, stairs and transfers using assistive device following today's session for best reduction of pain and promotion of mobility pre-operatively, Patient was also independent with exercises and will perform them at home as indicated. Education was also provided regarding inpatient/hospitalization stay for future TKA from a rehabilitation standpoint and all questions were answered. Patient will be seen post-operatively in outpatient rehabilitation for continuation of therapy and to address goals set in plan of care. Patient was involvedin the creation of POC and goals this date. Barriers to Learning: none Rehab Prognosis: Good PLAN: Planned Intervention/Education: Education, Gait Training, Therapeutic Activity, Self Care/Home Management, Therapeutic Exercise, Manual Therapy, Transfer Training, and modalities as needed for pain Equipment to be issued: None (patient owns) PT Frequency/Duration: Patient was seen for one pre-operative visit, then will follow-up post-operatively in outpatient setting at 1-2x/week for up to 3-4 months. Discharge Plan: Patient will be discharged when goals are met, progress plateaus or declines, or patient self elects discharge. Informed Consent: Risks, benefits and alternatives to treatment have been explained. Patient and/orfamily in agreement with care plan. EXPECTED FUNCTIONAL OUTCOMES/GOALS: HEP/Independent Management: Demonstrate independence with HEP and self- management following each treatment session Short Term Goals: Ambulation: Patient will be able to ambulate independently and safely for at least 50 feet for household distances with FWW assistive device while weightbearing as tolerated in 2-3 days. Ambulation: Patient will have an understanding of the proper sequence of gait up and down stairs and safely demonstrate while weightbearing as tolerated in 2-3 days. ADL: Patient will be able to simulate and describe back to physical therapist a car transfer with use of a straight leg immobilizer and crutches in 2-3 days. ADL: Patient will be able to perform bed and sit to stand transfers independently in 2-3 days Mcfp Goals: Ambulation: Patient will be able to demonstrate up/down 1 flight of stairs with a step through gaitpattern and use of 0-1 railing in 10-12 weeks Ambulation: Patient will be able to ambulate community distances with minimal to no symptoms/limp in 12 weeks. ADL's: Resume previous sleep pattern without awakening due to symptoms in 4 weeks. ADL: Patient will be able to demonstrate sit to stand transfers using right /left LE equally 2-4 weeks ADL: Able to dress lower extremities with ease due to improved ROM in 4-6 weeks. ADL: Squat to cloth picker items from floor with minimal/no symptoms in 8-10 weeks. Evaluation and Plan of Care completed by: Shannan Bhatti, PT 2:49 PM 11/17/2023 The tube maker is completed by the therapist and the referring clinician's electronic signature certifies medical necessity for the plan above. documented in this encounter Plan of Treatment Upcoming Encounters Date Type Department Care Team (Late st Contact Info) Description 12/21/2023 12:45 PM STEWARD/STEWARDESS SECOND CLASS Appointment [facility] [address] [place] [address] Kwame Lena Namrata 12/28/2023 10:00 AM STEWARD/STEWARDESS SECOND CLASS Appointment [facility] [address] [place] [address] 01/19/2024 11:30 AM STEWARD/STEWARDESS SECOND CLASS Appointment [facility] [address] [place] [address] Yanelis Welch MD [address] [facility] [address] [place] [address] documented as of this encounter Goals Goal Patient Goal Type Associated Problems Recent Progress Patient-Stated? Author Right Knee Replacement Care Plan ET PROE RIGHT KNEE No John Escalante GENERAL OUTCOMES KNEE REPLACEMENT - RIGHT Care Plan ET PROE GENERAL OUTCOMES KNEE REPLACEMENT - RIGHT No John Escalante documented as of this encounter Visit Diagnoses Diagnosis Right knee pain, unspecified chronicity- Primary documented in this encounter Additional Health Concerns Active Problems Noted Date Diagnosed Date ET PROE SHELL PROBLEM TEMPLATE 08/05/2023 ET PROE RIGHT KNEE 08/05/2023 ET PROE GENERAL OUTCOMES KNEE REPLACEMENT - RIG T 08/05/2023 documented as of this encounter Care Teams Java Security Engineer Relationship Specialty [place] [address] [facility] [place] [address] PCP - General 05/16/10 documented as of this encounter
--- OUTSIDE RECORDS SUMMARY | 2023-12-17 02:05 | XMS_ITS | Encounter Summary ---
Author Organization [employer] Address [address], [place] [address] Care Team Providers Care Blocker Automatic Name Role Phone Josie Lainez MD Primary Care Provider [phone] Reason for Visit * Reason Comments Preop Exam DOS 12/05/23 Right [facility] Encounter Details Date Type Department Care Team (Latest Contact Info) Description 11/16/2023 1:00 PM CDT Pre-Op Visit [facility] Internal Medicine [address] [place] [address] [place] [address] [facility] [place] [address] Preop examination (Primary Dx); Chronic low back pain with left-sided sciatica, unspecified back pain laterality (HRC); Essential hypertension (HRC); LBBB (left bundle branch block); Thrombocythemia; Major depressive disorder, recurrent episode, in full remission (HRC); Screening examination for infectious disease; Hx of transient ischemic attack (TIA); Lumbar radiculopathy Social History Tobacco Use Types Packs/Day Years [...] Sign Reading Time Taken Comments Blood Pressure 138/71 11/16/2023 12:56 PM CDT Pulse 65 11/16/2023 12:56 PM CDT Temperature - - Respiratory Rate - - Oxygen Saturation - - Inhaled Oxygen Concentration - - Weight 83 kg (183 lb) 11/16/2023 12:56 PM CDT Height 174 cm (5' 8.5) 11/16/2023 12:56 PM CDT Body Mass Index 27.42 11/16/2023 12:56 PM CDT documented in this encounter Patient Instructions * Patient Instructions* Josie Lainez MD - 11/16/2023 1:00 PM CDT Recommendations: Hold Plavix 7 days prior to procedure Hold aspirin and any medication containing ibuprofen, advil, aleve, or naprosyn, one week prior to surgery. Hold vitamins and supplements 1 week prior to surgery. Take your other medications as usual documented in this encounter Progress Notes * Josie Lainez MD - 11/16/2023 1:00 PM CDT Pre-Operative Assessment 11/16/2023 ET Amb PreOp Assessment Details Procedure right TKA Surgeon [facility] Procedure Date 12/05/2023 Marilee Penn is a [...] (transient ischemic attack), dysarthria, ataxia, hosp at [place], 10/25 Major depressive disorder, recurrent episode, in [...] Overview Note: LW Modifier: scalp Essential hypertension ([facility]) 11/26/2003 Overview Note: Hypertension Hyperlipidemia ([facility]) 07/21/2002 Allergic rhinitis 07/21/2002 Overview Note: dust mites ; Rhinitis Allergic NOS Past Medical History: Diagnosis Date Coagulation defect ([facility]) 1981 Primary thrombocytosis Floaters 2010 Hyperlipidemia 07/21/2002 Hypertension 11/26/2003 Major depressive disorder, recurrent episode, in full remission ([facility]) 10/13/2010 Migraine Common 06/26/2008 Pulmonary Nodule 06/26/2008 Rhinitis Allergic NOS 07/21/2002 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 Thrombocythemia 11/13/2010 TIA (transient ischemic attack), dysarthria, ataxia, hosp at [place], 10/2511/06/2010 Past Surgical History: Procedure Laterality Date [...] 11/16/2023, 1:26 PM documented in this encounter Plan of Treatment Upcoming Encounters Date Type Department Care Team (Late st Contact Info) Description 12/21/2023 12:45 PM WIRE STRIPPER Appointment [facility] [address] [place] [address] Lena Puente 12/28/2023 10:00 AM WIRE STRIPPER Appointment [facility] [address] [place] [address] 01/19/2024 11:30 AM WIRE STRIPPER Appointment [facility] [address] [place] [address] Yanelis Welch MD [address] [facility] [address] [place] [address] Scheduled Orders Name Type Priority Associated Diagnoses Orde r Schedule Basic Metabolic Panel Lab Routine Essential hypertension (HRC) Expected: 11/16/2023, Expires: 02/14/2024 documented as of this encounter Goals Goal Patient Goal Type Associated Problems Recent Progress Patient-Stated? Author Right Knee Replacement Care Plan ET PROE RIGHT KNEE No John Escalante GENERAL OUTCOMES KNEE REPLACEMENT - RIGHT Care Plan ET PROE GENERAL OUTCOMES KNEE REPLACEMENT - RIGHT No John Escalante documented as of this encounter Procedures Procedure Name Priority Date/Time Associated Diagnosis Comments ECG 12 LEAD OUTPATIENT Routine 11/16/2023 1:46 PM CDT Essential hypertension (HRC) MRSA/MSSA PRE-OP CULTURE Routine 11/16/2023 1:05 PM CDT Screening examination for infectious disease documented in this encounter Results * (ABNORMAL) [...] CDT Josie Lainez MD LAB_1 [facility] [address] [place] [address] * ECG 12 Lead Outpatient (11/16/2023 1:46 PM CDT) Ventricular Rate 66 BPM MUSE G[facility] Atrial Rate 66 BPM MUSE [facility] P-R Interval 184 ms MUSE [facility]HP QRS Duration 204 ms MUSE GHP QT 518 ms MUSE GHP QTc 543 ms MUSE GHP P [place] -4 degrees MUSE GHP R [place] -78 degrees MUSE GHP T [place] 79 degrees MUSE GHP 11/16/2023 1:46 PM [...] MD PN ECG ORDERABLES Performing Organization Address [facility]/ZIP Co de Phone Number [facility] [address] [place] [address] * MRSA/MSSA Pre-Op Culture (11/16/2023 1:05 PM CDT) Pathologist [facility] Staph aureus Culture (SACUL) No Staphylococcus aureus Isolated 11/18/2023 11:[address] [facility] Swab (Source Required) ENTIRE ANTERIOR NARIS / Unknown Non-blood Collection / Unknown 11/16/2023 1:05 PM CDT 11/16/2023 1:06 PM CDT Yanelis Welch MD LAB_1 [facility] [address] [place] [address], [facility] documented in this encounter Visit Diagnoses Diagnosis Preop examination- Primary Preoperative examination, unspecified Chronic low back pain with left-sided sciatica, unspecified back pain laterality (HRC) Essential hypertension (HRC) Unspecified essential hypertension LBBB (left bundle branch block) Other left bundle branch block Thrombocythemia Essential thrombocythemia Major depressive disorder, recurrent episode, in full remission (HRC) Major depressive disorder, recurrent episode, in full remission Screening examination for infectious disease Screening examination for unspecified infectious disease Hx of transient ischemic attack (TIA) Transient ischemic attack (TIA), and cerebral infarction without residual deficits Lumbar radiculopathy Thoracic or lumbosacral neuritis or radiculitis, unspecified documented in this encounter Additional Health Concerns Active Problems Noted Date Diagnosed Date ET PROE SHELL PROBLEM TEMPLATE 08/05/2023 ET PROE RIGHT KNEE 08/05/2023 ET PROE GENERAL OUTCOMES KNEE REPLACEMENT - RIGH T 08/05/2023 documented as of this encounter Care Teams Blocker Automatic Relationship Specialty [place] [address] [facility] [place] [address] PCP - General 05/16/10 documented as of this encounter
[2023-12-17 02:07] VITALS: BP 133/65; PULSE 67; RESP 18; TEMP 35.9; O2SAT 96; BMI 27.4
--- NOTE | 2023-12-17 02:26 | CRLHL7_ITS ---
For Patients: As a result of the Century Cures Act, medical imaging exams and procedure reports are released immediately into your electronic medical record. You may view this report before your referring provider. If you have questions, please contact your health care provider. INDICATION: Pain and swelling TECHNIQUE: Ultrasound venous duplex lower right extremity. Compression venous exam was performed using villaseñor-scale, color Doppler, and spectral Doppler imaging. COMPARISON: None FINDINGS: Sonographic imaging demonstrates the right common femoral, deep femoral, superficial femoral, popliteal, posterior tibial and greater saphenous and the contralateral left common femoral veins to be fully compressible with normal color Doppler blood flow. IMPRESSION: No convincing radiographic evidence of deep vein thrombosis within the visualized right lower extremity. Dictated by Clint Newman MD @ 12/17/2023 3:21:41 AM (Electronically Signed)
[2023-12-17 02:30] VITALS: PULSE 78; RESP 18; O2SAT 97; O2SAT 99
[2023-12-17] MEDS: HYDROmorphone 0.5 mg/0.5 ml inj IM (02:32)
--- NOTE | 2023-12-17 02:40 | ED_ITS ---
HPI - General Adult General Date Seen: 12/17/23 Chief complaint: Extremity Pain/Injury, Lower Stated complaint: leg pain post surgery Time Seen by Provider: 12/17/23 02:16 Source: patient and EMS Mode of arrival: EMS Limitations: no limitations History of Present Illness HPI narrative: Patient is a 73-year-old woman who had a right knee replacement done at [facility] on December 04. She says she has been generally managing pain okay with Dilaudid. She lives by herself, she has a son who would typically be able to help her but he is currently out of town. She notes that tonight she took Dilaudid at around 9:00 p.m. but was still not able to sleep due to pain. She feels that the pain is worse and is extending up into the thigh on outer thigh where there is bruising. She has also been having some cramping pain in her calf. She is concerned because she had a DVT after spinal surgery a year ago. She has been managed on Lovenox with this surgery, but says she has a friend who of PE and just was feeling really nervous about this. She has not had any fevers, shortness of breath, chest pain. Related Data Home Medications ?Medication ?Instructions ?Recorded ?Confirmed bupropion HCl 300 mg 24 hr tablet, 300 mg PO DAILY 12/17/23 12/17/23 extended release clopidogrel 75 mg tablet 75 mg PO DAILY 12/17/23 12/17/23 enoxaparin 40 mg/0.4 mL mg subcut 12/17/23 subcutaneous syringe gabapentin 300 mg capsule 300 mg PO 3XD 12/17/23 12/17/23 gabapentin 600 mg tablet 600 mg PO BID 12/17/23 12/17/23 hydromorphone 2 mg tablet PO 12/17/23 hydroxyurea 500 mg capsule PO 12/17/23 lisinopril 10 1 tab PO DAILY 12/17/23 12/17/23 mg-hydrochlorothiazide 12.5 mg tablet ondansetron 4 mg disintegrating PO 12/17/23 tablet rosuvastatin 10 mg tablet 10 mg PO QPM 12/17/23 12/17/23 simvastatin 20 mg tablet 20 mg PO QPM 12/17/23 12/17/23 Allergies Allergy/AdvReac Type Severity Reaction Status Date / Time No Known Drug Allergies Allergy Verified 12/17/23 02:21 Review of Systems Status of ROS: Reports: 10 or more systems reviewed and unremarkable except as noted in History and below [facility] Social History Smoking Status: Never smoker Second hand tobacco smoke exposure: No How often do you have a drink containing alcohol: never AUDIT-C Alcohol total score: 0 Non-prescribed substance use: denies use Exam Narrative: Exam Narrative: Vital signs reviewed In general, alert, well-appearing woman. She looks comfortable, breathing easily. Extremities: Examination of the right lower extremity shows incision to be clean and dry, covered with a bandage. This was not removed. She has a little bruising over her lateral thigh, an area of tenderness. She does not have medial thigh pain or tenderness. She does not have calf tenderness to palpation. She has some diffuse discoloration of the lower leg which looks consistent with aging blood products. Pulses intact, distal CMS is normal. Skin: Warm and dry. No erythema or warmth, no rashes. Other skin changes as noted above. Const: Vital Signs, click to edit/add: Vital Signs - 24 hr 12/17/23 02:07 12/17/23 02:30 12/17/23 02:30 Temperature 96.6 F L Pulse Rate [Pulse Oximeter] 67 Pulse Rate [Right Dorsalis Pedis] 78 Respiratory Rate 18 Respiratory Rate [ Right Knee] 18 Blood Pressure [Ri ght Upper Arm] 133/65 Pulse Oximetry 96 Oxygen Delivery Me thod Room Air 12/17/23 02:30 Temperature Pulse Rate [Pulse Oximeter] Pulse Rate [Right Dorsalis Pedis] Respiratory Rate Respiratory Rate [ Right Knee] Blood Pressure [Ri ght Upper Arm] Pulse Oximetry 97 Oxygen Delivery Me thod Documenting provider has reviewed patient's vital signs: yes Course Course ED Course: We will give her some IM Dilaudid and try to get her little more comfortable. Reviewed with her that my suspicion for DVT is fairly low given that she is maintained on Lovenox and does not have any other concerning findings on exam, but as this is her primary concern, will go ahead and get an ultrasound to rule this out. Pain is improved, she is ambulatory without difficulty. Ultrasound read as negative by Radiology. She is relieved to hear this and is comfortable going home, however she does not have a ride tonight. She will sleep ear tonight and then will get her home in the morning. Vital Signs Vital signs: Initial Vital Signs Temperature 96.6 F L 12/17/23 02:07 Temperature Source Temporal Artery Scan 12/17/23 02:07 Pulse Rate 67 12/17/23 02:07 Respiratory Rate 18 12/17/23 02:07 Blood Pressure 133/65 12/17/23 02:07 Blood Pressure Mean 87 12/17/23 02:07 Blood Pressure Position Supine 12/17/23 02:07 Pulse Oximetry 96 12/17/23 02:07 Oxygen Delivery Method Room Air 12/17/23 02:07 Vital Signs Temperature 96.6 F L 12/17/23 02:07 Pulse Rate 67 12/17/23 02:07 Respiratory Rate 18 12/17/23 02:07 Blood Pressure 133/65 12/17/23 02:07 Pulse Oximetry 96 12/17/23 02:07 Oxygen Delivery Method Room Air 12/17/23 02:07 Temperature 98.2 F 12/17/23 06:21 Pulse Rate 79 12/17/23 06:21 Respiratory Rate 20 12/17/23 06:21 Blood Pressure 145/68 H 12/17/23 06:21 Pulse Oximetry 97 12/17/23 06:21 Oxygen Delivery Method Room Air 12/17/23 06:21 Medications Administered Medications: Discontinued Medications Generic Name Dose Route Start Last Admin Trade Name Freq PRN Reason Stop Dose Admin Hydromorphone HCl 0.5 mg 12/17/23 02:26 12/17/23 04:37 Hydromorphone 0.5 Mg/0.5 Ml Inj IVP 12/17/23 02:27 Not Given ONCE ONE Hydromorphone HCl 0.5 mg 12/17/23 02:28 12/17/23 02:32 Hydromorphone 0.5 Mg/0.5 Ml Inj IM 12/17/23 02:29 0.5 mg ONCE ONE Administration Discharge Plan Discharge Clinical Impression: Postoperative pain of right knee Patient Disposition: Home, Self-Care Condition: Improved Instructions: Pain Management After Surgery (DC) Additional Instructions: Continue current medications. Please call your surgeon if you continue to have difficulty with pain management. Your ultrasound tonight does not show any evidence of blood clot. For new symptoms such as fever, redness, worsening swelling, return any time. Prescriptions: No Action hydroxyurea 500 mg capsule PO gabapentin 600 mg tablet 600 mg PO BID clopidogrel 75 mg tablet 75 mg PO DAILY hydromorphone 2 mg tablet PO simvastatin 20 mg tablet 20 mg PO QPM gabapentin 300 mg capsule 300 mg PO 3XD lisinopril-hydrochlorothiazide 10-12.5 mg tablet 1 tab PO DAILY ondansetron 4 mg tablet,disintegrating PO enoxaparin 40 mg/0.4 mL syringe subcut rosuvastatin 10 mg tablet 10 mg PO QPM bupropion HCl 300 mg tablet extended release 24 hr 300 mg PO DAILY Follow Up/Referrals: Keturah Joy MD [Referring] - Stand Alone Forms: [facility] Info Instructions
--- OUTSIDE RECORDS SUMMARY | 2023-12-17 02:50 | XMS_ITS | Referral Summary ---
Author Organization [place] Address [address] [facility] [address] Care Team Providers Care Movement Assembler Name Role Phone Josie Lainez Primary Care Provider Melissa Romero PA-C Unavailable [phone] John Doshi DPM Unavailable [phone] Encounters Date Type Department Care Team Description 11/11/2023 [facility] [place] [facility] [address] [place] [address] May from Last 3 Months [...] on file Legal Sex Female 3:21 AM GROUP MANAGING DIRECTOR Gender Identity Not on file Sexual Orientation [...] st Contact Info) Description 02/14/2024 1:00 PM GROUP MANAGING DIRECTOR Ancillary Procedure [facility] [address] [place] [phone] Zak Samson MD [address] [phone] 02/14/2024 2:00 PM GROUP MANAGING DIRECTOR Office Visit [facility] [place] [address] [place] [phone] Melissa Romero PA-C [address] [place] [address] Medical Devices Implanted Type Area Rerolling Machine Operator Device Identifier Shelf Expiration Date Model / Serial / Lot Imp Lead Pacing Bipolar Capsurefix Novus 52cm 5076-52 - [id number] Implanted:Qt y: 1 on 08/02/2022 at [facility] Leads [employer] 05/12/2024 5076-52 / [id number] / [id number] Imp Lead Pacing Bipolar Capsurefix Novus 45cm 5076-45 - [id number] Implanted:Qt y: 1 on 08/02/2022 at [facility] Leads [employer] 05/17/2024 5076-45 / [id number] / [id number] Medtronic I* 5076 Capsurefix Novus Mri Surescan [id number] Implanted: (Quantity not on file) Leads [employer] 5076 CAPSUREFIX NOVUS MRI SURESCAN / [id number] / Kane Spinal Pathloc-L Curve 346o0ic 9111-61779 - [id number] Implanted:Qt y: 1 on 07/22/2022 by Yudelka Girard MD at [facility] Metallic Hardware/An chor Spine Lumbar AEGIS SPINE 01/05/2027 [id number] / / [id number] Screw Bone Pathloc-L Closed 2 Thrd 859m99a6.5mm 4002-9857 - [id number] Implanted:Qt y: 1 on 07/22/2022 by Yudelka Girard MD at [facility] Metallic Hardware/An chor Spine Lumbar AEGIS SPINE 01/29/20252-6550S / / [id number] Screw Bone Pathloc-L Closed 2 Thrd 755e31y0.5mm 7479-6568 - [id number] Implanted:Qt y: 3 on 07/22/2022 by Yudelka Girard MD at [facility] Metallic Hardware/An chor Spine Lumbar AEGIS SPINE 09/26/202[address]-65[address]S / / [id number] Screw Bn 50mm 7.5mm St Cls 2 Thrd 127mm Ns Pathloc-L Spne Lf - [id number] Implanted:Qt y: 2 on 07/22/2022 by Yudelka Girard MD at [facility] Metallic Hardware/An chor Spine Lumbar AEGIS SPINE 10/01/2026 2712-7550S / / [id number] Screw Set Spne Star Opn Lnk Pathloc-L Strl Lf - [id number] Implanted:Qt y: 8 on 07/22/2022 by Yudelka Girard MD at [facility] Metallic Hardware/An chor Spine Lumbar AEGIS SPINE [id number] 12/03/2026 1308-0000S / / [id number] Kane Spinal Pathloc-L Curve 571y9ht 2526-33782 - [id number] Implanted:Qt y: 1 on 07/22/2022 by Yudelka Girard MD at [facility] Metallic Hardware/An chor Spine Lumbar AEGIS SPINE 01/05/2027 [id number] / / [id number] Pacemaker Smita Mri Xt - [id number] Implanted:Qt y: 1 on 08/02/2022 at [facility] Pacemaker [employer] 12/29/2023 W1DR01 / [id number] / [id number] Medtronic I* W1dr01 Smita Xt Dr Mri [id number] Implanted: (Quantity not on file) Pacemaker [employer] W1DR01 [place] URE XT DR MRI / [id number] / 10cc Mcmillan-Tcp Sponge 25 Mm X 100 Mm Implanted:Qt y: 1 on 07/22/2022 by Yudelka Girard MD at [facility] Spine Lumbar 02/13/2027 AMWS-TCP-10 / [id number] / [id number] 10 Cc Mcmillan-Tcp Sponge 25 Mm X 100 Mm Implanted:Qt y: 1 on 07/22/2022 by Yudelka Girard MD at [facility] Spine Lumbar 02/13/2027 AMWS-TCP-10 / [id number] / [id number] 10cc Mcmillan-Tcp Sponge 25 Mm X 100 Mm Implanted:Qt y: 1 on 07/22/2022 by Yudelka Girard MD at [facility] Spine Lumbar 02/13/2027 AMWS-TCP-10 / [id number] / [id number] Mis Screw 127 Mm 7.5 Implanted:Qt y: 2 on 07/22/2022 by Yudelka Girard MD at [facility] Spine Lumbar [id number] 06/09/2025 2712-7545S / / [id number] Ollif Cage 30 X 9.5 X 10 Implanted:Qt y: 1 on 07/22/2022 by Yudelka Girard MD at [facility] Spine Lumbar AMENDIA [id number] / / [id number] Ollif Cage 33 X 9.5 X 11 Implanted:Qt y: 1 on 07/22/2022 by Yudelka Girard MD at [facility] Spine Lumbar AMENDIA 11727 / / [id number] Ollif Cage 30 X 9.5 X 14 Implanted:Qt y: 1 on 07/22/2022 by Yudelka Girard MD at [facility] Spine Lumbar AMENDIA 19348 / / [id number] Procedures Procedure Name Priority Date/Time Associated Diagnosis [...] - BLOOD ORDERABLES Fi nal Result LABORATORY [facility] [address] floor, [address] [place] [address], [place] [phone] * Lipid Profile (11/07/2010 7:35 AM CDT) Cholesterol 168 0 - 200 mg/dL [facility] Comment: LDL Cholesterol is the primary guide to therapy. The NCEP recommends further evaluation of: patients with cholesterol greater than 200 mg/dL if additional risk factors are present, cholesterol greater than 240 mg/dL, triglycerides greater than 150 mg/dL, or HDL less than 40 mg/dL. Triglycerides 76 0 - 150 mg/dL [facility] HDL Cholesterol 54 50 - 110 mg/dL [facility] LDL Cholesterol Calculated 99 0 - 129 mg/dL [facility] Comment: LDL Cholesterol is the primary guide to therapy: LDL-cholesterol goal in high risk patients is <100 mg/dL and in very high risk patients is <70 mg/dL. VLDL-Cholesterol 15 0 - 30 mg/dL [facility] Cholesterol/HDL Ratio 3.1 0.0 - 5.0 [facility] 11/07/2010 7:35 AM CDT 11/07/2010 7:43 AM CDT Danya Orellana MD LAB - BLOOD ORDERABLES Final R esult [facility] [address] [facility] [address] [place], [place] [address] [phone] from Last 3 Months or Most Recently Relevant to Health Maintenance Insurance [facility] MEDICARE [facility] [place] BLUE MEDICARE [place] BLUE MED[place] Advance Directives For more information, please contact: [phone] * Full Code (Latest Code Status on [...] patie nt/ legal decision maker Care Teams Movement Assembler Relationship Specialty Start Date End Date Josie Lainez [address] [facility] [place] [address] PCP - General Internal Medicine 06/30/22 Melissa Romero PA-C [address] [place] [address] Assigned Heart and Vascular Provider 11/20/22 John Doshi DPM [address] [facility] [address] [place] [address] Assigned Surgical Provider 08/07/23
--- OUTSIDE RECORDS SUMMARY | 2023-12-17 02:50 | XMS_ITS | Encounter Summary ---
Author Organization [place] Address [address] [facility] [place] [address] Care Team Providers Care Vacuum Tester Cans Name Role Phone Josie Lainez Primary Care Provider [phone] Melissa Romero PA-C Unavailable [phone] John Doshi DPM Unavailable [phone] Encounter Details Date Type Department Care Team (Late st Contact Info) Description 11/11/2023 MyC Medical Advice [facility] [place] [address] [facility] [address] [place] [phone] May Social [...] on file Legal Sex Female 3:21 AM LINOLEUM LAYER Gender Identity Not on file Sexual Orientation Not on file documented as of this encounter Plan of Treatment Upcoming Encounters Date Type Department Care Team (Late st Contact Info) Description 02/14/2024 1:00 PM LINOLEUM LAYER Ancillary Procedure [facility] [address] [facility] [address] [facility] [address] [place] [phone] Zak Samson MD [address] [facility] [place] [address] 02/14/2024 2:00 PM LINOLEUM LAYER Office Visit [facility] [place] [address] [facility] [address] [place] [phone] Melissa Romero PA-C [address] [facility] [address] [place] [address] documented as of this encounter Visit Diagnoses Not on filedocumented in this encounter Care Teams Vacuum Tester Cans Relationship Specialty Start Date End Date Migel Mariella [phone] [facility] [place] [address] PCP - General Internal Medicine 06/30/22 Melissa Romero PA-C [address], [facility] [address] [place] [address] Assigned Heart and Vascular Provider 11/20/22 John Doshi DPM [address] [facility] [address] [place] [address] Assigned Surgical Provider 08/07/23 documented as of this encounter
--- OUTSIDE RECORDS SUMMARY | 2023-12-17 02:50 | XMS_ITS | Clinical Summary ---
Author Organization [place] Address [address] [facility] [place] [address] Care Team Providers Care Medical Claims Representative Name Role Phone Josie Lainez Primary Care Provider Melissa Romero PA-C Unavailable John Doshi DPM Unavailable Allergies Active Allergy [...] Care Team Description 11/11/[address] 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 [address] [place] [phone] Zak Samson MD [address] [phone] 02/14/2024 2:00 PM SALES SUPERINTENDENT Office Visit [facility] [place] [address] [facility] [address] [place] [phone] Melissa Romero PA-C [address] [place] [address] Health [...] this topic Medical Devices Implanted Type Area Lunch Cook Device Identifier Shelf Expiration Date Model / Serial / Lot Imp Lead Pacing Bipolar Capsurefix Novus 52cm 5076-52 - [id number] Implanted:Qt y: 1 on 08/02/2022 at [facility] Leads [employer] 05/12/2024 5076-52 / [id number] / [id number] Imp Lead Pacing Bipolar Capsurefix Novus 45cm 5076-45 - [id number] Implanted:Qt y: 1 on 08/02/2022 at [facility] Leads [employer] 05/17/2024 5076-45 / [id number] / [id number] Medtronic I* 5076 Capsurefix Novus Mri Surescan [id number] Implanted: (Quantity not on file) Leads [employer] 5076 CAPSUREFIX NOVUS MRI SURESCAN / [id number] / Kane Spinal Pathloc-L Curve 274p0rm 9093-93799 - [id number] Implanted:Qt y: 1 on 07/22/2022 by Yudelka Girard MD at [facility] Metallic Hardware/An chor Spine Lumbar AEGIS SPINE 01/05/2027 2526-90841P / / [id number] Screw Bone Pathloc-L Closed 2 Thrd 352p30h3.5mm 4129-8964 - [id number] Implanted:Qt y: 1 on 07/22/2022 by Yudelka Girard MD at [facility] Metallic Hardware/An chor Spine Lumbar AEGIS SPINE 01/29/20252-6550S / / [id number] Screw Bone Pathloc-L Closed 2 Thrd 936h45t5.5mm 1363-4013 - [id number] Implanted:Qt y: 3 on 07/22/2022 by Yudelka Girard MD at [facility] Metallic Hardware/An chor Spine Lumbar AEGIS SPINE 09/26/2023 2712-6550S / / [id number] Screw Bn 50mm 7.5mm St Cls 2 Thrd 127mm Ns Pathloc-L Spne Lf - [id number] Implanted:Qt y: 2 on 07/22/2022 by Yudelka Girard MD at [facility] Metallic Hardware/An chor Spine Lumbar AEGIS SPINE 10/01/2026 2712-7550S / / [id number] Screw Set Spne Star Opn Lnk Pathloc-L Strl Lf - [id number] Implanted:Qt y: 8 on 07/22/2022 by Yudelka Girard MD at [facility] Metallic Hardware/An chor Spine Lumbar AEGIS SPINE [id number] 12/03/2026 1308-0000S / / [id number] Kane Spinal Pathloc-L Curve 727q2ee 2526-50803 - [id number] Implanted:Qt y: 1 on 07/22/2022 by Yudelka Girard MD at [facility] Metallic Hardware/An chor Spine Lumbar AEGIS SPINE 01/05/2027 2526-76185I / / [id number] Pacemaker [place] Mri Xt Dr - [id number] Implanted:Qt y: 1 on 08/02/2022 at [facility] Pacemaker [employer] 12/29/2023 W1DR01 / [id number] / [id number] Medtronic I* W1dr01 Smita X[address] Dr Mri [id number] Implanted: (Quantity not on file) Pacemaker [employer] W1DR01 [place] URE XT DR MRI / [id number] / 10cc Mcmillan-Tcp Sponge 25 Mm X 100 Mm Implanted:Qt y: 1 on 07/22/2022 by Yudelka Girard MD at [facility] Spine Lumbar 02/13/2027 AMWS-TCP-10 / [id number] / [id number] 10 Cc Mcmillan-Tcp Sponge 25 Mm X 100 Mm Implanted:Qt y: 1 on 07/22/2022 by Yudelka Girard MD at [facility] Spine Lumbar 02/13/2027 AMWS-TCP-10 / [id number] / [id number] 10cc Mcmillan-Tcp Sponge 25 Mm X 100 Mm Implanted:Qt y: 1 on 07/22/2022 by Yudelka Girard MD at [facility] Spine Lumbar 02/13/2027 AMWS-TCP-10 / [id number] / [id number] Mis Screw 127 Mm 7.5 Implanted:Qt y: 2 on 07/22/2022 by Yudelka Girard MD at [facility] Spine Lumbar [id number] 06/09/2025 2712-7545S / / [id number] Ollif Cage 30 X 9.5 X 10 Implanted:Qt y: 1 on 07/22/2022 by Yudelka Girard MD at [facility] Spine Lumbar AMENDIA [address] / / [id number] Ollif Cage 33 X 9.5 X 11 Implanted:Qt y: 1 on 07/22/2022 by Yudelka Girard MD at [facility] Spine Lumbar AMENDIA [address] / / [id number] Ollif Cage 30 X 9.5 X 14 Implanted:Qt y: 1 on 07/22/2022 by Yudelka Girard MD at [facility] Spine Lumbar AMENDIA 267[address] / / [id number] Procedures Procedure Name Priority Date/Time Associated Diagnosis [...] - BLOOD ORDERABLES Fi nal Result LABORATORY [facility] Lab [address] floor, [address] [place] [address], [place] [phone] * Lipid Profile (11/07/2010 7:35 AM CDT) Cholesterol 168 0 - 200 mg/dL [facility] Comment: LDL Cholesterol is the primary guide to therapy. The NCEP recommends further evaluation of: patients with cholesterol greater than 200 mg/dL if additional risk factors are present, cholesterol greater than 240 mg/dL, triglycerides greater than 150 mg/dL, or HDL less than 40 mg/dL. Triglycerides 76 0 - 150 mg/dL [facility] HDL Cholesterol 54 50 - 110 mg/dL [facility] LDL Cholesterol Calculated 99 0 - 129 mg/dL [facility] Comment: LDL Cholesterol is the primary guide to therapy: LDL-cholesterol goal in high risk patients is <100 mg/dL and in very high risk patients is <70 mg/dL. VLDL-Cholesterol 15 0 - 30 mg/dL [facility] Cholesterol/HDL Ratio 3.1 0.0 - 5.0 [facility] 11/07/2010 7:35 AM CDT 11/07/2010 7:43 AM CDT Danya Orellana MD LAB - BLOOD ORDERABLES Final R esult [facility] [address] [place], [place] [address] [phone] from Last 3 Months or Most Recently Relevant to Health Maintenance Insurance [facility] [place] BLUE MEDICARE [address] [place] [id number] [facility] [place] BLUE MEDICARE [place] Advance Directives For more information, please contact: [phone] * Full Code (Latest Code Status on [...] patie nt/ legal decision maker Care Teams Medical Claims Representative Relationship Specialty Start Date End Date Josie Lainez [address] [facility] [place] [address] PCP - General Internal Medicine 06/30/22 Melissa Romero PA-C [address] [place] [address] Assigned Heart and Vascular Provider 11/20/22 John Doshi DPM [address] [facility] [address] [place] [address] Assigned Surgical Provider 08/07/23
--- OUTSIDE RECORDS SUMMARY | 2023-12-17 02:51 | XMS_ITS | Encounter Summary ---
Author Organization [employer] Address [address] [place] [address] Care Team Providers Care Soil Fertility Specialist Name Role Phone Josie Lainez MD Primary Care Provider [phone] Reason for Visit * Reason Comments Knee Problem Encounter Details Date Type Department Care Team (Late st Contact Info) Description 11/17/2023 2:45 PM CDT Therapy [facility], Physical Therapy [address] [place] [address] Shannan Preston, PT [address] [place] [id number] Right knee pain, unspecified chronicity (Primary Dx) [...] limitations include: plof without pain, playing with [employer]. At this point, Isamar Rich is looking for more definitive treatment and is scheduled for a joint replacement surgery. 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 [employer] Patient's defensive secondary coach was physically present during pre-op session: No Process Control Supervisor: Sister and son Lives alone in an apartment Stairs INTO house: elevator Stairs WITHIN house: One level apartment Pets: - Shower: Walk-in Toilet Height: comfort Assistive Devices: FWW, cane Vehicle: mygallaru mid-size SUV Outpatient PT plan: PT [place] in [place], with Awais Floyd Method of Injury: insidious [...] depressive disorder, recurrent episode, in full remission ([facility]) 10/13/2010 Migraine Common 06/26/2008 Pulmonary Nodule 06/26/2008 Rhinitis Allergic NOS 07/21/2002 Right arm numbness 09/01/2020 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 Thrombocythemia 11/13/2010 TIA (transient ischemic attack), dysarthria, ataxia, hosp at [place], 10/2511/06/2010 Past Surgical History: Procedure Laterality Date CORNEAL SURGERY Bilateral late Lasik/ABW HX APPENDECTOMY LW Problem: Appendectomy S/p LASIK 02/15/1996 ABW LUMBAR FUSION 07/2022 L3-S1 SPINE SURGERY 07/22/22 L3 or L4 to S1 fusion TONSILLECTOMY LW Problem: Tonsillectomy S/p OBJECTIVE: General: Mood, orientation, behavior were appropriate. Patient was alert and oriented. Observation/Gait: Ambulates with antalgic gait with respect to Right lower extremity ROM (fvdzfadsv-quy-eyeg): Right Knee: 0-5-100 Left Knee: 0-120 Strength: Upper Extremities Screen: Within functional limits Lower Extremities: Right: Quad set: WNL Supine SLR: no lag TREATMENT TODAY: Physical Therapy Evaluation (CPT 97188): An evaluation was performed. The patient was determined tohave low complexity based on history, examination, clinical presentation of the patient and the PT's clinical decision making. The patient was educated on the condition, planned therapy intervention and expectations from treatment. Goals were a collaborative effort of the therapist and patient. Therapeutic Exercise (CPT 60167) x 5 minutes: verbal reivew only Education: [...] HEP handout was provided. Therapeutic Activity (CPT 23825) x 25 minutes: - Patient was instructed [...] management and self-care tips. Gait Training (CPT 82980) x 10 minutes: - Education for fitting [...] to stand transfers independently in 2-3 days Prison Goals: Ambulation: Patient will be able to [...] ROM in 4-6 weeks. ADL: Squat to package pick up items from floor with minimal/no symptoms in 8-10 weeks. Evaluation and Plan of Care completed by: Shannan Bhatti, PT 2:49 PM 11/17/2023 The medical sociologist is completed by the therapist and the referring clinician's electronic signature certifies medical necessity for the plan above. documented in this encounter Plan of Treatment Upcoming Encounters Date Type Department Care Team (Late st Contact Info) Description 12/21/2023 12:45 PM SPORTING GOODS SALES MANAGER Appointment [facility] [address] [place] [address] Kwame Lena Namrata 12/28/2023 10:00 AM SPORTING GOODS SALES MANAGER Appointment [facility] [address] [place] [address] 01/19/2024 11:30 AM SPORTING GOODS SALES MANAGER Appointment [facility] [address] [place] [address] Yanelis Welch MD [address] [facility] [address] [place] [address] documented as of this encounter Goals Goal [...] documented as of this encounter Care Teams Soil Fertility Specialist Relationship Specialty [place] [address] [facility] [place] [address] PCP - General 05/16/10 documented as of this encounter
--- OUTSIDE RECORDS SUMMARY | 2023-12-17 02:51 | XMS_ITS | Encounter Summary ---
Author Organization [employer] Address [address] [address] Care Team Providers Care Returned Case Inspector Name Role Phone Josie Lainez MD Primary Care Provider [phone] Reason for Visit * Reason Comments Appt. Needed Encounter Details Date Type Department Care Team (Late st Contact Info) Description 10/26/2023 Telephone [facility] [address] [place] [id number] Lucia Casey MD [address] [place], [place] [phone] Appt. Needed Social History Tobacco Use Types [...] st Contact Info) Description 12/21/2023 12:45 PM HEEL COMPRESSOR Appointment [facility] [address] [place] [address] Lena Puente 12/28/2023 10:00 AM HEEL COMPRESSOR Appointment [facility] [address] [place] [address] 01/19/2024 11:30 AM HEEL COMPRESSOR Appointment [facility] [address] [place] [address] Yanelis Welch MD [address] [place] [address] documented as of this encounter Goals Goal [...] documented as of this encounter Care Teams Returned Case Inspector Relationship Specialty [place] [address] [facility] [place] [address] PCP - General 05/16/10 documented as of this encounter
--- OUTSIDE RECORDS SUMMARY | 2023-12-17 02:51 | XMS_ITS | Encounter Summary ---
Author Organization [facility] Address [address] [address] Care Team Providers Care Senior Test Analyst Name Role Phone Josie Lainez MD Primary Care Provider [phone] Encounter Details Date Type Department Care Team (Late Contact Info) Description 11/18/2023 [facility] [address] [facility] [address] [place] [address] Mychart, [place] [address] Social History Tobacco Use Types Packs/Day Years [...] (Late Contact Info) Description 12/21/2023 12:45 PM PLANNING CONSULTANT Appointment [facility] [place] [address] [place] [address] Lena Puente 12/28/2023 10:00 AM PLANNING CONSULTANT Appointment [facility] [address] [place] [address] 01/19/2024 11:30 AM PLANNING CONSULTANT Appointment [facility] [address] [place] [address] Yanelis Welch MD [address] [facility] [address] [place] [address] documented as of this encounter Goals Goal [...] documented as of this encounter Care Teams Senior Test Analyst Relationship Specialty [place] [address] [employer] [place] [address] PCP - General 05/16/10 documented as of this encounter
--- OUTSIDE RECORDS SUMMARY | 2023-12-17 02:51 | XMS_ITS | Encounter Summary ---
Author Organization [employer] Address [address], [place] [address] Care Team Providers Care Manufacturing Automation Engineer Name Role Phone Josie Lainez MD Primary Care Provider [phone] Reason for Visit * Reason Comments Preop Exam DOS 12/05/23 Right [facility] Encounter Details Date Type Department Care Team (Latest Contact Info) Description 11/16/2023 1:00 PM CDT Pre-Op Visit [facility] Internal Medicine [address] [place] [address] [place] [address] [facility] [place] [address] Preop examination (Primary Dx); Chronic low back [...] PreOp Assessment Details Procedure right TKA [facility] Procedure Date 12/05/2023 Marilee Penn is a [...] (transient ischemic attack), dysarthria, ataxia, hosp at [place], 10/25 Major depressive disorder, recurrent episode, in [...] Overview Note: LW Modifier: scalp Essential hypertension ([facility]) 11/26/2003 Overview Note: Hypertension Hyperlipidemia ([facility]) 07/21/2002 Allergic rhinitis 07/21/2002 Overview Note: dust mites ; Rhinitis Allergic NOS Past Medical History: Diagnosis Date Coagulation defect ([facility]) 1981 Primary thrombocytosis Floaters 2010 Hyperlipidemia 07/21/2002 Hypertension 11/26/2003 Major depressive disorder, recurrent episode, in full remission ([facility]) 10/13/2010 Migraine Common 06/26/2008 Pulmonary Nodule 06/26/2008 Rhinitis Allergic NOS 07/21/2002 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 Thrombocythemia 11/13/2010 TIA (transient ischemic attack), dysarthria, ataxia, hosp at [place], 10/2511/06/2010 Past Surgical History: Procedure Laterality Date [...] st Contact Info) Description 12/21/2023 12:45 PM AUTOPSY ASSISTANT Appointment [facility] [address] [place] [address] Lena Puente 12/28/2023 10:00 AM AUTOPSY ASSISTANT Appointment [facility] [address] [place] [address] 01/19/2024 11:30 AM AUTOPSY ASSISTANT Appointment [facility] [address] [place] [address] Yanelis Welch MD [address] [facility] [address] [place] [address] Scheduled Orders Name Type Priority Associated Diagnoses [...] CDT Josie Lainez MD LAB_1 [facility] [address] [place] [address] * ECG 12 Lead Outpatient (11/16/2023 1:46 PM CDT) Ventricular Rate 66 BPM MUSE GHP Atrial Rate 66 BPM MUSE GHP P-R Interval 184 ms MUSE GHP QRS Duration 204 ms MUSE GHP QT 518 ms MUSE GHP QTc 543 ms MUSE GHP P Mchenry -4 degrees MUSE GHP R Mchenry -78 degrees MUSE GHP T Mchenry 79 degrees MUSE GHP 11/16/2023 1:46 PM [...] MD PN ECG ORDERABLES Performing Organization Address [facility]/ZIP Co de Phone Number [facility] [address] [place] [address] * MRSA/MSSA Pre-Op Culture (11/16/2023 1:05 PM CDT) Pathologist [facility] Staph aureus Culture (SACUL) No Staphylococcus aureus Isolated 11/18/2023 11:48 AM CDT [facility] Swab (Source Required) [employer]ARIS / Unknown Non-blood Collection / Unknown 11/16/2023 1:05 PM CDT 11/16/2023 1:06 PM CDT Yanelis Welch MD LAB_1 [facility] [address] [place] [address], [facility] documented in this encounter Visit Diagnoses Diagnosis [...] documented as of this encounter Care Teams Manufacturing Automation Engineer Relationship Specialty [place] [address] [facility] [place] [address] PCP - General 05/16/10 documented as of this encounter
--- OUTSIDE RECORDS SUMMARY | 2023-12-17 02:51 | XMS_ITS | Encounter Summary ---
Author Organization Workspace Address [address], [place] [address] Care Team Providers Care Band Presser Name Role Phone Josie Lainez MD Primary Care Provider [phone] Reason for Visit * Auth/Cert (Routine) Specialty Diagnoses / Procedures Referred By Contac t Referred To Contact Diagnoses Primary osteoarthritis of right knee Procedures TOTAL KNEE JOINT REPLACEMENT Referral ID Status Reason Start Date Expiration Date Visits Re quested Visits Authorized [id number] 1 1 Encounter Details Date Type Department Care Team (Late st Contact Info) Description 12/05/2023 7:00 AM CDT - 12/05/2023 9:25 AM CDT Surgery [facility] [address] [facility]. [place], [place] [id number] Yanelis Welch MD [address] [facility] [address] [place], [place] [id number] TOTAL KNEE JOINT REPLACEMENT Social History Tobacco [...] time in the past 12 m [facility], were you homeless or living in a intermediate (including now)? No 12/05/2023 Sex and Gender [...] or numbness/tingling. Improved nausea and dizziness at ga. Hospital Course: Patient was admitted following the [...] Your Medications These medications were sent to [facility] [address] [place] [id number] Hours: Open 24x7 enoxaparin 40 MG/0.4ML prefilled [...] Maki. He spoke with neurology & heme/onc. [place] to be safe holding Plavix whileon ortho [...] hoses with plug, and inner wrap, to [facility] according to the rental agreement. Eat [...] surgical and wound concerns Order Comments: Call [phone] (orthopedic triage nurse line) 8:00 AM to 5:00 PM Tuesday-Tuesday. Call [phone] (Orthopedic office) evening hours, weekend and holidays. Not all post-operative infections can be prevented, but early detection and proper treatment can prevent major catastrophes. Do not start antibiotics for incision infections without contacting the orthopedic surgeon first. IF in doubt, call the orthopedic surgeon. For non-urgent orthopedic questions Order Comments: Call [facility] Orthopedic Nurse Triage at [phone] Tuesday-Tuesday 8:00 AM to 5:00 PM. Pain [...] incentive spirometer use *Practice good oral care. [place] your teeth and use mouthwash twice daily. [...] sennaincluding possible side effects. Prescriptions filled by [facility] pharmacy. Belongings checklist reviewed with patient [...] dc from medicine perspective. HTN/HLD/MDD - continue FLOOR SURFACER meds unchanged Social Determinants of Health adding to complexity of care: None Consults/Care Discussions: Clinicians: orthopedic surgery Notes Reviewed: 7 Labs and tests reviewed: 0 Drug therapy requiring intensive monitoring for toxicity: none Brody Maki MD [phone] Billing based on: Complexity Complexity: MDM Level: [...] deep vein thrombosis (DVT) of lower extremity ([facility]) 11/17/2023 Small clot in her leg after surgery Coagulation defect ([facility]) 1982 Primary thrombocytosis Floaters 2010 Hyperlipidemia 07/21/2002 Hypertension 11/26/2003 Major depressive disorder, recurrent episode, in full remission ([facility]) 10/13/2010 Migraine Common 06/26/2008 Pulmonary Nodule 06/26/2008 Rhinitis Allergic NOS 07/21/2002 Right arm numbness 09/01/2020 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 Welch at [facility]. Thrombocythemia 11/13/2010 TIA (transient ischemic attack), dysarthria, ataxia, hosp at [place], 10/2511/06/2010 Subjective/General Information Reason for admit/therapy consult: s/p TOTAL KNEE JOINT REPLACEMENT (Right: Knee) on 12/05/23 Living Arrangements: Alone, Condo (Patient states her son can help her at home.) Home Accessibility: wheelchair accessible (Can use elevator.) Prior equipment mobility: Walker, 2 wheeled Prior equipment ADL: Shower chair, Data Security Administrator Prior level of function details: Enjoys walking [...] standby assist in 3 days. GOAL MET termite control representative goal: Patient will maximize independence and safety [...] Chow RN - 12/08/2023 12:36 PM CDT [facility] Care Management Inpatient Note Plan: Expected Discharge [...] patient therapy scheduled near her home in [place], and she prefers to keep this plan. [...] them stay over night. Pt will update treri; this designer writer obtained permission from pt to speak [...] now. Pt and/or sister will notify this designer writer if there are any concerns and/or [...] Maki. He spoke with neurology & heme/onc. [place] to be safe holding Plavix whileon ortho [...] to 1 mg prn HTN/HLD/MDD - continue FLOOR SURFACER meds unchanged Social Determinants of Health adding to complexity of care: None Consults/Care Discussions: Clinicians: orthopedic surgery Notes Reviewed: 7 Labs and tests reviewed: 1 Drug therapy requiring intensive monitoring for toxicity: none Brody Maki MD [phone] Billing based on: Complexity Complexity: MDM Level: [...] deep vein thrombosis (DVT) of lower extremity ([facility]) 11/17/2023 Small clot in her leg after surgery Coagulation defect ([facility]) 1981 Primary thrombocytosis Floaters 2010 Hyperlipidemia 07/21/2002 Hypertension 11/26/2003 Major depressive disorder, recurrent episode, in full remission ([facility]) 10/13/2010 Migraine Common 06/26/2008 Pulmonary Nodule 06/26/2008 Rhinitis Allergic NOS 07/21/2002 Right arm numbness 09/01/2020 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 Welch at [facility]. Thrombocythemia 11/13/2010 TIA (transient ischemic attack), dysarthria, ataxia, hosp at [place], 10/2511/06/2010 Subjective/General Information Reason for admit/therapy consult: s/p TOTAL KNEE JOINT REPLACEMENT (Right: Knee) on 12/05/23 Living Arrangements: Alone, Condo (Patient states her son can help her at home.) Home Accessibility: wheelchair accessible (Can use elevator.) Prior equipment mobility: Walker, 2 wheeled Prior equipment ADL: Shower chair, Data Security Administrator Prior level of function details: Enjoys walking [...] mobility with standby assist in 3 days. termite control representative goal: Patient will maximize independence and safety [...] Maki. He spoke with neurology & heme/onc. [place] to be safe holding Plavix whileon ortho [...] drink electrolyte containing fluids. HTN/HLD/MDD - continue FLOOR SURFACER meds unchanged Social Determinants of Health adding [...] here tomorrow unless paged. Brody Maki MD [phone] Billing based on: Complexity Complexity: MDM Level: [...] shifts: In: 800 [IV:800] Out: 500 [Urine:400] Snony Mckinley PA-C 10:12 AM 12/06/2023 * Delmeret, Rachel Y, OTR/L - 12/06/2023 7:59 AM CDT Occupational Therapy Evaluation Date of admit: 12/05/2023 Reason for admit/therapy consult: s/p TOTAL KNEE JOINT REPLACEMENT (Right: Knee) on 12/05/23 Past medical history: Past Medical History: Diagnosis Date Acute deep vein thrombosis (DVT) of lower extremity ([facility]) 11/17/2023 Small clot in her leg after surgery Coagulation defect ([facility]) 1982 Primary thrombocytosis Floaters 2010 Hyperlipidemia 07/21/2002 Hypertension 11/26/2003 Major depressive disorder, recurrent episode, in full remission ([facility]) 10/13/2010 Migraine Common 06/26/2008 Pulmonary Nodule 06/26/2008 Rhinitis Allergic NOS 07/21/2002 Right arm numbness 09/01/2020 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 Welch at [facility]. Thrombocythemia 11/13/2010 TIA (transient ischemic attack), dysarthria, ataxia, hosp at [place], 10/2511/06/2010 MD order: Eval and Treat: Total joint protocol General Information: Living Arrangements: Alone, Condo (Patient states her son can help her at home.) Home Accessibility: wheelchair accessible (Can use elevator.) Prior equipment mobility: Walker, 2 wheeled Prior equipment ADL: Shower chair, Data Security Administrator Education Level: Prior level of function details: [...] mobility with standby assist in 3 days. 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 Welch at [facility]. Thrombocythemia 11/13/2010 TIA (transient ischemic attack), dysarthria, ataxia, hosp at [place], 10/2511/06/2010 MD Order: Eval and Treat: Issue [...] Cane, and hurrycane OBJECTIVE Treatment Location: Bedside, 2W34/1C46-18 Special Equipment: Continuous pulse oximetry, Continuous BP [...] vitals Ambulate 3-4 times per day with staffing administrator Perform home exercise program 2 times per [...] (PT) Discharge Recommendations Discussion: Discussed with, patient, family/child care education coordinator, patient agrees with recommendations, family/child care education coordinator agrees with recommendations Patient's impairments: Decreased balance [...] post-op period. D: Pt arrived to room 2W34/2P53-56, at 1200 Patient is alert and oriented [...] Assessment Details Procedure right TKA Surgeon Location [facility] Procedure Date 12/05/2023 Marilee Penn is a [...] (transient ischemic attack), dysarthria, ataxia, hosp at [place], 10/25 Major depressive disorder, recurrent episode, in [...] Overview Note: LW Modifier: scalp Essential hypertension ([facility]) 11/26/2003 Overview Note: Hypertension Hyperlipidemia ([facility]) 07/21/2002 Allergic rhinitis 07/21/2002 Overview Note: dust mites ; Rhinitis Allergic NOS Past Medical History: Diagnosis Date Coagulation defect ([facility]) 1982 Primary thrombocytosis Floaters 2010 Hyperlipidemia 07/21/2002 Hypertension 11/26/2003 Major depressive disorder, recurrent episode, in full remission ([facility]) 10/13/2010 Migraine Common 06/26/2008 Pulmonary Nodule 06/26/2008 Rhinitis Allergic NOS 07/21/2002 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 ANESTHESIA: Spinal with local. DRY CLEANER: TERENCE Meyers. FINDINGS: Severe medial, lateral and [...] CDTAssociated Order(s): CARE MANAGEMENT CONSULT - [facility] Care Management Inpatient Note Plan: Expected Discharge [...] to the assigned Hospital Care Management treatment crab steamer to assess. Patient/Spokesperson Updated: Milady Kramer RN 11:08 AM 12/06/2023 documented in this encounter Plan of Treatment Upcoming Encounters Date Type Department Care Team (Late st Contact Info) Description 12/21/2023 12:45 PM ELECTRIC DEICER ASSEMBLER Appointment [facility] [address] [place] [address] Lena Puente 12/28/2023 10:00 AM ELECTRIC DEICER ASSEMBLER Appointment [facility] [address] [place] [address] 01/19/2024 11:30 AM ELECTRIC DEICER ASSEMBLER Appointment [facility] [address] [place] [address] Yanelis Welch MD [address] [facility] [address] [place] [address] Scheduled Referrals Name Type Priority Associated Diagnoses [...] - 15.5 g/dL 12/08/2023 10:44 AM CDT [facility] Blood Venipuncture / Unknown 12/08/2023 10:05 AM CDT 12/08/2023 10:35 AM CDT Sonny Mckinley PA-C LAB_1 [facility] [address] [place] [address], [facility] * XR Knee Rt 2 Views (12/07/2023 3:41 AM CDT) Anatomical Region Laterality Modality Lower Extremity, Knee Digital Ra diography 12/07/2023 3:41 AM CDT Narrative 12/07/2023 3:52 AM CDT EXAM: XR KNEE RT 2 VIEWS LOCATION: [facility] DATE: 12/07/2023 INDICATION: Fall, pain increased COMPARISON: 12/05/2023 IMPRESSION: Right total knee arthroplasty. No evidence for acute periprosthetic fracture. Patellar resurfacing. Large right knee effusion, markedly increased since prior. Soft tissue swelling anterior aspect right knee with locules of air in the soft tissues likely relating to recent surgery. Procedure Note Rafat Gray MD - 12/07/2023 EXAM: XR KNEE RT 2 VIEWS LOCATION: [facility] DATE: 12/07/2023 INDICATION: Fall, pain increased COMPARISON: [...] - 10.5 x10(9)/L 12/06/2023 11:05 AM CDT [facility] RBC 2.90(L) 3.90 - 5.03 x10(12)/L 12/06/2023 11:05 AM CDT [facility] Hemoglobin 10.3(L) 12.0 - 15.5 g/dL 12/06/2023 11:05 AM CDT [facility] HCT 30.1(L) 34.9 - 44.5 % 12/06/2023 11:05 AM CDT [facility] MCV 103.8(H) 80.0 - 100.0 fL 12/06/2023 11:05 AM CDT [facility] MCH 35.5(H) 27.6 - 33.3 pg 12/06/2023 11:05 AM CDT [facility] MCHC 34.2 31.5 - 35.2 g/dL 12/06/2023 11:05 AM CDT [facility] RDW 12.9 11.9 - 15.5 % 12/06/2023 11:05 AM CDT [facility] Platelets 273 150 - 450 x10(9)/L 12/06/2023 11:05 AM T [facility] Automated NRBC 0 <=0 /100 WBC 12/06/2023 11:05 AM CDT [facility] Neutrophil Absolute 5.8 1.7 - 7.0 10(9)/L 12/06/2023 11:05 AM CDT [facility] Lymphocyte Absolute 1.2 1.0 - 4.8 10(9)/L 12/06/2023 11:05 AM CDT [facility] Monocyte Absolute 0.8 0.2 - 0.9 10(9)/L 12/06/2023 11:05 AM CDT [facility] Eosinophil Absolute 0.1 0.0 - 0.5 10(9)/L 12/06/2023 11:05 AM CDT [facility] Basophil Absolute 0.0 0.0 - 0.3 10(9)/L 12/06/2023 11:05 AM CDT [facility] Immature Granulocyte % 0.3 0.0 - 0.5 % 12/06/2023 11:05 AM CDT [facility] Blood Venipuncture / Unknown 12/06/2023 5:43 AM CDT 12/06/2023 8:55 AM CDT Brody Maki MD LAB_1 [facility] [address] * (ABNORMAL) Hemoglobin in AM POD #1 (12/06/2023 5:43 AM CDT) Hemoglobin 9.6(L) 12.0 - 15.5 g/dL 12/06/2023 6:23 AM CDT [facility] Blood Venipuncture / Unknown 12/06/2023 5:43 AM CDT 12/06/2023 6:06 AM CDT Austin Arizmendi PA-C LAB_1 Performing Organization Address [facility] Phone Number [facility] [address] * XR Knee Rt 2 Views [...] - 40 U/L 12/05/2023 1:14 PM CDT [facility] Blood Venipuncture / Unknown 12/05/2023 12:38 PM CDT 12/05/2023 12:41 PM CDT Austin Arizmendi PA-C LAB_1 Performing Organization Address [facility] Co de Phone Number [facility] [address] * Albumin (12/05/2023 12:38 PM CDT) [facility] Albumin 3.8 3.5 - 5.0 g/dL 12/05/2023 1:14 PM CDT [facility] Blood Venipuncture / Unknown 12/05/2023 12:38 PM CDT 12/05/2023 12:41 PM CDT Austin Arizmendi PA-C LAB_1 Performing Organization Address City/[facility] Co de Phone Number [facility] [address] * INR/Protime (12/05/2023 12:38 PM CDT) [facility] Protime 14.1 11.8 - 14.6 Seconds 12/05/2023 12:57 PM CDT [facility] INR 1.1 0.9 - 1.1 12/05/2023 12:57 PM CDT [facility] Blood Venipuncture / Unknown 12/05/2023 12:38 PM CDT 12/05/2023 12:41 PM CDT Narrative [facility] - 12/05/2023 12:57 PM CDT If you take an anticoagulant medicine called warfarin, your doctor or clinician may establish a normal range for you that is different from the baseline range shown. Austin Arizmendi PA-C LAB_1 Performing Organization Address City/[facility]/ZIP Co de Phone Number [facility] [address] [place] [address] * (ABNORMAL) Basic Metabolic Panel (12/05/2023 6:38 AM CDT) [facility] Sodium 135(L) 136 - 145 mmol/L 12/05/2023 7:13 AM CDT [facility] Potassium 3.4(L) 3.5 - 5.1 mmol/L 12/05/2023 7:13 AM CDT [facility] Chloride 104 98 - 109 mmol/L 12/05/2023 7:13 AM CDT [facility] CO2 22 20 - 29 mmol/L 12/05/2023 7:13 AM CDT [facility] Anion Gap 9 6 - 16 mmol/L 12/05/2023 7:13 AM CDT [facility] Calcium 9.4 8.4 - 10.4 mg/dL 12/05/2023 7:13 AM CDT [facility] BUN 18 7 - 26 mg/dL 12/05/2023 7:13 AM CDT [facility] Creatinine 0.82 0.55 - 1.02 mg/dL 12/05/2023 7:13 AM CDT [facility] Glucose 99 70 - 100 mg/dL 12/05/2023 7:13 AM CDT [facility] Comment:The given reference range is for the fasting state. Non-fasting reference range for glucose is 70 - 180 mg/dL. GFR, Estimated >60 >60 mL/min/1.7 3m2 12/05/2023 7:13 AM CDT [facility] Blood Venipuncture / Unknown 12/05/2023 6:38 AM CDT 12/05/2023 6:41 AM CDT Yanelis Welch MD LAB_1 Performing Organization Address City/[facility] Co de Phone Number [facility] [address] * (ABNORMAL) Hemoglobin for all patients that have a Draw and Hold, Type and Screen, or Type and Cross ordered (12/05/2023 6:38 AM CDT) Hemoglobin 11.3(L) 12.0 - 15.5 g/dL 12/05/2023 6:45 AM CDT [facility] Blood Venipuncture / Unknown 12/05/2023 6:38 AM CDT 12/05/2023 6:41 AM CDT Yanelis Welch MD LAB_1 Performing Organization Address City/[facility] Co de Phone Number [facility] [address] documented in this encounter Visit Diagnoses [...] safe after fall. D: NA comes to designer writer, states patient is sitting on floor in bathroom. Gas Pumping Station Supervisor to bathroom immediately. NA's already have patient standing in bathroom when designer writer arrives. Patient states she got up [...] AM 12/06/2023 * Plan of Care - Jayem Alatorre [facility] - 12/05/2023 12:49 PM CDT [facility] Medication History Note 1. [...] CDT 650 mg BUPivacaine-EPINEPHrine PF (SENSORCAINE) 0.25% -1:620713 39 mL, ketorolac (TORADOL) 15 mg 40 [...] after IV opioid administration. HOLD if on CUTTER APPRENTICE HAND. Use of ORAL opioids is encouraged as [...] in Manage Orders - Provider: Inpatient Template [facility]) ketorolac (TORADOL) injection 15 mg (COMPLETED) [...] in Manage Orders - Provider: Inpatient Template [facility]) magnesium hydroxide (MILK OF MAGNESIA) suspension [...] after IV opioid administration. HOLD if on CUTTER APPRENTICE HAND. Use of ORAL opioids is encouraged as patients anticipate discharge. (IV medications will be discontinued 48 hours post-op.) May give for anticipatory pain (ie prior to therapies, procedures) regardless of current pain score, Post-op 7499 (Given - Provider: Sohan Morataya RN) 0922 [...] after IV opioid administration. HOLD if on CUTTER APPRENTICE HAND. Use of ORAL opioids is encouraged as [...] Post-op documented in this encounter Care Teams Band Presser Relationship Specialty [place] [address] [facility] [place] [address] PCP - General 05/16/10 documented as of this encounter
--- OUTSIDE RECORDS SUMMARY | 2023-12-17 02:51 | XMS_ITS | Encounter Summary ---
Author Organization [employer] [employer] Address [address] [address] Care Team Providers Care Supervisor Erection Shop Name Role Phone Josie Lainez MD Primary Care Provider [phone] Encounter Details Date Type Department Care Team (Late Contact Info) Description 11/24/2023 4:40 PM CDT Lab Visit [facility] [address] [place] [id number] Screen for colon cancer Social History Tobacco [...] (Late Contact Info) Description 12/21/2023 12:45 PM CIRCULAR SAWYER STONE Appointment [facility] [address] [place] [address] Lena Puente 12/28/2023 10:00 AM CIRCULAR SAWYER STONE Appointment [facility] [address] [place] [address] 01/19/2024 11:30 AM CIRCULAR SAWYER STONE Appointment [facility] [address] [place] [address] Yanelis Welch MD [address] [facility] [address] [place] [address] documented as of this encounter Goals Goal [...] 1 Negative Negative 11/25/2023 2:16 AM CDT [facility] Stool Non-blood Collection / Unknown 11/24/2023 8:00 AM CDT 11/24/2023 3:46 PM CDT Josie Lainez MD LAB_1 Performing Organization Address City/State/[facility] Co de Phone Number [facility] [address] documented in this encounter Visit Diagnoses Diagnosis Screen for colon cancer Special screening for malignant neoplasms, colon documented in this encounter Additional Health Concerns Active Problems Noted Date Diagnosed Date ET PROE SHELL PROBLEM TEMPLATE 08/05/2023 ET PROE RIGHT KNEE 08/05/2023 ET PROE GENERAL OUTCOMES KNEE REPLACEMENT - RIGH T 08/05/2023 documented as of this encounter Care Teams Supervisor Erection Shop Relationship Specialty [place] [address] [facility] [place] [address] PCP - General 05/16/10 documented as of this encounter
--- OUTSIDE RECORDS SUMMARY | 2023-12-17 02:51 | XMS_ITS | Encounter Summary ---
Author Organization [employer] Address [address], [place] [address] Care Team Providers Care Therapeutic Strategy Lead Name Role Phone Joise Lainez MD Primary Care Provider [phone] Encounter Details Date Type Department Care Team (Late st Contact Info) Description 11/16/2023 1:50 PM CDT Lab Visit [facility] [address] [place] [address] Hyperlipidemia, unspecified hyperlipidemia type (HRC); [...] st Contact Info) Description 12/21/2023 12:45 PM PHYSICIAN VICE PRESIDENT Appointment [facility] [address] [place] [address] Lena Puente 12/28/2023 10:00 AM PHYSICIAN VICE PRESIDENT Appointment [facility] [address] [place] [address] 01/19/2024 11:30 AM PHYSICIAN VICE PRESIDENT Appointment [facility] [address] [place] [address] Yanelis Welch MD [address] [facility] [address] [place], [place] [address] documented as of this encounter Goals Goal [...] CDT Josie Lainez MD LAB_1 [facility] [address] [facility] [place] [address] * ALT (SGPT) (11/16/2023 1:50 PM CDT) ALT (SGPT) 12 <=55 U/L 11/16/2023 8:00 PM CDT [facility] Blood Venipuncture / Unknown 11/16/2023 1:50 PM CDT 11/16/2023 1:50 PM CDT Josie Lainez MD LAB_1 [facility] [address] documented in this encounter Visit Diagnoses Diagnosis Hyperlipidemia, unspecified hyperlipidemia type (HRC) Essential hypertension (HRC) Unspecified essential hypertension documented in this encounter Additional Health Concerns Active Problems Noted Date Diagnosed Date ET PROE SHELL PROBLEM TEMPLATE 08/05/2023 ET PROE RIGHT KNEE 08/05/2023 ET PROE GENERAL OUTCOMES KNEE REPLACEMENT - RIGH T 08/05/2023 documented as of this encounter Care Teams Therapeutic Strategy Lead Relationship Specialty [place] [address] [place] [address] PCP - General 4/2/11 documented as of this encounter
--- OUTSIDE RECORDS SUMMARY | 2023-12-17 02:51 | XMS_ITS | Clinical Summary ---
Author Organization [facility] Address [address], [place] [address] Care Team Providers Care Oral Surgery Technician Name Role Phone Josie Lainez MD Primary Care Provider [phone] Source Comments You are receiving this document as you are listed as the primary care provider,follow-up provider, or the patient has been referred to you for consultation.This is in compliance with the Medicare and[facility] Hospital[facility] EHR Incentive Program,which states Providers who transition their patient to another setting of careor provider of care or refers their patient to another provider of care shouldprovide summary care record for each transition of care or referral. Out[employer] Allergies No known active allergies Medications Medication [...] replacement Overview (12/05/2023): By Dr. Welch at [facility]. S/P total knee arthroplasty, right 12/05/2023 [...] (transient ischemic attack), dysarthria, ataxia, hosp at [facility], 10/25 Major depressive disorder, r ecurrent episode, [...] Type Department Care Team Description 12/16/2023 Refill [facility] [address] [place] [address] Yanelis Welch MD Refill (dilaudid) 12/12/2023 Telephone Orthopedics at [facility] Orthopedics at [place] [address] [place] [address] [place] [address] Yanelis Welch MD Post-Op Follow Up Call 12/05/2023 7:27 AM CDT Anesthesia Event [facility] [address] [facility] [place] [address] Haris Fonseca MD 12/05/2023 7:00 AM CDT - 12/05/2023 9:25 AM CDT Surgery [facility] [address] [place] [address] Yanelis Welch MD TOTAL KNEE JOINT REPLACEMENT 12/05/2023 5:08 AM CDT - 12/09/2023 2:08 PM CDT Hospital Encounter [facility] [address] [place] [address] Yanelis Welch MD Status post total right knee replacement (Primary Dx); Hx of transient ischemic attack (TIA) Discharge Disposition: Home 12/05/2023 Orders Only [facility] DEPARTMENT Provider, MD Gisell 11/24/2023 4:40 PM CDT Lab Visit [facility] [address] [place] [address] Screen for colon cancer 11/18/2023 [facility]-Visit [facility] [address] [place] [address] Mychart, Generic Provider 11/17/2023 2:45 PM CDT Therapy [facility], Physical Therapy [address] [place] [address] Shannan Locke PT Right knee pain, unspecified chronicity (Primary Dx) 11/17/2023 10:00 AM CDT Phone Visit Orthopedics at [facility] Orthopedics at [place] [address] [place] [address] Nurse, [id number] Ortho Encounter for education (Primary Dx) 11/16/2023 1:50 PM CDT Lab Visit [facility] [address] [place] [address] Hyperlipidemia, unspecified hyperlipidemia type (HRC); Essential hypertension (HRC) 11/16/2023 1:00 PM CDT Pre-Op Visit [facility] [address] [place] [address] Josie Lainez MD Preop examination (Primary Dx); Chronic low back pain with left-sided sciatica, unspecified back pain laterality (HRC); Essential hypertension (HRC); LBBB (left bundle branch block); Thrombocythemia; Major depressive disorder, recurrent episode, in full remission (HRC); Screening examination for infectious disease; Hx of transient ischemic attack (TIA); Lumbar radiculopathy 10/26/2023 Telephone [facility] [address] [facility] [place] [address] Lucia Casey MD Appt. Needed 09/17/2023 Telephone [facility] [address] [place] [address] Josie Lainez MD Medication Questions 09/16/2023 Telephone [facility] [address] [place] [address] Josie Lainez MD COVID from Last 3 Months Immunizations Name Administration Dates Next Due Flu Vac Preserv Free (3+yrs) 11/19/2011, 11/27/2009,01/03/2006,2004 H1n1 Miv Sanofi 3+ Yr (Injected) 01/22/2009 Influenza IIV3 (Trivalent) F luzone Highdose, 65+ Yrs (17106) 01/01/2020,12/11/2017,01/26/2017 Influenza IIV4 (Quadrivalent ) 0.5mL (09840) 12/31/2014,12/18/2013 Influenza IIV4 (Quadrivalent ) Fluad, 65+ [...] = 0.6 oz pur e alcohol) Occasional [employer] Utilities Answer Date Recorded In the past 12 months has e [employer], gas, oil, or water Medication Review threatened to shut off services in your [...] in the past 12 m [facility], were you homeless or living in a prison (including now)? No 12/05/2023 Sex and Gender [...] st Contact Info) Description 12/21/2023 12:45 PM ANALYST SALES Appointment [facility] [address] [place] [address] L[place] Puente 12/28/2023 10:00 AM ANALYST SALES Appointment [facility] [address] [place] [address] 01/19/2024 11:30 AM ANALYST SALES Appointment [facility] [address] [place], [place] [address] Yanelis Welch MD [address] [facility] [address] [place] [address] Health Maintenance Due Date Last Done Comments [...] [employer] Implanted Type Area Computer Drafter Device Identifier Shelf Expiration Date Model / Serial / Lot Perry Bone Biomet R 1x40 - [id number] Implanted:Qty: 2 on 12/05/2023 by Yanelis Welch MD at [facility] DEVICE Right: KNEE [employer] 01/13/2026 [id number] / / [id number] Comp Fem Ps Ccr Ps Allan Sz10 Rt - [id number] Implanted:Qty: 1 on 12/05/2023 by Yanelis Welch MD at [facility] DEVICE Right: KNEE [employer] 06/26/2033 [id number] / / [id number] Patella All Poly Ply 32mm - [id number] Implanted:Qty: 1 on 12/05/2023 by Yanelis Welch MD at [facility] DEVICE Right: KNEE [employer] 08/09/2028 [id number] / / [id number] Asf Ps Poly 10mm Rt 10 - [id number] Implanted:Qty: 1 on 12/05/2023 by Yanelis Welch MD at [facility] DEVICE Right: KNEE [employer] 12/24/2027 [id number] / / [id number] Stem Tib 5deg Tamia Rt - [id number] Implanted:Qty: 1 on 12/05/2023 by Yanelis Welch MD at [facility] DEVICE Right: KNEE [employer] 10/03/2033 [id number] / / [id number] Procedures Procedure Name Priority Date/Time Associated Diagnosis [...] - 15.5 g/dL 12/08/2023 10:44 AM CDT [facility] Blood Venipuncture / Unknown 12/08/2023 10:05 AM CDT 12/08/2023 10:35 AM CDT Sonny Mckinley PA-C LAB_1 [facility] [address] [place] [address], [facility] * XR Knee Rt 2 Views (12/07/2023 3:41 AM CDT) Only the most recent of2 resultswithin the time period is included. Anatomical Region Laterality Modality Lower Extremity, Knee Digital Ra diography 12/07/2023 3:41 AM CDT Narrative 12/07/2023 3:52 AM CDT EXAM: XR KNEE RT 2 VIEWS LOCATION: [facility] DATE: 12/07/2023 INDICATION: Fall, pain [...] EXAM: XR KNEE RT 2 VIEWS LOCATION: [facility] DATE: 12/07/2023 INDICATION: Fall, pain [...] - 10.5 x10(9)/L 12/06/2023 11:05 AM CDT [facility] RBC 2.90(L) 3.90 - 5.03 x10(12)/L 12/06/2023 11:05 AM CDT [facility] Hemoglobin 10.3(L) 12.0 - 15.5 g/dL 12/06/2023 11:05 AM CDT [facility] HCT 30.1(L) 34.9 - 44.5 % 12/06/2023 11:05 AM CDT [facility] MCV 103.8(H) 80.0 - 100.0 fL 12/06/2023 11:05 AM CDT [facility] MCH 35.5(H) 27.6 - 33.3 pg 12/06/2023 11:05 AM CDT [facility] MCHC 34.2 31.5 - 35.2 g/dL 12/06/2023 11:05 AM CDT [facility] RDW 12.9 11.9 - 15.5 % 12/06/2023 11:05 AM CDT [facility] Platelets 273 150 - 450 x10(9)/L 12/06/2023 11:05 AM CDT [facility] Automated NRBC 0 <=0 /100 WBC 12/06/2023 11:05 AM CDT [facility] Neutrophil Absolute 5.8 1.7 - 7.0 10(9)/L 12/06/2023 11:05 AM CDT [facility] Lymphocyte Absolute 1.2 1.0 - 4.8 10(9)/L 12/06/2023 11:05 AM CDT [facility] Monocyte Absolute 0.8 0.2 - 0.9 10(9)/L 12/06/2023 11:05 AM CDT [facility] Eosinophil Absolute 0.1 0.0 - 0.5 10(9)/L 12/06/2023 11:05 AM CDT [facility] Basophil Absolute 0.0 0.0 - 0.3 10(9)/L 12/06/2023 11:05 AM CDT [facility] Immature Granulocyte % 0.3 0.0 - 0.5 % 12/06/2023 11:05 AM CDT [facility] Blood Venipuncture / Unknown 12/06/2023 5:43 AM CDT 12/06/2023 8:55 AM CDT Brody Maki MD LAB_1 [facility] [address] [place], [place] [address] * AST (12/05/2023 12:38 PM CDT) AST (SGOT) 20 10 - 40 U/L 12/05/2023 1:14 PM CDT [facility] Blood Venipuncture / Unknown 12/05/2023 12:38 PM CDT 12/05/2023 12:41 PM CDT Austin Arizmendi PA-C LAB_1 Performing Organization Address [facility] de Phone Number [facility] [address] * Albumin (12/05/2023 12:38 PM CDT) Albumin 3.8 3.5 - 5.0 g/dL 12/05/2023 1:14 PM CDT [facility] Blood Venipuncture / Unknown 12/05/2023 12:38 PM CDT 12/05/2023 12:41 PM CDT Austin Arzimendi PA-C LAB_1 Performing Organization Address [facility] Phone Number [facility] [address] * INR/Protime (12/05/2023 12:38 PM CDT) Protime 14.1 11.8 - 14.6 Seconds 12/05/2023 12:57 PM CDT [facility] INR 1.1 0.9 - 1.1 12/05/2023 12:57 PM CDT [facility] Blood Venipuncture / Unknown 12/05/2023 12:38 PM CDT 12/05/2023 12:41 PM CDT Narrative [facility] - 12/05/2023 12:57 PM CDT If you take an anticoagulant medicine called warfarin, your doctor or clinician may establish a normal range for you that is different from the baseline range shown. Austin Arizmendi PA-C LAB_1 Performing Organization Address [facility] Phone Number [facility] [address] * SPINAL BLOCK (12/05/2023 7:45 AM [...] and redirected) Monitoring: continuous pulse ox and child monitor CSF: ??adequate CSF flow from spinal [...] - 145 mmol/L 12/05/2023 7:13 AM CDT [facility] Potassium 3.4(L) 3.5 - 5.1 mmol/L 12/05/2023 7:13 AM CDT [facility] Chloride 104 98 - 109 mmol/L 12/05/2023 7:13 AM CDT [facility] CO2 22 20 - 29 mmol/L 12/05/2023 7:13 AM CDT [facility] Anion Gap 9 6 - 16 mmol/L 12/05/2023 7:13 AM CDT [facility] Calcium 9.4 8.4 - 10.4 mg/dL 12/05/2023 7:13 AM CDT [facility] BUN 18 7 - 26 mg/dL 12/05/2023 7:13 AM CDT [facility] Creatinine 0.82 0.55 - 1.02 mg/dL 12/05/2023 7:13 AM CDT [facility] Glucose 99 70 - 100 mg/dL 12/05/2023 7:13 AM CDT [facility] Comment:The given reference range is for the fasting state. Non-fasting reference range for glucose is 70 - 180 mg/dL. GFR, Estimated >60 >60 mL/min/1.7 3m2 12/05/2023 7:13 AM CDT [facility] Blood Venipuncture / Unknown 12/05/2023 6:38 AM CDT 12/05/2023 6:41 AM CDT Yanelis Welch MD LAB_1 Performing Organization Address City/[facility]/ZIP Co de Phone Number [facility] [address] * EKG (12/05/2023) Interface Provider EKG * FIT Colon Rectal Cancer Screening (11/24/2023 8:00 AM CDT) FIT Specimen 1 Negative Negative 11/25/2023 2:16 AM CDT [facility] Stool Non-blood Collection / Unknown 11/24/2023 8:00 AM CDT 11/24/2023 3:46 PM CDT Josie Lainez MD [facility] [address] * (ABNORMAL) Complete Blood Count-No Diff [...] CDT Josie Lainez MD LAB_1 [facility] [address] [place] [address] * ALT (SGPT) (11/16/2023 1:50 PM CDT) ALT (SGPT) 12 <=55 U/L 11/16/2023 8:00 PM CDT [facility] Blood Venipuncture / Unknown 11/16/2023 1:50 PM CDT 11/16/2023 1:50 PM CDT Josie Lainez MD LAB_1 Performing Organization Address [facility] Co de Phone Number [facility] [address] [place] [address], [facility] * ECG 12 Lead Outpatient (11/16/2023 1:46 PM CDT) Ventricular Rate 66 BPM [facility] Atrial Rate 66 BPM [facility] P-R Interval 184 ms [facility] QRS Duration 204 ms [facility] QT 518 ms [facility] QTc 543 ms [facility] P [place] -4 degrees [facility] R [place] -78 degrees [facility] T [place] 79 degrees [facility] 11/16/2023 1:46 PM [...] MD PN ECG ORDERABLES Performing Organization Address City/[facility]/ZIP Co de Phone Number [facility] [address] [place] [address] * MRSA/MSSA Pre-Op Culture (11/16/2023 1:05 PM CDT) Staph aureus Culture (SACUL) No Staphylococcus aureus Isolated 11/18/2023 11:48 AM CDT [facility] Swab (Source Required) ENTIRE ANTERIOR NARIS / Unknown Non-blood Collection / Unknown 11/16/2023 1:05 PM CDT 11/16/2023 1:06 PM CDT Yanelis Welch MD LAB_[address] [address], [facility] * (ABNORMAL) Lipid Panel and Direct LDL(If Needed) (09/06/2023 1:56 PM CDT) Cholesterol 215(H) 0 - 199 mg/dL 09/06/2023 3:23 PM CDT [facility] Triglyceride 67 <=149 mg/dL 09/06/2023 3:23 PM [facility] HDL Cholesterol 57 >=40 mg/dL 3:23 PM [facility] LDL, Calculated 145(H) <130 mg/dL 3:23 PM [facility] Non HDL Chol, Calculated 158 <=159 mg/dL 09/06/2023 3:23 PM [facility] Cholesterol/HDL Ratio 3.8 <=5.0 09/06/2023 3:23 PM [facility] Hours Fasting 12.0 8 - 12 Hours 09/06/2023 3:23 PM [facility] Blood Venipuncture / Unknown 09/06/2023 1:56 PM CDT 09/06/2023 1:56 PM CDT Josie Lainez MD LAB_1 Performing Organization Address City/[facility]/ZIP Co de Phone Number [facility] [address] [place] [address] * Hgb A1C (09/06/2023 1:56 PM CDT) Hemoglobin A1C (Rapid) 5.2 <=5.6 % 09/06/2023 3:23 PM T [facility] Estimated Average Glucose (Calc) 103 < 117 mg/dL 09/06/2023 3:23 PM [facility] Comment:Estimated average gl ucose (eAG) converts A1c into glucose units (mg/dL) and estimates average glucose over the past approximately 3 months. The eAG reference interval (<117 mg/dL) corresponds to an A1c of <5.7%. Blood Venipuncture / Unknown 09/06/2023 1:56 PM CDT 09/06/2023 1:56 PM CDT Narrative [facility] - 09/06/2023 3:23 PM CDT The test method used for this Hemoglobin A1c result can experience interference from elevated hemoglobin and other hemoglobin variants. In patients with results that do not correlate clinically, contact the lab for further direction. Josie Lainez MD LAB_1 [facility] [address] [place] [address] * MM Mammogram Screening Bilat W CAD [...] DXA REPORT Patient Name: ??Isamar Britt Rich [place]: ??James Perez MD Densitometer: ??Hologic [employer] W (S/N [id number]) SOMMER BONE OSTEOPOROSIS RISK FACTORS FROM PATIENT [...] trabecular bone, and is derived from the qlcnz-pm-dbkih changes of bone density embedded in the [...] 3:50 PM 03/13/2012 8:48 PM Care Teams Oral Surgery Technician Relationship Specialty [place] [address] [facility] [place] [address] PCP - General 05/16/10
--- OUTSIDE RECORDS SUMMARY | 2023-12-17 02:51 | XMS_ITS | Encounter Summary ---
Author Organization [facility] Address [address], [place] [address] Care Team Providers Care Water Jet Operator Name Role Phone Josie Lainez MD Primary Care Provider [phone] Reason for Visit * Reason Comments EDUCATION, PATIENT, NOS Preoperative Tot al Knee Replacement Encounter Details Date Type Department Care Team (Late st Contact Info) Description 11/17/2023 10:00 AM CDT Phone Visit Orthopedics at [facility] Orthopedics at [address] [address] Nurse, [phone] Ortho Encounter for education (Primary [...] patient is responsible for returning it to [facility] Orthopedics when they are done using [...] of adverse reaction to metals or jewelry. Coating Machine Feeder: Coating Machine Feeder Name: Vielka Briggs and 3 very good friends from latter-day Relationship to the patient: Son and daughter in law The patient is aware that choosing a women's soccer coach is very important. The women's soccer coach needs to be available for pre [...] caffeine, and alcohol products prior to surgery. Anabaptism or cultural practices hospital staff to be aware of: yes, I am a Church. I am a believer. I will leave [...] st Contact Info) Description 12/21/2023 12:45 PM HAND II BLOCKER Appointment [facility] [address] [place] [address] Lena Puente 12/28/2023 10:00 AM HAND II BLOCKER Appointment [facility] [address] [place] [address] 01/19/2024 11:30 AM HAND II BLOCKER Appointment [facility] [address] [place] [address] Yanelis Welch MD [address] [facility] [address] [place] [address] documented as of this encounter Goals Goal [...] documented as of this encounter Care Teams Water Jet Operator Relationship Specialty [place] [address] [facility] [place] [address] PCP - General 05/16/10 documented as of this encounter
--- OUTSIDE RECORDS SUMMARY | 2023-12-17 02:51 | XMS_ITS | Encounter Summary ---
Author Organization [employer] Address [address] [address] Care Team Providers Care Mold Maker Apprentice Name Role Phone Josie Lainez MD Primary Care Provider [phone] Reason for Visit * Reason Comments Post-Op Follow Up Call Encounter Details Date Type Department Care Team (Late st Contact Info) Description 12/12/2023 Telephone Orthopedics at [facility] Orthopedics at [place] [address] [place] [address] Yanelis Welch MD [address] [place] [address] [address] [place], [place] [address] Post-Op Follow Up Call Social History Tobacco Use Types Packs/Day Years Used Date Smoking Tobacco: Never Smokeless Tobacco: Never Comments:None Alcohol Use Standard Drinks/Week Comments Not Currently 0 (1 standard drink = 0.6 oz pur e alcohol) Occasional C Utilities Answer Date Recorded In the past 12 months has [employer], gas, oil, or water company threatened [...] any time in the past 12 m [facility], were you homeless or living in a [...] st Contact Info) Description 12/21/2023 12:45 PM CORPORATE ASSOCIATE ATTORNEY Appointment [facility] [place] [address] [place] [address] L[place] Puente 12/28/2023 10:00 AM CORPORATE ASSOCIATE ATTORNEY Appointment [facility] [address] [place] [address] 01/19/2024 11:30 AM CORPORATE ASSOCIATE ATTORNEY Appointment [facility] [address] [place] [address] Yanelis Welch MD [address] [facility] [address] [place] [address] documented as of this encounter Goals Goal [...] documented as of this encounter Care Teams Mold Maker Apprentice Relationship Specialty [place] [address] [facility] [place] [address] PCP - General 05/16/10 documented as of this encounter
--- OUTSIDE RECORDS SUMMARY | 2023-12-17 02:51 | XMS_ITS | Encounter Summary ---
Author Organization [employer] Address [address] [place] [address] Care Team Providers Care Care Management Coordinator Name Role Phone Josie Lainez MD Primary Care Provider [phone] Encounter Details Date Type Department Care Team (Latest Contact Info) Description 12/05/2023 Orders Only [facility] DE[facility] Provider, [place] [address] Social History Tobacco Use Types Packs/Day Years Used Date Smoking Tobacco: Never Smokeless Tobacco: Never Comments:None Alcohol Use Standard Drinks/Week Comments Not Currently 0 (1 standard drink = 0.6 oz pur e alcohol) Occasional [facility] Utilities Answer Date Recorded In the past 12 months has e [employer], gas, oil, or water [employer] threatened to shut off services in your [...] were you homeless or living in a care home (including now)? No 12/05/2023 Sex and Gender Information Value Date Recorded Sex Assigned at Not on file Gender Identity Not on file Sexual Orientation Not on file documented as of this encounter Plan of Treatment Upcoming Encounters Date Type Department Care Team (Late st Contact Info) Description 12/21/2023 12:45 PM CLIENT COORDINATOR Appointment [facility] [address] [place] [address] Lena Puente 12/28/2023 10:00 AM CLIENT COORDINATOR Appointment [facility] [address] [place] [address] 01/19/2024 11:30 AM CLIENT COORDINATOR Appointment [facility] [address] [place] [address] Yanelis Welch MD [address] [facility] [address] [place] [address] documented as of this encounter Goals Goal [...] documented as of this encounter Care Teams Care Management Coordinator Relationship Specialty [place] [address] [facility] [place] [address] PCP - General 05/16/10 documented as of this encounter
--- OUTSIDE RECORDS SUMMARY | 2023-12-17 02:51 | XMS_ITS | Encounter Summary ---
Author Organization [employer] Address [address] [address] Care Team Providers Care Concrete Foreman Name Role Phone Josie Lainez MD Primary Care Provider [phone] Reason for Visit * Auth/Cert (Routine) Specialty Diagnoses / Procedures Referred By Contac t Referred To Contact Diagnoses Primary osteoarthritis of right knee Procedures TOTAL KNEE JOINT REPLACEMENT Referral ID Status Reason Start Date Expiration Date Visits Re quested Visits Authorized [id number] 1 1 Encounter Details Date Type Department Care Team (Late st Contact Info) Description 12/05/2023 7:27 AM CDT Anesthesia Event [facility] [address] [facility] [place], [place] [address] Haris Fonseca MD [address] [place], [place] [id number] Anesthesia Record Procedure Summary Procedure Name Responsible [...] report Electronically signed by Suzette Finney APRN, SEEING EYE DOG TEACHER [id number] [facility] transferre d. Meds Name Total midazolam injection [...] = 0.6 oz pur e alcohol) Occasional [facility] Utilities Answer Date Recorded In the past 12 months has [employer], gas, oil, or water [employer] threatened to shut off services in your [...] any time in the past 12 m [facility], were you homeless or living in a half-way (including now)? No 12/05/2023 Sex and Gender Information Value Date Recorded Sex Assigned at Not on file Gender Identity Not on file Sexual Orientation Not on file documented as of this encounter Miscellaneous Notes * Anesthesia Postprocedure Evaluation - Haris Fonseca MD - 12/05/2023 11:22 AM CDT [facility] Anesthesia Post-op Note Patient: Isamar Rich Post-Op [...] and redirected) Monitoring: continuous pulse ox and blackjack dealer CSF: adequate CSF flow from spinal needle [...] Fonseca MD - 12/05/2023 6:54 AM CDT [facility] Anesthesia Pre-op Evaluation Procedure: TOTAL KNEE JOINT [...] (transient ischemic attack), dysarthria, ataxia, [facility], 10/2511/06/2010 Patient Active Problem List Diagnosis Hyperlipidemia [...] st Contact Info) Description 12/21/2023 12:45 PM TIE UP WORKER Appointment [facility] [address] [place] [address] Lena Puente 12/28/2023 10:00 AM TIE UP WORKER Appointment [facility] [address] [place] [address] 01/19/2024 11:30 AM TIE UP WORKER Appointment [facility] [address] [place] [address] Yanelis Welch MD [address] [facility] [address] [place] [address] documented as of this encounter Goals Goal [...] and redirected) Monitoring: continuous pulse ox and blackjack dealer CSF: ??adequate CSF flow from spinal needle [...] For 1 dose, To be given by SEEING EYE DOG TEACHER in [place] prior to induction. DO NOT [...] mg/minute. To be given in OR by SEEING EYE DOG TEACHER prior to incision. Re-dose 1000 mg IV [...] documented as of this encounter Care Teams Concrete Foreman Relationship Specialty [place] [address] [facility] [place] [address] PCP - General 05/16/10 documented as of this encounter
--- OUTSIDE RECORDS SUMMARY | 2023-12-17 02:51 | XMS_ITS | Encounter Summary ---
Author Organization [employer] Address [address], [place] [address] Care Team Providers Care Disability Examiner Name Role Phone Josie Lainez MD Primary Care Provider [phone] Reason for Visit * Reason Comments Refill dilaudid Encounter Details Date Type Department Care Team (Late st Contact Info) Description 12/16/2023 Refill [facility] [address] [place] [address] Yanelis Welch MD [address] [facility] [address] [place], [place] [address] Refill (dilaudid) Social History Tobacco Use Types Packs/Day Years Used Date Smoking Tobacco: Never Smokeless Tobacco: Never Comments:None Alcohol Use Standard Drinks/Week Comments Not Currently 0 (1 standard drink = 0.6 oz pur e alcohol) Occasional [facility] Utilities Answer Date Recorded In the past 12 months has [employer], gas, oil, or water [employer] threatened to shut off services in your [...] any time in the past 12 m [facility], were you homeless or living in a [place] [facility] [place] [facility] (including now)? No 12/05/2023 Sex and Gender [...] Twice a day (BID) Pharmacy (if applicable): [facility] [address] [place] [address] [address] How many doses do you have left: 5 tabs left Comments: N/A Is another medication refill needed: No If we are unable to reach you can we leave a detailed message on your voicemail? Yes If we are unable to reach you can we send you a message in [employer]? Yes [Cabana Attendant/Explosive Specialist: Relay to patient; We make every effort [...] can we send you a message in [employer]? Yes [Cabana Attendant/Explosive Specialist: Relay to patient; We make every effort to get back to you sameday, however it may take 1-2 business days depending on the nature of the communication.] documented in this encounter Plan of Treatment Upcoming Encounters Date Type Department Care Team (Late st Contact Info) Description 12/21/2023 12:45 PM TISSUE TECHNOLOGIST Appointment [facility] [address] [place] [address] Lena Puente 12/28/2023 10:00 AM TISSUE TECHNOLOGIST Appointment [facility] [address] [place] [address] 01/19/2024 11:30 AM TISSUE TECHNOLOGIST Appointment [facility] [address] [place] [address] Yanelis Welch MD [address] [facility] [address] [place] [address] documented as of this encounter Goals Goal [...] documented as of this encounter Care Teams Disability Examiner Relationship Specialty [place] [address] [facility] [place] [address] PCP - General 05/16/10 documented as of this encounter
--- OUTSIDE RECORDS SUMMARY | 2023-12-17 02:51 | XMS_ITS | Encounter Summary ---
Author Organization [employer] Address [address] [address] Care Team Providers Care Hand Surgeon Name Role Phone Josie Lainez MD Primary Care Provider [phone] Reason for Referral * Procedure/Equipment (Routine) - Incomplete Specialty Diagnoses / Procedures Referred By Contac t Referred To Contact Procedures XR Knee Rt 2 Views Yanelis Welch MD [address] [facility] [address] [place] [address] Referral ID Status Reason Start Date Expiration Date V isits Requested Visits Authorized [id number] Incomplete 12/07/2023 03/07/2025 1 1 * Therapies (Routine) - New Request Specialty Diagnoses / Procedures Referred By Contac t Referred To Contact Diagnoses Status post total right knee replacement Sonny Mckinley, PAWandaC [address] [place] [address] Referral ID Status Reason Start Date Expiration Date V isits Requested Visits Authorized [id number] New Request 12/05/2023 12/04/2024 1 1 Scheduling Instructions Your clinician has recommended an appointment with Physical Therapy and Rehabilitation Services. You can quickly schedule your appointment by signing in to your online account at [email or web address] or through the text message you may have received. You can also make an appointment by calling [phone]. We suggest you call your health insurance [...] Knee Rt 2 Views Austin Arizmendi PA-C [address] [facility] [address] [place] [id number] Referral ID Status Reason Start Date Expiration Date V isits Requested Visits Authorized [id number] Incomplete 12/05/2023 03/05/2025 1 1 * (Routine) - New Request Specialty Diagnoses / Procedures Referred By Contac t Referred To Contact Procedures Issue Appropriate Assistive Device as Needed on Discharge Austin Arizmendi PA-C [address] [address] Referral ID Status Reason Start Date Expiration Date V isits Requested Visits Authorized [id number] New Request 12/05/2023 03/05/2025 1 1 * (Routine) - New Request Specialty Diagnoses / Procedures Referred By Contac t Referred To Contact Procedures Physical Therapy Eval and Treat twice a day beginning Today Austin Arizmendi PA-C [address] [address] Referral ID Status Reason Start Date Expiration Date V isits Requested Visits Authorized [id number] New Request 12/05/2023 03/05/2025 1 1 Reason for Visit * Auth/Cert (Routine) Specialty Diagnoses / Procedures Referred By Dominique t Referred To Contact Diagnoses Primary osteoarthritis of right knee Procedures TOTAL KNEE JOINT REPLACEMENT Referral ID Status Reason Start Date Expiration Date Visits Re quested Visits Authorized [id number] 1 1 Encounter Details Date Type Department Care Team (Late st Contact Info) Description 12/05/2023 5:08 AM CDT - 12/09/2023 2:08 PM CDT Hospital Encounter [place] [address] [place] [address] [place], [place] [address] Yanelis Welch MD [address] [facility] [address] [place], [place] [address] Status post total right knee replacement (Primary Dx); Hx of transient ischemic attack (TIA) Discharge Disposition: Home Social History Tobacco Use Types Packs/Day Years Used Date Smoking Tobacco: Never Smokeless Tobacco: Never Comments:None Alcohol Use Standard Drinks/Week Comments Not Currently 0 (1 standard drink = 0.6 oz pur e alcohol) Occasional [facility] Utilities Answer Date Recorded In the past 12 months has e [employer], gas, oil, or water [employer] threatened to shut off services in your [...] any time in the past 12 m [facility], were you homeless or living in a snf (including now)? No 12/05/2023 Sex and Gender [...] Your Medications These medications were sent to [facility] [address] [place], [place] [id number] Hours: Open 24x7 enoxaparin 40 MG/0.4ML prefilled [...] Maki. He spoke with neurology & heme/onc. [place] to be safe holding Plavix whileon ortho [...] hoses with plug, and inner wrap, to [facility] according to the rental agreement. Eat [...] surgical and wound concerns Order Comments: Call [phone] (orthopedic triage nurse line) 8:00 AM to 5:00 PM Tuesday-Tuesday. Call [phone] (Orthopedic office) evening hours, weekend and holidays. Not all post-operative infections can be prevented, but early detection and proper treatment can prevent major catastrophes. Do not start antibiotics for incision infections without contacting the orthopedic surgeon first. IF in doubt, call the orthopedic surgeon. For non-urgent orthopedic questions Order Comments: Call [facility] Orthopedic Nurse Triage at [phone] Tuesday-Tuesday 8:00 AM to 5:00 PM. Pain [...] incentive spirometer use *Practice good oral care. Aldrich your teeth and use mouthwash twice daily. [...] sennaincluding possible side effects. Prescriptions filled by [facility] pharmacy. Belongings checklist reviewed with patient and [...] dc from medicine perspective. 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 Social Determinants of Health adding to complexity of care: None Consults/Care Discussions: Clinicians: orthopedic surgery Notes Reviewed: 7 Labs and tests reviewed: 0 Drug therapy requiring intensive monitoring for toxicity: none Brody Maki MD [phone] Billing based on: Complexity Complexity: MDM Level: [...] thrombosis (DVT) of lower extremity ([facility]) 11/17/2023 Small clot in her leg after surgery Coagulation defect ([facility]) 1981 Primary thrombocytosis Floaters 2010 Hyperlipidemia 07/21/2002 Hypertension 11/26/2003 Major depressive disorder, recurrent episode, in full remission ([facility]) 10/13/2010 Migraine Common 06/26/2008 Pulmonary Nodule 06/26/2008 Rhinitis Allergic NOS 07/21/2002 Right arm numbness 09/01/2020 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 Welch at [facility]. Thrombocythemia 11/13/2010 TIA (transient ischemic attack), dysarthria, ataxia, hosp [facility], 10/2511/06/2010 Subjective/General Information Reason for admit/therapy consult: s/p TOTAL KNEE JOINT REPLACEMENT (Right: Knee) on 12/05/23 Living Arrangements: Alone, Condo (Patient states her son can help her at home.) Home Accessibility: wheelchair accessible (Can use elevator.) Prior equipment mobility: Walker, 2 wheeled Prior equipment ADL: Shower chair, Archives Director Prior level of function details: Enjoys walking [...] [facility] Care Management Inpatient Note Plan: Expected Discharge [...] patient therapy scheduled near her home in [place], and she prefers to keep this plan. [...] over night. Pt will update terri; this information writer obtained permission from pt to speak [...] now. Pt and/or sister will notify this information writer if there are any concerns and/or [...] Maki. He spoke with neurology & heme/onc. 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 Social Determinants of Health adding to complexity of care: None Consults/Care Discussions: Clinicians: orthopedic surgery Notes Reviewed: 7 Labs and tests reviewed: 1 Drug therapy requiring intensive monitoring for toxicity: none Brody Maki MD [phone] Billing based on: Complexity Complexity: MDM Level: [...] thrombosis (DVT) of lower extremity ([facility]) 11/17/2023 Small clot in her leg after surgery Coagulation defect ([facility]) 1981 Primary thrombocytosis Floaters 2010 Hyperlipidemia 07/21/2002 Hypertension 11/26/2003 Major depressive disorder, recurrent episode, in full remission ([facility]) 10/13/2010 Migraine Common 06/26/2008 Pulmonary Nodule 06/26/2008 Rhinitis Allergic NOS 07/21/2002 Right arm numbness 09/01/2020 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 Welch at [facility]. Thrombocythemia 11/13/2010 TIA (transient ischemic attack), dysarthria, ataxia, hosp [facility], 10/2511/06/2010 Subjective/General Information Reason for admit/therapy consult: s/p TOTAL KNEE JOINT REPLACEMENT (Right: Knee) on 12/05/23 Living Arrangements: Alone, Condo (Patient states her son can help her at home.) Home Accessibility: wheelchair accessible (Can use elevator.) Prior equipment mobility: Walker, 2 wheeled Prior equipment ADL: Shower chair, Archives Director Prior level of function details: Enjoys walking [...] mobility with standby assist in 3 days. long term care social worker goal: Patient will maximize independence and safety [...] Maki. He spoke with neurology & heme/onc. [place] to be safe holding Plavix whileon ortho [...] RN - 12/06/2023 10:34 PM CDT 12/05 3700- 2330 Clinical Goals and Progression: Pt's pain/nausea [...] drink electrolyte containing fluids. 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 Welch at [facility]. Thrombocythemia 11/13/2010 TIA (transient ischemic attack), dysarthria, ataxia, hosp [facility], 10/2511/06/2010 order: Eval and Treat: Total joint protocol General Information: Living Arrangements: Alone, Condo (Patient states her son can help her at home.) Home Accessibility: wheelchair accessible (Can use elevator.) Prior equipment mobility: Walker, 2 wheeled Prior equipment ADL: Shower chair, Archives Director Education Level: Prior level of function details: [...] thrombosis (DVT) of lower extremity ([facility]) 11/17/2023 Small clot in her leg after surgery Coagulation defect ([facility]) 1982 Primary thrombocytosis Floaters 2010 Hyperlipidemia 07/21/2002 Hypertension 11/26/2003 Major depressive disorder, recurrent episode, in full remission ([facility]) 10/13/2010 Migraine Common 06/26/2008 Pulmonary Nodule 06/26/2008 Rhinitis Allergic NOS 07/21/2002 Right arm numbness 09/01/2020 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 Welch at [facility]. Thrombocythemia 11/13/2010 TIA (transient ischemic attack), dysarthria, ataxia, hosp [facility], 10/2511/06/2010 Order: Eval and Treat: Issue appropriate [...] Ambulate 3-4 times per day with staff therapist Perform home exercise program 2 times per [...] (PT) Discharge Recommendations Discussion: Discussed with, patient, family/animal care supervisor, patient agrees with recommendations, family/animal care supervisor agrees with recommendations Patient's impairments: Decreased balance [...] post-op period. D: Pt arrived to room 2W34/[id number], at 1200 Patient is alert and oriented [...] PreOp Assessment Details Procedure right TKA Surgeon [facility] Procedure Date 12/05/2023 Marilee Penn is a [...] (transient ischemic attack), dysarthria, ataxia, hosp [facility], 10/25 Major depressive disorder, recurrent episode, in full remission ([facility]) 10/13/2010 Overview Note: Psychiatry to Primary Care [...] LW Modifier: scalp Essential hypertension ([facility]) 11/26/2003 Overview Note: Hypertension Hyperlipidemia ([facility]) 07/21/2002 Allergic rhinitis 07/21/2002 Overview Note: dust mites ; Rhinitis Allergic NOS Past Medical History: Diagnosis Date Coagulation defect ([facility]) 1981 Primary thrombocytosis Floaters 2010 Hyperlipidemia 07/21/2002 Hypertension 11/26/2003 Major depressive disorder, recurrent episode, in full remission ([facility]) 10/13/2010 Migraine Common 06/26/2008 Pulmonary Nodule 06/26/2008 Rhinitis Allergic NOS 07/21/2002 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 ANESTHESIA: Spinal with local. SOLUTION MAKER: TERENCE Meyers. FINDINGS: Severe medial, lateral and [...] [facility] Care Management Inpatient Note Plan: Expected Discharge [...] to the assigned Hospital Care Management treatment count team clerk to assess. Patient/Spokesperson Updated: No Herminia Kramer RN 11:08 AM 12/06/2023 documented in this encounter Plan of Treatment Upcoming Encounters Date Type Department Care Team (Late st Contact Info) Description 12/21/2023 12:45 PM ENVIRONMENTAL HEALTH TECHNICIAN Appointment [facility] [address] [place] [address] Lena Puente 12/28/2023 10:00 AM ENVIRONMENTAL HEALTH TECHNICIAN Appointment [facility] [address] [place] [address] 01/19/2024 11:30 AM ENVIRONMENTAL HEALTH TECHNICIAN Appointment [facility] [address] [place] [address] Yanelis Welch MD [address] [facility] [address] [place] [address] Scheduled Referrals Name Type Priority Associated Diagnoses [...] * (ABNORMAL) Hemoglobin (12/08/2023 10:05 AM CDT) [facility] Hemoglobin 9.1(L) 12.0 - 15.5 g/dL 12/08/2023 10:44 AM CDT [facility] Blood Venipuncture / Unknown 12/08/2023 10:05 AM CDT 12/08/2023 10:35 AM CDT Sonny Mckinley PA-C LAB_1 [facility] [address] [place], [place] [phone] [place] [address] * XR Knee Rt 2 Views (12/07/2023 3:41 AM CDT) Anatomical Region Laterality Modality Lower Extremity, Knee Digital Ra diography 12/07/2023 3:41 AM CDT Narrative 12/07/2023 3:52 AM CDT EXAM: XR KNEE RT 2 VIEWS LOCATION: [facility] DATE: 12/07/2023 INDICATION: Fall, pain increased COMPARISON: [...] [facility] DATE: 12/07/2023 INDICATION: Fall, pain increased COMPARISON: [...] - 10.5 x10(9)/L 12/06/2023 11:05 AM CDT [facility] RBC 2.90(L) 3.90 - 5.03 x10(12)/L 12/06/2023 11:05 AM CDT [facility] Hemoglobin 10.3(L) 12.0 - 15.5 g/dL 12/06/2023 11:05 AM CDT [facility] HCT 30.1(L) 34.9 - 44.5 % 12/06/2023 11:05 AM CDT [facility] MCV 103.8(H) 80.0 - 100.0 fL 12/06/2023 11:05 AM CDT [facility] MCH 35.5(H) 27.6 - 33.3 pg 12/06/2023 11:05 AM CDT [facility] MCHC 34.2 31.5 - 35.2 g/dL 12/06/2023 11:05 AM CDT [facility] RDW 12.9 11.9 - 15.5 % 12/06/2023 11:05 AM CDT [facility] Platelets 273 150 - 450 x10(9)/L 12/06/2023 11:05 AM CDT [facility] Automated NRBC 0 <=0 /100 WBC 12/06/2023 11:05 AM CDT [facility] Neutrophil Absolute 5.8 1.7 - 7.0 10(9)/L 12/06/2023 11:05 AM CDT [facility] Lymphocyte Absolute 1.2 1.0 - 4.8 10(9)/L 12/06/2023 11:05 AM CDT [facility] Monocyte Absolute 0.8 0.2 - 0.9 10(9)/L 12/06/2023 11:05 AM CDT [facility] Eosinophil Absolute 0.1 0.0 - 0.5 10(9)/L 12/06/2023 11:05 AM CDT [facility] Basophil Absolute 0.0 0.0 - 0.3 10(9)/L 12/06/2023 11:05 AM CDT [facility] Immature Granulocyte % 0.3 0.0 - 0.5 % 12/06/2023 11:05 AM CDT [facility] Blood Venipuncture / Unknown 12/06/2023 5:43 AM CDT 12/06/2023 8:55 AM CDT Brody Maki MD LAB_1 Performing Organization Address City/State/[facility] Co de Phone Number [facility] [address] * (ABNORMAL) Hemoglobin in AM POD #1 (12/06/2023 5:43 AM CDT) Hemoglobin 9.6(L) 12.0 - 15.5 g/dL 12/06/2023 6:23 AM CDT [facility] Blood Venipuncture / Unknown 12/06/2023 5:43 AM CDT 12/06/2023 6:06 AM CDT Austin Arizmendi PA-C LAB_1 Performing Organization Address City/[facility] Co de Phone Number [facility] [address] * XR Knee Rt 2 Views [...] - 40 U/L 12/05/2023 1:14 PM CDT [facility] Blood Venipuncture / Unknown 12/05/2023 12:38 PM CDT 12/05/2023 12:41 PM CDT Austin Arizmendi PA-C LAB_1 Performing Organization Address [facility] de Phone Number [facility] [address] * Albumin (12/05/2023 12:38 PM CDT) Albumin 3.8 3.5 - 5.0 g/dL 12/05/2023 1:14 PM CDT [facility] Blood Venipuncture / Unknown 12/05/2023 12:38 PM CDT 12/05/2023 12:41 PM CDT Austin Arizmendi PA-C LAB_1 Performing Organization Address [facility]/ZIP Co de Phone Number [facility] [address] * INR/Protime (12/05/2023 12:38 PM CDT) Protime 14.1 11.8 - 14.6 Seconds 12/05/2023 12:57 PM CDT [facility] INR 1.1 0.9 - 1.1 12/05/2023 12:57 PM CDT [facility] Blood Venipuncture / Unknown 12/05/2023 12:38 PM CDT 12/05/2023 12:41 PM CDT Narrative [facility] - 12/05/2023 12:57 PM CDT If you take an anticoagulant medicine called warfarin, your doctor or clinician may establish a normal range for you that is different from the baseline range shown. Austin Arizmendi PA-C LAB_1 Performing Organization Address City/State/[facility] Co de Phone Number [facility] [address] * (ABNORMAL) Basic Metabolic Panel (12/05/2023 6:38 AM CDT) Sodium 135(L) 136 - 145 mmol/L 12/05/2023 7:13 AM CDT [facility] Potassium 3.4(L) 3.5 - 5.1 mmol/L 12/05/2023 7:13 AM CDT [facility] Chloride 104 98 - 109 mmol/L 12/05/2023 7:13 AM CDT [facility] CO2 22 20 - 29 mmol/L 12/05/2023 7:13 AM CDT [facility] Anion Gap 9 6 - 16 mmol/L 12/05/2023 7:13 AM CDT [facility] Calcium 9.4 8.4 - 10.4 mg/dL 12/05/2023 7:13 AM CDT [facility] BUN 18 7 - 26 mg/dL 12/05/2023 7:13 AM CDT [facility] Creatinine 0.82 0.55 - 1.02 mg/dL 12/05/2023 7:13 AM CDT [facility] Glucose 99 70 - 100 mg/dL 12/05/2023 7:13 AM CDT [facility] Comment:The given reference range is for the fasting state. Non-fasting reference range for glucose is 70 - 180 mg/dL. GFR, Estimated >60 >60 mL/min/1.7 3m2 12/05/2023 7:13 AM CDT [facility] Blood Venipuncture / Unknown 12/05/2023 6:38 AM CDT 12/05/2023 6:41 AM CDT Yanelis Welch MD LAB_1 Performing Organization Address [facility] de Phone Number [facility] [address] * (ABNORMAL) Hemoglobin for all patients that have a Draw and Hold, Type and Screen, or Type and Cross ordered (12/05/2023 6:38 AM CDT) [facility] Hemoglobin 11.3(L) 12.0 - 15.5 g/dL 12/05/2023 6:45 AM CDT [facility] Blood Venipuncture / Unknown 12/05/2023 6:38 AM CDT 12/05/2023 6:41 AM CDT Yanelis Welch MD LAB_1 Performing Organization Address [facility] Co de Phone Number [facility] [address] documented in this encounter Visit Diagnoses [...] safe after fall. D: NA comes to information writer, states patient is sitting on floor in bathroom. Political Science Faculty Member to bathroom immediately. NA's already have patient standing in bathroom when information writer arrives. Patient states she got up [...] * Plan of Care - Jayme Alatorre, [facility] - 12/05/2023 12:49 PM CDT [facility] Medication History Note 1. [...] NOT give if history of GI bleed; [place] or sulfa allergy., Pre-op Given 12/05/2023 6:47 [...] after IV opioid administration. HOLD if on APPLICATION SUPPORT. Use of ORAL opioids is encouraged as [...] after IV opioid administration. HOLD if on APPLICATION SUPPORT. Use of ORAL opioids is encouraged as [...] in Manage Orders - Provider: Inpatient Template [facility]) ketorolac (TORADOL) injection 15 mg (COMPLETED) [...] in Manage Orders - Provider: Inpatient Template [facility]) magnesium hydroxide (MILK OF MAGNESIA) suspension [...] after IV opioid administration. HOLD if on APPLICATION SUPPORT. Use of ORAL opioids is encouraged as [...] after IV opioid administration. HOLD if on APPLICATION SUPPORT. Use of ORAL opioids is encouraged as [...] Post-op documented in this encounter Care Teams Hand Surgeon Relationship Specialty [place] [address] [facility] [place] [address] PCP - General 05/16/10 documented as of this encounter
--- OUTSIDE RECORDS SUMMARY | 2023-12-17 02:52 | XMS_ITS | Encounter Summary ---
Author Organization [facility] Address [address], [place] [address] Care Team Providers Care Bridge Attacher Name Role Phone Josie Lainez MD Primary Care Provider [phone] Reason for Visit * Reason Comments COVID Encounter Details Date Type Department Care Team (Late st Contact Info) Description 09/16/2023 Telephone [facility] [address] [place], [place] [phone] [place] [address] [place] [address] COVID Social History Tobacco Use [...] days have passed since symptom onset. Visit [employer] for our latest on masking. While ill, [...] Resources: Recommended Centers of Disease Control (CDC), [facility] ([facility]), and [facility] websites for further information on Coronavirus. Advised [...] cost for patients when prescribing Where/How to garbage pick up worker medication prescription/Medication delivery How to take medication, importance of taking as prescribed and continue until finished If patient needs to begin taking any new prescribed or [id number]-[id number] medications or herbal supplements while completing Paxlovid [...] st Contact Info) Description 12/21/2023 12:45 PM INDIVIDUAL PENSION CONSULTANT Appointment [facility] [address] [place] [address] Lena Puente 12/28/2023 10:00 AM INDIVIDUAL PENSION CONSULTANT Appointment [facility] [address] [place] [address] 01/19/2024 11:30 AM INDIVIDUAL PENSION CONSULTANT Appointment [facility] [address] [place] [address] Yanelis Welch MD [address] [facility] [address] [place] [address] documented as of this encounter Goals Goal [...] documented as of this encounter Care Teams Bridge Attacher Relationship Specialty Start [place] [address] [facility] [place] [address] PCP - General 05/16/10 documented as of this encounter
--- OUTSIDE RECORDS SUMMARY | 2023-12-17 02:52 | XMS_ITS | Encounter Summary ---
Author Organization [employer] Address [address], [place] [address] Care Team Providers Care Ticket Chopper Assembler Name Role Phone Matilda Zimmerman MD Primary Care Provider [phone] Reason for Visit * Reason Comments Medication Questions Encounter Details Date Type Department Care Team (Late st Contact Info) Description 09/17/2023 Telephone [facility] Internal Medicine [address] [place] [address] [place] [address] [place], [place] [phone] Medication Questions Social History Tobacco Use Types [...] 12:24 PM CDT Called pt, pt states [facility] in closed today and is unable to get rx from [facility]. Rx resent [facility]. Requested Prescriptions Signed Prescriptions Disp Refills nirmatrelvir [...] is your question or concern? All the [facility] pharmacies are close in area so wanting to get moved to [facility] in [facility] What is the name and dose of [...] st Contact Info) Description 12/21/2023 12:45 PM COMMERCIAL COUNSEL Appointment [facility] [place] [address] [place] [address] Lena Puente 12/28/2023 10:00 AM COMMERCIAL COUNSEL Appointment [facility] [address] [place] [address] 01/19/2024 11:30 AM COMMERCIAL COUNSEL Appointment [facility] [place] [address] [place] [address] Yanelis Welch MD [address] [facility] [address] [place] [address] documented as of this encounter Goals Goal [...] documented as of this encounter Care Teams Ticket Chopper Assembler Relationship Specialty Start [place] [address] [facility] [place] [address] PCP - General 05/16/10 documented as of this encounter
[2023-12-17 04:45] VITALS: BP 150/73; PULSE 74; RESP 20; TEMP 36.8; O2SAT 97
[2023-12-17 06:21] VITALS: BP 145/68; PULSE 79; RESP 20; TEMP 36.8; O2SAT 97
== END 2023-12-17 07:26 | disposition home or self-care (01) ==
PROVIDERS: Emergency Provider Emergency Medicine
DX: G89.18 Other acute postprocedural pain (principal); M25.561 Pain in right knee
CPT/HCPCS: 93971; 94761; 96372; 96374; 99284; J1171

== ENCOUNTER 2024-05-30 06:51 | Outpatient (CLI) | payer MEDICARE, BC, SELFPAY | END 2024-05-30 06:52 | disposition home or self-care (01) | LOC: AMB 05-31 09:36 | PROVIDERS: Visit Provider Family Medicine | DX: S89.92XA Unspecified injury of left lower leg, initial encounter (principal); R53.1 Weakness; W18.30XA Fall on same level, unspecified, initial encounter; Y92.039 Unspecified place in apartment as the place of occurrence of the external cause | CPT/HCPCS: A0425; A0433 ==